=== PATIENT | female | born 1970 | race Caucasian/White ===

== ENCOUNTER → 2016-07-04 | Outpatient (CLI) | payer BC ==
[2016-07-04 15:22] LABS: ALT 26 U/L (9-52); AST 21 U/L (14-36); Alkaline Phosphatase 80 U/L (38-126); Anion Gap 10 mmol/L; Blood Urea Nitrogen 10 mg/dL (7-17); Calcium 9.9 mg/dL (8.4-10.2); Carbon Dioxide 30 mmol/L (22-30); Chloride 101 mmol/L (98-107); Creatine Kinase 44 U/L (30-135); Glucose 86 mg/dL (74-99); Iron 74 ug/dL (37-170); Non-African American GFR(MDRD) >60 (>60 ml/min/1.73 sqM); Potassium 4.1 mmol/L (3.5-5.1); Sodium 141 mmol/L (137-145); Total Bilirubin 0.7 mg/dL (0.2-1.3); Total Protein 7.1 g/dL (6.3-8.2)
[2016-07-04 15:24] LABS: CH 27.9; CHCM 32.3; HCT 43.8 % (34.0-46.0); HGB 13.5 gm/dL (11.4-16.0); MCH 26.8 pg (25.0-35.0); MCHC 30.9 g/dL (31.0-37.0); MCV 86.8 fL (80.0-100.0); Mean Platelet Volume 7.8; RBC 5.05 m/uL (3.80-5.40); RDW 13.3 % (11.5-15.5)
[2016-07-04 16:12] LABS: Vitamin B12 938 pg/mL (239-931)
== END | disposition home or self-care (01) ==
LOC: LABWHC1 14:16
PROVIDERS: ATTEND Psychiatry & Neurology Neurology
DX: Z00.00 Encounter for general adult medical examination without abnormal findings (principal); G35 Multiple sclerosis; G25.81 Restless legs syndrome; M79.1 Myalgia; R43.2 Parageusia; R20.2 Paresthesia of skin
CPT/HCPCS: 36415; 80053; 82306; 82550; 82607; 82728; 83540; 84439; 84443; 84630; 85027

== ENCOUNTER → 2017-08-13 | Outpatient (CLI) | payer BC ==
[2017-08-13 14:03] LABS: HCT 34.6 % (34.0-46.0); HGB 10.4 gm/dL (11.4-16.0); Hypochromasia Marked; MCH 24.3 pg (25.0-35.0); MCV 81.1 fL (80.0-100.0); Mean Platelet Volume 7.4; Platelet Count 367 k/uL (150-450); RBC 4.27 m/uL (3.80-5.40); RDW 14.5 % (11.5-15.5); WBC 6.7 k/uL (3.8-10.6)
[2017-08-13 14:06] LABS: ALT 19 U/L (9-52); AST 21 U/L (14-36); Albumin 4.2 g/dL (3.5-5.0); Alkaline Phosphatase 84 U/L (38-126); Anion Gap 8 mmol/L; Blood Urea Nitrogen 11 mg/dL (7-17); Calcium 9.4 mg/dL (8.4-10.2); Carbon Dioxide 28 mmol/L (22-30); Chloride 104 mmol/L (98-107); Glucose 84 mg/dL (74-99); Potassium 4.2 mmol/L (3.5-5.1); Sodium 140 mmol/L (137-145); Total Bilirubin 0.4 mg/dL (0.2-1.3); Total Protein 7.1 g/dL (6.3-8.2)
[2017-08-13 15:03] LABS: Band Neutrophils % 1 %; Eosinophils # (M) 0.13 k/uL (0-0.7); Lymphocytes # (M) 1.21 k/uL (1.0-4.8); Monocytes # (M) 0.34 k/uL (0-1.0); Neutrophils % (M) 74 %; Nucleated Red Blood Cells 0 /100 WBC (0-0); Total Cells Counted 100
[2017-08-13 15:04] LABS: Large Platelets Present; Poikilocytosis (M) Present
== END | disposition home or self-care (01) ==
LOC: LABWHC1 12:50
PROVIDERS: ATTEND Psychiatry & Neurology Neurology
DX: Z00.00 Encounter for general adult medical examination without abnormal findings (principal)
CPT/HCPCS: 36415; 80053; 82306; 82607; 85025

== ENCOUNTER → 2017-09-04 | Outpatient (CLI) | payer BC ==
--- NOTE | 2017-09-05 13:30 | MM ---
Reason for exam: screening (asymptomatic). Last mammogram was performed 1 year and 3 months ago. History: Patient is nulliparous. Family history of breast cancer in sister at age 51. Physical Findings: A clinical breast exam by your physician is recommended on an annual basis and results should be correlated with mammographic findings. MG 3D Screening Mammo W/Cad Bilateral CC and MLO view(s) were taken. XCCM view(s) were taken of the right breast. Prior study comparison: May 29, 2016, bilateral MG screening mammo w CAD. May 26, 2015, bilateral MG screening mammo w CAD. The breast tissue is heterogeneously dense. This may lower the sensitivity of mammography. No significant changes when compared with prior studies. ASSESSMENT: Benign, BI-RAD 2 RECOMMENDATION: Routine screening mammogram of both breasts in 1 year.
== END ==
LOC: RADMAMWWP 12:02
PROVIDERS: ATTEND Family Medicine
DX: Z12.31 Encounter for screening mammogram for malignant neoplasm of breast (principal)
CPT/HCPCS: 77063; 77067

== ENCOUNTER → 2017-10-02 | Outpatient (CLI) | payer BC ==
--- NOTE | 2017-10-03 07:04 | US ---
EXAMINATION TYPE: US thyroid st tissue head/neck DATE OF EXAM: 10/02/2017 COMPARISON: US CLINICAL HISTORY: N28.81,E07.9 MULTIPLE NODULES,LARGE KIDNEY. GLAND SIZE: Right Lobe: 5.4 x 1.2 x 1.5 cm Overall Parenchyma: homogenous Left Lobe: 5.1 x 1.6 x 1.6 cm Overall Parenchyma: homogeneous Isthmus Thickness: 0.4 cm NODULES RIGHT: # of nodules measured on right: 3 1. 1.3 X 0.6 x 1.0 cm hypoechoic cystic nodule at the upper pole with well-defined margins; . This nodule is wider than tall and shows no intranodular vascularity. Prior size: 1.2 x 0.7 x 0.8 cm 2. 0.5 X 0.3 x 0.4 cm hypoechoic cystic nodule at the upper pole with well-defined margins; . This nodule is wider than tall and shows no intranodular vascularity. Prior size: 0.7 x 0.4 x 0.5 cm 3. 0.3 X 0.3 x 0.3 cm hypoechoic solid nodule at the mid pole with poorly defined margins; calcifica tion . This nodule is wider than tall and shows intranodular vascularity. Prior size: 0.4 x 0.3 x 0.4 cm LEFT: # of nodules measured on left: 4 1. 1.6 X 1.1 x 0.9 cm hypoechoic mixed nodule at the lower pole with well-defined margins; . This nodule is wider than tall and shows intranodular vascularity. Prior size: 1.5 x 1.0 x 1.2 cm 2. 0.8 X 0.4 x 0.6 cm isoechoic solid nodule at the lower pole with well-defined margins; . This no dule is wider than tall and shows intranodular vascularity. Prior size: 0.5 x 0.3 x 0.5 cm 3. 0.7 X 0.5 x 0.7 cm hypoechoic solid nodule at the mid pole with well-defined margins; . This nod ule is wider than tall and shows no intranodular vascularity. Prior size: 0.7 x 0.3 x 0.6 cm 4. 0.8 X 0.4 x 0.5 cm hypoechoic cystic nodule at the mid pole with well-defined margins; . This no dule is wider than tall and shows no intranodular vascularity. Prior size: 0.7 x 0.4 x 0.5 cm ISTHMUS: # of nodules measured in the isthmus: 0 Bilateral neck scanned, no evidence of lymphadenopathy. Nodules as described. IMPRESSION: Persistent stable multinodular goiter .
--- NOTE | 2017-10-03 07:20 | US ---
EXAMINATION TYPE: US kidneys/renal and bladder DATE OF EXAM: 10/02/2017 COMPARISON: Prior renal ultrasound December 27, 2013 CLINICAL HISTORY: N28.81,E07.9 MULTIPLE NODULES,LARGE KIDNEY. EXAM MEASUREMENTS: Right Kidney: 10.2 x 3.6 x 4.6 cm Left Kidney: 9.9 x 3.9 x 6.4 cm Right Kidney: small amount of fluid seen in renal pelvis post void. Left Kidney: No hydronephrosis or masses seen Bladder: wnl Bilateral Jets seen: only left jet seen Incidental note is made of large cystic structure right adnexa, that measures 9.7 x 6.8 x 7.6 cm. There is no evidence for hydronephrosis at this point in time. No nephrolithiasis is seen. No rob s are identified. The urinary bladder is anechoic. Distal left ureter jet is seen. IMPRESSION: Mild prominence of right renal pelvis is seen only after voiding. 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 It has fairly simple morphology but because of size warrants further workup with ded icated pelvic ultrasound and probable MRI as well as tumor marker correlation. OB gynecology referral advised.
== END | disposition home or self-care (01) ==
LOC: RADUSWWP 16:09
PROVIDERS: ATTEND Family Medicine
DX: R93.421 Abnormal radiologic findings on diagnostic imaging of right kidney (principal); N28.81 Hypertrophy of kidney; N88.8 Other specified noninflammatory disorders of cervix uteri; E04.2 Nontoxic multinodular goiter
CPT/HCPCS: 76536; 76770

== ENCOUNTER 2018-05-03 12:41 | Inpatient (IN) | payer BC ==
[2018-05-03] MEDS ORDERED: KETOROLAC 30 MG/ML 1 ML VIAL IVP STA (13:11)
[2018-05-03] MEDS ORDERED: SODIUM CHLORIDE 0.9% 1,000 ML IV STA (13:11)
[2018-05-03] MEDS ORDERED: SODIUM CHLORIDE 0.9% 500 ML 500 ML IV STA (13:11)
--- NOTE | 2018-05-03 13:24 | ED ---
General Adult HPI - General Chief complaint: Fever Stated complaint: Abd Pain Source: patient, family, RN notes reviewed, old records reviewed Mode of arrival: ambulatory Limitations: no limitations - History of Present Illness Initial comments: 47-year-old female patient presents to ED with abdominal pain, fever, diarrhea. The past 3 days. Patient states that she has had intermittent bouts of nonbloody, loose stool since Friday. Patient has also been experiencing some subjective fevers and chills, and a recorded temperature of 100.6 at home. Patient has now developed abdominal pain which she describes as a stabbing in the right lower quadrant. Patient has a history of endometriosis. Patient additionally complains of some mild shortness of breath. Denies dyspnea with exertion. No history of blood clots, no recent travel, no hx of malignancy. Denies chest pain, chest pain with exertion. Patient has not taken anything or sudden treatment for these symptoms. Patient denies headache, chest pain, changes in vision, dysuria. Systemic: Pt denies fatigue, myalgia, rash. Pt denies weakness, night sweats, weight loss. Neuro: Pt denies headache, visual disturbances, syncope or pre-syncope. HEENT: Pt denies ocular discharge or irritation, otalgia, rhinorrhea, pharyngitis or notable lymphadenopathy. Cardiopulmonary: Pt denies chest pain, heart palpitations, dyspnea on exertion. : Pt denies dysuria, burning w/ urination, frequency/urgency. Denies new onset urinary or bowel incontinence. MSK: Pt denies myalgia, loss of strength or function in extremities. - Related Data Home Medications Medication Instructions Recorded Confirmed Aspirin 325 mg PO DIRECTED PRN 10/26/13 05/03/18 Ascorbic Acid/Multivit-Min 1,000 mg PO DAILY 05/03/18 05/03/18 [Emergen-C 1,000 mg Packet] Allergies Allergy/AdvReac Type Severity Reaction Status Date / Time amoxicillin [Amoxicillin] Allergy Severe Rash/Hives Verified 05/03/18 16:57 alprazolam [From Xanax] AdvReac Severe Unknown Verified 05/03/18 16:57 morphine AdvReac Severe Itching Verified 05/03/18 16:57 sulfamethoxazole AdvReac Severe Dyspnea Verified 05/03/18 16:57 [From Bactrim] trimethoprim [From Bactrim] AdvReac Severe Dyspnea Verified 05/03/18 16:57 novacaine AdvReac Severe Rapid Uncoded 05/03/18 13:06 Heart Rate Review of Systems ROS Statement: Those systems with pertinent positive or pertinent negative responses have been documented in the HPI. ROS Other: All systems not noted in ROS Statement are negative. Past Medical History Past Medical History: Neurologic Disorder, Pneumonia, Rheumatoid Arthritis (RA) Additional Past Medical History / Comment(s): MULTIPLE SCLEROSIS, ENDOMETRIOSIS.RIGHT KIDNEY ENLARGED. History of Any Multi-Drug Resistant Organisms: None Reported Past Surgical History: Orthopedic Surgery Additional Past Surgical History / Comment(s): EXP. LAP FOR ENDOMETRIOSIS X2 WITH SCAR TISSUE ON OVARIES..ADENEXAL CYSTIC DRAINAGE DUE TO PRESSURE ON URETHERA-. Past Anesthesia/Blood Transfusion Reactions: Previous Problems w/ Anesthesia Additional Past Anesthesia/Blood Transfusion Reaction / Comment(s): NOVACAINE. IT CAUSED INCREASED HEART RATE. Past Psychological History: Anxiety, Depression Smoking Status: Never smoker Past Alcohol Use History: None Reported Past Drug Use History: None Reported General Exam - General Exam Comments Initial Comments: Constitutional: NAD, AOX3, Pt has pleasant affect. HEENT: NC/AT, trachea midline, neck supple, no lymphadenopathy. Posterior pharynx non erythematous, without exudates. External ears appear normal, without discharge. Mucous membranes moist. Eyes PERRLA, EOM intact. There is no scleral icterus. No pallor noted. Cardiopulmonary: RRR, no murmurs, rubs or gallops, no JVD noted. Lungs CTAB in anterior and posterior hamm. No peripheral edema. Abdominal exam: Abdomen soft and mildly distended. Abdomen diffusely tender to palpation, most tender in right lower quadrant. No ecchymoses, Cullens/Mock Willson sign negative. No guarding or rigidity. Bowel sounds active in LLQ. No hepatosplenomegaly. Neuro: CN II-XII grossly intact. MSK: no leg swelling, homans negative bilaterally. no periperal edema. Posterior tibialis +2 bilaterally. Limitations: no limitations Course Vital Signs 05/03/18 05/03/18 05/03/18 12:59 13:00 13:03 Temperature 100.6 F H Pulse Rate 98 Respiratory 20 Rate Blood Pressure 128/88 O2 Sat by Pulse 97 96 98 Oximetry 05/03/18 05/03/18 05/03/18 13:10 13:20 13:30 Temperature Pulse Rate Respiratory Rate Blood Pressure 128/88 128/88 128/88 O2 Sat by Pulse 98 Oximetry 05/03/18 05/03/18 05/03/18 13:40 13:50 14:00 Temperature Pulse Rate Respiratory Rate Blood Pressure 128/88 128/88 128/88 O2 Sat by Pulse Oximetry 05/03/18 05/03/18 05/03/18 14:10 14:20 14:30 Temperature Pulse Rate Respiratory Rate Blood Pressure 128/88 128/88 128/88 O2 Sat by Pulse Oximetry 05/03/18 05/03/18 05/03/18 14:40 14:50 15:00 Temperature 100.7 F H Pulse Rate 85 Respiratory 18 Rate Blood Pressure 128/88 128/88 128/88 O2 Sat by Pulse 100 Oximetry 05/03/18 05/03/18 05/03/18 15:10 15:20 15:30 Temperature Pulse Rate Respiratory Rate Blood Pressure 128/88 128/88 114/73 O2 Sat by Pulse Oximetry 05/03/18 05/03/18 05/03/18 15:40 15:50 16:00 Temperature Pulse Rate 72 Respiratory 18 Rate Blood Pressure 114/73 114/73 114/73 O2 Sat by Pulse 100 Oximetry 05/03/18 05/03/18 05/03/18 16:10 16:20 16:30 Temperature Pulse Rate Respiratory Rate Blood Pressure 114/73 114/73 114/73 O2 Sat by Pulse Oximetry 05/03/18 05/03/18 05/03/18 16:40 16:50 16:52 Temperature 99.2 F Pulse Rate 85 Respiratory 20 Rate Blood Pressure 114/73 114/73 O2 Sat by Pulse 99 Oximetry 05/03/18 18:28 Temperature 101.4 F H Pulse Rate 86 Respiratory 18 Rate Blood Pressure 116/71 O2 Sat by Pulse 96 Oximetry Medical Decision Making - Medical Decision Making 47-year-old female patient presents to ED for primary complaint of abdominal pain. 47-year-old female patient presents to ED with abdominal pain, fever, diarrhea. The past 3 days. Patient states that she has had intermittent bouts of nonbloody, loose stool since Friday. Patient has also been experiencing some subjective fevers and chills. Patient has now developed abdominal pain which she describes as a stabbing in the right lower quadrant. Patient has a history of endometriosis. Patient additionally complains of some mild shortness of breath. Denies chest pain, chest pain with exertion. Physical exam displayed a tender abdomen, diffusely, most tender in right lower quadrant. No guarding or rigidity, no ecchymoses. Obturator sign negative. Patient was began on extensive workup including EKGpercent display acute ischemia. CBC and CMP were non impressive. UA displayed a UTI. Chest x-ray displayed right middle lobe pneumonia. CT abdomen and pelvis displayed possible jejunitis, possible small bowel infection. CT also displayed inflammation in the adnexa, patient has a long history of endometriosis, multiple surgeries. A d-dimer and the patient's elevated. D-dimer is ordered secondary to patient shortness of breath. D-dimer was found to be elevated, V/Q scan was ordered and pending, bilateral LE venous doppler ordered and pending. PERC negative. Pt is not actively experiencing pleuritic chest pain, sob. Pt's vitals have been wnl. Saturating at 99%, respirations 16 on exam, regular rate. Pt to be started on levofloxacin and admitted for continued evaluation and treatment of pneumonia and uti. Case discussed in depth with Dr. Flores. - Lab Data Result diagrams: 05/03/18 13:52 05/03/18 13:40 Lab Results 05/03/18 05/03/18 05/03/18 Range/Units 13:40 13:52 13:52 WBC 10.6 (3.8-10.6) k/uL RBC 4.22 (3.80-5.40) m/uL Hgb 12.0 (11.4-16.0) gm/dL Hct 36.2 (34.0-46.0) % MCV 85.8 (80.0-100.0) fL MCH 28.5 (25.0-35.0) pg MCHC 33.2 (31.0-37.0) g/dL RDW 14.0 (11.5-15.5) % Plt Count 410 (150-450) k/uL Neutrophils % (Manual) 93 % Lymphocytes % (Manual) 3 % Monocytes % (Manual) 4 % Neutrophils # (Manual) 9.86 H (1.3-7.7) k/uL Lymphocytes # (Manual) 0.32 L (1.0-4.8) k/uL Monocytes # (Manual) 0.42 (0-1.0) k/uL Nucleated RBCs 0 (0-0) /100 WBC Manual Slide Review Performed RBC Morphology Normal D-Dimer (<0.60) mg/L FEU Sodium 134 L (137-145) mmol/L Potassium 4.0 (3.5-5.1) mmol/L Chloride 96 L (98-107) mmol/L Carbon Dioxide 22 (22-30) mmol/L Anion Gap 16 mmol/L BUN 21 H (7-17) mg/dL Creatinine 0.60 (0.52-1.04) mg/dL Est GFR (CKD-EPI)AfAm >90 (>60 ml/min/1.73 sqM) Est GFR (CKD-EPI)NonAf >90 (>60 ml/min/1.73 sqM) Glucose 96 (74-99) mg/dL Plasma Lactic Acid Anupam 0.8 (0.7-2.0) mmol/L Calcium 9.3 (8.4-10.2) mg/dL Total Bilirubin 1.0 (0.2-1.3) mg/dL AST 61 H (14-36) U/L ALT 46 (9-52) U/L Alkaline Phosphatase 117 (38-126) U/L Troponin I (0.000-0.034) ng/mL Total Protein 6.8 (6.3-8.2) g/dL Albumin 3.6 (3.5-5.0) g/dL Amylase 41 (30-110) U/L Lipase 35 (23-300) U/L Urine Color Urine Appearance (Clear) Urine pH (5.0-8.0) Ur Specific [place] (1.001-1.035) Urine Protein (Negative) Urine Glucose (UA) (Negative) Urine Ketones (Negative) Urine Blood (Negative) Urine Nitrite (Negative) Urine Bilirubin (Negative) Urine Urobilinogen (<2.0) mg/dL Ur Leukocyte Esterase (Negative) Urine RBC (0-5) /hpf Urine WBC (0-5) /hpf Ur Squamous Epith Cells (0-4) /hpf Amorphous Sediment (None) /hpf Urine Bacteria (None) /hpf Urine HCG, Qual (Not Detectd) 05/03/18 05/03/18 05/03/18 Range/Units 13:52 13:52 15:25 WBC (3.8-10.6) k/uL RBC (3.80-5.40) m/uL Hgb (11.4-16.0) gm/dL Hct (34.0-46.0) % MCV (80.0-100.0) fL MCH (25.0-35.0) pg MCHC (31.0-37.0) g/dL RDW (11.5-15.5) % Plt Count (150-450) k/uL Neutrophils % (Manual) % Lymphocytes % (Manual) % Monocytes % (Manual) % Neutrophils # (Manual) (1.3-7.7) k/uL Lymphocytes # (Manual) (1.0-4.8) k/uL Monocytes # (Manual) (0-1.0) k/uL Nucleated RBCs (0-0) /100 WBC Manual Slide Review RBC Morphology D-Dimer 3.53 H (<0.60) mg/L FEU Sodium (137-145) mmol/L Potassium (3.5-5.1) mmol/L Chloride (98-107) mmol/L Carbon Dioxide (22-30) mmol/L Anion Gap mmol/L BUN (7-17) mg/dL Creatinine (0.52-1.04) mg/dL Est GFR (CKD-EPI)AfAm (>60 ml/min/1.73 sqM) Est GFR (CKD-EPI)NonAf (>60 ml/min/1.73 sqM) Glucose (74-99) mg/dL Plasma Lactic Acid Anupam (0.7-2.0) mmol/L Calcium (8.4-10.2) mg/dL Total Bilirubin (0.2-1.3) mg/dL AST (14-36) U/L ALT (9-52) U/L Alkaline Phosphatase (38-126) U/L Troponin I <0.012 (0.000-0.034) ng/mL Total Protein (6.3-8.2) g/dL Albumin (3.5-5.0) g/dL Amylase (30-110) U/L Lipase (23-300) U/L Urine Color Yellow Urine Appearance Clear (Clear) Urine pH 6.5 (5.0-8.0) Ur Specific [place] >1.050 H (1.001-1.035) Urine Protein 1+ H (Negative) Urine Glucose (UA) Negative (Negative) Urine Ketones 2+ H (Negative) Urine Blood Trace H (Negative) Urine Nitrite Positive H (Negative) Urine Bilirubin Negative (Negative) Urine Urobilinogen <2.0 (<2.0) mg/dL Ur Leukocyte Esterase Negative (Negative) Urine RBC 6 H (0-5) /hpf Urine WBC 35 H (0-5) /hpf Ur Squamous Epith Cells 6 H (0-4) /hpf Amorphous Sediment Rare H (None) /hpf Urine Bacteria Moderate H (None) /hpf Urine HCG, Qual (Not Detectd) 05/03/18 Range/Units 15:25 WBC (3.8-10.6) k/uL RBC (3.80-5.40) m/uL Hgb (11.4-16.0) gm/dL Hct (34.0-46.0) % MCV (80.0-100.0) fL MCH (25.0-35.0) pg MCHC (31.0-37.0) g/dL RDW (11.5-15.5) % Plt Count (150-450) k/uL Neutrophils % (Manual) % Lymphocytes % (Manual) % Monocytes % (Manual) % Neutrophils # (Manual) (1.3-7.7) k/uL Lymphocytes # (Manual) (1.0-4.8) k/uL Monocytes # (Manual) (0-1.0) k/uL Nucleated RBCs (0-0) /100 WBC Manual Slide Review RBC Morphology D-Dimer (<0.60) mg/L FEU Sodium (137-145) mmol/L Potassium (3.5-5.1) mmol/L Chloride (98-107) mmol/L Carbon Dioxide (22-30) mmol/L Anion Gap mmol/L BUN (7-17) mg/dL Creatinine (0.52-1.04) mg/dL Est GFR (CKD-EPI)AfAm (>60 ml/min/1.73 sqM) Est GFR (CKD-EPI)NonAf (>60 ml/min/1.73 sqM) Glucose (74-99) mg/dL Plasma Lactic Acid Anupam (0.7-2.0) mmol/L Calcium (8.4-10.2) mg/dL Total Bilirubin (0.2-1.3) mg/dL AST (14-36) U/L ALT (9-52) U/L Alkaline Phosphatase (38-126) U/L Troponin I (0.000-0.034) ng/mL Total Protein (6.3-8.2) g/dL Albumin (3.5-5.0) g/dL Amylase (30-110) U/L Lipase (23-300) U/L Urine Color Urine Appearance (Clear) Urine pH (5.0-8.0) Ur Specific [place] (1.001-1.035) Urine Protein (Negative) Urine Glucose (UA) (Negative) Urine Ketones (Negative) Urine Blood (Negative) Urine Nitrite (Negative) Urine Bilirubin (Negative) Urine Urobilinogen (<2.0) mg/dL Ur Leukocyte Esterase (Negative) Urine RBC (0-5) /hpf Urine WBC (0-5) /hpf Ur Squamous Epith Cells (0-4) /hpf Amorphous Sediment (None) /hpf Urine Bacteria (None) /hpf Urine HCG, Qual Not Detected (Not Detectd) - EKG Data -: EKG Interpreted by Ga EKG shows normal: sinus rhythm EKG Comments: Ventricular rate 96, OH interval 138, QRS 80, QT/QTC 342/432. Normal sinus rhythm. Possible atrial enlargement. No concerns for acute ischemia. Disposition Clinical Impression: Pneumonia, UTI (urinary tract infection) Disposition: ADMITTED IP TO THIS HOSP Condition: Good Is patient prescribed a controlled substance at d/c from ED?: No Decision Date: 05/03/18 Decision Time: 17:10
[2018-05-03 14:09] LABS: ALT 46 U/L (9-52); AST 61 U/L (14-36); Albumin 3.6 g/dL (3.5-5.0); Alkaline Phosphatase 117 U/L (38-126); Amylase 41 U/L (30-110); Anion Gap 16 mmol/L; Blood Urea Nitrogen 21 mg/dL (7-17); Calcium 9.3 mg/dL (8.4-10.2); Carbon Dioxide 22 mmol/L (22-30); Chloride 96 mmol/L (98-107); Glucose 96 mg/dL (74-99); Lipase 35 U/L (23-300); Sodium 134 mmol/L (137-145); Total Protein 6.8 g/dL (6.3-8.2)
[2018-05-03 14:13] LABS: HCT 36.2 % (34.0-46.0); MCH 28.5 pg (25.0-35.0); MCHC 33.2 g/dL (31.0-37.0); MCV 85.8 fL (80.0-100.0); Mean Platelet Volume 6.8; Platelet Count 410 k/uL (150-450); RBC 4.22 m/uL (3.80-5.40); WBC 10.6 k/uL (3.8-10.6)
--- NOTE | 2018-05-03 14:43 | XR ---
EXAMINATION TYPE: XR chest 2V DATE OF EXAM: 05/03/2018 COMPARISON: None INDICATION: Pain short of breath TECHNIQUE: Frontal and lateral views of the chest are obtained. FINDINGS: The heart size is normal. The pulmonary vasculature is normal. Appears to be an infiltrate silhouetting the right heart border. Correlate for right middle lobe atel ectasis or early pneumonia. Follow-up exams can be performed as clinically indicated.. IMPRESSION: 1. Suggestion of a right middle lobe infiltrate. Correlate for atelectasis or pneumonia
[2018-05-03 14:55] LABS: Lymphocytes # (M) 0.32 k/uL (1.0-4.8); Monocytes # (M) 0.42 k/uL (0-1.0); Neutrophils # (M) 9.86 k/uL (1.3-7.7); Neutrophils % (M) 93 %; Nucleated Red Blood Cells 0 /100 WBC (0-0); Total Cells Counted 100
[2018-05-03 15:49] LABS: Amorphous Sediment,Urine Rare /hpf; Appearance,Urine Clear (Clear); Bacteria,Urine Moderate /hpf; Bilirubin,Urine Negative (Negative); Blood,Urine Trace (Negative); Color,Urine Yellow; Glucose,Urine (UA) Negative (Negative); Ketones,Urine 2+ (Negative); Leukocyte Esterase,Urine Negative (Negative); Nitrite,Urine Positive (Negative); PH, Urine 6.5 (5.0-8.0); Protein,Urine 1+ (Negative); RBC,Urine 6 /hpf (0-5); Squamous Epithelial Cell,Urine 6 /hpf (0-4); Urobilinogen,Urine <2.0 mg/dL (<2.0)
[2018-05-03 15:50] LABS: Specific Gravity,Urine >1.050 (1.001-1.035)
--- NOTE | 2018-05-03 15:53 | CT ---
EXAMINATION TYPE: CT abdomen pelvis w con DATE OF EXAM: 05/03/2018 COMPARISON: 11/01/2013 pelvis INDICATION: Generalized abdominal pain and bloating DLP: 624.9 mGycm, Automated exposure control for dose reduction was used. CONTRAST: 100 mL of Isovue 300. Study performed without Oral Contrast TECHNIQUE: Axial images were obtained from above the diaphragm to the pubic rami in the axial plane a t 5 mm thick sections. Reconstructed images are reviewed on the computer in the coronal plane. FINDINGS: Limited CT sections are obtained the lung bases. The lung bases are clear. CT ABDOMEN: Liver: Normal Spleen: Normal Pancreas: Normal Adrenal glands: The adrenal glands are normal. Gallbladder: Normal Kidneys: No masses are evident. No hydronephrosis is present. No cysts are present. Delayed images were obtained through the kidneys, which remain unremarkable. Aorta: Normal Inferior vena cava: Normal. CT PELVIS: There are multiple dilated small bowel loops throughout the upper abdomen. Colon appears normal. Ther e may be a zone of transition within the mid left abdomen with some thickening of small bowel loops., Series 202image 29, series 201 image 42. Correlate for partial small bowel obstruction and ileus. Appendix: Not identified. Urinary bladder: Normal. Genitourinary structures: There are multiple large cysts within the pelvis. Consider additional evalu ation with ultrasound. Hydrosalpinx could be within the differential. Hiatal salpinx is not excluded. Ovarian carcinoma is not excluded. Largest cystlike structure measures 3.8 cm in transverse dimensio n on the left and 5.4 cm in transverse dimension on the right. The uterus appears within normal limit s. Osseous structures: No suspicious lytic or sclerotic lesions. IMPRESSIONS: 1. Partial small bowel obstruction with a transition within the left midabdomen secondary to the con taining of the small bowel wall. Consider jejunitis. 2. Multiple large cystic structures in the bilateral adnexa. Some of these appear curvilinear [place] s alpinx is not excluded. Consider the possibility of pyosalpinx within the differential. Ovarian carci noma is not excluded. Follow-up is recommended. Consider initial evaluation with ultrasound. 3. Report was called to Dr. Lopez by Dr. Villa by telephone at the time of interpretation.
[2018-05-03] MEDS ORDERED: LEVOFLOXACIN 750MG-D5W PMX 750 MG in DEXTROSE/WATER 1 150ML.BAG IVPB STA (16:24)
[2018-05-03] MEDS ORDERED: NALOXONE 0.4 MG/ML 1 ML VIAL IV PRN (16:35)
--- NOTE | 2018-05-03 17:23 | US ---
EXAMINATION TYPE: US venous doppler duplex LE BI DATE OF EXAM: 05/03/2018 4:25 PM COMPARISON: NONE CLINICAL HISTORY: Pain. Elevated DDimer, no pain or swelling, no redness SIDE PERFORMED: Bilateral TECHNIQUE: The lower extremity deep venous system is examined utilizing real time linear array sonog herminia with graded compression, doppler sonography and color-flow sonography. VESSELS IMAGED: External Iliac Vein (EIV) Common Femoral Vein Deep Femoral Vein Greater Saphenous Vein * Femoral Vein Popliteal Vein Small Saphenous Vein * Proximal Calf Veins (* superficial vessels) Right Leg: Negative for DVT, rouleaux flow seen Left Leg: Negative for DVT, rouleaux flow seen IMPRESSION: 1. No deep venous thrombosis by ultrasound criteria. 2. Rouleaux flow bilateral lower extremities. This can be seen within normal patients. Other etiologi es however should include, but are not limited to, malignancy, inflammation, connective tissue disord ers.
[2018-05-03] MEDS: ACETAMINOPHEN TAB 325 MG TAB PO PRN (18:27)
--- NOTE | 2018-05-04 09:51 | NM ---
EXAMINATION TYPE: NM pul vent and perfuse DATE OF EXAM: 05/04/2018 COMPARISON: Chest x-ray 05/03/2018 HISTORY: Pain and shortness of breath, elevated d-dimer TECHNIQUE: Utilizing inhalation of 38.4 mCi Tc 99m DTPA aerosol and intravenous injection of 4.98 mC i of Tc 99m MAA, ventilation and perfusion images are acquired post injection in multiple projections . FINDINGS: Normal radiotracer distribution is noted in the lungs. There is no evidence of mismatched defects. IMPRESSION: Low probability for pulmonary embolism
[2018-05-04 11:06] LABS: HCT 38.4 % (34.0-46.0); HGB 12.3 gm/dL (11.4-16.0); MCV 87.5 fL (80.0-100.0); Mean Platelet Volume 6.4; Platelet Count 529 k/uL (150-450); RBC 4.39 m/uL (3.80-5.40); RDW 14.1 % (11.5-15.5); WBC 10.9 k/uL (3.8-10.6)
--- NOTE | 2018-05-04 11:06 | P.HPIM ---
History of Present Illness H&P Date: 05/04/18 Chief Complaint: Abdominal pain This is a 47-year-old female, patient of Dr. Cruz. She has a known past medical history of multiple sclerosis, endometriosis requiring exploratory laparotomy 2 and rheumatoid arthritis. Patient reports abdominal pain started about 3 days ago mostly in the upper abdomen. She had a significant amount of diarrhea and and Friday. There was no blood reported in the stools. She was also having fevers as high as 101. The abdominal pain moved into the lower abdominal region. Pain was so severe she was having shortness of breath. And then on Friday she had stopped having any diarrhea and also stopped passing gas. During these 3 days she vomited twice. Patient came into the emergency room for further evaluation and treatment. She's found to have a temp of 101.4 she was tachycardic heart rate around 108. White count normal. Computed tomography scan showed partial small bowel obstruction with a transition within the left mid abdomen secondary to be containing of the small bowel wall. And consider jejunitis. Also reports multiple large cystic structures in the bilateral adnexa. Consider the possibility of pyosalpinx within the differential. Ovarian carcinoma is not excluded. We'll be ordering an abdominal and pelvic ultrasound for further evaluation. Patient is currently nothing by mouth. Started on Levaquin and IV Flagyl. Surgical and SCREEN HANDLER consults have been placed. Patient was found to have evidence of a possible pneumonia on chest x-ray. Chest x-ray reported suggestion of a right middle lobe infiltrate. Correlate for atelectasis or pneumonia. Patient does reports having a cough. Also evidence of a UTI. She has been having some dark urine as well as mild burning with urination. Culture has been obtained. She' s currently nothing by mouth and on my and on IV fluids. Patient denies any chest pain. Does report some nausea. Patient has never had any colonoscopy or EGD. Does report having history of scar tissue in the abdomen due to previous abdominal surgeries. Patient denies any recent traveling. Denies any sick contacts. 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 Review of Systems Please refer to HPI otherwise unremarkable Past Medical History Past Medical History: Neurologic Disorder, Pneumonia, Rheumatoid Arthritis (RA) Additional Past Medical History / Comment(s): MULTIPLE SCLEROSIS, ENDOMETRIOSIS.RIGHT KIDNEY ENLARGED. History of Any Multi-Drug Resistant Organisms: None Reported Past Surgical History: Orthopedic Surgery Additional Past Surgical History / Comment(s): EXP. LAP FOR ENDOMETRIOSIS X2 WITH SCAR TISSUE ON OVARIES..ADENEXAL CYSTIC DRAINAGE DUE TO PRESSURE ON URETHERA-. Past Anesthesia/Blood Transfusion Reactions: Previous Problems w/ Anesthesia Additional Past Anesthesia/Blood Transfusion Reaction / Comment(s): NOVACAINE. IT CAUSED INCREASED HEART RATE. Past Psychological History: Anxiety, Depression Smoking Status: Never smoker Past Alcohol Use History: None Reported Past Drug Use History: None Reported - Past Family History Mother Family Medical History: Cancer, Thyroid Disorder Father Additional Family Medical History / Comment(s): , Heart Attack at 57 Sister(s) Family Medical History: Cancer Additional Family Medical History / Comment(s): Breast Cancer Medications and Allergies Home Medications Medication Instructions Recorded Confirmed Type Aspirin 325 mg PO DIRECTED PRN 10/26/13 05/03/18 History Ascorbic Acid/Multivit-Min 1,000 mg PO DAILY 05/03/18 05/03/18 History [Emergen-C 1,000 mg Packet] Allergies Allergy/AdvReac Type Severity Reaction Status Date / Time amoxicillin [Amoxicillin] Allergy Severe Rash/Hives Verified 05/03/18 16:57 alprazolam [From Xanax] AdvReac Severe Unknown Verified 05/03/18 16:57 morphine AdvReac Severe Itching Verified 05/03/18 16:57 sulfamethoxazole AdvReac Severe Dyspnea Verified 05/03/18 16:57 [From Bactrim] trimethoprim [From Bactrim] AdvReac Severe Dyspnea Verified 05/03/18 16:57 novacaine AdvReac Severe Rapid Uncoded 05/03/18 13:06 Heart Rate Physical Exam Vitals: Vital Signs Temp Pulse Pulse Resp BP BP Pulse Ox 05/04/18 07:00 99.7 F H 108 H 16 118/75 95 05/04/18 02:38 99.0 F 91 16 117/68 95 05/04/18 00:00 98.8 F 05/03/18 22:11 99.7 F H 102 H 16 108/71 96 05/03/18 18:28 101.4 F H 86 18 116/71 96 05/03/18 16:52 99.2 F 05/03/18 16:50 85 20 114/73 99 05/03/18 16:40 114/73 05/03/18 16:30 114/73 05/03/18 16:20 114/73 05/03/18 16:10 114/73 05/03/18 16:00 114/73 05/03/18 15:50 114/73 05/03/18 15:40 72 18 114/73 100 05/03/18 15:30 114/73 05/03/18 15:20 128/88 05/03/18 15:10 128/88 05/03/18 15:00 100.7 F H 85 18 128/88 100 05/03/18 14:50 128/88 05/03/18 14:40 128/88 05/03/18 14:30 128/88 05/03/18 14:20 128/88 05/03/18 14:10 128/88 05/03/18 14:00 128/88 05/03/18 13:50 128/88 05/03/18 13:40 128/88 05/03/18 13:30 128/88 05/03/18 13:20 128/88 98 05/03/18 13:10 128/88 05/03/18 13:03 100.6 F H 98 20 128/88 98 05/03/18 13:00 96 05/03/18 12:59 97 Intake and Output 05/03/18 05/04/18 05/04/18 22:59 06:59 14:59 Other: # Voids 1 1 Head normocephalic Neck supple Lungs clear to auscultation bilaterally no wheezing or crackles Heart regular rate and rhythm S1-S2, no rub or gallop Abdomen is soft distended. Diffuse tenderness. Hypoactive bowel sounds. Extremities no edema Neuro alert and orientated to 3 Results CBC & Chem 7: 05/03/18 13:52 05/03/18 13:40 Labs: Abnormal Lab Results - Last 24 Hours (Table) 05/03/18 05/03/18 05/03/18 Range/Units 13:40 13:52 13:52 Neutrophils # (Manual) 9.86 H (1.3-7.7) k/uL Lymphocytes # (Manual) 0.32 L (1.0-4.8) k/uL D-Dimer 3.53 H (<0.60) mg/L FEU Sodium 134 L (137-145) mmol/L Chloride 96 L (98-107) mmol/L BUN 21 H (7-17) mg/dL AST 61 H (14-36) U/L Ur Specific [place] (1.001-1.035) Urine Protein (Negative) Urine Ketones (Negative) Urine Blood (Negative) Urine Nitrite (Negative) Urine RBC (0-5) /hpf Urine WBC (0-5) /hpf Ur Squamous Epith Cells (0-4) /hpf Amorphous Sediment (None) /hpf Urine Bacteria (None) /hpf 05/03/18 Range/Units 15:25 Neutrophils # (Manual) (1.3-7.7) k/uL Lymphocytes # (Manual) (1.0-4.8) k/uL D-Dimer (<0.60) mg/L FEU Sodium (137-145) mmol/L Chloride (98-107) mmol/L BUN (7-17) mg/dL AST (14-36) U/L Ur Specific [place] >1.050 H (1.001-1.035) Urine Protein 1+ H (Negative) Urine Ketones 2+ H (Negative) Urine Blood Trace H (Negative) Urine Nitrite Positive H (Negative) Urine RBC 6 H (0-5) /hpf Urine WBC 35 H (0-5) /hpf Ur Squamous Epith Cells 6 H (0-4) /hpf Amorphous Sediment Rare H (None) /hpf Urine Bacteria Moderate H (None) /hpf Microbiology - Last 24 Hours (Table) 05/03/18 15:25 Urine Culture - Preliminary Urine,Voided Thrombosis Risk Factor Assmnt - Choose All That Apply Any of the Below Risk Factors Present?: Yes Each Factor Represents 1 point: Age 41-60 years Other Risk Factors: No Other congenital or acquired thrombophilia - If yes, enter type in comment: No Thrombosis Risk Factor Assessment Total Risk Factor Score: 1 Thrombosis Risk Factor Assessment Level: Low Risk Assessment and Plan Assessment: 1. Abdominal pain with diarrhea and now constipation: Computed tomography scan showing partial small bowel obstruction with a transition within the left mid abdomen secondary to containing of the small bowel wall. And consider jejunitis. Patient has been started on Levaquin and IV Flagyl. Consult surgical service. Patient nothing by mouth. Continue IV fluids 2. Multiple large cystic structure in the bilateral adnexa noted on computed tomography scan: Check pelvic ultrasound. Consult SCREEN HANDLER service 3. Sepsis with fever and tachycardia likely related to abdominal infection. Continue IV antibiotics continue IV fluids. Check blood culture. Lactic acid normal. 4. Elevated d-dimer: Venous Doppler negative for DVT bilaterally. VQ scan low probability for PE 5. Possible community-acquired pneumonia noted on chest x-ray continue with Levaquin 6. UTI: Await urine culture. Continue Levaquin 7. History of multiple sclerosis: Not on any medications due to side effects 8. History of rheumatoid arthritis 9. History of endometriosis with previous exploratory laparoscopic Surgeries GI prophylaxis IV Protonix and DVT prophylaxis SCDs Time with Patient: Greater than 30 (Greater than 60% of the total time spent in counseling and coordination of care.I performed an examination of the patient and discussed their management with the physician Jewelry Mold Maker. I have reviewed the Physician Jewelry Mold Maker's notes and agree with the documented findings and plan of care)
[2018-05-04] MEDS: SODIUM CHLORIDE 0.9% 1,000 ML IV SCH ×2 (11:18→17:50)
[2018-05-04 11:21] LABS: ALT 40 U/L (9-52); AST 46 U/L (14-36); Albumin 3.4 g/dL (3.5-5.0); Alkaline Phosphatase 145 U/L (38-126); Anion Gap 15 mmol/L; Blood Urea Nitrogen 15 mg/dL (7-17); Calcium 9.1 mg/dL (8.4-10.2); Carbon Dioxide 24 mmol/L (22-30); Chloride 99 mmol/L (98-107); Glucose 92 mg/dL (74-99); Potassium 3.4 mmol/L (3.5-5.1); Sodium 138 mmol/L (137-145); Total Bilirubin 0.8 mg/dL (0.2-1.3); Total Protein 6.6 g/dL (6.3-8.2)
[2018-05-04 11:37] LABS: Metamyelocytes # (M) 0.11 k/uL (0); Metamyelocytes % 1 %; Nucleated Red Blood Cells 0 /100 WBC (0-0)
[2018-05-04 11:38] LABS: Band Neutrophils % 4 %; Lymphocytes # (M) 0.76 k/uL (1.0-4.8); Monocytes # (M) 0.76 k/uL (0-1.0); Neutrophils % (M) 83 %; Total Cells Counted 200
[2018-05-04] MEDS: LEVOFLOXACIN 500MG-D5W PMX 500 MG in DEXTROSE/WATER 1 100ML.BAG IVPB SCH (11:38)
[2018-05-04 11:39] LABS: Toxic Granulation Present
--- NOTE | 2018-05-04 12:09 | P.CON ---
Consult Note - . Consult date: 05/04/18 Assessment/Plan:: This is a 47-year-old female 0 last menstrual period 04/20/2018. Patient presented yesterday with a history of increasing abdominal pain, sharp and crampy. In addition she states she had a fever at home. She denies any respiratory symptoms. Last bowel movement was yesterday morning, she is passing flatus today. She does report dysuria. Review of systems is otherwise negative. Gynecologic history is significant for menarche age 13, 28-30 day interval and 5 to six-day duration of the menses. Patient has a long-standing history of infertility secondary to endometriosis. She and her uses nothing for contraception. She denies dyspareunia. Last Pap smear one year ago with Dr. Maria was within normal limits. Last mammogram 1 year ago was also normal per patient's report. Past surgical history is significant for laparoscopy 2 with cautery of endometriosis, left knee arthroscopy. Past medical history is negative. Current medications none. ALLERGIES include sulfa drugs to which reports a coma-like state with sedation, amoxicillin to which reports a rash, and morphine to which she reports itchy skin. Family history is negative for cancers of the ovaries, cervix, uterus, colon, or breast. Patient's mother is alive at age 85, she has a history of cervical cancer in her 40s. Father at age 57 of heart attack. She has a 58-year- old sister with a history of breast cancer, a 51-year-old sister who has a history of asthma, 1 brother age 53 who has hypercholesterolemia. Social history patient is for 17 years, she denies alcohol or drug use. Social alcohol only. 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 On exam this is a pleasant white female who is 5 foot 9 inches, 140 pounds, blood pressure 118/75, pulse 108, 95% O2 saturation, respirations 16, temperature 99.7. HEENT exam reveals good dentition, no thyromegaly, neck is soft and supple. Breasts are bilaterally symmetric to inspection with no skin dimpling, nipple discharge, axillary adenopathy, discernible lesions or masses. Cardiac exam does reveal a grade 2/6 holosystolic murmur, no clicks or rubs. Chest to my auscultation appears clear in all hamm. Abdomen is softly distended, there are active bowel sounds. She has tenderness to palpation in the right and left lower quadrants and across the midline, there is guarding but no rebound. No obvious organosplenomegaly. Extremities reveal good peripheral pulses, normal range of motion, no edema. On pelvic exam external genitalia is well estrogenized. There is no unusual odor or discharge. Cervix is nulliparous and small, no cervical motion tenderness. Uterus is small and anteverted, nontender to palpation. Bilateral adnexal regions are tender, there is no obvious mass to pelvic examination, however patient does report tenderness 8 and 9 out of 10. On admission UA reveals 2+ ketones, 35 WBCs, positive nitrates, trace blood. WBCs 10.9, hemoglobin 12.3, platelets 529,000. Computed tomography scan of the abdomen reveals a 3.8 cm left ovarian cyst along with a 5.4 cm right ovarian cyst, normal uterine dimensions, no free fluid. There is edema noted across the bowel loops, possibly consistent with ileus. Impression: Lower abdominal pain, urinary tract infection, evidence of pneumonia of the right chest. History of endometriosis with bilateral ovarian cysts noted on computed tomography scan. Plan: At this time upon pelvic ultrasound has been ordered as this is the preferred imaging study in the pelvis. I do not feel that the abdominal symptoms are due to the [employer] organs, however further recommendations will be made pending results of ultrasound. Thank you for the consultation.
[2018-05-04] MEDS: PANTOPRAZOLE 40 MG/10 ML VIAL IVP SCH (13:35)
[2018-05-04] MEDS: metroNIDAZOLE-NS PMX 500 MG in SALINE 1 100ML.BAG IVPB SCH ×2 (13:35→20:23)
--- NOTE | 2018-05-04 14:02 | P.GSCN ---
<Awilda Tipton - Last Filed: 05/04/18 13:48> History of Present Illness Consult date: 05/04/18 Reason for Consult: Abdominal pain History of present illness: 47-year-old female seen in the emergency room with a chief complaint of developing fever chills diarrhea decrease appetite with diffuse abdominal cramping with bloating. According to the patient's symptoms have been ongoing for the past several days. Patient states the pain initially started in the upper abdomen and then radiated down. Patient stated there was no blood noted in stool but had significant amount of watery stools last and Friday. Also reported having a temp 101 Currently the patient states the abdominal pain and bloating has improved. Gives no prior episodes. Has not had a colonoscopy or an EGD in the past. Patient stated that she has been nauseated poor oral intake. In the emergency room patient was tachycardic heart rate in the 100s to 110 with a temp of 101. Patient does give a history of having endometriosis with 2 exploratory laparotomy done in the past. Also history of rheumatoid arthritis and multiple sclerosis. Currently patient states less abdominal bloating with less abdominal discomfort states is hungry requesting ice chips nausea sensation improved Patient have a CAT scan of the abdomen pelvis in the emergency room the report shows partial small bowel obstruction with a transition within the left mid abdomen secondary to containing small bowel consider jejunitis., large cystic structure in the bilateral adenxa additionally a venous Doppler study to the lower extremities showed no evidence of a DVT. VQ scan showed low probability of pulmonary emboli. Urinalysis likely UTI. Chest x-ray suggest pneumonia right middle lobe [employer] consultation recommendations reviewed Review of Systems Unremarkable except as mentioned in the present illness Past Medical History Past Medical History: Neurologic Disorder, Pneumonia, Rheumatoid Arthritis (RA) Additional Past Medical History / Comment(s): MULTIPLE SCLEROSIS, ENDOMETRIOSIS.RIGHT KIDNEY ENLARGED. History of Any Multi-Drug Resistant Organisms: None Reported Past Surgical History: Orthopedic Surgery Additional Past Surgical History / Comment(s): EXP. LAP FOR ENDOMETRIOSIS X2 WITH SCAR TISSUE ON OVARIES..ADENEXAL CYSTIC DRAINAGE DUE TO PRESSURE ON URETHERA-. Past Anesthesia/Blood Transfusion Reactions: Previous Problems w/ Anesthesia Additional Past Anesthesia/Blood Transfusion Reaction / Comm: NOVACAINE. IT CAUSED INCREASED HEART RATE. Past Psychological History: Anxiety, Depression Smoking Status: Never smoker Past Alcohol Use History: None Reported Past Drug Use History: None Reported - Past Family History Mother Family Medical History: Cancer, Thyroid Disorder Father Additional Family Medical History / Comment(s): , Heart Attack at 57 Sister(s) Family Medical History: Cancer Additional Family Medical History / Comment(s): Breast Cancer Medications and Allergies Home Medications Medication Instructions Recorded Confirmed Type Aspirin 325 mg PO DIRECTED PRN 10/26/13 05/03/18 History Ascorbic Acid/Multivit-Min 1,000 mg PO DAILY 05/03/18 05/03/18 History [Emergen-C 1,000 mg Packet] Allergies Allergy/AdvReac Type Severity Reaction Status Date / Time amoxicillin [Amoxicillin] Allergy Severe Rash/Hives Verified 05/03/18 16:57 alprazolam [From Xanax] AdvReac Severe Unknown Verified 05/03/18 16:57 morphine AdvReac Severe Itching Verified 05/03/18 16:57 sulfamethoxazole AdvReac Severe Dyspnea Verified 05/03/18 16:57 [From Bactrim] trimethoprim [From Bactrim] AdvReac Severe Dyspnea Verified 05/03/18 16:57 novacaine AdvReac Severe Rapid Uncoded 05/03/18 13:06 Heart Rate Surgical - Exam Vital Signs Pulse Ox 97 05/03/18 12:59 GENERAL APPEARANCE: The patient is alert, oriented, in no acute distress. States less abdominal bloating less nausea VITAL SIGNS: Reviewed HEENT: Head is normocephalic and atraumatic. Pupils are equal and reactive. The nares are patent. Oropharynx is clear without lesions. NECK: Supple without lymphadenopathy. Traches midline. HEART: S1, S2. Regular rate and rhythm. No chest pain no murmur LUNGS: No crackles or wheezes are heard. No shortness of breath ABDOMEN: Soft, nontender, mildly distended with few hypoactive bowel sounds. No peritoneal signs. No palpable organomegaly or masses reports no nausea vomiting. States less bloating EXTREMITIES: Normal skin color and turgor. No cyanosis, rash, ulceration, clubbing or edema. Radial pedal pulses are 2/4 bilaterally. NEUROLOGICAL: No focal deficits. Strength and sensation are grossly intact. Results - Labs 05/04/18 10:52 05/04/18 10:52 Abnormal Lab Results - Last 24 Hours (Table) 05/03/18 05/03/1818 Range/Units 13:40 13:52 13:52 WBC (3.8-10.6) k/uL Plt Count (150-450) k/uL Neutrophils # (Manual) 9.86 H (1.3-7.7) k/uL Lymphocytes # (Manual) 0.32 L (1.0-4.8) k/uL Metamyelocytes # (Man) (0) k/uL D-Dimer 3.53 H (<0.60) mg/L FEU Sodium 134 L (137-145) mmol/L Potassium (3.5-5.1) mmol/L Chloride 96 L (98-107) mmol/L BUN 21 H (7-17) mg/dL AST 61 H (14-36) U/L Alkaline Phosphatase (38-126) U/L Albumin (3.5-5.0) g/dL Ur Specific [place] (1.001-1.035) Urine Protein (Negative) Urine Ketones (Negative) Urine Blood (Negative) Urine Nitrite (Negative) Urine RBC (0-5) /hpf Urine WBC (0-5) /hpf Ur Squamous Epith Cells (0-4) /hpf Amorphous Sediment (None) /hpf Urine Bacteria (None) /hpf 05/03/18 05/04/18 05/04/18 Range/Units 15:25 10:52 10:52 WBC 10.9 H (3.8-10.6) k/uL Plt Count 529 H (150-450) k/uL Neutrophils # (Manual) 9.40 H (1.3-7.7) k/uL Lymphocytes # (Manual) 0.76 L (1.0-4.8) k/uL Metamyelocytes # (Man) 0.11 H (0) k/uL D-Dimer (<0.60) mg/L FEU Sodium (137-145) mmol/L Potassium 3.4 L (3.5-5.1) mmol/L Chloride (98-107) mmol/L BUN (7-17) mg/dL AST 46 H (14-36) U/L Alkaline Phosphatase 145 H (38-126) U/L Albumin 3.4 L (3.5-5.0) g/dL Ur Specific [place] >1.050 H (1.001-1.035) Urine Protein 1+ H (Negative) Urine Ketones 2+ H (Negative) Urine Blood Trace H (Negative) Urine Nitrite Positive H (Negative) Urine RBC 6 H (0-5) /hpf Urine WBC 35 H (0-5) /hpf Ur Squamous Epith Cells 6 H (0-4) /hpf Amorphous Sediment Rare H (None) /hpf Urine Bacteria Moderate H (None) /hpf Microbiology - Last 24 Hours (Table) 05/03/18 15:25 Urine Culture - Preliminary Urine,Voided Diabetes panel 05/03/18 05/04/18 Range/Units 13:40 10:52 Sodium 134 L 138 (137-145) mmol/L Potassium 4.0 3.4 L (3.5-5.1) mmol/L Chloride 96 L 99 (98-107) mmol/L Carbon Dioxide 22 24 (22-30) mmol/L BUN 21 H 15 (7-17) mg/dL Creatinine 0.60 0.70 (0.52-1.04) mg/dL Glucose 96 92 (74-99) mg/dL Calcium 9.3 9.1 (8.4-10.2) mg/dL AST 61 H 46 H (14-36) U/L ALT 46 40 (9-52) U/L Alkaline Phosphatase 117 145 H (38-126) U/L Total Protein 6.8 6.6 (6.3-8.2) g/dL Albumin 3.6 3.4 L (3.5-5.0) g/dL Calcium panel 05/03/18 05/04/18 Range/Units 13:40 10:52 Calcium 9.3 9.1 (8.4-10.2) mg/dL Albumin 3.6 3.4 L (3.5-5.0) g/dL Pituitary panel 05/03/18 05/04/18 Range/Units 13:40 10:52 Sodium 134 L 138 (137-145) mmol/L Potassium 4.0 3.4 L (3.5-5.1) mmol/L Chloride 96 L 99 (98-107) mmol/L Carbon Dioxide 22 24 (22-30) mmol/L BUN 21 H 15 (7-17) mg/dL Creatinine 0.60 0.70 (0.52-1.04) mg/dL Glucose 96 92 (74-99) mg/dL Calcium 9.3 9.1 (8.4-10.2) mg/dL Adrenal panel 05/03/18 05/04/18 Range/Units 13:40 10:52 Sodium 134 L 138 (137-145) mmol/L Potassium 4.0 3.4 L (3.5-5.1) mmol/L Chloride 96 L 99 (98-107) mmol/L Carbon Dioxide 22 24 (22-30) mmol/L BUN 21 H 15 (7-17) mg/dL Creatinine 0.60 0.70 (0.52-1.04) mg/dL Glucose 96 92 (74-99) mg/dL Calcium 9.3 9.1 (8.4-10.2) mg/dL Total Bilirubin 1.0 0.8 (0.2-1.3) mg/dL AST 61 H 46 H (14-36) U/L ALT 46 40 (9-52) U/L Alkaline Phosphatase 117 145 H (38-126) U/L Total Protein 6.8 6.6 (6.3-8.2) g/dL Albumin 3.6 3.4 L (3.5-5.0) g/dL Assessment and Plan Assessment: Impression Present on admission diffuse abdominal pain with nausea vomiting diarrhea suspect due to a partial small bowel obstruction CAT scan of the abdomen and pelvis report reviewed showing evidence of a partial small bowel obstruction with a transition within the left mid abdomen containing small bowel consider jejunitis Multiple large cystic structures in the bilateral adenxa per CAT scan abdomen and pelvis Present on admission elevated d-dimer with Dopplers to the lower extremity showing no evidence of a DVT VQ scan low probability for PE History of multiple sclerosis Possible community-acquired pneumonia noted on chest x-ray them ammonia involving the right middle lobe UTI present on admission symptomatic History of endometriosis with prior exploratory laparoscopic Present on admission febrile tachycardic leukocytosis suspect sepsis unclear etiology Plan IV fluid for hydration DVT and GI prophylaxis IV antibiotics per the attending Follow up on the urine culture Nothing by mouth except ice chips Further surgical recommendations pending clinical course No evidence of an acute surgical abdomen at this time We'll follow with you Surgical consultation dictated for Dr. cohen The above impression and plan of care have been discussed and directed by signing physician. Awilda Tipton nurse practitioner acting as scribe for signing physician. <Cyril Cohen - Last Filed: 05/04/18 19:05> Surgical - Exam Vital Signs Pulse Ox 97 05/03/18 12:59 Results - Labs 05/04/18 10:52 05/04/18 10:52 Abnormal Lab Results - Last 24 Hours (Table) 05/04/18 05/04/18 Range/Units 10:52 10:52 WBC 10.9 H (3.8-10.6) k/uL Plt Count 529 H (150-450) k/uL Neutrophils # (Manual) 9.40 H (1.3-7.7) k/uL Lymphocytes # (Manual) 0.76 L (1.0-4.8) k/uL Metamyelocytes # (Man) 0.11 H (0) k/uL Potassium 3.4 L (3.5-5.1) mmol/L AST 46 H (14-36) U/L Alkaline Phosphatase 145 H (38-126) U/L Albumin 3.4 L (3.5-5.0) g/dL Microbiology - Last 24 Hours (Table) 05/03/18 13:52 Blood Culture - Preliminary Blood No Growth after 24 hours 05/03/18 15:25 Urine Culture - Preliminary Urine,Voided Diabetes panel 05/04/18 Range/Units 10:52 Sodium 138 (137-145) mmol/L Potassium 3.4 L (3.5-5.1) mmol/L Chloride 99 (98-107) mmol/L Carbon Dioxide 24 (22-30) mmol/L BUN 15 (7-17) mg/dL Creatinine 0.70 (0.52-1.04) mg/dL Glucose 92 (74-99) mg/dL Calcium 9.1 (8.4-10.2) mg/dL AST 46 H (14-36) U/L ALT 40 (9-52) U/L Alkaline Phosphatase 145 H (38-126) U/L Total Protein 6.6 (6.3-8.2) g/dL Albumin 3.4 L (3.5-5.0) g/dL Calcium panel 05/04/18 Range/Units 10:52 Calcium 9.1 (8.4-10.2) mg/dL Albumin 3.4 L (3.5-5.0) g/dL Pituitary panel 05/04/18 Range/Units 10:52 Sodium 138 (137-145) mmol/L Potassium 3.4 L (3.5-5.1) mmol/L Chloride 99 (98-107) mmol/L Carbon Dioxide 24 (22-30) mmol/L BUN 15 (7-17) mg/dL Creatinine 0.70 (0.52-1.04) mg/dL Glucose 92 (74-99) mg/dL Calcium 9.1 (8.4-10.2) mg/dL Adrenal panel 05/04/18 Range/Units 10:52 Sodium 138 (137-145) mmol/L Potassium 3.4 L (3.5-5.1) mmol/L Chloride 99 (98-107) mmol/L Carbon Dioxide 24 (22-30) mmol/L BUN 15 (7-17) mg/dL Creatinine 0.70 (0.52-1.04) mg/dL Glucose 92 (74-99) mg/dL Calcium 9.1 (8.4-10.2) mg/dL Total Bilirubin 0.8 (0.2-1.3) mg/dL AST 46 H (14-36) U/L ALT 40 (9-52) U/L Alkaline Phosphatase 145 H (38-126) U/L Total Protein 6.6 (6.3-8.2) g/dL Albumin 3.4 L (3.5-5.0) g/dL Assessment and Plan Assessment: As above. Patient with symptoms that began approximately 5 days ago. Patient first noticed fevers and malaise and thought she was coming down with the flu. The following day she began experiencing abdominal discomfort associated with nausea and anorexia. The patient had 5-7 daily episodes of diarrhea the first few days. That has subsequently subsided and she was having issues with increasing abdominal distention along with lack of bowel function. She has passed flatus today and yesterday however. She believes her pain has gradually improved. She has no pain at rest. Mostly only having tenderness on examinations. Her CAT scan was reviewed and definitely reveals an area of enteritis involving the jejunum. The patient also has significant fluid collections in both adnexa possibly representing hydrosalpinx. Patient has no vaginal discharge. No dysuria or hematuria. Some cloudy urine however. Patient was made nothing by mouth and started on antibiotics. Being treated for enteritis, possible urinary tract infection, possible right-sided pneumonia. Gynecology following and I did discuss the case with Dr. Gibson. Pelvic ultrasound supports the findings of probable complex ovarian cyst. Abdominal examination reveals mild distention and diffuse abdominal tenderness increased in the right lower quadrant and lower abdomen. Clinical scenario discussed in detail with the patient. At this time we'll continue observation with IV antibiotics support. Follow cultures. Repeat abdominal x-rays and labs tomorrow. Diagnostic laparoscopy or possibly repeat CAT scan will be reserved for treatment failure.
--- NOTE | 2018-05-04 15:33 | US ---
EXAMINATION TYPE: US pelvis complete transvag DATE OF EXAM: 05/04/2018 COMPARISON: CT dated 05/03/2018 CLINICAL HISTORY: ovarian cysts. abnormal CT abdomen. TECHNIQUE: Transvaginal (TV) and Transabdominal (TA) . Transabdominal sonographic images of the pel vis were acquired. Transvaginal sonographic images were medically necessary to better assess the fol lowing anatomy: all anatomy. Date of LMP: 04/15/2018 EXAM MEASUREMENTS: Uterus: 10.9 x 6.2 x 7.9 cm Endometrial Stripe: 0.8 cm Right Ovary: 10.4 x 6.1 x 6.3 cm Left Ovary: 6.6 x 7.0 x 6.1 cm Patient states history of endometriosis. 1. Uterus: Anteverted several hypoechoic areas, possible fibroids, largest in cervix measures 2.6 x 1.2 x 3.0 cm 2. Endometrium: wnl 3. Right Ovary: enlarged with multiple masses, largest measures 7.4 x 4.9 x 5.6 cm and has low level echoes. 4. Left Ovary: enlarged with multiple masses, largest measures 5.2 x 3.9 x 5.2 cm with low level ech oes. 5. Bilateral Adnexa: wnl 6. Posterior cul-de-sac: no free fluid IMPRESSION: Fibroid uterus. Multiple bilateral cystic lesions could represent hemorrhagic cysts, endo metrioma, tubo-ovarian abscess, cystadenoma or cystadenocarcinoma not excluded.
[2018-05-05] MEDS: SODIUM CHLORIDE 0.9% 1,000 ML IV SCH ×3 (02:05→20:47)
[2018-05-05] MEDS: ACETAMINOPHEN TAB 325 MG TAB PO PRN ×2 (02:06→08:28)
[2018-05-05] MEDS: metroNIDAZOLE-NS PMX 500 MG in SALINE 1 100ML.BAG IVPB SCH ×3 (03:05→20:42)
[2018-05-05 07:50] LABS: ALT 40 U/L (9-52); AST 29 U/L (14-36); Albumin 2.5 g/dL (3.5-5.0); Alkaline Phosphatase 110 U/L (38-126); Anion Gap 13 mmol/L; Blood Urea Nitrogen 13 mg/dL (7-17); Calcium 8.4 mg/dL (8.4-10.2); Carbon Dioxide 19 mmol/L (22-30); Chloride 107 mmol/L (98-107); Glucose 82 mg/dL (74-99); Potassium 3.6 mmol/L (3.5-5.1); Sodium 139 mmol/L (137-145); Total Bilirubin 0.5 mg/dL (0.2-1.3); Total Protein 5.1 g/dL (6.3-8.2)
--- NOTE | 2018-05-05 08:01 | P.PN ---
Subjective Progress Note Date: 05/05/18 Patient continuing to pass abundant malodorous flatus. Pain improved. Objective - Vital Signs Vital signs: Vital Signs Temp 100.8 F H 05/04/18 23:00 Pulse 105 H 05/04/18 23:00 Resp 17 05/04/18 23:00 BP 112/72 05/04/18 23:00 Pulse Ox 97 05/04/18 23:00 Intake & Output 05/04/18 05/05/18 05/05/18 18:59 06:59 18:59 Intake Total 450 Balance 450 Weight 63.503 kg Intake: Intake, IV Titration 450 Amount Levofloxacin 500Mg-D5w 100 Pmx 500 mg In Dextrose/ Water 1 100ml.bag @ 100 mls/hr IVPB Q24H [facility] Rx#: [id number] Sodium Chloride 0.9% 1, 250 000 ml @ 125 mls/hr IV . Q8H [facility] Rx#:[id number] metroNIDAZOLE-NS PMX 500 100 mg In Saline 1 100ml.bag @ 100 mls/hr IVPB Q8H [facility] Rx#:[id number] Other: # Voids 1 - Constitutional General appearance: Present: average body habitus, cooperative - EENT Eyes: Present: PERRLA ENT: Present: hearing grossly normal - Neck Neck: Present: normal ROM Thyroid: bilateral: normal size - Respiratory Respiratory: bilateral: CTA - Cardiovascular Rhythm: regular - Gastrointestinal General gastrointestinal: Present: distended, normal bowel sounds, soft Localized gastrointestinal: tender: LUQ, RLQ, suprabubic (Patient reports pain 3 -4 out of 10) - Integumentary Integumentary: Present: normal - Neurologic Neurologic: Present: CNII-XII intact - Musculoskeletal Musculoskeletal: Present: strength equal bilaterally - Psychiatric Psychiatric: Present: A&O x's 3, appropriate affect, intact judgment & insight - Labs CBC & Chem 7: 05/04/18 10:52 05/05/18 07:06 Labs: Abnormal Lab Results - Last 24 Hours (Table) 05/04/18 05/04/18 05/05/18 Range/Units 10:52 10:52 07:06 WBC 10.9 H (3.8-10.6) k/uL Plt Count 529 H (150-450) k/uL Neutrophils # (Manual) 9.40 H (1.3-7.7) k/uL Lymphocytes # (Manual) 0.76 L (1.0-4.8) k/uL Metamyelocytes # (Man) 0.11 H (0) k/uL Potassium 3.4 L (3.5-5.1) mmol/L Carbon Dioxide 19 L (22-30) mmol/L AST 46 H (14-36) U/L Alkaline Phosphatase 145 H (38-126) U/L Total Protein 5.1 L (6.3-8.2) g/dL Albumin 3.4 L 2.5 L (3.5-5.0) g/dL Microbiology - Last 24 Hours (Table) 05/03/18 15:25 Urine Culture - Preliminary Urine,Voided Gram Neg Bacilli 05/03/18 13:52 Blood Culture - Preliminary Blood No Growth after 24 hours Assessment and Plan Assessment: Bilateral cystic pelvic masses, abdominal bloating, fever, leukocytosis, clinical picture consistent with ileus. Improvement noted in the past 24 hours subjectively and objectively. History of endometriosis noted. Plan: Continue antibiotic management. Bilateral cystic masses are concerning for endometriomas, however should not contribute to the bowel symptoms we are noting. Improvement is noted both clinically and subjectively. We'll continue to follow. OVA-1 testing has been ordered Time with Patient: Greater than 30
[2018-05-05 08:02] LABS: HCT 30.9 % (34.0-46.0); MCH 27.9 pg (25.0-35.0); MCHC 32.1 g/dL (31.0-37.0); MCV 86.9 fL (80.0-100.0); Mean Platelet Volume 7.1; Platelet Count 439 k/uL (150-450); RBC 3.56 m/uL (3.80-5.40); RDW 14.4 % (11.5-15.5); WBC 10.8 k/uL (3.8-10.6)
[2018-05-05 08:05] LABS: HGB 9.9 gm/dL (11.4-16.0)
--- NOTE | 2018-05-05 08:24 | XR ---
Abdomen 2 view HISTORY: Follow up enteritis 2 views of the abdomen on [address] 05/03/2018 Lung bases are clear. There is no evident pneumoperitoneum. There are distended gas-filled loops of s mall bowel present. Adnexal calcification again noted in the left hemipelvis. IMPRESSION: Findings could represent enteritis or ileus, correlate to exclude small bowel obstruction , follow-up suggested.
[2018-05-05] MEDS: PANTOPRAZOLE 40 MG/10 ML VIAL IVP SCH (08:28)
[2018-05-05 08:48] LABS: Metamyelocytes # (M) 0.11 k/uL (0); Metamyelocytes % 1 %; Nucleated Red Blood Cells 0 /100 WBC (0-0)
[2018-05-05 08:52] LABS: Band Neutrophils % 1 %; Lymphocytes # (M) 0.65 k/uL (1.0-4.8); Monocytes # (M) 0.86 k/uL (0-1.0); Neutrophils % (M) 85 %; Total Cells Counted 200
[2018-05-05 08:56] LABS: Toxic Granulation Present
[2018-05-05] MEDS: LEVOFLOXACIN 500MG-D5W PMX 500 MG in DEXTROSE/WATER 1 100ML.BAG IVPB SCH (10:31)
--- NOTE | 2018-05-05 13:05 | P.PN ---
Subjective Progress Note Date: 05/05/18 This is a 47-year-old female, patient of Dr. Cruz. She has a known past medical history of multiple sclerosis, endometriosis requiring exploratory laparotomy 2 and rheumatoid arthritis. Patient reports abdominal pain started about 3 days ago mostly in the upper abdomen. She had a significant amount of diarrhea and and Friday. There was no blood reported in the stools. She was also having fevers as high as 101. The abdominal pain moved into the lower abdominal region. Pain was so severe she was having shortness of breath. And then on Friday she had stopped having any diarrhea and also stopped passing gas. During these 3 days she vomited twice. Patient came into the emergency room for further evaluation and treatment. She's found to have a temp of 101.4 she was tachycardic heart rate around 108. White count normal. Computed tomography scan showed partial small bowel obstruction with a transition within the left mid abdomen secondary to be containing of the small bowel wall. And consider jejunitis. Also reports multiple large cystic structures in the bilateral adnexa. Consider the possibility of pyosalpinx within the differential. Ovarian carcinoma is not excluded. We'll be ordering an abdominal and pelvic ultrasound for further evaluation. Patient is currently nothing by mouth. Started on Levaquin and IV Flagyl. Surgical and [facility] consults have been placed. Patient was found to have evidence of a possible pneumonia on chest x-ray. Chest x-ray reported suggestion of a right middle lobe infiltrate. Correlate for atelectasis or pneumonia. Patient does reports having a cough. Also evidence of a UTI. She has been having some dark urine as well as mild burning with urination. Culture has been obtained. She' s currently nothing by mouth and on my and on IV fluids. Patient denies any chest pain. Does report some nausea. Patient has never had any colonoscopy or EGD. Does report having history of scar tissue in the abdomen due to previous abdominal surgeries. Patient denies any recent traveling. Denies any sick contacts. 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 05/05/2018 patient reported improvement in her abdominal pain. She was passing gas this morning and then had a large liquid brown yellowish stool. At that time she felt that her stomach bloating was doing better. She had a low-grade temp of 100.3 and was given Tylenol with a few sips of water. After she taken the medication and water she started having abdominal pain. Abdominal x-ray showing signs of ileus. Transvaginal pelvic ultrasound showing a fibroid uterus. Multiple bilateral cystic lesions could represent hemorrhagic cysts, endometrioma, tubo-ovarian abscess, cyst adenoma or cyst adenocarcinoma not excluded. Patient is followed by [facility] service, and they felt symptoms were likely related to endometriomas. Dr. Wray also noted that his abdominal pain was not related to any [facility] [employer] cause. Patient denies any vomiting. Reports that her urine is still dark. Burning with urination has resolved. Hemoglobin has dropped from 12.3-9.9. Patient denies any blood in the stools or black stools. Urine culture gram-negative bacilli. T-max 100.8. Objective - Vital Signs Vital signs: Vital Signs Temp 99.7 F H 05/05/18 10:42 Pulse 97 05/05/18 07:00 Resp 18 05/05/18 07:00 BP 106/65 05/05/18 07:00 Pulse Ox 97 05/05/18 07:00 Intake & Output 05/04/18 05/05/18 05/05/18 18:59 06:59 18:59 Intake Total 450 Balance 450 Weight 63.503 kg Intake: Intake, IV Titration 450 Amount Levofloxacin 500Mg-D5w 100 Pmx 500 mg In Dextrose/ Water 1 100ml.bag @ 100 mls/hr IVPB Q24H [facility] Rx#: [id number] Sodium Chloride 0.9% 1, 250 000 ml @ 125 mls/hr IV . Q8H [facility] Rx#:[id number] metroNIDAZOLE-NS PMX 500 100 mg In Saline 1 100ml.bag @ 100 mls/hr IVPB Q8H [facility] Rx#:[id number] Other: # Voids 1 - Exam Head normocephalic Neck supple Lungs clear to auscultation bilaterally no wheezing or crackles Heart regular rate and rhythm S1-S2, no rub or gallop Abdomen is soft diffuse tenderness distended positive bowel sounds no hepatosplenomegaly Extremities no edema Neuro alert and orientated to 3 - Labs CBC & Chem 7: 05/05/18 07:06 05/05/18 07:06 Labs: Abnormal Lab Results - Last 24 Hours (Table) 05/05/18 05/05/18 Range/Units 07:06 07:06 WBC 10.8 H (3.8-10.6) k/uL RBC 3.56 L (3.80-5.40) m/uL Hgb 9.9 L D (11.4-16.0) gm/dL Hct 30.9 L (34.0-46.0) % Neutrophils # (Manual) 9.20 H (1.3-7.7) k/uL Lymphocytes # (Manual) 0.65 L (1.0-4.8) k/uL Metamyelocytes # (Man) 0.11 H (0) k/uL Carbon Dioxide 19 L (22-30) mmol/L Total Protein 5.1 L (6.3-8.2) g/dL Albumin 2.5 L (3.5-5.0) g/dL Microbiology - Last 24 Hours (Table) 05/03/18 15:25 Urine Culture - Preliminary Urine,Voided Gram Neg Bacilli 05/03/18 13:52 Blood Culture - Preliminary Blood No Growth after 24 hours Assessment and Plan Assessment: 1. Abdominal pain with diarrhea and now constipation: Computed tomography scan showing partial small bowel obstruction with a transition within the left mid abdomen secondary to containing of the small bowel wall. And consider jejunitis. Patient has been started on Levaquin and IV Flagyl. Consult surgical service. Patient nothing by mouth except ice chips. Continue IV fluids. Abdominal x-ray showing ileus. We'll await further surgical recommendations. Patient was able to have large watery stool. No bleeding. 2. Bilateral cystic pelvic masses: Seen by [facility] service. [place] the bilateral cystic masses are concerning for endometriomas but should not contribute to patient's bowel symptoms. [facility] [employer] following 3. Sepsis with fever and tachycardia likely related to abdominal infection, UTI or pneumonia. Continue IV antibiotics continue IV fluids. Lactic normal. Blood culture negative so far 4. Elevated d-dimer: Venous Doppler negative for DVT bilaterally. VQ scan low probability for PE 5. Possible community-acquired pneumonia noted on chest x-ray continue with Levaquin 6. UTI: Urine culture growing gram-negative bacilli. Continue Levaquin 7. History of multiple sclerosis: Not on any medications due to side effects 8. History of rheumatoid arthritis 9. History of endometriosis with previous exploratory laparoscopic Surgeries 10. Anemia: Possibly related to IV fluids. No active signs of bleeding. Hemoglobin has dropped from 12.3-9.9. Check stool for occult blood. Check iron studies. Encourage patient to increase activity GI prophylaxis IV Protonix and DVT prophylaxis SCDs I performed an examination of the patient and discussed their management with the physician Cashier Clerk. I have reviewed the Physician Cashier Clerk's notes and agree with the documented findings and plan of care
--- NOTE | 2018-05-05 15:34 | P.PN ---
<Jeannine Tiptonkaey Stephen - Last Filed: 05/05/18 15:10> Subjective Progress Note Date: 05/05/18 47-year-old female seen this afternoon resting in bed patient stated I had a really good morning until in the afternoon started getting abdominal pain had a large bowel movement very odorous felt bloated after. [place] feverish temp 100.3 current temp 99.7 abdominal x-ray report suggests enteritis or ileus correlate to exclude small bowel obstruction follow-up suggested patient states able to take ice chips and denying any nausea sensation no vomiting. She was been seen by LIGHTING DES[employer]ER Dr. Gibson who feels that the abdominal pain is not related to any gynecological issues. Patient states her urine and stool is dark in color. Does report a burning on urination has gone. Urine culture shows gram-negative bacilli. Denies any blood in the stool or any black stool Objective - Vital Signs Vital signs: Vital Signs Temp 99.7 F H 05/05/18 10:42 Pulse 97 05/05/18 07:00 Resp 18 05/05/18 07:00 BP 106/65 05/05/18 07:00 Pulse Ox 97 05/05/18 07:00 Intake & Output 05/04/18 05/05/18 05/05/18 18:59 06:59 18:59 Intake Total 450 Balance 450 Weight 63.503 kg Intake: Intake, IV Titration 450 Amount Levofloxacin 500Mg-D5w 100 Pmx 500 mg In Dextrose/ Water 1 100ml.bag @ 100 mls/hr IVPB Q24H [facility] Rx#: [id number] Sodium Chloride 0.9% 1, 250 000 ml @ 125 mls/hr IV . Q8H [facility] Rx#:[id number] metroNIDAZOLE-NS PMX 500 100 mg In Saline 1 100ml.bag @ 100 mls/hr IVPB Q8H [facility] Rx#:[id number] Other: # Voids 1 3 - Exam Physical exam -47year old female resting in bed reports had an episode earlier today of diffuse abdominal pain increased abdominal bloating had a loose watery painless nonbloody stool states had attempt at the time of 100 Lungs adequate air movement bilaterally no wheezing rales or rhonchi Heart S1-S2 audible regular Abdomen diffuse tenderness with palpitation no rebound mildly bloated active bowel tones reports no nausea tolerating ice chips not passing gas had 2 stools today loose watery diarrhea with an odor Extremities no edema - Labs CBC & Chem 7: 05/05/18 07:06 05/05/18 07:06 Labs: Abnormal Lab Results - Last 24 Hours (Table) 05/05/18 05/05/18 Range/Units 07:06 07:06 WBC 10.8 H (3.8-10.6) k/uL RBC 3.56 L (3.80-5.40) m/uL Hgb 9.9 L D (11.4-16.0) gm/dL Hct 30.9 L (34.0-46.0) % Neutrophils # (Manual) 9.20 H (1.3-7.7) k/uL Lymphocytes # (Manual) 0.65 L (1.0-4.8) k/uL Metamyelocytes # (Man) 0.11 H (0) k/uL Carbon Dioxide 19 L (22-30) mmol/L Total Protein 5.1 L (6.3-8.2) g/dL Albumin 2.5 L (3.5-5.0) g/dL Microbiology - Last 24 Hours (Table) 05/03/18 15:25 Urine Culture - Preliminary Urine,Voided Gram Neg Bacilli 05/03/18 13:52 Blood Culture - Preliminary Blood No Growth after 24 hours Assessment and Plan Assessment: Impression Present on admission diffuse abdominal pain with nausea vomiting diarrhea suspect due to a partial small bowel obstruction CAT scan of the abdomen and pelvis report reviewed showing evidence of a partial small bowel obstruction with a transition within the left mid abdomen containing small bowel consider jejunitis Multiple large cystic structures in the bilateral adenxa per CAT scan abdomen and pelvis Present on admission elevated d-dimer with Dopplers to the lower extremity showing no evidence of a DVT VQ scan low probability for PE History of multiple sclerosis Possible community-acquired pneumonia noted on chest x-ray them ammonia involving the right middle lobe UTI present on admission symptomatic History of endometriosis with prior exploratory laparoscopic Present on admission febrile tachycardic leukocytosis suspect sepsis possible due to abdominal infection, UTI right middle lobe pneumonia Plan IV fluid for hydration DVT and GI prophylaxis IV antibiotics as ordered Nothing by mouth except ice chips Further surgical recommendations pending clinical course No evidence of an acute surgical abdomen at this time We'll follow with you Repeat abdominal x-ray and labs as indicated Diagnostic laparoscopic a possible repeat CAT scan reserved if treatment fails The above impression and plan of care have been discussed and directed by signing physician. Awilda Tipton nurse practitioner acting as scribe for signing physician. <Cyril You - Last Filed: 05/05/18 16:00> Objective - Vital Signs Vital signs: Vital Signs Temp 99.7 F H 05/05/18 15:15 Pulse 104 H 05/05/18 15:15 Resp 18 05/05/18 15:15 BP 106/65 05/05/18 07:00 Pulse Ox 98 05/05/18 15:15 Intake & Output 05/04/18 05/05/18 05/05/18 18:59 06:59 18:59 Intake Total 450 Balance 450 Weight 63.503 kg Intake: Intake, IV Titration 450 Amount Levofloxacin 500Mg-D5w 100 Pmx 500 mg In Dextrose/ Water 1 100ml.bag @ 100 mls/hr IVPB Q24H [facility] Rx#: [id number] Sodium Chloride 0.9% 1, 250 000 ml @ 125 mls/hr IV . Q8H [facility] Rx#:[id number] metroNIDAZOLE-NS PMX 500 100 mg In Saline 1 100ml.bag @ 100 mls/hr IVPB Q8H [facility] Rx#:[id number] Other: # Voids 1 3 - Labs CBC & Chem 7: 05/05/18 07:06 05/05/18 07:06 Labs: Abnormal Lab Results - Last 24 Hours (Table) 05/05/18 05/05/18 Range/Units 07:06 07:06 WBC 10.8 H (3.8-10.6) k/uL RBC 3.56 L (3.80-5.40) m/uL Hgb 9.9 L D (11.4-16.0) gm/dL Hct 30.9 L (34.0-46.0) % Neutrophils # (Manual) 9.20 H (1.3-7.7) k/uL Lymphocytes # (Manual) 0.65 L (1.0-4.8) k/uL Metamyelocytes # (Man) 0.11 H (0) k/uL Carbon Dioxide 19 L (22-30) mmol/L Total Protein 5.1 L (6.3-8.2) g/dL Albumin 2.5 L (3.5-5.0) g/dL Microbiology - Last 24 Hours (Table) 05/03/18 15:25 Urine Culture - Preliminary Urine,Voided Gram Neg Bacilli 05/03/18 13:52 Blood Culture - Preliminary Blood No Growth after 24 hours Assessment and Plan Assessment: As above. Patient feels better today. Pain improved. Less bloating. Had multiple (20) episodes of flatus. Also had some loose stool. She was febrile last night. White blood cell count normal. Hemoglobin dropped somewhat. Lactic acid normal. Today's x-rays reviewed and show no worsening picture. Denies rectal bleeding or melena. Patient is thirsty. She would like to try some liquids. Will check stool studies. Continue antibiotics. Consider infectious disease consult.
[2018-05-05] MEDS: ACETAMINOPHEN IV (For NPO) 1,000 MG in EMPTY BAG 1 BAG IVPB SCH ×2 (17:40→23:18)
[2018-05-05 22:06] LABS: Iron Saturation 3.08 (12.00-45.00)
[2018-05-06] MEDS: metroNIDAZOLE-NS PMX 500 MG in SALINE 1 100ML.BAG IVPB SCH ×3 (03:00→21:40)
[2018-05-06] MEDS: SODIUM CHLORIDE 0.9% 1,000 ML IV SCH ×3 (03:02→18:26)
[2018-05-06] MEDS: ACETAMINOPHEN IV (For NPO) 1,000 MG in EMPTY BAG 1 BAG IVPB SCH ×2 (05:28→15:34)
[2018-05-06] MEDS: PANTOPRAZOLE 40 MG/10 ML VIAL IVP SCH (07:46)
[2018-05-06 08:54] LABS: ALT 36 U/L (9-52); AST 26 U/L (14-36); Albumin 2.6 g/dL (3.5-5.0); Alkaline Phosphatase 117 U/L (38-126); Anion Gap 13 mmol/L; Blood Urea Nitrogen 10 mg/dL (7-17); Calcium 8.7 mg/dL (8.4-10.2); Carbon Dioxide 18 mmol/L (22-30); Chloride 109 mmol/L (98-107); Glucose 71 mg/dL (74-99); Potassium 3.7 mmol/L (3.5-5.1); Sodium 140 mmol/L (137-145); Total Bilirubin 0.4 mg/dL (0.2-1.3); Total Protein 5.3 g/dL (6.3-8.2)
[2018-05-06 09:07] LABS: HCT 31.4 % (34.0-46.0); HGB 9.9 gm/dL (11.4-16.0); Hypochromasia Slight; MCH 28.1 pg (25.0-35.0); MCHC 31.7 g/dL (31.0-37.0); MCV 88.7 fL (80.0-100.0); Mean Platelet Volume 7.5; Platelet Count 554 k/uL (150-450); RBC 3.54 m/uL (3.80-5.40); RDW 14.5 % (11.5-15.5); WBC 20.8 k/uL (3.8-10.6)
--- NOTE | 2018-05-06 09:07 | P.PN ---
Subjective Progress Note Date: 05/06/18 The patient reports feeling significantly better but still significantly bloated. She has not had any flatus but does report fairly constant loose stools or diarrhea. Nevertheless, her pain is improving day by day. She denies nausea and vomiting and, thus far, is tolerating liquids. Objective - Vital Signs Vital signs: Vital Signs Temp 99.0 F 05/06/18 07:00 Pulse 87 05/06/18 07:00 Resp 18 05/06/18 07:15 BP 114/70 05/06/18 07:00 Pulse Ox 96 05/06/18 07:00 Intake & Output 05/05/18 05/06/18 05/06/18 18:59 06:59 18:59 Intake Total 1725 Balance 1725 Intake: Intake, IV Titration 1725 Amount ACETAMINOPHEN IV (For NPO 400 ) 1,000 mg In Empty Bag 1 bag @ 400 mls/hr IVPB Q6HR [facility] Rx#:[id number] Sodium Chloride 0.9% 1, 1125 000 ml @ 125 mls/hr IV . Q8H [facility] Rx#:[id number] metroNIDAZOLE-NS PMX 500 200 mg In Saline 1 100ml.bag @ 100 mls/hr IVPB Q8H [facility] Rx#:[id number] Other: # Voids 3 3 - Exam In general, this is a well-developed, well-nourished white female in no acute distress. Her abdomen is mild to moderately distended, soft, with mild or minimal right lower quadrant tenderness and minimal tenderness elsewhere in the abdomen. There is no rebound nor any guarding present. Her extremities are without any cyanosis, clubbing, or edema and are nontender to palpation bilaterally. Pelvic examination is deferred. - Labs CBC & Chem 7: 05/05/18 07:06 05/06/18 07:54 Labs: Abnormal Lab Results - Last 24 Hours (Table) 05/05/18 05/06/18 Range/Units 07:06 07:54 Chloride 109 H (98-107) mmol/L Carbon Dioxide 18 L (22-30) mmol/L Glucose 71 L (74-99) mg/dL Iron 7 L (50-170) ug/dL TIBC 227 L (228-460) ug/dL Iron Saturation 3.08 L (12.00-45.00) Total Protein 5.3 L (6.3-8.2) g/dL Albumin 2.6 L (3.5-5.0) g/dL Microbiology - Last 24 Hours (Table) 05/05/18 17:00 Stool Culture - Preliminary Stool 05/03/18 15:25 Urine Culture - Final Urine,Voided Escherichia coli 05/03/18 13:52 Blood Culture - Preliminary Blood No Growth after 48 hours Assessment and Plan (1) Bowel obstruction Current Visit: Yes Status: Acute Code(s): K56.609 - UNSP INTESTNL OBST, UNSP TO PARTIAL VERSUS COMPLETE OBST SNOMED Code(s): 91197066 Plan: Whatever the source of her ongoing GI concerns is seems to be resolving gradually. I have reviewed the chart and discussed the case with Dr. Gibson. We both agree that the findings in the pelvis are likely consistent with endometriomas given her long-standing history and are an incidental finding to the origins of this case. I spent a fair amount of time discussing with the patient the the plan for follow-up in the outpatient setting in order to deal with and/or resolve the ongoing long-standing issues with endometriosis. In the meantime, I will sign off of this case from a gynecologic perspective. If any further gynecologic input is desired, please feel free to call as needed.
[2018-05-06 09:30] LABS: Band Neutrophils % 7 %; Lymphocytes # (M) 0.42 k/uL (1.0-4.8); Monocytes # (M) 0.83 k/uL (0-1.0); Neutrophils % (M) 87 %; Nucleated Red Blood Cells 0 /100 WBC (0-0); Total Cells Counted 100; Toxic Granulation Present
--- NOTE | 2018-05-06 12:12 | P.PN ---
Subjective Progress Note Date: 05/06/18 Principal diagnosis: Enteritis Patient had fevers yesterday afternoon as high as 103. She is sitting up in the chair and states she feels slightly better today. She did have multiple loose stools last night and again this morning. They are brownish in color. She still feels bloated however. Abdominal discomfort again slightly better but in the same location mostly lower abdomen slightly more on the right side. White blood cell count today unfortunately did increase to 20.8. She is tolerating clear liquids without difficulty however. No vomiting. Now she does have a dry cough. Objective - Vital Signs Vital signs: Vital Signs Temp 99.0 F 05/06/18 07:00 Pulse 87 05/06/18 07:00 Resp 18 05/06/18 07:15 BP 114/70 05/06/18 07:00 Pulse Ox 96 05/06/18 07:00 Intake & Output 05/05/18 05/06/18 05/06/18 18:59 06:59 18:59 Intake Total 1725 Balance 1725 Intake: Intake, IV Titration 1725 Amount ACETAMINOPHEN IV (For NPO 400 ) 1,000 mg In Empty Bag 1 bag @ 400 mls/hr IVPB Q6HR [facility] Rx#:[id number] Sodium Chloride 0.9% 1, 1125 000 ml @ 125 mls/hr IV . Q8H [facility] Rx#:[id number] metroNIDAZOLE-NS PMX 500 200 mg In Saline 1 100ml.bag @ 100 mls/hr IVPB Q8H [facility] Rx#:[id number] Other: # Voids 3 3 - Exam Abdomen: Soft, mild distention, lower abdominal tenderness mild to moderate, unchanged - Labs CBC & Chem 7: 05/06/18 07:54 05/06/18 07:54 Labs: Abnormal Lab Results - Last 24 Hours (Table) 05/05/18 05/06/18 05/06/18 Range/Units 07:06 07:54 07:54 WBC 20.8 H (3.8-10.6) k/uL RBC 3.54 L (3.80-5.40) m/uL Hgb 9.9 L (11.4-16.0) gm/dL Hct 31.4 L (34.0-46.0) % Plt Count 554 H (150-450) k/uL Neutrophils # (Manual) 19.50 H (1.3-7.7) k/uL Lymphocytes # (Manual) 0.42 L (1.0-4.8) k/uL Chloride 109 H (98-107) mmol/L Carbon Dioxide 18 L (22-30) mmol/L Glucose 71 L (74-99) mg/dL Iron 7 L (50-170) ug/dL TIBC 227 L (228-460) ug/dL Iron Saturation 3.08 L (12.00-45.00) Total Protein 5.3 L (6.3-8.2) g/dL Albumin 2.6 L (3.5-5.0) g/dL Microbiology - Last 24 Hours (Table) 05/05/18 17:00 Stool Culture - Preliminary Stool 05/03/18 15:25 Urine Culture - Final Urine,Voided Escherichia coli 05/03/18 13:52 Blood Culture - Preliminary Blood No Growth after 48 hours Assessment and Plan (1) Enteritis Narrative/Plan: Will repeat CAT scan and include chest to evaluate for right-sided pneumonia. Continue IV antibiotics. Will consult infectious disease. Follow cultures. Decisions regarding diagnostic laparoscopy will be based off of infectious disease consultation and CAT scan being performed today. Current Visit: Yes Status: Acute Code(s): K52.9 - NONINFECTIVE GASTROENTERITIS AND COLITIS, UNSPECIFIED SNOMED Code(s): 85816931
[2018-05-06] MEDS: IOPAMIDOL-300 CONTRAST 30 ML VIAL (ORAL USE) PO PRN ×2 (12:48→13:52)
--- NOTE | 2018-05-06 13:06 | P.PN ---
Subjective Progress Note Date: 05/06/18 This is a 47-year-old female, patient of Dr. Cruz. She has a known past medical history of multiple sclerosis, endometriosis requiring exploratory laparotomy 2 and rheumatoid arthritis. Patient reports abdominal pain started about 3 days ago mostly in the upper abdomen. She had a significant amount of diarrhea and and Friday. There was no blood reported in the stools. She was also having fevers as high as 101. The abdominal pain moved into the lower abdominal region. Pain was so severe she was having shortness of breath. And then on Friday she had stopped having any diarrhea and also stopped passing gas. During these 3 days she vomited twice. Patient came into the emergency room for further evaluation and treatment. She's found to have a temp of 101.4 she was tachycardic heart rate around 108. White count normal. Computed tomography scan showed partial small bowel obstruction with a transition within the left mid abdomen secondary to be containing of the small bowel wall. And consider jejunitis. Also reports multiple large cystic structures in the bilateral adnexa. Consider the possibility of pyosalpinx within the differential. Ovarian carcinoma is not excluded. We'll be ordering an abdominal and pelvic ultrasound for further evaluation. Patient is currently nothing by mouth. Started on Levaquin and IV Flagyl. Surgical and PROOF INSPECTOR consults have been placed. Patient was found to have evidence of a possible pneumonia on chest x-ray. Chest x-ray reported suggestion of a right middle lobe infiltrate. Correlate for atelectasis or pneumonia. Patient does reports having a cough. Also evidence of a UTI. She has been having some dark urine as well as mild burning with urination. Culture has been obtained. She' s currently nothing by mouth and on my and on IV fluids. Patient denies any chest pain. Does report some nausea. Patient has never had any colonoscopy or EGD. Does report having history of scar tissue in the abdomen due to previous abdominal surgeries. Patient denies any recent traveling. Denies any sick contacts. 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 05/05/2018 patient reported improvement in her abdominal pain. She was passing gas this morning and then had a large liquid brown yellowish stool. At that time she felt that her stomach bloating was doing better. She had a low-grade temp of 100.3 and was given Tylenol with a few sips of water. After she taken the medication and water she started having abdominal pain. Abdominal x-ray showing signs of ileus. Transvaginal pelvic ultrasound showing a fibroid uterus. Multiple bilateral cystic lesions could represent hemorrhagic cysts, endometrioma, tubo-ovarian abscess, cyst adenoma or cyst adenocarcinoma not excluded. Patient is followed by PROOF INSPECTOR service, and they felt symptoms were likely related to endometriomas. Dr. Wray also noted that his abdominal pain was not related to any PROOF INSPECTOR cause. Patient denies any vomiting. Reports that her urine is still dark. Burning with urination has resolved. Hemoglobin has dropped from 12.3-9.9. Patient denies any blood in the stools or black stools. Urine culture gram-negative bacilli. T-max 100.8. On 05/06/2018 patient is currently resting in bed. Patient is still having multiple loose stools last night and again this morning. Patient states this is still feels bloated abdominal discomfort. white blood cell increased to 20.8. Repeat CAT scan has been ordered per surgical services. Infectious disease consulted. At this time patient denies chest pain or shortness of breath. Patient denies any urinary burning or frequency. Patient is having abdominal pain tonight denies any nausea or vomiting Objective - Vital Signs Vital signs: Vital Signs Temp 99.0 F 05/06/18 07:00 Pulse 87 05/06/18 07:00 Resp 18 05/06/18 07:15 BP 114/70 05/06/18 07:00 Pulse Ox 96 05/06/18 07:00 Intake & Output 05/05/18 05/06/18 05/06/18 18:59 06:59 18:59 Intake Total 1725 Balance 1725 Intake: Intake, IV Titration 1725 Amount ACETAMINOPHEN IV (For NPO 400 ) 1,000 mg In Empty Bag 1 bag @ 400 mls/hr IVPB Q6HR [facility] Rx#:[id number] Sodium Chloride 0.9% 1, 1125 000 ml @ 125 mls/hr IV . Q8H [facility] Rx#:[id number] metroNIDAZOLE-NS PMX 500 200 mg In Saline 1 100ml.bag @ 100 mls/hr IVPB Q8H [facility] Rx#:[id number] Other: # Voids 3 3 - Exam Head normocephalic Neck supple Lungs clear to auscultation bilaterally no wheezing or crackles Heart regular rate and rhythm S1-S2, no rub or gallop Abdomen is soft diffuse tenderness distended positive bowel sounds no hepatosplenomegaly Extremities no edema Neuro alert and orientated to 3 - Labs CBC & Chem 7: 05/06/18 07:54 05/06/18 07:54 Labs: Abnormal Lab Results - Last 24 Hours (Table) 05/05/18 05/06/18 05/06/18 Range/Units 07:06 07:54 07:54 WBC 20.8 H (3.8-10.6) k/uL RBC 3.54 L (3.80-5.40) m/uL Hgb 9.9 L (11.4-16.0) gm/dL Hct 31.4 L (34.0-46.0) % Plt Count 554 H (150-450) k/uL Neutrophils # (Manual) 19.50 H (1.3-7.7) k/uL Lymphocytes # (Manual) 0.42 L (1.0-4.8) k/uL Chloride 109 H (98-107) mmol/L Carbon Dioxide 18 L (22-30) mmol/L Glucose 71 L (74-99) mg/dL Iron 7 L (50-170) ug/dL TIBC 227 L (228-460) ug/dL Iron Saturation 3.08 L (12.00-45.00) Total Protein 5.3 L (6.3-8.2) g/dL Albumin 2.6 L (3.5-5.0) g/dL Microbiology - Last 24 Hours (Table) 05/05/18 17:00 Stool Culture - Preliminary Stool 05/03/18 15:25 Urine Culture - Final Urine,Voided Escherichia coli 05/03/18 13:52 Blood Culture - Preliminary Blood No Growth after 48 hours Assessment and Plan Assessment: 1. Abdominal pain with diarrhea and now constipation: Computed tomography scan showing partial small bowel obstruction with a transition within the left mid abdomen secondary to containing of the small bowel wall. And consider jejunitis. Patient has been started on Levaquin and IV Flagyl. Consult surgical service. Patient nothing by mouth except ice chips. Continue IV fluids. Abdominal x-ray showing ileus. We'll await further surgical recommendations. Patient was able to have large watery stool. No bleeding. Repeat CAT scan with IV and oral contrast ordered per surgical services. White blood cell increasing to 20.8. Infectious disease has been consulted. Patient maintained on Levaquin and Flagyl 2. Bilateral cystic pelvic masses: Seen by PROOF INSPECTOR service. [place] the bilateral cystic masses are concerning for endometriomas but should not contribute to patient's bowel symptoms. PROOF INSPECTOR following 3. Sepsis with fever and tachycardia likely related to abdominal infection, UTI or pneumonia. Continue IV antibiotics continue IV fluids. Lactic normal. Blood culture negative so far 4. Elevated d-dimer: Venous Doppler negative for DVT bilaterally. VQ scan low probability for PE 5. Possible community-acquired pneumonia noted on chest x-ray continue with Levaquin 6. UTI: Urine culture growing gram-negative bacilli. Continue Levaquin 7. History of multiple sclerosis: Not on any medications due to side effects 8. History of rheumatoid arthritis 9. History of endometriosis with previous exploratory laparoscopic Surgeries 10. Anemia: Possibly related to IV fluids. No active signs of bleeding. Hemoglobin has dropped from 12.3-9.9. Check stool for occult blood. Check iron studies. Encourage patient to increase activity GI prophylaxis IV Protonix and DVT prophylaxis SCDs I performed an examination of the patient and discussed their management with the Nurse Practitioner. I have reviewed the Nurse Practitioner's notes and agree with the documented findings and plan of care
[2018-05-06] MEDS: LEVOFLOXACIN 500MG-D5W PMX 500 MG in DEXTROSE/WATER 1 100ML.BAG IVPB SCH (13:52)
--- NOTE | 2018-05-06 17:05 | CT ---
EXAMINATION TYPE: CT ChestAbdPelvis w con DATE OF EXAM: 05/06/2018 INDICATION: Fevers, bloating, enteritis and pneumonia. COMPARISON: 05/03/2018 CT DLP: 725.5 mGycm CONTRAST: Performed with Oral Contrast and with IV Contrast, patient injected with 100 mL of Isovue 300. TECHNIQUE: Axial images at 5 mm thick sections. Reconstructed images in the coronal plane. Delayed images through the kidneys. FINDINGS: CT CHEST: Portion of the thyroid visualized is normal. No suspicious lung nodules or focal infiltrates are present. No enlarged mediastinal or hilar adenopathy is evident. The ascending aorta diameter at the level of the main pulmonary artery is 3.2 cm. The main pulmonary artery diameter at the bifurcation is 3.[address] ABDOMEN: Liver: Mild fatty infiltration is present. Spleen: Normal Pancreas: Normal Adrenal glands: The adrenal glands are normal. Gallbladder: Normal Kidneys: No masses are evident. No hydronephrosis is present. No cysts are present. Delayed images were obtained through the kidneys, which remain unremarkable. Aorta: Normal Inferior vena cava: Normal. CT PELVIS: There are dilated small bowel loops containing oral contrast. Oral contrast extends to the distal sma ll bowel loops. Small bowel loops are dilated. Findings are suggestive for partial small bowel obstru ction. Zone of transition may be within the distal ileum in the midline. Previous suspected left mida bdomen zone of transition has a more normal opening without wall thickening contrast passing beyond. Some narrowing within the mid small bowel loops, series 201 image 89 may be present. Contrast passes beyond this location though contrast extends to nearly the terminal ileum. Ileus should be considered . There are loops of bowel which are incompletely distended or lack oral contrast limiting their eval uation. Appendix: Not visualized Urinary bladder: Decompressed with limited evaluation. Genitourinary structures: Uterus is normal. There are large bilateral ovarian cysts present. These co mplex area measure 5.9 x 9.2 cm on the left and 10.6 x 0.8 cm on the right. Osseous structures: No suspicious lytic or sclerotic lesions. IMPRESSIONS: 1. Large complex bilateral ovaries. Large cysts or septated heterogenous masses should be considered. Largest cysts have increased in size over the interval. The overall appearance is similar to compari son. Ovarian neoplasm should be considered. 2. Ileus. Previous suspected zone of transition is not identified. Contrast extends to nearly the te rminal ileum. Partial small bowel obstruction remains within the differential.
[2018-05-06] MEDS ORDERED: cefTRIAXone 2,000 MG in SODIUM CHLORIDE 0.9% 100 ML IVPB SCH (18:00)
[2018-05-06] MEDS: ACETAMINOPHEN TAB 325 MG TAB PO PRN (21:41)
[2018-05-07] MEDS: HEPARIN SODIUM,PORCINE 5,000 UNIT/ML 1 ML VIAL SQ SCH ×4 (01:15→23:09)
[2018-05-07] MEDS: ACETAMINOPHEN TAB 325 MG TAB PO PRN (03:32)
[2018-05-07] MEDS: SODIUM CHLORIDE 0.9% 1,000 ML IV SCH ×3 (03:32→17:53)
[2018-05-07] MEDS: metroNIDAZOLE-NS PMX 500 MG in SALINE 1 100ML.BAG IVPB SCH ×3 (05:28→19:41)
[2018-05-07] MEDS: PANTOPRAZOLE 40 MG/10 ML VIAL IVP SCH (08:23)
[2018-05-07 08:57] LABS: HGB 9.4 gm/dL (11.4-16.0); Hypochromasia Slight; MCH 27.8 pg (25.0-35.0); MCHC 31.2 g/dL (31.0-37.0); MCV 89.1 fL (80.0-100.0); Mean Platelet Volume 7.7; Platelet Count 541 k/uL (150-450); RBC 3.37 m/uL (3.80-5.40); RDW 14.8 % (11.5-15.5)
--- NOTE | 2018-05-07 08:59 | CONS ---
CONSULTATION DATE OF SERVICE: 05/06/2018. REASON FOR CONSULTATION: Fever and leukocytosis. HISTORY OF PRESENT ILLNESS: The patient is a 47-year-old female presenting to the ER at [facility] on 05/03/2018 with chief complaints of abdominal pain, cramping, bloating, and fever. The patient's symptoms initially started with a fever with rigors and chills. Afterwards, the patient started having feeling of abdominal bloating, nausea, an episode of vomiting and loose stools with multiple loose stools with no blood and mucus in it. Abdominal bloating. The pain has been mostly in the center of the abdominal area described to more feet cramping in nature, almost 6 to 7/10 in intensity and no significant radiation. With her symptoms continued to be persisted and the patient is still having continued have a fever from 101- 102 Fahrenheit the patient did present to the [facility] ER. On arrival to the ER, the patient had a fever of 100.6- 100.7, subsequently spiked a fever of 101 and has been spiking fever on a daily basis with another fever this morning of 102.7 that prompted this infectious disease consultation. The patient on admission did not have elevated white count, however, subsequently noticed to have white count of 20.8. The patient did have a CT of the abdomen and pelvis. The initial CT did show evidence of a small bowel ileus and evidence of bilateral pelvic adnexal cysts. The transvaginal ultrasound did confirm multiple cystic lesions in both ovaries, but no evidence of any abscess. The patient has been evaluated both by the GI as well as the LABOR AND DELIVERY REGISTERED NURSE Services and has been treated with Levaquin and Flagyl. With a new fever today and significant temp in the white count, a CT of chest, abdomen and pelvis was ordered as well as infectious disease consultation. A CT has been reviewed by the surgeon with the radiologist, which shows large complex bilateral ovary/cyst or suppurative heterogeneous masses noted should be considered. The ileus and previous is not identified. The patient during this admission did have a positive urine culture showing E coli. However, the patient did not have significant urinary symptoms of burning or frequency. REVIEW OF SYSTEMS: CONSTITUTIONAL: Positive for weakness along with the fever. EYES no complaint. ENT no complaint. Respiratory no complaint. Cardiovascular no complaint. Genitourinary no complaint. Gastrointestinal as per HPI. Musculoskeletal no complaint. Integumentary: No complaint. Psychological no complaint. Endocrine no complaint. Neurologic no complaint. PAST MEDICAL HISTORY: Significant for multiple sclerosis, endometriosis, pneumonia, rheumatoid arthritis. PAST SURGICAL HISTORY: Exploratory laparotomy for endometriosis x2 with drainage. SOCIAL HISTORY: No history of smoking, drinking, or drug use. FAMILY HISTORY: Mother with history of cancer and thyroid disorder. Father , he was 57 from a heart attack. Sister with a history of breast cancer. ALLERGIES: TO AMOXICILLIN WITH A RASH A BABY, BACTRIM, MORPHINE AND XANAX. MEDICATION: Currently include the patient is on Tylenol, heparin, Flagyl, Levaquin, Narcan, Protonix, and IV fluid about an hour. PHYSICAL EXAMINATION: Her blood pressure is 125/61 with a pulse of 90, temperature 97.9, temperature 102.7, she is 99% on room air. General description is a middle-aged female up in the bed in no distress. No tachypnea or accessory muscle of respiration use. HEENT: Shows pallor. No scleral icterus. Oral mucosa membranes dry. No pharyngeal erythema or thrush. Neck trachea central. No thyromegaly. Lungs unlabored breathing. Clear to auscultation anteriorly. No wheeze or crackles. Heart S1, S2. Regular rate and rhythm. ABDOMEN: Soft, mildly distended. Patient noticed to be tender in the right lower quadrant area. No guarding. No rigidity. No organomegaly. EXTREMITIES: No edema of the feet. Skin examination: No rash or mass palpable. Neurological: Patient is awake, alert, oriented times three. Mood and affect normal. LABS: Hemoglobin is 9.8, white count 20.8. BUN is 10, creatinine 0.55. Electrolytes have been normal. Liver enzymes are normal. Urine was mildly positive. Urine culture positive for an E coli that is sensitive pathogen. Stool culture is currently pending. Influenza serology was negative. CT report as mentioned above. DIAGNOSTIC IMPRESSION AND PLAN: 1. Patient admitted to the hospital with sepsis in a patient who did have a fever of 102 degrees Fahrenheit. The patient predominantly gastrointestinal symptoms of abdominal pain, nausea, vomiting as well as diarrhea with initial CT suggestive of a small bowel ileus, however did show evidence of repeat urine showing significant enlarged and the patient noticed to have significant in his right lower quadrant area with a source of sepsis could be more likely genitourinary then rather than of a GI origin with no significant inflammation in the gastrointestinal tract as per repeat CT. In both cases, the likely organism need to cover will be the gram-negative for both aerobes and anaerobes and seemed to have not responded very well to the Levaquin and Flagyl therapy. 2. 3. Patient does have MULTIPLE ANTIBIOTIC ALLERGIES that will limit the number of antibiotics that could be safely used. PLAN: 1. Discontinue the Levaquin. 2. Start the patient on Rocephin 2 g daily and Flagyl 500 every 8 hours. 3. IV fluids. 4. We will discuss with LABOR AND DELIVERY REGISTERED NURSE if the patient may benefit from a laparoscopic diagnostic to make sure no evidence of any adnexal abscess that may need to be drained and sent for culture. 5. We will follow up on clinical condition as well as culture and further adjust medication if needed. Thank you for this consultation. Will follow this patient along with you. MMODL / IJN: [id number] /
[2018-05-07 09:20] LABS: ALT 29 U/L (9-52); AST 18 U/L (14-36); Albumin 2.2 g/dL (3.5-5.0); Alkaline Phosphatase 104 U/L (38-126); Anion Gap 9 mmol/L; Blood Urea Nitrogen 7 mg/dL (7-17); Calcium 8.1 mg/dL (8.4-10.2); Carbon Dioxide 25 mmol/L (22-30); Chloride 107 mmol/L (98-107); Glucose 86 mg/dL (74-99); Potassium 3.2 mmol/L (3.5-5.1); Sodium 141 mmol/L (137-145); Total Bilirubin 0.2 mg/dL (0.2-1.3); Total Protein 4.7 g/dL (6.3-8.2)
--- NOTE | 2018-05-07 10:30 | P.PN ---
Progress Note - Text Progress Note Date: 05/07/18 The patient states she feels better today. She states her pain is less. She states that she is also mildly less distended. Her white count is slightly elevated at 24,000 compared to yesterday. On exam her vital signs appear stable. Her abdomen soft. There is minimal distention. There is no rebound or guarding. Leukocytosis and abdominal pain. Her abdominal pain is resolving. She'll have her diet advanced to full liquids. We'll await FIELD CROP FARMWORKER input regarding her ovarian cystic disease.
[2018-05-07 11:32] LABS: Band Neutrophils % 4 %; Monocytes # (M) 0.96 k/uL (0-1.0); Neutrophils % (M) 87 %; Nucleated Red Blood Cells 0 /100 WBC (0-0); Total Cells Counted 100
--- NOTE | 2018-05-07 11:42 | P.PN ---
Subjective Progress Note Date: 05/07/18 This is a 47-year-old female, patient of Dr. Cruz. She has a known past medical history of multiple sclerosis, endometriosis requiring exploratory laparotomy 2 and rheumatoid arthritis. Patient reports abdominal pain started about 3 days ago mostly in the upper abdomen. She had a significant amount of diarrhea and and Friday. There was no blood reported in the stools. She was also having fevers as high as 101. The abdominal pain moved into the lower abdominal region. Pain was so severe she was having shortness of breath. And then on Friday she had stopped having any diarrhea and also stopped passing gas. During these 3 days she vomited twice. Patient came into the emergency room for further evaluation and treatment. She's found to have a temp of 101.4 she was tachycardic heart rate around 108. White count normal. Computed tomography scan showed partial small bowel obstruction with a transition within the left mid abdomen secondary to be containing of the small bowel wall. And consider jejunitis. Also reports multiple large cystic structures in the bilateral adnexa. Consider the possibility of pyosalpinx within the differential. Ovarian carcinoma is not excluded. We'll be ordering an abdominal and pelvic ultrasound for further evaluation. Patient is currently nothing by mouth. Started on Levaquin and IV Flagyl. Surgical and GAS REGULATOR REPAIRER consults have been placed. Patient was found to have evidence of a possible pneumonia on chest x-ray. Chest x-ray reported suggestion of a right middle lobe infiltrate. Correlate for atelectasis or pneumonia. Patient does reports having a cough. Also evidence of a UTI. She has been having some dark urine as well as mild burning with urination. Culture has been obtained. She' s currently nothing by mouth and on my and on IV fluids. Patient denies any chest pain. Does report some nausea. Patient has never had any colonoscopy or EGD. Does report having history of scar tissue in the abdomen due to previous abdominal surgeries. Patient denies any recent traveling. Denies any sick contacts. 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 05/05/2018 patient reported improvement in her abdominal pain. She was passing gas this morning and then had a large liquid brown yellowish stool. At that time she felt that her stomach bloating was doing better. She had a low-grade temp of 100.3 and was given Tylenol with a few sips of water. After she taken the medication and water she started having abdominal pain. Abdominal x-ray showing signs of ileus. Transvaginal pelvic ultrasound showing a fibroid uterus. Multiple bilateral cystic lesions could represent hemorrhagic cysts, endometrioma, tubo-ovarian abscess, cyst adenoma or cyst adenocarcinoma not excluded. Patient is followed by GAS REGULATOR REPAIRER service, and they felt symptoms were likely related to endometriomas. Dr. Wray also noted that his abdominal pain was not related to any GAS REGULATOR REPAIRER cause. Patient denies any vomiting. Reports that her urine is still dark. Burning with urination has resolved. Hemoglobin has dropped from 12.3-9.9. Patient denies any blood in the stools or black stools. Urine culture gram-negative bacilli. T-max 100.8. On 05/06/2018 patient is currently resting in bed. Patient is still having multiple loose stools last night and again this morning. Patient states this is still feels bloated abdominal discomfort. white blood cell increased to 20.8. Repeat CAT scan has been ordered per surgical services. Infectious disease consulted. At this time patient denies chest pain or shortness of breath. Patient denies any urinary burning or frequency. Patient is having abdominal pain denies any nausea or vomiting On 05/07/2018 patient is currently resting in bed. Patient states she's having some abdominal pain but it is improved from yesterday. At that time patient denies chest pain or shortness of breath. Patient is complaining cough is worse in a.m. Patient denies nausea vomiting or diarrhea. Patient denies any urinary burning or frequency. Objective - Vital Signs Vital signs: Vital Signs Temp 98.5 F 05/07/18 08:19 Pulse 84 05/07/18 08:19 Resp 16 05/07/18 08:19 BP 106/71 05/07/18 08:19 Pulse Ox 99 05/07/18 08:19 Intake & Output 05/06/18 05/07/18 05/07/18 18:59 06:59 18:59 Intake Total 800 400 Balance 800 400 Intake: Intake, IV Titration 800 Amount cefTRIAXone 2,000 mg In 800 Sodium Chloride 0.9% 100 ml @ 100 mls/hr IVPB Q24H CASEY Rx#:[id number] Oral 400 Other: # Voids 2 3 # Bowel Movements 3 - Exam Head normocephalic Neck supple Lungs clear to auscultation bilaterally no wheezing or crackles Heart regular rate and rhythm S1-S2, no rub or gallop Abdomen is soft diffuse tenderness distended positive bowel sounds no hepatosplenomegaly Extremities no edema Neuro alert and orientated to 3 - Labs CBC & Chem 7: 05/07/18 07:24 05/07/18 07:24 Labs: Abnormal Lab Results - Last 24 Hours (Table) 05/07/18 05/07/18 Range/Units 07:24 07:24 WBC 24.0 H (3.8-10.6) k/uL RBC 3.37 L (3.80-5.40) m/uL Hgb 9.4 L (11.4-16.0) gm/dL Hct 30.0 L (34.0-46.0) % Plt Count 541 H (150-450) k/uL Neutrophils # (Manual) 21.80 H (1.3-7.7) k/uL Potassium 3.2 L (3.5-5.1) mmol/L Calcium 8.1 L (8.4-10.2) mg/dL Total Protein 4.7 L (6.3-8.2) g/dL Albumin 2.2 L (3.5-5.0) g/dL Microbiology - Last 24 Hours (Table) 05/03/18 13:52 Blood Culture - Preliminary Blood No Growth after 72 hours Assessment and Plan Assessment: 1. Abdominal pain with diarrhea and now constipation: Computed tomography scan showing partial small bowel obstruction with a transition within the left mid abdomen secondary to containing of the small bowel wall. And consider jejunitis. Patient has been started on Levaquin and IV Flagyl. Consult surgical service. Patient nothing by mouth except ice chips. Continue IV fluids. Abdominal x-ray showing ileus. We'll await further surgical recommendations. Patient was able to have large watery stool. No bleeding. Computed tomography scan of abdomen completed showing large complex bilateral ovaries. Large cyst were heterogenic masses should be considered. Other cysts have increased in size of the interval. The overall appearance is similar to comparison. Over ovarian neoplasm should be considered. Ileus. Previous suspected zone of transition is not identified. Partial small bowel obstruction remains within the differential. White blood cell increasing to 24.0. Per infectious disease will maintain patient on Rocephin and Flagyl by mouth every 8 hours. 2. Bilateral cystic pelvic masses: Seen by GAS REGULATOR REPAIRER service. [place] the bilateral cystic masses are concerning for endometriomas but should not contribute to patient's bowel symptoms. per infectious disease patient may benefit from laparoscopic diagnosed major no evidence of adnexal abcess. Awaiting GAS REGULATOR REPAIRER imput 3. Sepsis with fever and tachycardia likely related to abdominal infection, UTI or pneumonia. Continue IV antibiotics continue IV fluids. Lactic normal. Blood culture negative so far 4. Elevated d-dimer: Venous Doppler negative for DVT bilaterally. VQ scan low probability for PE 5. Possible community-acquired pneumonia noted on chest x-ray continue with Levaquin 6. UTI: Urine culture growing gram-negative bacilli. Toxicity following. Patient is on Rocephin and Flagyl 7. History of multiple sclerosis: Not on any medications due to side effects 8. History of rheumatoid arthritis 9. History of endometriosis with previous exploratory laparoscopic Surgeries 10. Anemia: Possibly related to IV fluids. No active signs of bleeding. Hemoglobin has dropped from 12.3-9.9. Iron saturation 3.08, TIBC 227 and iron 7. Encourage patient to increase activity GI prophylaxis IV Protonix and DVT prophylaxis heparin I performed an examination of the patient and discussed their management with the Nurse Practitioner. I have reviewed the Nurse Practitioner's notes and agree with the documented findings and plan of care
[2018-05-07] MEDS ORDERED: Potassium Replacement Protocol 1 EACH MISC MISCELLANE PRN (11:49)
[2018-05-07] MEDS: POTASSIUM CHLORIDE ER 20 MEQ TAB.ER PO SCH ×4 (12:27→18:57)
[2018-05-07] MEDS: ACETAMINOPHEN IV (For NPO) 1,000 MG in EMPTY BAG 1 BAG IVPB PRN ×2 (14:00→21:37)
[2018-05-07] MEDS: CEFEPIME 2 GM in SODIUM CHLORIDE 0.9% 50 ML IVPB SCH ×2 (16:36→21:58)
[2018-05-08] MEDS: SODIUM CHLORIDE 0.9% 1,000 ML IV SCH ×2 (03:15→11:28)
[2018-05-08] MEDS: ACETAMINOPHEN IV (For NPO) 1,000 MG in EMPTY BAG 1 BAG IVPB PRN ×3 (03:37→17:35)
[2018-05-08] MEDS: metroNIDAZOLE-NS PMX 500 MG in SALINE 1 100ML.BAG IVPB SCH ×3 (04:01→21:48)
[2018-05-08] MEDS: CEFEPIME 2 GM in SODIUM CHLORIDE 0.9% 50 ML IVPB SCH (08:13)
[2018-05-08] MEDS: HEPARIN SODIUM,PORCINE 5,000 UNIT/ML 1 ML VIAL SQ SCH ×2 (08:13→15:55)
[2018-05-08] MEDS: PANTOPRAZOLE 40 MG/10 ML VIAL IVP SCH (08:13)
[2018-05-08 08:14] LABS: HGB 9.7 gm/dL (11.4-16.0); Hypochromasia Slight; MCH 27.8 pg (25.0-35.0); MCHC 31.4 g/dL (31.0-37.0); MCV 88.7 fL (80.0-100.0); Platelet Count 581 k/uL (150-450); RBC 3.49 m/uL (3.80-5.40); RDW 14.8 % (11.5-15.5)
[2018-05-08 08:28] LABS: ALT 21 U/L (9-52); AST 18 U/L (14-36); Albumin 2.3 g/dL (3.5-5.0); Alkaline Phosphatase 102 U/L (38-126); Anion Gap 8 mmol/L; Blood Urea Nitrogen 6 mg/dL (7-17); Calcium 8.4 mg/dL (8.4-10.2); Carbon Dioxide 22 mmol/L (22-30); Chloride 110 mmol/L (98-107); Glucose 92 mg/dL (74-99); Potassium 3.5 mmol/L (3.5-5.1); Sodium 140 mmol/L (137-145); Total Bilirubin 0.3 mg/dL (0.2-1.3)
[2018-05-08 08:58] LABS: Lymphocytes # (M) 0.96 k/uL (1.0-4.8); Monocytes # (M) 0.24 k/uL (0-1.0); Neutrophils % (M) 95 %; Nucleated Red Blood Cells 0 /100 WBC (0-0); Total Cells Counted 100
--- NOTE | 2018-05-08 09:15 | P.PN ---
Progress Note - Text Progress Note Date: 05/08/18 The patient states she feels about the same as yesterday. She had some cream soup which contained very and now feels more bloated. She has had some bowel function with flatus and stool. Her white count still remains elevated at 24, 000. On exam her vital signs are stable. The patient had a T-max of 101 last night. Her abdomen is soft distended there is minimal tenderness. There is no rebound or guarding. Leukocytosis. The patient's ovarian cyst should be evaluated for possible source of infection. We will wait [employer] SERVICES SUPERINTENDENT input on this. If her condition is unchanged we'll repeat her CAT scan in the a.m.
--- NOTE | 2018-05-08 09:16 | PN ---
PROGRESS NOTE DATE OF SERVICE: 05/07/2018. REASON FOR FOLLOW UP: Fever and possible abdominal infection. INTERVAL HISTORY: The patient continues to be running a fever of 101-102 degrees Fahrenheit. However, the patient mentioned she was slightly feeling better, though. The patient denies having any chest pain. No nausea, no vomiting. Still having diarrhea. Mild pain in the lower abdominal area, mostly on the right side. No chest pain, shortness of breath or cough. PHYSICAL EXAMINATION: Blood pressure 112/74 with a pulse of 83. Temperature 98.6, T-max 102, she is 100% on room air. General description is a middle-aged female up in the bed in no distress. Respiratory system: Unlabored breathing. Clear to auscultation. Heart S1, S2 regular rate and rhythm. Abdomen soft, she is tender in the right lower quadrant area. EXTREMITIES: No edema of the feet. LABS: Hemoglobin 9.4[place] [address]. BUN of 7, creatinine 0.57. Stool for C difficile has been negative. DIAGNOSTIC IMPRESSION AND PLAN: Patient with fever in a patient who had predominantly GI symptoms. However, he did have two CTs which did show some ileus, but no evidence of any abdominal abscess. There is concern about significant enlargement of the right kidney with cyst with a question of possible infectious cyst with likely possibility of developing abscess. CTs will be reviewed with the radiologist tomorrow, if the CT-guided drainage could be attempted for diagnostic purposes. Antibiotic has been to addition of cefepime to cover for the in addition to the other enteric gram-negative and continue Flagyl. Family was present at bedside. Questions answered. MMODL / IJN: [id number] /
--- NOTE | 2018-05-08 11:56 | P.PN ---
Subjective Progress Note Date: 05/08/18 This is a 47-year-old female, patient of Dr. Cruz. She has a known past medical history of multiple sclerosis, endometriosis requiring exploratory laparotomy 2 and rheumatoid arthritis. Patient reports abdominal pain started about 3 days ago mostly in the upper abdomen. She had a significant amount of diarrhea and and Friday. There was no blood reported in the stools. She was also having fevers as high as 101. The abdominal pain moved into the lower abdominal region. Pain was so severe she was having shortness of breath. And then on Friday she had stopped having any diarrhea and also stopped passing gas. During these 3 days she vomited twice. Patient came into the emergency room for further evaluation and treatment. She's found to have a temp of 101.4 she was tachycardic heart rate around 108. White count normal. Computed tomography scan showed partial small bowel obstruction with a transition within the left mid abdomen secondary to be containing of the small bowel wall. And consider jejunitis. Also reports multiple large cystic structures in the bilateral adnexa. Consider the possibility of pyosalpinx within the differential. Ovarian carcinoma is not excluded. We'll be ordering an abdominal and pelvic ultrasound for further evaluation. Patient is currently nothing by mouth. Started on Levaquin and IV Flagyl. Surgical and STARTING SHEET TANK OPERATOR consults have been placed. Patient was found to have evidence of a possible pneumonia on chest x-ray. Chest x-ray reported suggestion of a right middle lobe infiltrate. Correlate for atelectasis or pneumonia. Patient does reports having a cough. Also evidence of a UTI. She has been having some dark urine as well as mild burning with urination. Culture has been obtained. She' s currently nothing by mouth and on my and on IV fluids. Patient denies any chest pain. Does report some nausea. Patient has never had any colonoscopy or EGD. Does report having history of scar tissue in the abdomen due to previous abdominal surgeries. Patient denies any recent traveling. Denies any sick contacts. 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 05/05/2018 patient reported improvement in her abdominal pain. She was passing gas this morning and then had a large liquid brown yellowish stool. At that time she felt that her stomach bloating was doing better. She had a low-grade temp of 100.3 and was given Tylenol with a few sips of water. After she taken the medication and water she started having abdominal pain. Abdominal x-ray showing signs of ileus. Transvaginal pelvic ultrasound showing a fibroid uterus. Multiple bilateral cystic lesions could represent hemorrhagic cysts, endometrioma, tubo-ovarian abscess, cyst adenoma or cyst adenocarcinoma not excluded. Patient is followed by STARTING SHEET TANK OPERATOR service, and they felt symptoms were likely related to endometriomas. Dr. Wray also noted that his abdominal pain was not related to any STARTING SHEET TANK OPERATOR cause. Patient denies any vomiting. Reports that her urine is still dark. Burning with urination has resolved. Hemoglobin has dropped from 12.3-9.9. Patient denies any blood in the stools or black stools. Urine culture gram-negative bacilli. T-max 100.8. On 05/06/2018 patient is currently resting in bed. Patient is still having multiple loose stools last night and again this morning. Patient states this is still feels bloated abdominal discomfort. white blood cell increased to 20.8. Repeat CAT scan has been ordered per surgical services. Infectious disease consulted. At this time patient denies chest pain or shortness of breath. Patient denies any urinary burning or frequency. Patient is having abdominal pain denies any nausea or vomiting On 05/07/2018 patient is currently resting in bed. Patient states she's having some abdominal pain but it is improved from yesterday. At that time patient denies chest pain or shortness of breath. Patient is complaining cough is worse in a.m. Patient denies nausea vomiting or diarrhea. Patient denies any urinary burning or frequency. On 05/08/2018 patient is currently resting in bed. Patient is still complaining of some burning with urination and abdominal pain and bloating. Patient states she is having increased cough with production. Sputum culture has been ordered. Patient denies chest pain or shortness breath. Patient denies nausea vomiting or diarrhea. Patient denies any urinary frequency. Objective - Vital Signs Vital signs: Vital Signs Temp 98.9 F 05/08/18 08:19 Pulse 92 05/08/18 08:19 Resp 16 05/08/18 08:19 BP 115/73 05/08/18 08:19 Pulse Ox 96 05/07/18 23:45 Intake & Output 11/22/18 11/23/18 11/23/18 18:59 06:59 18:59 Intake Total 750 1955 Balance 750 1955 Intake: Intake, IV Titration 875 Amount Sodium Chloride 0.9% 1, 875 000 ml @ 125 mls/hr IV . Q8H [facility] Rx#:[id number] Oral 750 1080 Other: # Voids 2 3 - Exam Head normocephalic Neck supple Lungs clear to auscultation bilaterally no wheezing or crackles Heart regular rate and rhythm S1-S2, no rub or gallop Abdomen is soft diffuse tenderness distended positive bowel sounds no hepatosplenomegaly Extremities no edema Neuro alert and orientated to 3 - Labs CBC & Chem 7: 05/08/18 07:38 05/08/18 07:38 Labs: Abnormal Lab Results - Last 24 Hours (Table) 05/07/18 05/08/18 05/08/18 Range/Units 15:53 07:38 07:38 WBC 24.0 H (3.8-10.6) k/uL RBC 3.49 L (3.80-5.40) m/uL Hgb 9.7 L (11.4-16.0) gm/dL Hct 31.0 L (34.0-46.0) % Plt Count 581 H (150-450) k/uL Neutrophils # (Manual) 22.80 H (1.3-7.7) k/uL Lymphocytes # (Manual) 0.96 L (1.0-4.8) k/uL Potassium 3.2 L (3.5-5.1) mmol/L Chloride 110 H (98-107) mmol/L BUN 6 L (7-17) mg/dL Total Protein 5.0 L (6.3-8.2) g/dL Albumin 2.3 L (3.5-5.0) g/dL Microbiology - Last 24 Hours (Table) 05/05/18 17:00 Stool Culture - Preliminary Stool 05/03/18 13:52 Blood Culture - Preliminary Blood No Growth after 96 hours Assessment and Plan Assessment: 1. Abdominal pain with diarrhea and now constipation: Computed tomography scan showing partial small bowel obstruction with a transition within the left mid abdomen secondary to containing of the small bowel wall. And consider jejunitis. Patient has been started on Levaquin and IV Flagyl. Consult surgical service. Patient nothing by mouth except ice chips. Continue IV fluids. Abdominal x-ray showing ileus. We'll await further surgical recommendations. Patient was able to have large watery stool. No bleeding. Computed tomography scan of abdomen completed showing large complex bilateral ovaries. Large cyst were heterogenic masses should be considered. Other cysts have increased in size of the interval. The overall appearance is similar to comparison. Over ovarian neoplasm should be considered. Ileus. Previous suspected zone of transition is not identified. Partial small bowel obstruction remains within the differential. White blood cell increasing to 24.0. Per infectious disease will maintain patient on Rocephin and Flagyl by mouth every 8 hours. Per surgical services patient ovarian cyst should be evaluated for possible source of infection. Awaiting STARTING SHEET TANK OPERATOR input. If condition is unchanged will repeat CAT scan in a.m. per surgery 2. Bilateral cystic pelvic masses: Seen by STARTING SHEET TANK OPERATOR service. [place] the bilateral cystic masses are concerning for endometriomas but should not contribute to patient's bowel symptoms. per infectious disease patient may benefit from laparoscopic diagnosed major no evidence of adnexal abcess. Awaiting STARTING SHEET TANK OPERATOR imput 3. Sepsis with fever and tachycardia likely related to abdominal infection, UTI or pneumonia. Continue IV antibiotics continue IV fluids. Lactic normal. Blood culture negative so far 4. Elevated d-dimer: Venous Doppler negative for DVT bilaterally. VQ scan low probability for PE 5. Possible community-acquired pneumonia noted on chest x-ray continue with Levaquin 6. UTI: Urine culture growing gram-negative bacilli. Toxicity following. Patient is on Rocephin and Flagyl. Repeat UA has been ordred 7. History of multiple sclerosis: Not on any medications due to side effects 8. History of rheumatoid arthritis 9. History of endometriosis with previous exploratory laparoscopic Surgeries 10. Anemia: Possibly related to IV fluids. No active signs of bleeding. Hemoglobin has dropped from 12.3-9.9. Iron saturation 3.08, TIBC 227 and iron 7. Encourage patient to increase activity GI prophylaxis IV Protonix and DVT prophylaxis heparin I performed an examination of the patient and discussed their management with the Nurse Practitioner. I have reviewed the Nurse Practitioner's notes and agree with the documented findings and plan of care
[2018-05-08 15:47] LABS: Appearance,Urine Clear (Clear); Bilirubin,Urine Negative (Negative); Blood,Urine Negative (Negative); Color,Urine Yellow; Glucose,Urine (UA) Negative (Negative); Ketones,Urine Negative (Negative); Leukocyte Esterase,Urine Negative (Negative); Nitrite,Urine Negative (Negative); PH, Urine 5.5 (5.0-8.0); Protein,Urine Trace (Negative); Specific Gravity,Urine 1.014 (1.001-1.035); Urobilinogen,Urine <2.0 mg/dL (<2.0)
[2018-05-09] MEDS: ACETAMINOPHEN IV (For NPO) 1,000 MG in EMPTY BAG 1 BAG IVPB PRN ×3 (00:40→21:19)
[2018-05-09] MEDS: HEPARIN SODIUM,PORCINE 5,000 UNIT/ML 1 ML VIAL SQ SCH ×3 (01:19→17:01)
[2018-05-09] MEDS: CEFEPIME 2 GM in SODIUM CHLORIDE 0.9% 50 ML IVPB SCH ×3 (01:25→22:25)
[2018-05-09] MEDS: SODIUM CHLORIDE 0.9% 1,000 ML IV SCH ×4 (01:29→19:23)
--- NOTE | 2018-05-09 02:16 | PN ---
PROGRESS NOTE DATE OF SERVICE: 05/08/2018. REASON FOR FOLLOW UP: Fever and a question of colitis inflammatory bowel disease. INTERVAL HISTORY: The patient continues to be running a fever of 101.4 degrees Fahrenheit. White count remains to be elevated. The patient did have diarrhea with loose stools but no blood or mucus in it. Mild abdominal discomfort. Denies any chest pain or shortness of breath or cough. PHYSICAL EXAMINATION: Blood pressure is 115/73 with a pulse of 92, temperature 98.9, T-max 101.4. She is 96% on room air. General description is a middle aged female, lying in bed in no distress. Respiratory system: Unlabored breathing, clear to auscultation anteriorly. Heart S1, S2 regular rate and rhythm. Abdomen soft. Mild tenderness. No guarding. No rigidity. Extremities: No edema of the feet. LABS: Hemoglobin 9.7, white count 64123. BUN of 6. Creatinine 0.53. CT was reviewed with radiologist. She did have significant ovarian cyst, but no inflammatory changes. Did have evidence of a diffuse colitis raising the possibility of inflammatory bowel disease. DIAGNOSTIC IMPRESSION AND PLAN: Patient with fever and leukocytosis with evidence of diffuse colitis, questionable inflammatory bowel disease. She may benefit from a gastrointestinal evaluation colonoscopy and biopsy and a steroid trial and the patient fever and white count did not respond to broad-spectrum antibiotic therapy. The patient care discussed in detail with the family as well as the admitting physician. Continue supportive care. MMODL / IJN: [id number] /
[2018-05-09] MEDS: metroNIDAZOLE-NS PMX 500 MG in SALINE 1 100ML.BAG IVPB SCH ×3 (04:09→19:23)
[2018-05-09] MEDS: PANTOPRAZOLE 40 MG/10 ML VIAL IVP SCH (08:40)
[2018-05-09 09:18] LABS: HGB 9.6 gm/dL (11.4-16.0); Hypochromasia Slight; MCHC 31.8 g/dL (31.0-37.0); MCV 87.9 fL (80.0-100.0); Mean Platelet Volume 7.5; Platelet Count 576 k/uL (150-450); RBC 3.41 m/uL (3.80-5.40); RDW 15.2 % (11.5-15.5); WBC 20.9 k/uL (3.8-10.6)
[2018-05-09 09:21] LABS: ALT 24 U/L (9-52); AST 19 U/L (14-36); Albumin 2.5 g/dL (3.5-5.0); Alkaline Phosphatase 93 U/L (38-126); Anion Gap 11 mmol/L; Blood Urea Nitrogen 7 mg/dL (7-17); Calcium 8.3 mg/dL (8.4-10.2); Carbon Dioxide 22 mmol/L (22-30); Chloride 109 mmol/L (98-107); Glucose 82 mg/dL (74-99); Potassium 3.3 mmol/L (3.5-5.1); Sodium 142 mmol/L (137-145); Total Bilirubin 0.4 mg/dL (0.2-1.3); Total Protein 5.3 g/dL (6.3-8.2)
[2018-05-09 10:41] LABS: Lymphocytes # (M) 1.67 k/uL (1.0-4.8); Monocytes # (M) 0.21 k/uL (0-1.0); Neutrophils # (M) 19.02 k/uL (1.3-7.7); Neutrophils % (M) 91 %; Nucleated Red Blood Cells 0 /100 WBC (0-0); Total Cells Counted 100
--- NOTE | 2018-05-09 11:14 | P.PN ---
Progress Note - Text Progress Note Date: 05/09/18 Patient states she feels slightly better today. She has less abdominal bloating. Her white count has decreased to 20,000. On exam her vital signs are stable. Her abdomen soft. There is minimal tenderness. There is no rebound or guarding. There appears to be less distention than 48 hours ago. Resolving leukocytosis. Patient will be observed. Since her white blood cell count improving we will not perform a computed tomography scan of the abdomen today.
--- NOTE | 2018-05-09 11:24 | P.PN ---
Subjective Progress Note Date: 05/09/18 This is a 47-year-old female, patient of Dr. Cruz. She has a known past medical history of multiple sclerosis, endometriosis requiring exploratory laparotomy 2 and rheumatoid arthritis. Patient reports abdominal pain started about 3 days ago mostly in the upper abdomen. She had a significant amount of diarrhea and and Friday. There was no blood reported in the stools. She was also having fevers as high as 101. The abdominal pain moved into the lower abdominal region. Pain was so severe she was having shortness of breath. And then on Friday she had stopped having any diarrhea and also stopped passing gas. During these 3 days she vomited twice. Patient came into the emergency room for further evaluation and treatment. She's found to have a temp of 101.4 she was tachycardic heart rate around 108. White count normal. Computed tomography scan showed partial small bowel obstruction with a transition within the left mid abdomen secondary to be containing of the small bowel wall. And consider jejunitis. Also reports multiple large cystic structures in the bilateral adnexa. Consider the possibility of pyosalpinx within the differential. Ovarian carcinoma is not excluded. We'll be ordering an abdominal and pelvic ultrasound for further evaluation. Patient is currently nothing by mouth. Started on Levaquin and IV Flagyl. Surgical and NITROGLYCERIN SEPARATOR OPERATOR consults have been placed. Patient was found to have evidence of a possible pneumonia on chest x-ray. Chest x-ray reported suggestion of a right middle lobe infiltrate. Correlate for atelectasis or pneumonia. Patient does reports having a cough. Also evidence of a UTI. She has been having some dark urine as well as mild burning with urination. Culture has been obtained. She' s currently nothing by mouth and on my and on IV fluids. Patient denies any chest pain. Does report some nausea. Patient has never had any colonoscopy or EGD. Does report having history of scar tissue in the abdomen due to previous abdominal surgeries. Patient denies any recent traveling. Denies any sick contacts. 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 05/05/2018 patient reported improvement in her abdominal pain. She was passing gas this morning and then had a large liquid brown yellowish stool. At that time she felt that her stomach bloating was doing better. She had a low-grade temp of 100.3 and was given Tylenol with a few sips of water. After she taken the medication and water she started having abdominal pain. Abdominal x-ray showing signs of ileus. Transvaginal pelvic ultrasound showing a fibroid uterus. Multiple bilateral cystic lesions could represent hemorrhagic cysts, endometrioma, tubo-ovarian abscess, cyst adenoma or cyst adenocarcinoma not excluded. Patient is followed by NITROGLYCERIN SEPARATOR OPERATOR service, and they felt symptoms were likely related to endometriomas. Dr. Wray also noted that his abdominal pain was not related to any NITROGLYCERIN SEPARATOR OPERATOR cause. Patient denies any vomiting. Reports that her urine is still dark. Burning with urination has resolved. Hemoglobin has dropped from 12.3-9.9. Patient denies any blood in the stools or black stools. Urine culture gram-negative bacilli. T-max 100.8. On 05/06/2018 patient is currently resting in bed. Patient is still having multiple loose stools last night and again this morning. Patient states this is still feels bloated abdominal discomfort. white blood cell increased to 20.8. Repeat CAT scan has been ordered per surgical services. Infectious disease consulted. At this time patient denies chest pain or shortness of breath. Patient denies any urinary burning or frequency. Patient is having abdominal pain denies any nausea or vomiting On 05/07/2018 patient is currently resting in bed. Patient states she's having some abdominal pain but it is improved from yesterday. At that time patient denies chest pain or shortness of breath. Patient is complaining cough is worse in a.m. Patient denies nausea vomiting or diarrhea. Patient denies any urinary burning or frequency. On 05/08/2018 patient is currently resting in bed. Patient is still complaining of some burning with urination and abdominal pain and bloating. Patient states she is having increased cough with production. Sputum culture has been ordered. Patient denies chest pain or shortness breath. Patient denies nausea vomiting or diarrhea. Patient denies any urinary frequency. On 05/09/2018 patient is feeling somewhat better she is still having significant abdominal pain and bloating but feels better than yesterday she is having cough without any sputum production she still has low-grade fever she is also complaining of nausea and diarrhea otherwise she denies any complaints at this time Objective - Vital Signs Vital signs: Vital Signs Temp 98.2 F 05/09/18 08:39 Pulse 98 05/09/18 07:00 Resp 16 05/09/18 07:00 BP 108/71 05/09/18 07:00 Pulse Ox 96 05/09/18 07:00 Intake & Output 05/08/18 05/09/18 05/09/18 18:59 06:59 18:59 Intake Total 1540 1475 Balance 1540 1475 Intake: Intake, IV Titration 1000 1475 Amount Sodium Chloride 0.9% 1, 1000 1475 000 ml @ 125 mls/hr IV . Q8H [facility] Rx#:[id number] Oral 540 Other: # Voids 3 6 - Exam Head normocephalic and atraumatic Neck supple no JVD no goiter Lungs clear to auscultation bilaterally no wheezing or crackles Heart regular rate and rhythm S1-S2, no rub or gallop Abdomen is soft diffuse tenderness distended positive bowel sounds no hepatosplenomegaly Extremities no edema no cyanosis or clubbing Neuro alert and orientated to 3 no gross focal deficit - Labs CBC & Chem 7: 05/09/18 08:13 05/09/18 08:13 Labs: Abnormal Lab Results - Last 24 Hours (Table) 05/08/18 05/09/18 05/09/18 Range/Units 14:45 08:13 08:13 WBC 20.9 H (3.8-10.6) k/uL RBC 3.41 L (3.80-5.40) m/uL Hgb 9.6 L (11.4-16.0) gm/dL Hct 30.0 L (34.0-46.0) % Plt Count 576 H (150-450) k/uL Neutrophils # (Manual) 19.02 H (1.3-7.7) k/uL Potassium 3.3 L (3.5-5.1) mmol/L Chloride 109 H (98-107) mmol/L Creatinine 0.51 L (0.52-1.04) mg/dL Calcium 8.3 L (8.4-10.2) mg/dL Total Protein 5.3 L (6.3-8.2) g/dL Albumin 2.5 L (3.5-5.0) g/dL Urine Protein Trace H (Negative) Microbiology - Last 24 Hours (Table) 05/05/18 17:00 Stool Culture - Final Stool 05/03/18 13:52 Blood Culture - Preliminary Blood No Growth after 120 hours Assessment and Plan Plan: 1. Abdominal pain with diarrhea and now constipation: Computed tomography scan showing partial small bowel obstruction with a transition within the left mid abdomen secondary to containing of the small bowel wall. And consider jejunitis. Patient has been started on Levaquin and IV Flagyl. Consult surgical service. Patient nothing by mouth except ice chips. Continue IV fluids. Abdominal x-ray showing ileus. We'll await further surgical recommendations. Patient was able to have large watery stool. No bleeding. Computed tomography scan of abdomen completed showing large complex bilateral ovaries. Large cyst were heterogenic masses should be considered. Other cysts have increased in size of the interval. The overall appearance is similar to comparison. Over ovarian neoplasm should be considered. Ileus. Previous suspected zone of transition is not identified. Partial small bowel obstruction remains within the differential. White blood cell increasing to 24.0. Per infectious disease will maintain patient on Rocephin and Flagyl by mouth every 8 hours. Per surgical services patient ovarian cyst should be evaluated for possible source of infection. Awaiting NITROGLYCERIN SEPARATOR OPERATOR input. If condition is unchanged will repeat CAT scan in a.m. per surgery 2. Bilateral cystic pelvic masses: Seen by NITROGLYCERIN SEPARATOR OPERATOR service. [place] the bilateral cystic masses are concerning for endometriomas but should not contribute to patient's bowel symptoms. per infectious disease patient may benefit from laparoscopic diagnosed major no evidence of adnexal abcess. Awaiting NITROGLYCERIN SEPARATOR OPERATOR imput 3. Sepsis with fever and tachycardia likely related to abdominal infection, UTI or pneumonia. Continue IV antibiotics continue IV fluids. Lactic normal. Blood culture negative so far 4. Elevated d-dimer: Venous Doppler negative for DVT bilaterally. VQ scan low probability for PE 5. Possible community-acquired pneumonia noted on chest x-ray continue with Levaquin 6. UTI: Urine culture growing gram-negative bacilli. Toxicity following. Patient is on Rocephin and Flagyl. Repeat UA has been ordred 7. History of multiple sclerosis: Not on any medications due to side effects 8. History of rheumatoid arthritis 9. History of endometriosis with previous exploratory laparoscopic Surgeries 10. Anemia: Possibly related to IV fluids. No active signs of bleeding. Hemoglobin has dropped from 12.3-9.9. Iron saturation 3.08, TIBC 227 and iron 7. Encourage patient to increase activity GI prophylaxis IV Protonix and DVT prophylaxis heparin
--- NOTE | 2018-05-09 13:50 | P.OBCN ---
History of Present Illness Consult date: 05/09/18 Reason for consult: ovarian cyst (known h/o endometriosis) Chief complaint: ovarian cysts, pelvic pain History of present illness: This is a 47-year-old 0 that has been admitted to the hospital since , with complaints of abdominal pain and pelvic pain. She stated the pain started approximately 3 days prior to her admission. Patient states she had no appetite for the 4 days prior and for the first 4 days of the admission she was nothing by mouth. Pain was noted to be mostly in the upper abdomen prior to admission. Patient was diagnosed with a partial small bowel obstruction, pneumonia, UTI. Patient was seen by Dr. Gibson given her CT findings of ovarian cysts bilaterally. Transvaginal ultrasound was performed and a large differential of the etiology of this cyst was noted. Dr. Gibson did talk to the patient regarding d/c follow-up in the office to investigate these ovarian cysts Patient has been slowly clinically improving. Patient states today she is starting to have a appetite and is denying pain at this time. Patient is seen at the bedside sipping on some soup and denied pain to me. Patient states she has a known history of endometriosis and has been dealing with it for years. Menses are typically regular every month lasting a proximally 5 days. She will note on occasion that she has an extremely heavy period with clots. Positive history of infertility secondary to her endometriosis. She has a history of 2 diagnostic laparoscopies for endometriosis and possible cautery of endometrial implants. Review of Systems Constitutional: Denies chills, Denies fever Ears, nose, mouth and throat: Denies headache Gastrointestinal: Reports bloating, Reports loss of appetite, Denies nausea, Denies vomiting Genitourinary: Reports pelvic pain Menstruation: Reports period heavy Past Medical History Past Medical History: Neurologic Disorder, Pneumonia, Rheumatoid Arthritis (RA) Additional Past Medical History / Comment(s): MULTIPLE SCLEROSIS, ENDOMETRIOSIS.RIGHT KIDNEY ENLARGED. History of Any Multi-Drug Resistant Organisms: None Reported Past Surgical History: Orthopedic Surgery Additional Past Surgical History / Comment(s): EXP. LAP FOR ENDOMETRIOSIS X2 WITH SCAR TISSUE ON OVARIES..ADENEXAL CYSTIC DRAINAGE DUE TO PRESSURE ON URETHERA-. Past Anesthesia/Blood Transfusion Reactions: Previous Problems w/ Anesthesia Additional Past Anesthesia/Blood Transfusion Reaction / Comm: NOVACAINE. IT CAUSED INCREASED HEART RATE. Past Psychological History: Anxiety, Depression Smoking Status: Never smoker Past Alcohol Use History: None Reported Past Drug Use History: None Reported - Past Family History Mother Family Medical History: Cancer, Thyroid Disorder Father Additional Family Medical History / Comment(s): , Heart Attack at 57 Sister(s) Family Medical History: Cancer Additional Family Medical History / Comment(s): Breast Cancer Medications and Allergies Home Medications Medication Instructions Recorded Confirmed Type Aspirin 325 mg PO DIRECTED PRN 10/26/13 05/03/18 History Ascorbic Acid/Multivit-Min 1,000 mg PO DAILY 05/03/18 05/03/18 History [Emergen-C 1,000 mg Packet] Allergies Allergy/AdvReac Type Severity Reaction Status Date / Time amoxicillin [Amoxicillin] Allergy Severe Rash/Hives Verified 05/03/18 16:57 alprazolam [From Xanax] AdvReac Severe Unknown Verified 05/03/18 16:57 morphine AdvReac Severe Itching Verified 05/03/18 16:57 sulfamethoxazole AdvReac Severe Dyspnea Verified 05/03/18 16:57 [From Bactrim] trimethoprim [From Bactrim] AdvReac Severe Dyspnea Verified 05/03/18 16:57 novacaine AdvReac Severe Rapid Uncoded 05/03/18 13:06 Heart Rate Exam Osteopathic Statement: *. No significant issues noted on an osteopathic structural exam other than those noted in the History and Physical/Consult. Vital Signs Temp Pulse Pulse Resp BP Pulse Ox 05/09/18 08:39 98.2 F 05/09/18 07:00 100.6 F H 98 16 108/71 96 05/09/18 02:29 100.5 F H 93 99 16 108/65 05/08/18 20:50 98.2 F 95 92 16 112/67 05/08/18 14:06 98.4 F 92 16 116/74 96 Intake and Output 05/08/18 05/09/18 05/09/18 22:59 06:59 14:59 Intake Total 1475 240 Balance 1475 240 Intake: Intake, IV Titration 1475 Amount Sodium Chloride 0.9% 1, 1475 000 ml @ 125 mls/hr IV . Q8H CASEY Rx#:[id number] Oral 240 Other: # Voids 6 Targeted physical exam was performed as the patient was eating at the bedside and my partner Dr. Gibson had previously examined this patient with a pelvic exam. In general this is a well-nourished well-developed female in no acute distress. Results Result Diagrams: 05/09/18 08:13 05/09/18 08:13 Abnormal Lab Results - Last 24 Hours (Table) 05/08/18 05/09/18 05/09/18 Range/Units 14:45 08:13 08:13 WBC 20.9 H (3.8-10.6) k/uL RBC 3.41 L (3.80-5.40) m/uL Hgb 9.6 L (11.4-16.0) gm/dL Hct 30.0 L (34.0-46.0) % Plt Count 576 H (150-450) k/uL Neutrophils # (Manual) 19.02 H (1.3-7.7) k/uL Potassium 3.3 L (3.5-5.1) mmol/L Chloride 109 H (98-107) mmol/L Creatinine 0.51 L (0.52-1.04) mg/dL Calcium 8.3 L (8.4-10.2) mg/dL Total Protein 5.3 L (6.3-8.2) g/dL Albumin 2.5 L (3.5-5.0) g/dL Urine Protein Trace H (Negative) Microbiology - Last 24 Hours (Table) 05/05/18 17:00 Stool Culture - Final Stool 05/03/18 13:52 Blood Culture - Preliminary Blood No Growth after 120 hours Assessment and Plan (1) Endometriosis Current Visit: Yes Status: Acute Code(s): N80.9 - ENDOMETRIOSIS, UNSPECIFIED SNOMED Code(s): 816641270 (2) Pelvic pain Current Visit: Yes Status: Acute Code(s): R10.2 - PELVIC AND PERINEAL PAIN SNOMED Code(s): 29631733 (3) Ovarian cyst Current Visit: Yes Status: Acute Code(s): N83.209 - UNSPECIFIED OVARIAN CYST , UNSPECIFIED SIDE SNOMED Code(s): 28073338 (4) Bowel obstruction Current Visit: Yes Status: Acute Code(s): K56.609 - UNSP INTESTNL OBST, UNSP TO PARTIAL VERSUS COMPLETE OBST SNOMED Code(s): 51133142 (5) Pneumonia Current Visit: Yes Status: Acute Code(s): J18.9 - PNEUMONIA, UNSPECIFIED ORGANISM SNOMED Code(s): 850184220 (6) UTI (urinary tract infection) Current Visit: Yes Status: Acute Code(s): N39.0 - URINARY TRACT INFECTION, SITE NOT SPECIFIED SNOMED Code(s): 13426329 Plan: Lung discussion with the patient at the bedside. I did review all prior consults, progress notes, radiologic examinations of this patient prior to seeing her. I do not feel given her partial small bowel obstruction that she is a candidate for surgery on this admission. I feel that if we take her to surgery and administered general anesthesia and performed a laparoscopy her bowel will be even more sluggish postoperatively. She states she is feeling better clinically her appetite is improving and she denied pain at this time. I do think that she should be seen in the office for a good gynecologic exam/ repeat ultrasound and weekend discuss options of care. I do feel in her future she will be a candidate for hysterectomy given her prior history of endometriosis and known ovarian cysts. Given these cysts are difficult to quantify on CAT scan/ultrasound I did order an ova 1 for further evaluation of these ovarian cysts. Thank you for the consult patient if any further questions please feel free to call
[2018-05-09] MEDS: POTASSIUM CHLORIDE ER 20 MEQ TAB.ER PO SCH ×2 (17:01→19:23)
[2018-05-10] MEDS: HEPARIN SODIUM,PORCINE 5,000 UNIT/ML 1 ML VIAL SQ SCH ×3 (00:06→18:12)
[2018-05-10] MEDS: metroNIDAZOLE-NS PMX 500 MG in SALINE 1 100ML.BAG IVPB SCH ×3 (02:08→19:56)
[2018-05-10] MEDS: SODIUM CHLORIDE 0.9% 1,000 ML IV SCH ×3 (03:17→19:55)
[2018-05-10] MEDS: ACETAMINOPHEN IV (For NPO) 1,000 MG in EMPTY BAG 1 BAG IVPB PRN ×3 (03:42→21:12)
--- NOTE | 2018-05-10 06:45 | PN ---
PROGRESS NOTE DATE OF SERVICE: 05/09/2018 REASON FOR FOLLOW UP: Fever and possible ischemic bowel disease. INTERVAL HISTORY: The patient was afebrile this morning, feeling slightly better, breathing comfortably. Denies any chest pain. No cough. Abdominal pain has improved. Diarrhea has slightly slowed down. No blood or mucus in it. EXAMINATION: Blood pressure 110/70 with a pulse of 83, temperature 98.7. She is 96% on room air. General description is a middle-aged female up in the room in no distress. Respiratory System: Unlabored breathing. Clear to auscultation. Heart: S1, S2. Regular rate and rhythm. Abdomen: Soft, no tenderness, no rigidity. LABS: Hemoglobin 9.6, white count 20.9, BUN of 7, creatinine 0.51. DIAGNOSTIC IMPRESSION AND PLAN: Patient with fever, elevated white count with diffuse colitis, concern for possible ischemic bowel disease. Her care was discussed in detail with Dr. Benson from GI who will be evaluating the patient and giving recommendation regarding possible colonoscopy and biopsy. Will keep patient on cefepime and Flagyl at this point. Continue supportive care. MMODL / IJN: [id number] /
[2018-05-10 07:46] LABS: HCT 28.1 % (34.0-46.0); HGB 8.9 gm/dL (11.4-16.0); Hypochromasia Slight; MCHC 31.7 g/dL (31.0-37.0); MCV 88.4 fL (80.0-100.0); Mean Platelet Volume 7.1; Platelet Count 581 k/uL (150-450); RBC 3.18 m/uL (3.80-5.40); RDW 15.2 % (11.5-15.5); WBC 21.2 k/uL (3.8-10.6)
[2018-05-10 07:58] LABS: ALT 25 U/L (9-52); AST 23 U/L (14-36); Albumin 2.2 g/dL (3.5-5.0); Alkaline Phosphatase 97 U/L (38-126); Anion Gap 7 mmol/L; Blood Urea Nitrogen 6 mg/dL (7-17); Carbon Dioxide 22 mmol/L (22-30); Chloride 112 mmol/L (98-107); Glucose 88 mg/dL (74-99); Potassium 3.5 mmol/L (3.5-5.1); Sodium 141 mmol/L (137-145); Total Bilirubin 0.3 mg/dL (0.2-1.3); Total Protein 4.8 g/dL (6.3-8.2)
--- NOTE | 2018-05-10 10:26 | P.PN ---
Progress Note - Text Progress Note Date: 05/10/18 The patient's resting comfortably in bed. She states she feels essentially unchanged from yesterday. She still has some mild abdominal pain. She still has complaints of distention. Patient was evaluated by [facility] service yesterday Dr. Arce does not feel the patient should undergo diagnostic laparoscopy for ovarian cysts. On exam her vital signs are stable. White count is 21,000. Abdomen is soft. There is some distention. There is some minimal tenderness. There is no rebound or guarding. There are no peritoneal signs. Due to the patient's persistent leukocytosis and abdominal distention as scheduled for another CAT scan of the abdomen and pelvis with oral and IV contrast today.
[2018-05-10 11:16] LABS: Band Neutrophils % 1 %; Monocytes # (M) 0.85 k/uL (0-1.0); Myelocytes # (M) 0.21 k/uL (0); Myelocytes % 1 %; Neutrophils % (M) 87 %; Nucleated Red Blood Cells 0 /100 WBC (0-0); Total Cells Counted 200; Toxic Granulation Present
[2018-05-10 11:17] LABS: Poikilocytosis (M) Present
[2018-05-10] MEDS: CEFEPIME 2 GM in SODIUM CHLORIDE 0.9% 50 ML IVPB SCH ×2 (12:27→21:34)
[2018-05-10] MEDS: PANTOPRAZOLE 40 MG/10 ML VIAL IVP SCH (12:27)
[2018-05-10] MEDS: IOPAMIDOL-300 CONTRAST 30 ML VIAL (ORAL USE) PO PRN ×2 (13:05→14:07)
--- NOTE | 2018-05-10 13:54 | P.PN ---
Subjective Progress Note Date: 05/10/18 This is a 47-year-old female, patient of Dr. Cruz. She has a known past medical history of multiple sclerosis, endometriosis requiring exploratory laparotomy 2 and rheumatoid arthritis. Patient reports abdominal pain started about 3 days ago mostly in the upper abdomen. She had a significant amount of diarrhea and and Friday. There was no blood reported in the stools. She was also having fevers as high as 101. The abdominal pain moved into the lower abdominal region. Pain was so severe she was having shortness of breath. And then on Friday she had stopped having any diarrhea and also stopped passing gas. During these 3 days she vomited twice. Patient came into the emergency room for further evaluation and treatment. She's found to have a temp of 101.4 she was tachycardic heart rate around 108. White count normal. Computed tomography scan showed partial small bowel obstruction with a transition within the left mid abdomen secondary to be containing of the small bowel wall. And consider jejunitis. Also reports multiple large cystic structures in the bilateral adnexa. Consider the possibility of pyosalpinx within the differential. Ovarian carcinoma is not excluded. We'll be ordering an abdominal and pelvic ultrasound for further evaluation. Patient is currently nothing by mouth. Started on Levaquin and IV Flagyl. Surgical and SECURITIES SETTLEMENT PROCESSOR consults have been placed. Patient was found to have evidence of a possible pneumonia on chest x-ray. Chest x-ray reported suggestion of a right middle lobe infiltrate. Correlate for atelectasis or pneumonia. Patient does reports having a cough. Also evidence of a UTI. She has been having some dark urine as well as mild burning with urination. Culture has been obtained. She' s currently nothing by mouth and on my and on IV fluids. Patient denies any chest pain. Does report some nausea. Patient has never had any colonoscopy or EGD. Does report having history of scar tissue in the abdomen due to previous abdominal surgeries. Patient denies any recent traveling. Denies any sick contacts. 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 05/05/2018 patient reported improvement in her abdominal pain. She was passing gas this morning and then had a large liquid brown yellowish stool. At that time she felt that her stomach bloating was doing better. She had a low-grade temp of 100.3 and was given Tylenol with a few sips of water. After she taken the medication and water she started having abdominal pain. Abdominal x-ray showing signs of ileus. Transvaginal pelvic ultrasound showing a fibroid uterus. Multiple bilateral cystic lesions could represent hemorrhagic cysts, endometrioma, tubo-ovarian abscess, cyst adenoma or cyst adenocarcinoma not excluded. Patient is followed by SECURITIES SETTLEMENT PROCESSOR service, and they felt symptoms were likely related to endometriomas. Dr. Wray also noted that his abdominal pain was not related to any SECURITIES SETTLEMENT PROCESSOR cause. Patient denies any vomiting. Reports that her urine is still dark. Burning with urination has resolved. Hemoglobin has dropped from 12.3-9.9. Patient denies any blood in the stools or black stools. Urine culture gram-negative bacilli. T-max 100.8. On 05/06/2018 patient is currently resting in bed. Patient is still having multiple loose stools last night and again this morning. Patient states this is still feels bloated abdominal discomfort. white blood cell increased to 20.8. Repeat CAT scan has been ordered per surgical services. Infectious disease consulted. At this time patient denies chest pain or shortness of breath. Patient denies any urinary burning or frequency. Patient is having abdominal pain denies any nausea or vomiting On 05/07/2018 patient is currently resting in bed. Patient states she's having some abdominal pain but it is improved from yesterday. At that time patient denies chest pain or shortness of breath. Patient is complaining cough is worse in a.m. Patient denies nausea vomiting or diarrhea. Patient denies any urinary burning or frequency. On 05/08/2018 patient is currently resting in bed. Patient is still complaining of some burning with urination and abdominal pain and bloating. Patient states she is having increased cough with production. Sputum culture has been ordered. Patient denies chest pain or shortness breath. Patient denies nausea vomiting or diarrhea. Patient denies any urinary frequency. On 05/09/2018 patient is feeling somewhat better she is still having significant abdominal pain and bloating but feels better than yesterday she is having cough without any sputum production she still has low-grade fever she is also complaining of nausea and diarrhea otherwise she denies any complaints at this time On 05/10/2018 patient was seen and examined on the medical floor she is still complaining of abdominal pain and diarrhea she is complaining of lower extremity swelling and discomfort today, otherwise she denies any complaints there is no fever or chills no headache or dizziness no chest pain no shortness of breath no cough and no urinary symptoms Objective - Vital Signs Vital signs: Vital Signs Temp 99.2 F 05/10/18 08:23 Pulse 84 05/10/18 08:23 Resp 16 05/10/18 08:23 BP 101/68 05/10/18 08:23 Pulse Ox 98 05/10/18 08:23 Intake & Output 05/09/18 05/10/18 05/10/18 18:59 06:59 18:59 Intake Total 480 1972 240 Balance 480 1972 240 Intake: Intake, IV Titration 1375 Amount Sodium Chloride 0.9% 1, 1375 000 ml @ 125 mls/hr IV . Q8H CASEY Rx#:[id number] Oral 480 598 240 Other: # Voids 2 3 # Bowel Movements 4 2 - Exam Head normocephalic and atraumatic Neck supple no JVD no goiter Lungs clear to auscultation bilaterally no wheezing or crackles Heart regular rate and rhythm S1-S2, no rub or gallop Abdomen is soft diffuse tenderness distended positive bowel sounds no hepatosplenomegaly Extremities no edema no cyanosis or clubbing Neuro alert and orientated to 3 no gross focal deficit - Labs CBC & Chem 7: 05/10/18 07:02 05/10/18 07:02 Labs: Abnormal Lab Results - Last 24 Hours (Table) 05/09/18 05/10/18 05/10/18 Range/Units 19:47 07:02 07:02 WBC 21.2 H (3.8-10.6) k/uL RBC 3.18 L (3.80-5.40) m/uL Hgb 8.9 L (11.4-16.0) gm/dL Hct 28.1 L (34.0-46.0) % Plt Count 581 H (150-450) k/uL Neutrophils # (Manual) 18.60 H (1.3-7.7) k/uL Myelocytes # (Manual) 0.21 H (0) k/uL Potassium 3.2 L (3.5-5.1) mmol/L Chloride 112 H (98-107) mmol/L BUN 6 L (7-17) mg/dL Calcium 8.0 L (8.4-10.2) mg/dL Total Protein 4.8 L (6.3-8.2) g/dL Albumin 2.2 L (3.5-5.0) g/dL Microbiology - Last 24 Hours (Table) 05/03/18 13:52 Blood Culture - Final Blood No Growth after 144 hours Assessment and Plan Plan: 1. Abdominal pain with diarrhea and now constipation: Computed tomography scan showing partial small bowel obstruction with a transition within the left mid abdomen secondary to containing of the small bowel wall. And consider jejunitis. Patient has been started on Levaquin and IV Flagyl. Consult surgical service. Patient nothing by mouth except ice chips. Continue IV fluids. Abdominal x-ray showing ileus. We'll await further surgical recommendations. Patient was able to have large watery stool. No bleeding. Computed tomography scan of abdomen completed showing large complex bilateral ovaries. Large cyst were heterogenic masses should be considered. Other cysts have increased in size of the interval. The overall appearance is similar to comparison. Over ovarian neoplasm should be considered. Ileus. Previous suspected zone of transition is not identified. Partial small bowel obstruction remains within the differential. White blood cell increasing to 24.0. Per infectious disease will maintain patient on Rocephin and Flagyl by mouth every 8 hours. Per surgical services patient ovarian cyst should be evaluated for possible source of infection. Awaiting SECURITIES SETTLEMENT PROCESSOR input. If condition is unchanged will repeat CAT scan in a.m. per surgery 2. Bilateral cystic pelvic masses: Seen by SECURITIES SETTLEMENT PROCESSOR service. [place] the bilateral cystic masses are concerning for endometriomas but should not contribute to patient's bowel symptoms. per infectious disease patient may benefit from laparoscopic diagnosed major no evidence of adnexal abcess. Awaiting SECURITIES SETTLEMENT PROCESSOR imput 3. Sepsis with fever and tachycardia likely related to abdominal infection, UTI or pneumonia. Continue IV antibiotics continue IV fluids. Lactic normal. Blood culture negative so far 4. Elevated d-dimer: Venous Doppler negative for DVT bilaterally. VQ scan low probability for PE 5. Possible community-acquired pneumonia noted on chest x-ray continue with Levaquin 6. UTI: Urine culture growing gram-negative bacilli. Toxicity following. Patient is on Rocephin and Flagyl. Repeat UA has been ordred 7. History of multiple sclerosis: Not on any medications due to side effects 8. History of rheumatoid arthritis 9. History of endometriosis with previous exploratory laparoscopic Surgeries 10. Anemia: Possibly related to IV fluids. No active signs of bleeding. Hemoglobin has dropped from 12.3-9.9. Iron saturation 3.08, TIBC 227 and iron 7. 11. Lower extremity edema likely due to low albumin level, will give 1 dose of IV albumin followed by IV Lasix, if condition continues to not improve will discuss TPN with surgery Encourage patient to increase activity GI prophylaxis IV Protonix and DVT prophylaxis heparin
[2018-05-10] MEDS ORDERED: FUROSEMIDE 10 MG/ML 2 ML VIAL IV ONE (13:55)
[2018-05-10] MEDS ORDERED: ALBUMIN HUMAN 25% 50 ML in EMPTY BAG 1 BAG IVPB ONE (14:00)
--- NOTE | 2018-05-10 15:35 | CT ---
EXAMINATION TYPE: CT abdomen pelvis w con DATE OF EXAM: 05/10/2018 HISTORY: Generalized abdominal pain. CT DLP: 752.5mGycm Automated Exposure Control for Dose Reduction was Utilized. CONTRAST: CT scan of the abdomen and pelvis is performed with IV Contrast, patient injected with 100ml mL of Is ovue M300. COMPARISON: 05/06/2018 and 05/03/2018 FINDINGS: LUNG BASES: Very trace right pleural effusion is seen as well as minimal bibasilar subsegmental atele ctasis. LIVER/GB: Liver is elongated extending into the left upper quadrant. There is a focal area of hypoatt enuation near the fissure for the falciform ligament, a typical location for focal fatty infiltration . Gallbladder is contracted. PANCREAS: No significant abnormality is seen. SPLEEN: Spleen is prominent in size but nonenlarged measuring 12 point for centimeters in craniocauda l dimension. ADRENALS: No significant abnormality is seen. KIDNEYS: There is new right-sided moderate hydroureteronephrosis, obstructive from the large right ad nexal mass placing mass effect upon the ureter. The kidneys enhance symmetrically although there is d elayed excretion on the right and BOWEL: Contrast extends through the mildly dilated small bowel into the large bowel and rectum exclud ing complete small bowel obstruction. Degree of small bowel dilatation has mildly improved from the p rior of 05/06/2018 with small bowel now measuring upper limits of normal of 3.0 cm.. UTERUS/ADNEXA: There is redemonstration of enlarged and complex ovaries bilaterally with the largest fluid attenuated right cystic lesion measuring up to 10.9 x 6.9 cm and previously measuring 10.7 x 6. 7 cm on the left measuring up to 7.0 x 10.3 cm. Overall there is interval enlargement of the left and similar size on the right. On sagittal series 203 image 42 posteriorly on the right there appears to be a serpiginous looping suggesting a component of hydrosalpinx in addition to multicystic ovaries. On the left there is an internal dystrophic calcification. Uterus is slightly heterogenous as is the cervix. No free fluid is identified. LYMPH NODES: No greater than 1cm abdominal or pelvic lymph nodes are appreciated. OSSEOUS STRUCTURES: No significant abnormality is seen. OTHER: Strand-like foci within the subcutaneous anterior abdominal wall such as on image 48 and 51 ma y be from subcutaneous injections or trauma. Correlate with history. IMPRESSION: 1. Improvement in degree and small bowel dilatation with contrast passing into the large bowel and re ctum excluding complete small bowel obstruction. Ileus is suspected. 2. Interval development of moderate right hydroureteronephrosis and delayed excretion of contrast fro m the right kidney secondary to an obstructing multiloculated large right adnexal mass. There is prog ressive enlargement of the left multicystic adnexal mass. Serpiginous posterior aspect of the right a dnexal mass is most compatible with a component of hydrosalpinx. Considerations are for tubo-ovarian abscess in the appropriate clinical setting, bilateral ovarian neoplasms, ovarian hyperstimulation sy ndrome if exogenous hormones are present, or hemorrhagic cysts/endometriomas. Pelvic MRI could assess for presence of endometriomas.
--- NOTE | 2018-05-10 23:48 | PN ---
PROGRESS NOTE DATE OF SERVICE: 05/10/2018. REASON FOR FOLLOWUP: Fever and a question of colitis versus pelvic inflammatory disease. INTERVAL HISTORY: The patient did have a low-grade fever. Highest temperature has been 100.7 today. She has been breathing comfortably. Denies significant chest pain or cough. Pain mostly right lower quadrant, slightly decreased. Still has diarrhea, though the frequency has decreased as well. EXAMINATION: Blood pressure 120/72 with a pulse of 80, temperature 100.7, she is 99% on room air. GENERAL DESCRIPTION: A middle-aged female lying in bed in no distress. RESPIRATORY SYSTEM: Unlabored breathing. Clear to auscultation anteriorly. HEART: S1, S2. Regular rate and rhythm. ABDOMEN: Soft, minimally tender in the right lower quadrant area. No guarding or rigidity. LABS: Hemoglobin 8.9 with white count of 1.2 with a BUN of 6, creatinine 0.57. Repeat CT scan done today showing increasing left adnexal mass with involvement of hydroureteronephrosis. DIAGNOSTIC IMPRESSION AND PLAN: Patient with persistent fever and elevated white count with differential possible colitis, inflammatory bowel disease versus a pelvic abscess, as the patient did have a multiloculated large mass which has progressively increased in size leading to the right hydroureteronephrosis. We will re-discuss with VIROLOGIST for possible laparoscopic drainage of the same, at which time should be sent for cultures or CT- guided drainage. Keep the patient on cefepime and Flagyl at this point. Continue supportive care. MMODL / IJN: [id number] /
[2018-05-11] MEDS: HEPARIN SODIUM,PORCINE 5,000 UNIT/ML 1 ML VIAL SQ SCH ×3 (00:34→17:45)
[2018-05-11] MEDS: metroNIDAZOLE-NS PMX 500 MG in SALINE 1 100ML.BAG IVPB SCH ×3 (00:57→17:45)
[2018-05-11] MEDS: SODIUM CHLORIDE 0.9% 1,000 ML IV SCH ×3 (00:59→23:15)
--- NOTE | 2018-05-11 01:13 | P.CONS ---
History of Present Illness - Reason for Consult Consult date: 05/09/18 Abdminal pain/possible inflammatory bowel disease - History of Present Illness The patient is a 47-year-old female who presented with history of diarrhea, fever, chills and diffuse abdominal cramps, bloating and decreased appetite. The patient had CT of the abdomen and pelvis that showed partial bowel obstruction with a transition within the left midabdomen. And there was a large cystic structure bilaterally in the adnexa. The patient has history of endometriosis and had no prior EGD or colonoscopy. Dr. Recinos who is following her for possible infectious etiology indicated to me that up until reviewing her computed tomography scan that was mention of diffuse colonic wall thickening and in the absence of an explanation for her symptoms and presentation, the possibility of inflammatory bowel disease was entertained. We're asked to see her for consideration for colonoscopy. Review of Systems Constitutional: History of fever, chills and unintentional weight loss Neurologic: History of multiple sclerosis Cardiopulmonary: No chest pains, shortness of breath or palpitations Gastrointestinal: See present illness above Genitourinary: No hematuria, dysuria or frequency Skin: No rashes Endocrine: No polyuria or polydipsia Musculoskeletal: History of RA Hematologic: No bleeding tendency Psychiatric: No history of anxiety or depression Past Medical History Past Medical History: Neurologic Disorder, Pneumonia, Rheumatoid Arthritis (RA) Additional Past Medical History / Comment(s): MULTIPLE SCLEROSIS, ENDOMETRIOSIS.RIGHT KIDNEY ENLARGED. History of Any Multi-Drug Resistant Organisms: None Reported Past Surgical History: Orthopedic Surgery Additional Past Surgical History / Comment(s): EXP. LAP FOR ENDOMETRIOSIS X2 WITH SCAR TISSUE ON OVARIES..ADENEXAL CYSTIC DRAINAGE DUE TO PRESSURE ON URETHERA-. Past Anesthesia/Blood Transfusion Reactions: Previous Problems w/ Anesthesia Additional Past Anesthesia/Blood Transfusion Reaction / Comm: NOVACAINE. IT CAUSED INCREASED HEART RATE. Past Psychological History: Anxiety, Depression Smoking Status: Never smoker Past Alcohol Use History: None Reported Past Drug Use History: None Reported - Past Family History Mother Family Medical History: Cancer, Thyroid Disorder Father Additional Family Medical History / Comment(s): , Heart Attack at 57 Sister(s) Family Medical History: Cancer Additional Family Medical History / Comment(s): Breast Cancer Medications and Allergies Home Medications Medication Instructions Recorded Confirmed Type Aspirin 325 mg PO DIRECTED PRN 10/26/13 05/03/18 History Ascorbic Acid/Multivit-Min 1,000 mg PO DAILY 05/03/18 05/03/18 History [Emergen-C 1,000 mg Packet] Allergies Allergy/AdvReac Type Severity Reaction Status Date / Time amoxicillin [Amoxicillin] Allergy Severe Rash/Hives Verified 05/03/18 16:57 alprazolam [From Xanax] AdvReac Severe Unknown Verified 05/03/18 16:57 morphine AdvReac Severe Itching Verified 05/03/18 16:57 sulfamethoxazole AdvReac Severe Dyspnea Verified 05/03/18 16:57 [From Bactrim] trimethoprim [From Bactrim] AdvReac Severe Dyspnea Verified 05/03/18 16:57 novacaine AdvReac Severe Rapid Uncoded 05/03/18 13:06 Heart Rate Physical Exam Vitals: Vital Signs Temp Pulse Pulse Resp BP Pulse Ox 05/09/18 08:39 98.2 F 05/09/18 07:00 100.6 F H 98 16 108/71 96 05/09/18 02:29 100.5 F H 93 99 16 108/65 05/08/18 20:50 98.2 F 95 92 16 112/67 05/08/18 14:06 98.4 F 92 16 116/74 96 Intake and Output 05/08/18 05/09/18 05/09/18 22:59 06:59 14:59 Intake Total 1475 240 Balance 1475 240 Intake: Intake, IV Titration 1475 Amount Sodium Chloride 0.9% 1, 1475 000 ml @ 125 mls/hr IV . Q8H [facility] Rx#:[id number] Oral 240 Other: # Voids 6 General: Appeared stated age, very pleasant in no acute distress Head and neck: Normocephalic and atraumatic, conjunctivae pink and sclerae not icteric, mucous membranes moist and pink. No masses in the neck or tracheal shifts Lungs: Clear to auscultation with no dullness to percussion Heart: Regular, no abnormal sounds, murmurs, gallops or friction Abdomen: Soft, distended with no palpable masses or organomegalies. Tenderness on deep palpation, bowel sounds present but decreased Extremities: No clubbing, cyanosis or edema Neurologic: Alert and oriented 3. Cranial nerves grossly intact. No gross sensory or motor abnormalities Results CBC & Chem 7: 05/10/18 07:02 11/25/18 07:02 Labs: Abnormal Lab Results - Last 24 Hours (Table) 05/08/18 05/09/18 05/09/18 Range/Units 14:45 08:13 08:13 WBC 20.9 H (3.8-10.6) k/uL RBC 3.41 L (3.80-5.40) m/uL Hgb 9.6 L (11.4-16.0) gm/dL Hct 30.0 L (34.0-46.0) % Plt Count 576 H (150-450) k/uL Neutrophils # (Manual) 19.02 H (1.3-7.7) k/uL Potassium 3.3 L (3.5-5.1) mmol/L Chloride 109 H (98-107) mmol/L Creatinine 0.51 L (0.52-1.04) mg/dL Calcium 8.3 L (8.4-10.2) mg/dL Total Protein 5.3 L (6.3-8.2) g/dL Albumin 2.5 L (3.5-5.0) g/dL Urine Protein Trace H (Negative) Microbiology - Last 24 Hours (Table) 05/05/18 17:00 Stool Culture - Final Stool 05/03/18 13:52 Blood Culture - Preliminary Blood No Growth after 120 hours Assessment and Plan Assessment: Unexplained fever associated with picture of ileus/intestinal obstruction and thickening of the colon wall on CT could be on the basis of inflammatory bowel disease. Certainly, an infectious etiology remains higher in the differential possibilities. Plan: I agree with your current management. I discussed at length with the patient possible inflammatory etiology of her symptoms. Did not schedule endoscopy at this time and we will make this decision based on her course over the weekend. I will follow with you with interest.
[2018-05-11] MEDS: ACETAMINOPHEN IV (For NPO) 1,000 MG in EMPTY BAG 1 BAG IVPB PRN ×2 (03:14→09:23)
[2018-05-11] MEDS: CEFEPIME 2 GM in SODIUM CHLORIDE 0.9% 50 ML IVPB SCH ×2 (08:37→20:51)
[2018-05-11] MEDS: PANTOPRAZOLE 40 MG/10 ML VIAL IVP SCH (08:38)
[2018-05-11 09:32] LABS: Potassium 3.4 mmol/L (3.5-5.1)
[2018-05-11 09:33] LABS: ALT 30 U/L (9-52); AST 27 U/L (14-36); Albumin 2.6 g/dL (3.5-5.0); Alkaline Phosphatase 112 U/L (38-126); Anion Gap 11 mmol/L; Blood Urea Nitrogen 7 mg/dL (7-17); Calcium 8.2 mg/dL (8.4-10.2); Carbon Dioxide 21 mmol/L (22-30); Chloride 108 mmol/L (98-107); Glucose 92 mg/dL (74-99); Sodium 140 mmol/L (137-145); Total Bilirubin 0.4 mg/dL (0.2-1.3); Total Protein 5.5 g/dL (6.3-8.2)
[2018-05-11 10:11] LABS: HGB 9.3 gm/dL (11.4-16.0); Hypochromasia Slight; MCH 29.1 pg (25.0-35.0); MCHC 33.2 g/dL (31.0-37.0); MCV 87.7 fL (80.0-100.0); Mean Platelet Volume 8.4; Platelet Count 528 k/uL (150-450); RBC 3.19 m/uL (3.80-5.40); RDW 15.2 % (11.5-15.5); WBC 20.4 k/uL (3.8-10.6)
[2018-05-11] MEDS ORDERED: POTASSIUM CHLORIDE ER 20 MEQ TAB.ER PO STA (10:17)
--- NOTE | 2018-05-11 11:08 | P.PN ---
Subjective Progress Note Date: 05/11/18 This is a 47-year-old female, patient of Dr. Cruz. She has a known past medical history of multiple sclerosis, endometriosis requiring exploratory laparotomy 2 and rheumatoid arthritis. Patient reports abdominal pain started about 3 days ago mostly in the upper abdomen. She had a significant amount of diarrhea and and Friday. There was no blood reported in the stools. She was also having fevers as high as 101. The abdominal pain moved into the lower abdominal region. Pain was so severe she was having shortness of breath. And then on Friday she had stopped having any diarrhea and also stopped passing gas. During these 3 days she vomited twice. Patient came into the emergency room for further evaluation and treatment. She's found to have a temp of 101.4 she was tachycardic heart rate around 108. White count normal. Computed tomography scan showed partial small bowel obstruction with a transition within the left mid abdomen secondary to be containing of the small bowel wall. And consider jejunitis. Also reports multiple large cystic structures in the bilateral adnexa. Consider the possibility of pyosalpinx within the differential. Ovarian carcinoma is not excluded. We'll be ordering an abdominal and pelvic ultrasound for further evaluation. Patient is currently nothing by mouth. Started on Levaquin and IV Flagyl. Surgical and [employer]ING [employer]SE INSPECTOR consults have been placed. Patient was found to have evidence of a possible pneumonia on chest x-ray. Chest x-ray reported suggestion of a right middle lobe infiltrate. Correlate for atelectasis or pneumonia. Patient does reports having a cough. Also evidence of a UTI. She has been having some dark urine as well as mild burning with urination. Culture has been obtained. She' s currently nothing by mouth and on my and on IV fluids. Patient denies any chest pain. Does report some nausea. Patient has never had any colonoscopy or EGD. Does report having history of scar tissue in the abdomen due to previous abdominal surgeries. Patient denies any recent traveling. Denies any sick contacts. 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 05/05/2018 patient reported improvement in her abdominal pain. She was passing gas this morning and then had a large liquid brown yellowish stool. At that time she felt that her stomach bloating was doing better. She had a low-grade temp of 100.3 and was given Tylenol with a few sips of water. After she taken the medication and water she started having abdominal pain. Abdominal x-ray showing signs of ileus. Transvaginal pelvic ultrasound showing a fibroid uterus. Multiple bilateral cystic lesions could represent hemorrhagic cysts, endometrioma, tubo-ovarian abscess, cyst adenoma or cyst adenocarcinoma not excluded. Patient is followed by [employer]SE INSPECTOR service, and they felt symptoms were likely related to endometriomas. Dr. Wray also noted that his abdominal pain was not related to any [employer] HOUSE INSPECTOR cause. Patient denies any vomiting. Reports that her urine is still dark. Burning with urination has resolved. Hemoglobin has dropped from 12.3-9.9. Patient denies any blood in the stools or black stools. Urine culture gram-negative bacilli. T-max 100.8. On 05/06/2018 patient is currently resting in bed. Patient is still having multiple loose stools last night and again this morning. Patient states this is still feels bloated abdominal discomfort. white blood cell increased to 20.8. Repeat CAT scan has been ordered per surgical services. Infectious disease consulted. At this time patient denies chest pain or shortness of breath. Patient denies any urinary burning or frequency. Patient is having abdominal pain denies any nausea or vomiting On 05/07/2018 patient is currently resting in bed. Patient states she's having some abdominal pain but it is improved from yesterday. At that time patient denies chest pain or shortness of breath. Patient is complaining cough is worse in a.m. Patient denies nausea vomiting or diarrhea. Patient denies any urinary burning or frequency. On 05/08/2018 patient is currently resting in bed. Patient is still complaining of some burning with urination and abdominal pain and bloating. Patient states she is having increased cough with production. Sputum culture has been ordered. Patient denies chest pain or shortness breath. Patient denies nausea vomiting or diarrhea. Patient denies any urinary frequency. On 05/09/2018 patient is feeling somewhat better she is still having significant abdominal pain and bloating but feels better than yesterday she is having cough without any sputum production she still has low-grade fever she is also complaining of nausea and diarrhea otherwise she denies any complaints at this time On 05/10/2018 patient was seen and examined on the medical floor she is still complaining of abdominal pain and diarrhea she is complaining of lower extremity swelling and discomfort today, otherwise she denies any complaints there is no fever or chills no headache or dizziness no chest pain no shortness of breath no cough and no urinary symptoms 05/11/2018 patient is having abdominal pain with abdominal distention. Also continues to have fevers. Repeat computed tomography scan of the abdomen and pelvis shows improvement in degree and small bowel dilation with contrast passing into large bowel and rectum. Ileus was suspected. Interval development of moderate right hydroureteronephrosis and delayed excretion of contrast from the right kidney secondary to an obstructing multiloculated large right adnexal mass. There is progressive enlargement of the left multicystic adnexal mass. Patient has been seen by [employer]SE INS[employer]OR service they're planning exploratory laparotomy with salpingectomy and oophorectomy with possible hysterectomy and bilateral ureteral stents. Patient denies any chest pain or shortness of breath. She does have lower extremity. She was given albumin and Lasix due to her low albumin levels yesterday. Denies any calf tenderness. T- max 101. White count 20.4. Potassium is 3.4 patient receiving supplement. Objective - Vital Signs Vital signs: Vital Signs Temp 99.8 F H 05/11/18 07:30 Pulse 95 05/11/18 07:00 Resp 16 05/11/18 07:15 BP 114/73 05/11/18 07:00 Pulse Ox 98 05/11/18 07:00 Intake & Output 05/10/18 05/11/18 05/11/18 18:59 06:59 18:59 Intake Total 240 1855 Balance 240 1855 Intake: Intake, IV Titration 1075 Amount Sodium Chloride 0.9% 1, 1075 000 ml @ 125 mls/hr IV . Q8H [facility] Rx#:[id number] Oral 240 780 Other: # Voids 2 3 # Bowel Movements 2 - Exam Head normocephalic Neck supple Lungs clear to auscultation bilaterally no wheezing or crackles Heart regular rate and rhythm S1-S2, no rub or gallop Abdomen is soft diffuse tenderness distended positive bowel sounds no hepatosplenomegaly Extremities bilateral lower extremity edema left worse than right. No calf tenderness. Neuro alert and orientated to 3 - Labs CBC & Chem 7: 05/11/18 08:40 05/11/18 08:40 Labs: Abnormal Lab Results - Last 24 Hours (Table) 05/10/18 05/11/18 05/11/18 Range/Units 07:02 08:40 08:40 WBC 20.4 H (3.8-10.6) k/uL RBC 3.19 L (3.80-5.40) m/uL Hgb 9.3 L (11.4-16.0) gm/dL Hct 28.0 L (34.0-46.0) % Plt Count 528 H (150-450) k/uL Neutrophils # (Manual) 18.60 H (1.3-7.7) k/uL Myelocytes # (Manual) 0.21 H (0) k/uL Potassium 3.4 L (3.5-5.1) mmol/L Chloride 108 H (98-107) mmol/L Carbon Dioxide 21 L (22-30) mmol/L Calcium 8.2 L (8.4-10.2) mg/dL Total Protein 5.5 L (6.3-8.2) g/dL Albumin 2.6 L (3.5-5.0) g/dL Microbiology - Last 24 Hours (Table) 05/05/18 17:00 Stool Culture - Final Stool Assessment and Plan Assessment: 1. Abdominal pain with diarrhea and now constipation: Likely related to partial small bowel obstruction and ileus or bilateral cystic ovarian masses. Computed tomography scan showing partial small bowel obstruction with a transition within the left mid abdomen secondary to containing of the small bowel wall. And consider jejunitis. Initially treated with Levaquin and Flagyl 2. Bilateral cystic ovarian masses: Repeat computed tomography scan findings as stated above. Also noted development of a moderate right hydroureteronephrosis on computed tomography scan. Patient scheduled for exploratory laparotomy with bilateral salpingectomy and oophorectomy and possible hysterectomy with bilateral ureteral stents. 3. Sepsis with fever and tachycardia likely related to abdominal infection, UTI or pneumonia or the ovarian cysts. Continue to monitor blood cultures. Patient still having fevers. Continue the cefepime and Flagyl. Follow close by infectious disease. Patient scheduled for surgery today. 4. Elevated d-dimer: Venous Doppler negative for DVT bilaterally. VQ scan low probability for PE 5. Possible community-acquired pneumonia noted on chest x-ray 6. UTI: Urine culture growing E. coli. 7. History of multiple sclerosis: Not on any medications due to side effects 8. History of rheumatoid arthritis 9. History of endometriosis with previous exploratory laparoscopic Surgeries 10. Anemia: Possibly related to IV fluids, infection and iron deficiency anemia. Total iron low at 7 11. Severe protein calorie malnutrition patient received albumin and Lasix yesterday. Likely contributing to patient's lower extremity edema. Patient may require TPN after surgery. 12. Hypokalemia patient receiving potassium supplement GI prophylaxis IV Protonix and DVT prophylaxis subcu heparin I performed an examination of the patient and discussed their management with the physician Prospecting Driller Helper. I have reviewed the Physician Prospecting Driller Helper's notes and agree with the documented findings and plan of care
[2018-05-11] MEDS ORDERED: IV FLUID CONTINUATION 1,000 ML IV ONE ×2 (11:13→12:35)
[2018-05-11] MEDS ORDERED: MIDAZOLAM 2 MG/2 ML VIAL IVP ONE (11:45)
[2018-05-11] MEDS ORDERED: fentaNYL (PF) 50 MCG/ML 2 ML AMP ONE (11:57)
[2018-05-11] MEDS ORDERED: SUCCINYLCHOLINE CHLORIDE 100 MG/5 ML SYR IV ONE (11:57)
[2018-05-11] MEDS ORDERED: LIDOCAINE 1% INJ 10MG/ML (20 ML MDV) ONE (11:57)
[2018-05-11] MEDS ORDERED: PROPOFOL 10 MG/ML 20 ML VIAL IV ONE (11:57)
[2018-05-11] MEDS ORDERED: ePHEDrine SULFATE/0.9% NACL/PF 50 MG/5 ML SYRINGE IV ONE (11:57)
[2018-05-11] MEDS ORDERED: NEOSTIGMINE 1 MG/ML 10 ML VIAL ONE (11:57)
[2018-05-11] MEDS ORDERED: GLYCOPYRROLATE 0.2 MG/ML 2 ML VIAL ONE (11:57)
[2018-05-11] MEDS ORDERED: ROCURONIUM BROMIDE 10 MG/ML 10 ML VIAL IV ONE (11:57)
--- NOTE | 2018-05-11 12:06 | P.GSCN ---
History of Present Illness Consult date: 05/11/18 History of present illness: Patient is 47 years old she is in the hospital with increasing abdominal distention, pain. She has what appears to be large growing bilateral ovarian cysts. Because of this she is going to have an urgent exploration probable ovarian cystectomy possible hysterectomy today. has requested I place ureteral catheters for intraoperative ureteral identification during this procedure. Patient did have a positive urine culture with E. coli and has been placed on appropriate antibiotics. She had a computed tomography scan identifying mild [place] on the right and no hydro-on the left. SHe has no stones. She does have a history of recurrent cystitis. Review of Systems - Constitutional Denies fever, Denies weight loss - Gastrointestinal Reports abdominal pain, Reports belching, Reports bloating - Genitourinary Genitourinary: Reports as per HPI Past Medical History Past Medical History: Neurologic Disorder, Pneumonia, Rheumatoid Arthritis (RA) Additional Past Medical History / Comment(s): MULTIPLE SCLEROSIS, ENDOMETRIOSIS.RIGHT KIDNEY ENLARGED. History of Any Multi-Drug Resistant Organisms: None Reported Past Surgical History: Orthopedic Surgery Additional Past Surgical History / Comment(s): EXP. LAP FOR ENDOMETRIOSIS X2 WITH SCAR TISSUE ON OVARIES..ADENEXAL CYSTIC DRAINAGE DUE TO PRESSURE ON URETHERA-. Past Anesthesia/Blood Transfusion Reactions: Previous Problems w/ Anesthesia Additional Past Anesthesia/Blood Transfusion Reaction / Comm: NOVACAINE. IT CAUSED INCREASED HEART RATE. Past Psychological History: Anxiety, Depression Smoking Status: Never smoker Past Alcohol Use History: None Reported Past Drug Use History: None Reported - Past Family History Mother Family Medical History: Cancer, Thyroid Disorder Father Additional Family Medical History / Comment(s): , Heart Attack at 57 Sister(s) Family Medical History: Cancer Additional Family Medical History / Comment(s): Breast Cancer Medications and Allergies Home Medications Medication Instructions Recorded Confirmed Type Aspirin 325 mg PO DIRECTED PRN 10/26/13 05/03/18 History Ascorbic Acid/Multivit-Min 1,000 mg PO DAILY 05/03/18 05/03/18 History [Emergen-C 1,000 mg Packet] Allergies Allergy/AdvReac Type Severity Reaction Status Date / Time amoxicillin [Amoxicillin] Allergy Severe Rash/Hives Verified 05/11/18 11:21 alprazolam [From Xanax] AdvReac Severe Unknown Verified 05/11/18 11:21 morphine AdvReac Severe Itching Verified 05/11/18 11:21 sulfamethoxazole AdvReac Severe Dyspnea Verified 05/11/18 11:21 [From Bactrim] trimethoprim [From Bactrim] AdvReac Severe Dyspnea Verified 05/11/18 11:21 novacaine AdvReac Severe Rapid Uncoded 05/11/18 11:21 Heart Rate Surgical - Exam Vital Signs Pulse Ox 97 05/03/18 12:59 - General well developed, moderate distress - Eyes PERRL - ENT no hearing loss - Neck trachea midline - Respiratory normal expansion, normal respiratory effort - Cardiovascular Rhythm: regular - Abdomen Abdomen: tender, distended - Genitourinary normal external genitalia - Integumentary no growths - Neurologic normal coordination, normal sensation, combative, deep tendon reflexes - Psychiatric oriented to time, oriented to person, oriented to place, speech is normal, memory intact Results - Labs 05/11/18 08:40 05/11/18 08:40 Abnormal Lab Results - Last 24 Hours (Table) 05/11/18 05/11/18 Range/Units 08:40 08:40 WBC 20.4 H (3.8-10.6) k/uL RBC 3.19 L (3.80-5.40) m/uL Hgb 9.3 L (11.4-16.0) gm/dL Hct 28.0 L (34.0-46.0) % Plt Count 528 H (150-450) k/uL Potassium 3.4 L (3.5-5.1) mmol/L Chloride 108 H (98-107) mmol/L Carbon Dioxide 21 L (22-30) mmol/L Calcium 8.2 L (8.4-10.2) mg/dL Total Protein 5.5 L (6.3-8.2) g/dL Albumin 2.6 L (3.5-5.0) g/dL Microbiology - Last 24 Hours (Table) 05/05/18 17:00 Stool Culture - Final Stool Diabetes panel 05/11/18 Range/Units 08:40 Sodium 140 (137-145) mmol/L Potassium 3.4 L (3.5-5.1) mmol/L Chloride 108 H (98-107) mmol/L Carbon Dioxide 21 L (22-30) mmol/L BUN 7 (7-17) mg/dL Creatinine 0.54 (0.52-1.04) mg/dL Glucose 92 (74-99) mg/dL Calcium 8.2 L (8.4-10.2) mg/dL AST 27 (14-36) U/L ALT 30 (9-52) U/L Alkaline Phosphatase 112 (38-126) U/L Total Protein 5.5 L (6.3-8.2) g/dL Albumin 2.6 L (3.5-5.0) g/dL Calcium panel 05/11/18 Range/Units 08:40 Calcium 8.2 L (8.4-10.2) mg/dL Albumin 2.6 L (3.5-5.0) g/dL Pituitary panel 05/11/18 Range/Units 08:40 Sodium 140 (137-145) mmol/L Potassium 3.4 L (3.5-5.1) mmol/L Chloride 108 H (98-107) mmol/L Carbon Dioxide 21 L (22-30) mmol/L BUN 7 (7-17) mg/dL Creatinine 0.54 (0.52-1.04) mg/dL Glucose 92 (74-99) mg/dL Calcium 8.2 L (8.4-10.2) mg/dL Adrenal panel 05/11/18 Range/Units 08:40 Sodium 140 (137-145) mmol/L Potassium 3.4 L (3.5-5.1) mmol/L Chloride 108 H (98-107) mmol/L Carbon Dioxide 21 L (22-30) mmol/L BUN 7 (7-17) mg/dL Creatinine 0.54 (0.52-1.04) mg/dL Glucose 92 (74-99) mg/dL Calcium 8.2 L (8.4-10.2) mg/dL Total Bilirubin 0.4 (0.2-1.3) mg/dL AST 27 (14-36) U/L ALT 30 (9-52) U/L Alkaline Phosphatase 112 (38-126) U/L Total Protein 5.5 L (6.3-8.2) g/dL Albumin 2.6 L (3.5-5.0) g/dL - Imaging CT scan - abdomen: report reviewed, image reviewed CT scan - pelvis: report reviewed, image reviewed Assessment and Plan Assessment: Impression: Enlarging bilateral cysts of the ovary. Right-sided hydronephrosis. Recommendations I will place bilateral ureteral catheters was cystoscopy at the time of Dr. Najera exploration.
--- NOTE | 2018-05-11 12:32 | P.OP ---
Date of Procedure: 05/11/18 Preoperative Diagnosis: Bilateral enlarging ovarian cysts, right hydronephrosis Postoperative Diagnosis: Same Procedure(s) Performed: Cystoscopy placement of bilateral open-ended ureteral catheters Anesthesia: NANCY Surgeon: Carloz Armstrong Pathology: none sent Condition: stable Disposition: PACU Operative Findings: The patient has enlarging bilateral ovarian cysts. She has right-sided hydronephrosis due to compression. She'll undergo placement of ureteral catheters at the time of her abdominal exploration. Description of Procedure: Patient brought to the operating suite. She is given general anesthesia. She' s placed lithotomy position with a sterile prep and drape. Cystoscopy Foroblique lens and 22-Greek sheath identifies a normal urethra. The bladder wall shows cystitis. Bilateral ureteral catheters, 6-Greek open-ended are placed over 035 wires. The right side is slightly difficult due to the obstruction the left is not. Clear urine is drained out of each catheter. The bladder strain a [place] catheters placed ureteral catheter secured to this. proceed with her procedure.
[2018-05-11 12:37] LABS: Band Neutrophils % 1 %; Lymphocytes # (M) 1.02 k/uL (1.0-4.8); Monocytes # (M) 1.22 k/uL (0-1.0); Neutrophils % (M) 88 %; Nucleated Red Blood Cells 0 /100 WBC (0-0); Total Cells Counted 100
[2018-05-11] MEDS ORDERED: LACTATED RINGERS 1,000 ML IV ONE ×5 (12:59→16:09)
[2018-05-11] MEDS ORDERED: NALOXONE 0.4 MG/ML 1 ML VIAL IV PRN (13:48)
[2018-05-11] MEDS ORDERED: SODIUM CHLORIDE 0.9% 1,000 ML IV ONE (14:09)
--- NOTE | 2018-05-11 14:44 | P.OP ---
Procedure(s) Performed: PREOPERATIVE DIAGNOSIS: Partial small bowel obstruction POSTOPERATIVE DIAGNOSIS: Same PROCEDURE: Lysis of adhesions SURGEON: Kenyatta EBL: See gynecologic or record ANESTHESIA: General COMPLICATIONS: None OPERATIVE PROCEDURE: The patient was taken to the operating room by gynecology after today's CAT scan showed slight enlargement of the patient's bilateral ovarian cystic lesions with some degree of right-sided hydronephrosis. I discussed the case with gynecology by phone earlier this morning. The patient had persistent intermittent fevers and leukocytosis. Decided to proceed with exploratory laparotomy and bilateral salpingo-oophorectomy with the assumption that this was likely related to tubo-ovarian abscess. I assisted with the majority of their procedure. The patient's sigmoid colon was densely adherent to the chronic ovarian inflammatory reaction. Lysis of adhesions took place both involving the sigmoid colon and also involving some of the small bowel that had been adherent to the pelvic inflammatory region. The bowel both small bowel and colon appeared viable throughout. There were no enterotomies. Irrigation took place. Formal closure indication of the nephrectomy per gynecology. DISPOSITION: Stable to recovery room
[2018-05-11] MEDS ORDERED: SIMETHICONE 80 MG CHEWABLE PO PRN (14:53)
[2018-05-11] MEDS ORDERED: ZOLPIDEM 5 MG TAB PO PRN (14:53)
[2018-05-11] MEDS ORDERED: IBUPROFEN 600 MG TAB PO PRN (14:53)
[2018-05-11] MEDS ORDERED: ONDANSETRON 4 MG/2 ML VIAL IVP PRN (14:53)
[2018-05-11] MEDS ORDERED: METOCLOPRAMIDE 5 MG/ML 2 ML VIAL IVP PRN (14:53)
--- NOTE | 2018-05-11 14:53 | P.OP ---
Date of Procedure: 05/11/18 Preoperative Diagnosis: Bilateral pelvic masses, ileus, history of endometriosis Postoperative Diagnosis: Bilateral tubo-ovarian abscesses, significant abdominal and pelvic adhesions Procedure(s) Performed: Placement bilateral ureteral stents, exploratory laparotomy, bilateral salpingo- oophorectomy, adhesiolysis of significant adhesions, placement of NG tube Anesthesia: NANCY Surgeon: Zoie Gibson Admitting Counselor #1: Arin Mancia Estimated Blood Loss (ml): 600 IV fluids (ml): 3,600 Urine output (ml): 340 Pathology: other (Bilateral tubo-ovarian abscesses) Condition: stable Disposition: PACU Description of Procedure: Patient was brought to the operating suite where a general anesthetic was administered without difficulty. Vaginal prep was performed, and Dr. Leblanc places bilateral ureteral stents for a history of preoperative right hydronephrosis. Staton catheter is placed. Patient is then placed in the dorsal supine position. Patient is on cefepime and Flagyl per infectious disease. The abdomen is prepped and draped in the usual sterile fashion, up to the xiphoid process. The appropriate timeout is performed to assure proper patient and procedural identification. A vertical skin incision is made from the pubic symphysis to the umbilicus. The subcutaneous tissue is opened and fascia is isolated, scored, and extended with a Bovie. Peritoneum is next identified and incised. Upon entering the peritoneal cavity, large abscesses are encountered. Aerobic and anaerobic cultures are taken of the abscess fluid. The pelvis was generously irrigated throughout. The right tubo-ovarian abscess is identified. The round ligaments are noted. The right abscess is densely adherent to the sigmoid: As well as descending colon. It is carefully skeletonized with the assistance of Dr. Sin. Peanut pushers are used along with Metzenbaum scissors. Ultimately, the abscess is mobilized from the pelvic sidewall as well as the deep cul-de- sac. The infundibulopelvic ligament is identified, clamped cut and ligated. The right tube and ovary along with abscess wall are sent to pathology under separate cover. At this time the left abscess is identified. It too is densely adherent to the colon and sigmoid. With careful and meticulous dissection the abscess is skeletonized from the left pelvic sidewall and again the cul-de-sac area. The infundibulopelvic ligament is ultimately visualized, clamped cut and suture ligated. The ureteral stents are palpated bilaterally, and care is at all times taken to keep our dissection plane away from the ureters. The uterus appears friable, but no obvious endometriosis or fibroids are identified. It is therefore left in situ. The pelvis is once again generously irrigated, and Dr. Sin runs the bowel, please see separate dictation. FloSeal is placed in the posterior cul-de-sac and behind the left aspect of the uterus for very good hemostasis. After copious irrigation, the abdomen is closed. PDS suture is used in a running fashion to reapproximate the fascia. Subcutaneous tissue is clean and dry. Wide barb are used for final skin closure. Optifoam antimicrobial dressing is placed on the wound. The ureteral stents are removed from the bladder. The urine is noted to be very slightly pink tinged in the Staton catheter. Total estimated blood loss 600 mL, fluid replacement 3600 mL, urine 340 mL's. Hemoglobin will be checked in the recovery room. Patient is brought back to the recovery room in good condition with stable vital signs including a blood pressure of 102/61, pulse 117. All sponge needle and instrument counts are correct at the end of the procedure. Total time in OR 2 1/2 hours.
[2018-05-11] MEDS: ROPIVACAINE 250 MG, HYDROMORPHONE (PF) 5 MG in SODIUM CHLORIDE 0.9% 200 ML EPIDURAL PRN (15:26)
[2018-05-11 15:39] LABS: HCT 26.5 % (34.0-46.0); HGB 8.3 gm/dL (11.4-16.0); Hypochromasia Moderate; MCH 27.7 pg (25.0-35.0); MCHC 31.2 g/dL (31.0-37.0); MCV 88.6 fL (80.0-100.0); Platelet Count 765 k/uL (150-450); RBC 2.99 m/uL (3.80-5.40); RDW 15.2 % (11.5-15.5); WBC 24.1 k/uL (3.8-10.6)
[2018-05-11] MEDS: diphenhydrAMINE 50 MG/ML 1 ML VIAL IVP PRN ×2 (15:51→21:36)
[2018-05-11] MEDS ORDERED: HYDROmorphone 1 MG/ML 1 ML SYRINGE IVP ONE ×2 (16:10→16:18)
[2018-05-11] MEDS ORDERED: ACETAMINOPHEN IV (For NPO) 1,000 MG in EMPTY BAG 1 BAG IVPB STA (17:47)
[2018-05-11] MEDS ORDERED: SODIUM CHLORIDE 0.9% 500 ML 500 ML IV ONE (22:58)
[2018-05-12 00:17] LABS: Glucose,Whole Blood 93 mg/dL (75-99)
[2018-05-12 00:33] LABS: HCT 24.5 % (34.0-46.0); HGB 7.4 gm/dL (11.4-16.0); Hypochromasia Marked; MCH 27.5 pg (25.0-35.0); MCHC 30.3 g/dL (31.0-37.0); MCV 90.7 fL (80.0-100.0); Platelet Count 689 k/uL (150-450); RDW 15.6 % (11.5-15.5); WBC 23.3 k/uL (3.8-10.6)
[2018-05-12] MEDS: metroNIDAZOLE-NS PMX 500 MG in SALINE 1 100ML.BAG IVPB SCH ×3 (00:48→17:12)
[2018-05-12 01:13] LABS: Monocytes # (M) 0.93 k/uL (0-1.0); Neutrophils # (M) 21.67 k/uL (1.3-7.7); Neutrophils % (M) 93 %; Nucleated Red Blood Cells 0 /100 WBC (0-0); Total Cells Counted 100
[2018-05-12] MEDS: HEPARIN SODIUM,PORCINE 5,000 UNIT/ML 1 ML VIAL SQ SCH ×3 (01:41→17:12)
[2018-05-12] MEDS: LACTATED RINGERS 1,000 ML IV SCH ×3 (01:44→17:13)
[2018-05-12] MEDS: diphenhydrAMINE 50 MG/ML 1 ML VIAL IVP PRN (03:52)
[2018-05-12 04:53] LABS: HCT 25.6 % (34.0-46.0); HGB 7.6 gm/dL (11.4-16.0); Hypochromasia Moderate; MCH 26.9 pg (25.0-35.0); MCHC 29.8 g/dL (31.0-37.0); MCV 90.2 fL (80.0-100.0); Mean Platelet Volume 8.4; Platelet Count 867 k/uL (150-450); RBC 2.84 m/uL (3.80-5.40); RDW 15.5 % (11.5-15.5); WBC 28.4 k/uL (3.8-10.6)
[2018-05-12 05:10] LABS: Potassium 3.6 mmol/L (3.5-5.1)
[2018-05-12 05:11] LABS: ALT 32 U/L (9-52); AST 21 U/L (14-36); Albumin 1.8 g/dL (3.5-5.0); Alkaline Phosphatase 73 U/L (38-126); Anion Gap 8 mmol/L; Blood Urea Nitrogen 6 mg/dL (7-17); Calcium 7.4 mg/dL (8.4-10.2); Carbon Dioxide 21 mmol/L (22-30); Chloride 114 mmol/L (98-107); Glucose 70 mg/dL (74-99); Magnesium 1.3 mg/dL (1.6-2.3); Sodium 143 mmol/L (137-145); Total Bilirubin 0.3 mg/dL (0.2-1.3)
[2018-05-12] MEDS ORDERED: Magnesium Replacement Protocol 1 EACH MISC MISCELLANE PRN (05:40)
--- NOTE | 2018-05-12 05:49 | P.PN ---
Progress Note - Text Progress Note Date: 05/12/18 47 yo female s/p exploratory laparotomy. POD#1. She reports good pain relief from the epidural. VAS=3. No itching, no headache, no motor deficit. Bromage scale of 0. Epidural currently running at 8cc/hr. Will continue the same regimen.
[2018-05-12] MEDS: MAGNESIUM SULFATE-D5W PMX 1 GM in DEXTROSE/WATER 1 100ML.BAG IVPB SCH ×3 (06:01→08:23)
[2018-05-12] MEDS: POTASSIUM CHLORIDE 10 MEQ in WATER FOR INJECTION 1 100ML.BAG IVPB SCH ×3 (06:02→22:50)
--- NOTE | 2018-05-12 07:13 | P.PN ---
Subjective Progress Note Date: 05/12/18 Principal diagnosis: Postoperative day #1 Pain well controlled with epidural. No verbalized complaints. Objective - Vital Signs Vital signs: Vital Signs Temp 100.0 F H 05/12/18 04:00 Pulse 105 H 05/12/18 06:00 Resp 18 05/12/18 06:00 BP 105/56 05/12/18 06:00 Pulse Ox 96 05/12/18 06:00 Intake & Output 05/11/18 05/12/18 05/12/18 18:59 06:59 18:59 Intake Total 4575 2180 Output Total 1040 765 Balance 3535 1415 Intake: IV 4575 80 Normal saline 80 Intake, IV Titration 2100 Amount ACETAMINOPHEN IV (For NPO 400 ) 1,000 mg In Empty Bag 1 bag @ 400 mls/hr IVPB ONCE STA Rx#:[id number] Cefepime 2 gm In Sodium 50 Chloride 0.9% 50 ml @ 100 mls/hr IVPB Q12HR [facility] Rx #:[id number] Lactated Ringers 1,000 ml 750 @ 125 mls/hr IV .Q8H [facility] Rx#:[id number] Magnesium Sulfate-D5w Pmx 100 1 gm In Dextrose/Water 1 100ml.bag @ 100 mls/hr IVPB Q1H [facility] Rx#: [id number] Potassium Chloride 10 meq 100 In Water For Injection 1 100ml.bag @ 100 mls/hr IVPB Q1H [facility] Rx#: [id number] Sodium Chloride 0.9% 500 500 ml 500 ml @ 999 mls/hr IV .Q31M [facility] Rx#:[id number] metroNIDAZOLE-NS PMX 500 200 mg In Saline 1 100ml.bag @ 100 mls/hr IVPB Q8H [facility] Rx#:[id number] Output: Gastric Drainage 50 Urine 700 715 Estimated Blood Loss 340 Other: Voiding Method Indwelling Catheter - Constitutional General appearance: Present: average body habitus, cooperative - EENT Eyes: Present: PERRLA ENT: Present: hearing grossly normal - Neck Neck: Present: normal ROM - Respiratory Respiratory: bilateral: CTA - Cardiovascular Rhythm: regular - Gastrointestinal Gastrointestinal Comment(s): Incision clean and dry. Abdomen distended, tympanic, tenderness consistent with postoperative status. No rebound, minimal guarding. General gastrointestinal: Present: absent bowel sounds - Integumentary Integumentary: Present: normal - Neurologic Neurologic: Present: CNII-XII intact - Musculoskeletal Musculoskeletal Comment(s): Left calf tenderness noted, no obvious edema or erythema. This was noted preoperatively as well. Bilateral compression stockings in place. Musculoskeletal: Present: generalized weakness - Psychiatric Psychiatric: Present: A&O x's 3, appropriate affect, intact judgment & insight - Labs CBC & Chem 7: 05/12/18 03:57 05/12/18 03:57 Labs: Abnormal Lab Results - Last 24 Hours (Table) 05/11/18 05/11/18 05/11/18 Range/Units 08:40 08:40 15:25 WBC 20.4 H 24.1 H (3.8-10.6) k/uL RBC 3.19 L 2.99 L (3.80-5.40) m/uL Hgb 9.3 L 8.3 L (11.4-16.0) gm/dL Hct 28.0 L 26.5 L (34.0-46.0) % MCHC (31.0-37.0) g/dL RDW (11.5-15.5) % Plt Count 528 H 765 H (150-450) k/uL Neutrophils # (Manual) 18.10 H (1.3-7.7) k/uL Lymphocytes # (Manual) (1.0-4.8) k/uL Monocytes # (Manual) 1.22 H (0-1.0) k/uL Potassium 3.4 L (3.5-5.1) mmol/L Chloride 108 H (98-107) mmol/L Carbon Dioxide 21 L (22-30) mmol/L BUN (7-17) mg/dL Glucose (74-99) mg/dL Plasma Lactic Acid Anupam (0.7-2.0) mmol/L Calcium 8.2 L (8.4-10.2) mg/dL Magnesium (1.6-2.3) mg/dL Total Protein 5.5 L (6.3-8.2) g/dL Albumin 2.6 L (3.5-5.0) g/dL 05/11/18 05/11/18 05/12/18 Range/Units 23:44 23:44 03:57 WBC 23.3 H 28.4 H (3.8-10.6) k/uL RBC 2.70 L 2.84 L (3.80-5.40) m/uL Hgb 7.4 L 7.6 L (11.4-16.0) gm/dL Hct 24.5 L 25.6 L (34.0-46.0) % MCHC 30.3 L 29.8 L (31.0-37.0) g/dL RDW 15.6 H (11.5-15.5) % Plt Count 689 H 867 H (150-450) k/uL Neutrophils # (Manual) 21.67 H (1.3-7.7) k/uL Lymphocytes # (Manual) 0.70 L (1.0-4.8) k/uL Monocytes # (Manual) (0-1.0) k/uL Potassium (3.5-5.1) mmol/L Chloride (98-107) mmol/L Carbon Dioxide (22-30) mmol/L BUN (7-17) mg/dL Glucose (74-99) mg/dL Plasma Lactic Acid Anupam 0.6 L (0.7-2.0) mmol/L Calcium (8.4-10.2) mg/dL Magnesium (1.6-2.3) mg/dL Total Protein (6.3-8.2) g/dL Albumin (3.5-5.0) g/dL 05/12/18 Range/Units 03:57 WBC (3.8-10.6) k/uL RBC (3.80-5.40) m/uL Hgb (11.4-16.0) gm/dL Hct (34.0-46.0) % MCHC (31.0-37.0) g/dL RDW (11.5-15.5) % Plt Count (150-450) k/uL Neutrophils # (Manual) (1.3-7.7) k/uL Lymphocytes # (Manual) (1.0-4.8) k/uL Monocytes # (Manual) (0-1.0) k/uL Potassium (3.5-5.1) mmol/L Chloride 114 H (98-107) mmol/L Carbon Dioxide 21 L (22-30) mmol/L BUN 6 L (7-17) mg/dL Glucose 70 L (74-99) mg/dL Plasma Lactic Acid Anupam (0.7-2.0) mmol/L Calcium 7.4 L (8.4-10.2) mg/dL Magnesium 1.3 L (1.6-2.3) mg/dL Total Protein 4.0 L (6.3-8.2) g/dL Albumin 1.8 L (3.5-5.0) g/dL Microbiology - Last 24 Hours (Table) 05/11/18 14:41 Gram Stain - Preliminary Other - Other Wound Culture - Preliminary 05/11/18 14:41 Gram Stain - Preliminary Other - Other Wound Culture - Preliminary 05/11/18 14:41 Anaerobic Culture - Preliminary Other - Other 05/11/18 14:41 Anaerobic Culture - Preliminary Other - Other 05/05/18 17:00 Stool Culture - Final Stool Assessment and Plan Assessment: Postoperative day #1, status post exploratory laparotomy, bilateral salpingo- oophorectomy and excision of tubo-ovarian abscesses bilaterally, sepsis. Plan: Continue close intake and output monitoring, antibiotics per infectious disease. Hemoglobin stable, no evidence of active bleeding. Left calf tenderness noted, Doppler ultrasound of the extremity this morning. Appreciate intensive care involvement. NG tube management per Dr. Sin. Time with Patient: Greater than 30
[2018-05-12 07:29] LABS: Monocytes # (M) 0.57 k/uL (0-1.0); Neutrophils # (M) 26.13 k/uL (1.3-7.7); Neutrophils % (M) 92 %; Nucleated Red Blood Cells 0 /100 WBC (0-0); Total Cells Counted 100
[2018-05-12] MEDS: PANTOPRAZOLE 40 MG/10 ML VIAL IVP SCH (08:22)
[2018-05-12] MEDS: CEFEPIME 2 GM in SODIUM CHLORIDE 0.9% 50 ML IVPB SCH ×2 (08:23→21:07)
--- NOTE | 2018-05-12 09:13 | US ---
EXAMINATION TYPE: US venous doppler duplex LE LT DATE OF EXAM: 05/12/2018 8:03 AM COMPARISON: US 05/03/2018 CLINICAL HISTORY: Left lower leg pain/swelling. SIDE PERFORMED: Left TECHNIQUE: The lower extremity deep venous system is examined utilizing real time linear array sonog herminia with graded compression, doppler sonography and color-flow sonography. VESSELS IMAGED: External Iliac Vein (EIV) Common Femoral Vein Deep Femoral Vein Greater Saphenous Vein * Femoral Vein Popliteal Vein Small Saphenous Vein * Proximal Calf Veins (* superficial vessels) Left Leg: Negative for acute DVT. IMPRESSION: 1. No diagnostic evidence of DVT as visualized
--- NOTE | 2018-05-12 11:08 | P.CNPUL ---
History of Present Illness Consult date: 05/12/18 Requesting physician: Marito Ngo Reason for consult: other (Critical care management) Chief complaint: Abdominal pain, fever, diarrhea History of present illness: This is a very pleasant 47-year-old female patient who follows with Dr. Cruz as her primary care physician. She has a history of rheumatoid arthritis, multiple sclerosis, endometriosis with previous exploratory laparotomy for endometriosis 2. She presented here back on 05/03/2018 with complaints of abdominal pain. Transvaginal ultrasound on 05/04/2018 revealed evidence of fibroid uterus, multiple bilateral cystic lesions which could represent hemorrhagic cyst, endometrioma, tubo-ovarian abscess, cystadenoma or cystadenoma carcinoma. On 05/06/2018 ET scan of the abdomen revealed large complex bilateral ovaries. Large cysts present dictated heterogenous masses should be considered. There is noted ileus. Previous suspected zone of transition was not identified. Small bowel obstruction, partial was within the differential. She was subsequently taken to surgery on 05/11/2018. RENAL TECHNICIAN performed exploratory laparotomy with bilateral salpingo-oophorectomy, adhesiolysis of significant adhesions. Urology performed a cystoscopy and placement of bilateral open-ended ureteral catheters. Surgical services performed lysis of adhesions secondary to partial small bowel obstruction. Last evening the patient had issues with hypotension and a T-max of 101.4. There is concern regarding possible sepsis. She was transferred to the intensive care unit. We are seeing her in consultation for the same. She is currently awake and alert in no acute distress. This is postoperative day #1. She has not required any pressors. She is maintaining good O2 saturations in the 90s on 2 L/m per nasal cannula. She's afebrile. She's currently on lactated Ringer's at 125 ML's per hour. Nasogastric tube remains in place. White count 28.4. Hemoglobin 7.6. Platelet count 867,000. Bicarb 21. Creatinine 0.60. He is currently on cefepime, metronidazole. She has an epidural of ropivacaine and hydromorphone in place. Abdominal dressing is dry and intact. Staton catheter in place. Nasogastric tube in place. Review of Systems Constitutional: Reports weakness Eyes: denies blurred vision, denies decreased vision Ears: deny: decreased hearing Ears, nose, mouth and throat: Denies headache, Denies sore throat Cardiovascular: Denies chest pain, Denies shortness of breath Respiratory: Denies cough Gastrointestinal: Reports abdominal pain, Reports bloating, Reports loss of appetite Genitourinary: Denies dysuria, Denies hematuria Musculoskeletal: Reports limitation of motion, Reports muscle weakness Integumentary: Denies pruritus, Denies rash Neurological: Denies numbness, Denies weakness Psychiatric: Denies anxiety, Denies depression Endocrine: Denies fatigue, Denies weight change Hematologic/Lymphatic: Reports as per HPI Allergic/Immunologic: Reports as per HPI Past Medical History Past Medical History: Neurologic Disorder, Pneumonia, Rheumatoid Arthritis (RA) Additional Past Medical History / Comment(s): MULTIPLE SCLEROSIS, ENDOMETRIOSIS.RIGHT KIDNEY ENLARGED. History of Any Multi-Drug Resistant Organisms: None Reported Past Surgical History: Orthopedic Surgery Additional Past Surgical History / Comment(s): EXP. LAP FOR ENDOMETRIOSIS X2 WITH SCAR TISSUE ON OVARIES..ADENEXAL CYSTIC DRAINAGE DUE TO PRESSURE ON URETHERA-. Past Anesthesia/Blood Transfusion Reactions: Previous Problems w/ Anesthesia Additional Past Anesthesia/Blood Transfusion Reaction / Comment(s): NOVACAINE. IT CAUSED INCREASED HEART RATE. Past Psychological History: Anxiety, Depression Smoking Status: Never smoker Past Alcohol Use History: None Reported Past Drug Use History: None Reported - Past Family History Mother Family Medical History: Cancer, Thyroid Disorder Father Additional Family Medical History / Comment(s): , Heart Attack at 57 Sister(s) Family Medical History: Cancer Additional Family Medical History / Comment(s): Breast Cancer Medications and Allergies Home Medications Medication Instructions Recorded Confirmed Type Aspirin 325 mg PO DIRECTED PRN 10/26/13 05/03/18 History Ascorbic Acid/Multivit-Min 1,000 mg PO DAILY 05/03/18 05/03/18 History [Emergen-C 1,000 mg Packet] Allergies Allergy/AdvReac Type Severity Reaction Status Date / Time amoxicillin [Amoxicillin] Allergy Severe Rash/Hives Verified 05/11/18 11:21 alprazolam [From Xanax] AdvReac Severe Unknown Verified 05/11/18 11:21 morphine AdvReac Severe Itching Verified 05/11/18 11:21 sulfamethoxazole AdvReac Severe Dyspnea Verified 05/11/18 11:21 [From Bactrim] trimethoprim [From Bactrim] AdvReac Severe Dyspnea Verified 05/11/18 11:21 novacaine AdvReac Severe Rapid Uncoded 05/11/18 11:21 Heart Rate Physical Exam Vitals: Vital Signs Temp Pulse Pulse Pulse Resp BP BP 05/12/18 10:00 95 12 99/58 05/12/18 09:00 105 H 23 91/64 05/12/18 08:00 98.6 F 101 H 23 100/55 05/12/18 07:00 110 H 16 104/55 05/12/18 06:30 105 H 15 101/48 05/12/18 06:00 105 H 18 105/56 05/12/18 05:30 102 H 17 101/57 05/12/18 05:00 98 15 105/52 05/12/18 04:30 104 H 18 102/47 05/12/18 04:00 100.0 F H 112 H 18 101/64 05/12/18 03:30 107 H 20 102/59 05/12/18 03:00 91 10 L 102/59 05/12/18 02:30 101 H 11 L 97/60 05/12/18 02:00 100 12 98/61 05/12/18 01:30 96 12 95/55 05/12/18 01:00 109 H 19 101/64 05/12/18 00:30 96 20 92/55 05/12/18 00:09 99.1 F 107 H 15 92/55 05/11/18 22:40 82/54 05/11/18 22:37 98.5 F 118 H 16 88/55 05/11/18 19:38 101.4 F H 124 H 16 100/61 05/11/18 19:15 118 H 100/63 05/11/18 19:00 118 H 105/65 05/11/18 18:45 116 H 110/71 05/11/18 18:30 117 H 98/61 05/11/18 18:15 114 H 101/58 05/11/18 18:00 114 H 109/71 05/11/18 17:45 114 H 101/69 05/11/18 17:30 105 H 105/70 05/11/18 17:15 98.8 F 107 H 15 97/64 05/11/18 16:16 88 16 90/60 05/11/18 15:57 89 16 92/50 05/11/18 15:42 88 16 88/63 05/11/18 15:26 86 16 87/52 05/11/18 14:57 101 H 16 100/56 05/11/18 11:55 91 16 118/76 05/11/18 11:20 99.1 F 95 86 16 116/72 Pulse Ox 05/12/18 10:00 95 05/12/18 09:00 95 05/12/18 08:00 95 05/12/18 07:00 95 05/12/18 06:30 95 05/12/18 06:00 96 05/12/18 05:30 97 05/12/18 05:00 96 05/12/18 04:30 97 05/12/18 04:00 95 05/12/18 03:30 96 05/12/18 03:00 98 05/12/18 02:30 96 05/12/18 02:00 96 05/12/18 01:30 96 05/12/18 01:00 96 05/12/18 00:30 97 05/12/18 00:09 95 05/11/18 22:40 05/11/18 22:37 92 L 05/11/18 19:38 91 L 05/11/18 19:15 05/11/18 19:00 05/11/18 18:45 05/11/18 18:30 05/11/18 18:15 05/11/18 18:00 05/11/18 17:45 05/11/18 17:30 05/11/18 17:15 98 05/11/18 16:16 96 05/11/18 15:57 95 05/11/18 15:42 97 05/11/18 15:26 96 05/11/18 14:57 100 05/11/18 11:55 98 05/11/18 11:20 95 Intake and Output 05/11/18 05/12/18 05/12/18 22:59 06:59 14:59 Intake Total 475 2180 1269 Output Total 100 765 130 Balance 375 1415 1139 Intake: IV 927 02 4018 Cefepime 2 gm In Sodium 50 Chloride 0.9% 50 ml @ 100 mls/hr IVPB Q12HR [facility] Rx #:[id number] Lactated Ringers 1,000 ml 375 @ 125 mls/hr IV .Q8H [facility] Rx#:[id number] Magnesium Sulfate-D5w Pmx 300 1 gm In Dextrose/Water 1 100ml.bag @ 100 mls/hr IVPB Q1H [facility] Rx#: [id number] Normal saline 80 20 Potassium Chloride 10 meq 200 In Water For Injection 1 100ml.bag @ 100 mls/hr IVPB Q1H [facility] Rx#: [id number] Ropivacaine 250 mg 24 Hydromorphone (Pf) 5 mg In Sodium Chloride 0.9% 200 ml @ Per Protocol EPIDURAL .Q0M PRN Rx#: [id number] metroNIDAZOLE-NS PMX 500 100 mg In Saline 1 100ml.bag @ 100 mls/hr IVPB Q8H [facility] Rx#:[id number] Intake, IV Titration 2100 200 Amount ACETAMINOPHEN IV (For NPO 400 ) 1,000 mg In Empty Bag 1 bag @ 400 mls/hr IVPB ONCE [facility]A Rx#:[id number] Cefepime 2 gm In Sodium 50 Chloride 0.9% 50 ml @ 100 mls/hr IVPB Q12HR [facility] Rx #:[id number] Lactated Ringers 1,000 ml 750 0 @ 125 mls/hr IV .Q8H [facility] Rx#:[id number] Magnesium Sulfate-D5w Pmx 100 100 1 gm In Dextrose/Water 1 100ml.bag @ 100 mls/hr IVPB Q1H [facility] Rx#: [id number] Potassium Chloride 10 meq 100 100 In Water For Injection 1 100ml.bag @ 100 mls/hr IVPB Q1H [facility] Rx#: [id number] Sodium Chloride 0.9% 500 500 ml 500 ml @ 999 mls/hr IV .Q31M [facility] Rx#:[id number] metroNIDAZOLE-NS PMX 500 200 mg In Saline 1 100ml.bag @ 100 mls/hr IVPB Q8H [facility] Rx#:[id number] Output: Gastric Drainage 50 Urine 100 715 130 Other: Voiding Method Indwelling Catheter Indwelling Catheter Indwelling Catheter Weight 74 kg - Constitutional General appearance: average body habitus, no acute distress - EENT Eyes: EOMI, PERRLA ENT: hearing grossly normal Ears: bilateral: normal - Neck Neck: normal ROM Carotids: bilateral: upstroke normal Thyroid: negative: normal size - Respiratory Respiratory: bilateral: CTA - Cardiovascular Rhythm: regular Heart sounds: normal: S1, S2 - Gastrointestinal Surgical dressing clean dry. General gastrointestinal: decreased bowel sounds - Genitourinary Indwelling Staton catheter. - Integumentary Integumentary: normal turgor - Neurologic Neurologic: CNII-XII intact - Musculoskeletal Musculoskeletal: generalized weakness - Psychiatric Psychiatric: A&O x's 3, appropriate affect, intact judgment & insight Results - Laboratory Findings CBC and BMP: 05/12/18 03:57 05/12/18 03:57 PT/INR, D-dimer D-Dimer 3.53 mg/L FEU (<0.60) H 05/03/18 13:52 Abnormal lab findings: Abnormal Labs 05/03/18 05/03/18 05/03/18 13:40 13:52 13:52 WBC RBC Hgb Hct MCHC RDW Plt Count Neutrophils # (Manual) 9.86 H Lymphocytes # (Manual) 0.32 L Monocytes # (Manual) Metamyelocytes # (Man) Myelocytes # (Manual) D-Dimer 3.53 H Sodium 134 L Potassium Chloride 96 L Carbon Dioxide BUN 21 H Creatinine Glucose Plasma Lactic Acid Anupam Calcium Magnesium Iron TIBC Iron Saturation AST 61 H Alkaline Phosphatase Total Protein Albumin Ur Specific Mobile Urine Protein Urine Ketones Urine Blood Urine Nitrite Urine RBC Urine WBC Ur Squamous Epith Cells Amorphous Sediment Urine Bacteria 05/03/18 05/04/18 05/04/18 15:25 10:52 10:52 WBC 10.9 H RBC Hgb Hct MCHC RDW Plt Count 529 H Neutrophils # (Manual) 9.40 H Lymphocytes # (Manual) 0.76 L Monocytes # (Manual) Metamyelocytes # (Man) 0.11 H Myelocytes # (Manual) D-Dimer Sodium Potassium 3.4 L Chloride Carbon Dioxide BUN Creatinine Glucose Plasma Lactic Acid Anupam Calcium Magnesium Iron TIBC Iron Saturation AST 46 H Alkaline Phosphatase 145 H Total Protein Albumin 3.4 L Ur Specific Mobile >1.050 H Urine Protein 1+ H Urine Ketones 2+ H Urine Blood Trace H Urine Nitrite Positive H Urine RBC 6 H Urine WBC 35 H Ur Squamous Epith Cells 6 H Amorphous Sediment Rare H Urine Bacteria Moderate H 05/05/18 05/05/18 05/05/18 07:06 07:06 07:06 WBC 10.8 H RBC 3.56 L Hgb 9.9 L D Hct 30.9 L MCHC RDW Plt Count Neutrophils # (Manual) 9.20 H Lymphocytes # (Manual) 0.65 L Monocytes # (Manual) Metamyelocytes # (Man) 0.11 H Myelocytes # (Manual) D-Dimer Sodium Potassium Chloride Carbon Dioxide 19 L BUN Creatinine Glucose Plasma Lactic Acid Anupam Calcium Magnesium Iron 7 L TIBC 227 L Iron Saturation 3.08 L AST Alkaline Phosphatase Total Protein 5.1 L Albumin 2.5 L Ur Specific Mobile Urine Protein Urine Ketones Urine Blood Urine Nitrite Urine RBC Urine WBC Ur Squamous Epith Cells Amorphous Sediment Urine Bacteria 05/06/18 05/06/18 05/07/18 07:54 07:54 07:24 WBC 20.8 H 24.0 H RBC 3.54 L 3.37 L Hgb 9.9 L 9.4 L Hct 31.4 L 30.0 L MCHC RDW Plt Count 554 H 541 H Neutrophils # (Manual) 19.50 H 21.80 H Lymphocytes # (Manual) 0.42 L Monocytes # (Manual) Metamyelocytes # (Man) Myelocytes # (Manual) D-Dimer Sodium Potassium Chloride 109 H Carbon Dioxide 18 L BUN Creatinine Glucose 71 L Plasma Lactic Acid Anupam Calcium Magnesium Iron TIBC Iron Saturation AST Alkaline Phosphatase Total Protein 5.3 L Albumin 2.6 L Ur Specific Mobile Urine Protein Urine Ketones Urine Blood Urine Nitrite Urine RBC Urine WBC Ur Squamous Epith Cells Amorphous Sediment Urine Bacteria 05/07/18 05/07/18 05/08/18 07:24 15:53 07:38 WBC RBC Hgb Hct MCHC RDW Plt Count Neutrophils # (Manual) Lymphocytes # (Manual) Monocytes # (Manual) Metamyelocytes # (Man) Myelocytes # (Manual) D-Dimer Sodium Potassium 3.2 L 3.2 L Chloride 110 H Carbon Dioxide BUN 6 L Creatinine Glucose Plasma Lactic Acid Anupam Calcium 8.1 L Magnesium Iron TIBC Iron Saturation AST Alkaline Phosphatase Total Protein 4.7 L 5.0 L Albumin 2.2 L 2.3 L Ur Specific Mobile Urine Protein Urine Ketones Urine Blood Urine Nitrite Urine RBC Urine WBC Ur Squamous Epith Cells Amorphous Sediment Urine Bacteria 05/08/18 05/08/18 05/09/18 07:38 14:45 08:13 WBC 24.0 H 20.9 H RBC 3.49 L 3.41 L Hgb 9.7 L 9.6 L Hct 31.0 L 30.0 L MCHC RDW Plt Count 581 H 576 H Neutrophils # (Manual) 22.80 H 19.02 H Lymphocytes # (Manual) 0.96 L Monocytes # (Manual) Metamyelocytes # (Man) Myelocytes # (Manual) D-Dimer Sodium Potassium Chloride Carbon Dioxide BUN Creatinine Glucose Plasma Lactic Acid Anupam Calcium Magnesium Iron TIBC Iron Saturation AST Alkaline Phosphatase Total Protein Albumin Ur Specific Mobile Urine Protein Trace H Urine Ketones Urine Blood Urine Nitrite Urine RBC Urine WBC Ur Squamous Epith Cells Amorphous Sediment Urine Bacteria 05/09/18 05/09/18 05/10/18 08:13 19:47 07:02 WBC 21.2 H RBC 3.18 L Hgb 8.9 L Hct 28.1 L MCHC RDW Plt Count 581 H Neutrophils # (Manual) 18.60 H Lymphocytes # (Manual) Monocytes # (Manual) Metamyelocytes # (Man) Myelocytes # (Manual) 0.21 H D-Dimer Sodium Potassium 3.3 L 3.2 L Chloride 109 H Carbon Dioxide BUN Creatinine 0.51 L Glucose Plasma Lactic Acid Anupam Calcium 8.3 L Magnesium Iron TIBC Iron Saturation AST Alkaline Phosphatase Total Protein 5.3 L Albumin 2.5 L Ur Specific Mobile Urine Protein Urine Ketones Urine Blood Urine Nitrite Urine RBC Urine WBC Ur Squamous Epith Cells Amorphous Sediment Urine Bacteria 05/10/18 05/11/18 05/11/18 07:02 08:40 08:40 WBC 20.4 H RBC 3.19 L Hgb 9.3 L Hct 28.0 L MCHC RDW Plt Count 528 H Neutrophils # (Manual) 18.10 H Lymphocytes # (Manual) Monocytes # (Manual) 1.22 H Metamyelocytes # (Man) Myelocytes # (Manual) D-Dimer Sodium Potassium 3.4 L Chloride 112 H 108 H Carbon Dioxide 21 L BUN 6 L Creatinine Glucose Plasma Lactic Acid Anupam Calcium 8.0 L 8.2 L Magnesium Iron TIBC Iron Saturation AST Alkaline Phosphatase Total Protein 4.8 L 5.5 L Albumin 2.2 L 2.6 L Ur Specific Mobile Urine Protein Urine Ketones Urine Blood Urine Nitrite Urine RBC Urine WBC Ur Squamous Epith Cells Amorphous Sediment Urine Bacteria 05/11/18 05/11/18 05/11/18 15:25 23:44 23:44 WBC 24.1 H 23.3 H RBC 2.99 L 2.70 L Hgb 8.3 L 7.4 L Hct 26.5 L 24.5 L MCHC 30.3 L RDW 15.6 H Plt Count 765 H 689 H Neutrophils # (Manual) 21.67 H Lymphocytes # (Manual) 0.70 L Monocytes # (Manual) Metamyelocytes # (Man) Myelocytes # (Manual) D-Dimer Sodium Potassium Chloride Carbon Dioxide BUN Creatinine Glucose Plasma Lactic Acid Anupam 0.6 L Calcium Magnesium Iron TIBC Iron Saturation AST Alkaline Phosphatase Total Protein Albumin Ur Specific Mobile Urine Protein Urine Ketones Urine Blood Urine Nitrite Urine RBC Urine WBC Ur Squamous Epith Cells Amorphous Sediment Urine Bacteria 05/12/18 05/12/18 03:57 03:57 WBC 28.4 H RBC 2.84 L Hgb 7.6 L Hct 25.6 L MCHC 29.8 L RDW Plt Count 867 H Neutrophils # (Manual) 26.13 H Lymphocytes # (Manual) Monocytes # (Manual) Metamyelocytes # (Man) Myelocytes # (Manual) D-Dimer Sodium Potassium Chloride 114 H Carbon Dioxide 21 L BUN 6 L Creatinine Glucose 70 L Plasma Lactic Acid Anupam Calcium 7.4 L Magnesium 1.3 L Iron TIBC Iron Saturation AST Alkaline Phosphatase Total Protein 4.0 L Albumin 1.8 L Ur Specific Mobile Urine Protein Urine Ketones Urine Blood Urine Nitrite Urine RBC Urine WBC Ur Squamous Epith Cells Amorphous Sediment Urine Bacteria Assessment and Plan Assessment: Impression: #1 Abdominal pain secondary to the lateral pelvic masses, ileus, history of endometriosis. Status post bilateral salpingo-oophorectomy, lysis of adhesions , we spent a bilateral ureteral stents. Postoperative day #1. #2 Hypotension secondary to suspected sepsis. #3 Anemia, current hemoglobin 7.6. #4 Leukocytosis secondary to above. #5 Febrile illness secondary to above. #6 History of endometriosis previous exploratory laparotomy 2. #7 History of multiple sclerosis. #8 History of rheumatoid arthritis. Plan: The patient was seen and evaluated by Dr. Jimenez. She is currently stable from the pulmonary and critical care standpoint. We'll keep her here in the ICU another 24 hours. She is currently on antibiotics in the form of cefepime and metronidazole. NG tube remains in place. She is working well with the incentive spirometer and needs increased encouragement regarding cough and deep breathing exercises. She remains on heparin for DVT prophylaxis. Protonix for GI prophylaxis. Epidural pain pump in place with ropivacaine and hydromorphone. We will continue to follow and make further recommendations based on her clinical status. I, the cosigning physician, performed a history & physical examination of the patient. Lungs sounds are clear. Maintaining good O2 saturations in the 90s on room air. I discussed the assessment and plan of care with my nurse practitioner, Jayla Doshi. I attest to the above note as dictated by her.
--- NOTE | 2018-05-12 12:19 | P.PN ---
Subjective Progress Note Date: 05/12/18 This is a 47-year-old female, patient of Dr. Cruz. She has a known past medical history of multiple sclerosis, endometriosis requiring exploratory laparotomy 2 and rheumatoid arthritis. Patient reports abdominal pain started about 3 days ago mostly in the upper abdomen. She had a significant amount of diarrhea and and Friday. There was no blood reported in the stools. She was also having fevers as high as 101. The abdominal pain moved into the lower abdominal region. Pain was so severe she was having shortness of breath. And then on Friday she had stopped having any diarrhea and also stopped passing gas. During these 3 days she vomited twice. Patient came into the emergency room for further evaluation and treatment. She's found to have a temp of 101.4 she was tachycardic heart rate around 108. White count normal. Computed tomography scan showed partial small bowel obstruction with a transition within the left mid abdomen secondary to be containing of the small bowel wall. And consider jejunitis. Also reports multiple large cystic structures in the bilateral adnexa. Consider the possibility of pyosalpinx within the differential. Ovarian carcinoma is not excluded. We'll be ordering an abdominal and pelvic ultrasound for further evaluation. Patient is currently nothing by mouth. Started on Levaquin and IV Flagyl. Surgical and [facility] consults have been placed. Patient was found to have evidence of a possible pneumonia on chest x-ray. Chest x-ray reported suggestion of a right middle lobe infiltrate. Correlate for atelectasis or pneumonia. Patient does reports having a cough. Also evidence of a UTI. She has been having some dark urine as well as mild burning with urination. Culture has been obtained. She' s currently nothing by mouth and on my and on IV fluids. Patient denies any chest pain. Does report some nausea. Patient has never had any colonoscopy or EGD. Does report having history of scar tissue in the abdomen due to previous abdominal surgeries. Patient denies any recent traveling. Denies any sick contacts. 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 05/05/2018 patient reported improvement in her abdominal pain. She was passing gas this morning and then had a large liquid brown yellowish stool. At that time she felt that her stomach bloating was doing better. She had a low-grade temp of 100.3 and was given Tylenol with a few sips of water. After she taken the medication and water she started having abdominal pain. Abdominal x-ray showing signs of ileus. Transvaginal pelvic ultrasound showing a fibroid uterus. Multiple bilateral cystic lesions could represent hemorrhagic cysts, endometrioma, tubo-ovarian abscess, cyst adenoma or cyst adenocarcinoma not excluded. Patient is followed by [facility] service, and they felt symptoms were likely related to endometriomas. Dr. Wray also noted that his abdominal pain was not related to any [facility] cause. Patient denies any vomiting. Reports that her urine is still dark. Burning with urination has resolved. Hemoglobin has dropped from 12.3-9.9. Patient denies any blood in the stools or black stools. Urine culture gram-negative bacilli. T-max 100.8. On 05/06/2018 patient is currently resting in bed. Patient is still having multiple loose stools last night and again this morning. Patient states this is still feels bloated abdominal discomfort. white blood cell increased to 20.8. Repeat CAT scan has been ordered per surgical services. Infectious disease consulted. At this time patient denies chest pain or shortness of breath. Patient denies any urinary burning or frequency. Patient is having abdominal pain denies any nausea or vomiting On 05/07/2018 patient is currently resting in bed. Patient states she's having some abdominal pain but it is improved from yesterday. At that time patient denies chest pain or shortness of breath. Patient is complaining cough is worse in a.m. Patient denies nausea vomiting or diarrhea. Patient denies any urinary burning or frequency. On 05/08/2018 patient is currently resting in bed. Patient is still complaining of some burning with urination and abdominal pain and bloating. Patient states she is having increased cough with production. Sputum culture has been ordered. Patient denies chest pain or shortness breath. Patient denies nausea vomiting or diarrhea. Patient denies any urinary frequency. On 05/09/2018 patient is feeling somewhat better she is still having significant abdominal pain and bloating but feels better than yesterday she is having cough without any sputum production she still has low-grade fever she is also complaining of nausea and diarrhea otherwise she denies any complaints at this time On 05/10/2018 patient was seen and examined on the medical floor she is still complaining of abdominal pain and diarrhea she is complaining of lower extremity swelling and discomfort today, otherwise she denies any complaints there is no fever or chills no headache or dizziness no chest pain no shortness of breath no cough and no urinary symptoms 05/11/2018 patient is having abdominal pain with abdominal distention. Also continues to have fevers. Repeat computed tomography scan of the abdomen and pelvis shows improvement in degree and small bowel dilation with contrast passing into large bowel and rectum. Ileus was suspected. Interval development of moderate right hydroureteronephrosis and delayed excretion of contrast from the right kidney secondary to an obstructing multiloculated large right adnexal mass. There is progressive enlargement of the left multicystic adnexal mass. Patient has been seen by [facility] service they're planning exploratory laparotomy with salpingectomy and oophorectomy with possible hysterectomy and bilateral ureteral stents. Patient denies any chest pain or shortness of breath. She does have lower extremity. She was given albumin and Lasix due to her low albumin levels yesterday. Denies any calf tenderness. T- max 101. White count 20.4. Potassium is 3.4 patient receiving supplement. 05/12/2018 patient is postop day #1 status post exploratory laparotomy, bilateral salpingo-oophorectomy and excision of tubo-ovarian abscesses bilaterally also had cystoscopy placement of bilateral open ended ureteral catheters. Patient required transfer to the ICU during the evening due to hypotension and fever concerns for sepsis. Critical care was placed on consult. She has not required any IV pressors. She is on IV antibiotics cefepime and Flagyl. Cultures were obtained of the abscesses. Results are pending. Patient's white count is 28.4 T-max 101.4. Urine output adequate. Patient reports that her pain is controlled. Denies any chest pain or shortness of breath. Denies any nausea or vomiting. Does have NG tube in place. Objective - Vital Signs Vital signs: Vital Signs Temp 98.6 F 05/12/18 08:00 Pulse 97 05/12/18 11:00 Resp 13 05/12/18 11:00 BP 101/54 05/12/18 11:00 Pulse Ox 96 05/12/18 11:00 Intake & Output 05/11/18 05/12/18 05/12/18 18:59 06:59 18:59 Intake Total 4575 2180 1404 Output Total 1040 765 230 Balance 3535 1415 1174 Weight 74 kg Intake: IV 4575 80 1204 Cefepime 2 gm In Sodium 50 Chloride 0.9% 50 ml @ 100 mls/hr IVPB Q12HR [facility] Rx #:[id number] Lactated Ringers 1,000 ml 500 @ 125 mls/hr IV .Q8H [facility] Rx#:[id number] Magnesium Sulfate-D5w Pmx 300 1 gm In Dextrose/Water 1 100ml.bag @ 100 mls/hr IVPB Q1H [facility] Rx#: [id number] Normal saline 80 30 Potassium Chloride 10 meq 200 In Water For Injection 1 100ml.bag @ 100 mls/hr IVPB Q1H [facility] Rx#: [id number] Ropivacaine 250 mg 24 Hydromorphone (Pf) 5 mg In Sodium Chloride 0.9% 200 ml @ Per Protocol EPIDURAL .Q0M PRN Rx#: [id number] metroNIDAZOLE-NS PMX 500 100 mg In Saline 1 100ml.bag @ 100 mls/hr IVPB Q8H [facility] Rx#:[id number] Intake, IV Titration 2100 200 Amount ACETAMINOPHEN IV (For NPO 400 ) 1,000 mg In Empty Bag 1 bag @ 400 mls/hr IVPB ONCE [facility] Rx#:[id number] Cefepime 2 gm In Sodium 50 Chloride 0.9% 50 ml @ 100 mls/hr IVPB Q12HR [facility] Rx #:[id number] Lactated Ringers 1,000 ml 750 0 @ 125 mls/hr IV .Q8H [facility] Rx#:[id number] Magnesium Sulfate-D5w Pmx 100 100 1 gm In Dextrose/Water 1 100ml.bag @ 100 mls/hr IVPB Q1H [facility] Rx#: [id number] Potassium Chloride 10 meq 100 100 In Water For Injection 1 100ml.bag @ 100 mls/hr IVPB Q1H [facility] Rx#: [id number] Sodium Chloride 0.9% 500 500 ml 500 ml @ 999 mls/hr IV .Q31M [facility] Rx#:[id number] metroNIDAZOLE-NS PMX 500 200 mg In Saline 1 100ml.bag @ 100 mls/hr IVPB Q8H [facility] Rx#:[id number] Output: Gastric Drainage 50 Urine 700 715 230 Estimated Blood Loss 340 Other: Voiding Method Indwelling Catheter Indwelling Catheter - Exam Head normocephalic Neck supple Lungs clear to auscultation bilaterally no wheezing or crackles Heart regular rate and rhythm S1-S2, no rub or gallop Abdomen is soft dressing clean dry and intact hypoactive bowel sounds. NG tube in place Extremities +1 edema bilateral lower extremities Neuro alert and orientated to 3 - Labs CBC & Chem 7: 05/12/18 03:57 05/12/18 03:57 Labs: Abnormal Lab Results - Last 24 Hours (Table) 05/11/18 05/11/18 05/11/18 Range/Units 08:40 15:25 23:44 WBC 24.1 H (3.8-10.6) k/uL RBC 2.99 L (3.80-5.40) m/uL Hgb 8.3 L (11.4-16.0) gm/dL Hct 26.5 L (34.0-46.0) % MCHC (31.0-37.0) g/dL RDW (11.5-15.5) % Plt Count 765 H (150-450) k/uL Neutrophils # (Manual) 18.10 H (1.3-7.7) k/uL Lymphocytes # (Manual) (1.0-4.8) k/uL Monocytes # (Manual) 1.22 H (0-1.0) k/uL Chloride (98-107) mmol/L Carbon Dioxide (22-30) mmol/L BUN (7-17) mg/dL Glucose (74-99) mg/dL Plasma Lactic Acid Anupam 0.6 L (0.7-2.0) mmol/L Calcium (8.4-10.2) mg/dL Magnesium (1.6-2.3) mg/dL Total Protein (6.3-8.2) g/dL Albumin (3.5-5.0) g/dL 05/11/18 05/12/18 05/12/18 Range/Units 23:44 03:57 03:57 WBC 23.3 H 28.4 H (3.8-10.6) k/uL RBC 2.70 L 2.84 L (3.80-5.40) m/uL Hgb 7.4 L 7.6 L (11.4-16.0) gm/dL Hct 24.5 L 25.6 L (34.0-46.0) % MCHC 30.3 L 29.8 L (31.0-37.0) g/dL RDW 15.6 H (11.5-15.5) % Plt Count 689 H 867 H (150-450) k/uL Neutrophils # (Manual) 21.67 H 26.13 H (1.3-7.7) k/uL Lymphocytes # (Manual) 0.70 L (1.0-4.8) k/uL Monocytes # (Manual) (0-1.0) k/uL Chloride 114 H (98-107) mmol/L Carbon Dioxide 21 L (22-30) mmol/L BUN 6 L (7-17) mg/dL Glucose 70 L (74-99) mg/dL Plasma Lactic Acid Anupam (0.7-2.0) mmol/L Calcium 7.4 L (8.4-10.2) mg/dL Magnesium 1.3 L (1.6-2.3) mg/dL Total Protein 4.0 L (6.3-8.2) g/dL Albumin 1.8 L (3.5-5.0) g/dL Microbiology - Last 24 Hours (Table) 05/11/18 14:41 Gram Stain - Preliminary Other - Other Wound Culture - Preliminary 05/11/18 14:41 Gram Stain - Preliminary Other - Other Wound Culture - Preliminary 05/11/18 14:41 Anaerobic Culture - Preliminary Other - Other 05/11/18 14:41 Anaerobic Culture - Preliminary Other - Other 05/05/18 17:00 Stool Culture - Final Stool Assessment and Plan Assessment: 1. Abdominal pain likely secondary to bilateral ovarian abscesses and ileus. Patient is postop day 1 status post exploratory laparotomy, bilateral salpingo- oophorectomy and excision of tubo-ovarian abscesses bilaterally, lysis of adhesions and cystoscopy placement of bilateral open ended ureteral catheters. Cultures are pending. Continue cefepime and Flagyl. 2. Hypertension likely secondary to sepsis. 3. Sepsis secondary to ovarian abscess area continue antibiotics. Continue to follow cultures. 4. Elevated d-dimer: Venous Doppler negative for DVT bilaterally. VQ scan low probability for PE 5. Possible community-acquired pneumonia noted on chest x-ray 6. UTI: Urine culture growing E. coli. 7. History of multiple sclerosis: Not on any medications due to side effects 8. History of rheumatoid arthritis 9. History of endometriosis with previous exploratory laparoscopic Surgeries 10. Anemia: Possibly related to IV fluids, infection and iron deficiency anemia. Total iron low at 7. Continue monitor CBC 11. Severe protein calorie malnutrition patient received albumin and Lasix yesterday. Likely contributing to patient's lower extremity edema. Discussed with dietitian. Patient will be placed on PPN 12. Hypokalemia and hypomagnesemia. Patient receiving supplements. GI prophylaxis IV Protonix and DVT prophylaxis subcu heparin I performed an examination of the patient and discussed their management with the physician Microbiology Lab Technician. I have reviewed the Physician Microbiology Lab Technician's notes and agree with the documented findings and plan of care
[2018-05-12] MEDS ORDERED: MVI, ADULT NO.4 WITH VIT K 10 ML, TRACE (CONC-1ML/DOSE) 1 ML in AMINO ACID 4.25%-D10W+L... IV ONE ×3 (13:00)
--- NOTE | 2018-05-12 13:23 | P.PN ---
Subjective Progress Note Date: 05/12/18 Principal diagnosis: Enteritis Patient feels somewhat better. Her lower abdominal pain is improved. No bowel movement or flatus. She is thirsty. She was transferred to the ICU because of fevers and concern regarding worsening sepsis. Doing much better at this time. Blood pressures have stabilized. Adequate urine output. Objective - Vital Signs Vital signs: Vital Signs Temp 98.6 F 05/12/18 08:00 Pulse 97 05/12/18 11:00 Resp 13 05/12/18 11:00 BP 101/54 05/12/18 11:00 Pulse Ox 96 05/12/18 11:00 Intake & Output 05/11/18 05/12/18 05/12/18 18:59 06:59 18:59 Intake Total 4575 2180 1404 Output Total 1040 765 230 Balance 3535 1415 1174 Weight 74 kg Intake: IV 4575 80 1204 Cefepime 2 gm In Sodium 50 Chloride 0.9% 50 ml @ 100 mls/hr IVPB Q12HR [facility] Rx #:[id number] Lactated Ringers 1,000 ml 500 @ 125 mls/hr IV .Q8H [facility] Rx#:[id number] Magnesium Sulfate-D5w Pmx 300 1 gm In Dextrose/Water 1 100ml.bag @ 100 mls/hr IVPB Q1H [facility] Rx#: [id number] Normal saline 80 30 Potassium Chloride 10 meq 200 In Water For Injection 1 100ml.bag @ 100 mls/hr IVPB Q1H [facility] Rx#: [id number] Ropivacaine 250 mg 24 Hydromorphone (Pf) 5 mg In Sodium Chloride 0.9% 200 ml @ Per Protocol EPIDURAL .Q0M PRN Rx#: [id number] metroNIDAZOLE-NS PMX 500 100 mg In Saline 1 100ml.bag @ 100 mls/hr IVPB Q8H [facility] Rx#:[id number] Intake, IV Titration 2100 200 Amount ACETAMINOPHEN IV (For NPO 400 ) 1,000 mg In Empty Bag 1 bag @ 400 mls/hr IVPB ONCE [facility] Rx#:[id number] Cefepime 2 gm In Sodium 50 Chloride 0.9% 50 ml @ 100 mls/hr IVPB Q12HR [facility] Rx #:[id number] Lactated Ringers 1,000 ml 750 0 @ 125 mls/hr IV .Q8H [facility] Rx#:[id number] Magnesium Sulfate-D5w Pmx 100 100 1 gm In Dextrose/Water 1 100ml.bag @ 100 mls/hr IVPB Q1H [facility] Rx#: [id number] Potassium Chloride 10 meq 100 100 In Water For Injection 1 100ml.bag @ 100 mls/hr IVPB Q1H [facility] Rx#: [id number] Sodium Chloride 0.9% 500 500 ml 500 ml @ 999 mls/hr IV .Q31M [facility] Rx#:[id number] metroNIDAZOLE-NS PMX 500 200 mg In Saline 1 100ml.bag @ 100 mls/hr IVPB Q8H [facility] Rx#:[id number] Output: Gastric Drainage 50 Urine 700 715 230 Estimated Blood Loss 340 Other: Voiding Method Indwelling Catheter Indwelling Catheter - Exam Abdomen: Soft, mild distention, dressing intact, mild tenderness - Labs CBC & Chem 7: 05/12/18 03:57 05/12/18 03:57 Labs: Abnormal Lab Results - Last 24 Hours (Table) 05/11/18 05/11/18 05/11/18 Range/Units 15:25 23:44 23:44 WBC 24.1 H 23.3 H (3.8-10.6) k/uL RBC 2.99 L 2.70 L (3.80-5.40) m/uL Hgb 8.3 L 7.4 L (11.4-16.0) gm/dL Hct 26.5 L 24.5 L (34.0-46.0) % MCHC 30.3 L (31.0-37.0) g/dL RDW 15.6 H (11.5-15.5) % Plt Count 765 H 689 H (150-450) k/uL Neutrophils # (Manual) 21.67 H (1.3-7.7) k/uL Lymphocytes # (Manual) 0.70 L (1.0-4.8) k/uL Chloride (98-107) mmol/L Carbon Dioxide (22-30) mmol/L BUN (7-17) mg/dL Glucose (74-99) mg/dL Plasma Lactic Acid Anupam 0.6 L (0.7-2.0) mmol/L Calcium (8.4-10.2) mg/dL Magnesium (1.6-2.3) mg/dL Total Protein (6.3-8.2) g/dL Albumin (3.5-5.0) g/dL 05/12/18 05/12/18 Range/Units 03:57 03:57 WBC 28.4 H (3.8-10.6) k/uL RBC 2.84 L (3.80-5.40) m/uL Hgb 7.6 L (11.4-16.0) gm/dL Hct 25.6 L (34.0-46.0) % MCHC 29.8 L (31.0-37.0) g/dL RDW (11.5-15.5) % Plt Count 867 H (150-450) k/uL Neutrophils # (Manual) 26.13 H (1.3-7.7) k/uL Lymphocytes # (Manual) (1.0-4.8) k/uL Chloride 114 H (98-107) mmol/L Carbon Dioxide 21 L (22-30) mmol/L BUN 6 L (7-17) mg/dL Glucose 70 L (74-99) mg/dL Plasma Lactic Acid Anupam (0.7-2.0) mmol/L Calcium 7.4 L (8.4-10.2) mg/dL Magnesium 1.3 L (1.6-2.3) mg/dL Total Protein 4.0 L (6.3-8.2) g/dL Albumin 1.8 L (3.5-5.0) g/dL Microbiology - Last 24 Hours (Table) 05/11/18 10:36 Blood Culture - Preliminary Blood No Growth after 24 hours 05/11/18 14:41 Gram Stain - Preliminary Other - Other Wound Culture - Preliminary 05/11/18 14:41 Gram Stain - Preliminary Other - Other Wound Culture - Preliminary Gram Neg Bacilli 05/11/18 14:41 Anaerobic Culture - Preliminary Other - Other 05/11/18 14:41 Anaerobic Culture - Preliminary Other - Other Assessment and Plan (1) Enteritis Narrative/Plan: Transfer out of the ICU per pulmonary. Okay for ice chips and popsicles. Keep nasogastric tube to suction. Gradually increase activity. Current Visit: Yes Status: Acute Code(s): K52.9 - NONINFECTIVE GASTROENTERITIS AND COLITIS, UNSPECIFIED SNOMED Code(s): 39370653
[2018-05-12 13:57] LABS: Ionized Calcium 4.8 mg/dL (4.5-5.3)
[2018-05-12 18:08] LABS: Glucose,Whole Blood 114 mg/dL (75-99)
[2018-05-12] MEDS: INSULIN ASPART 100 UNIT/ML 1 ML 10 ML VIAL SQ SCH (19:04)
[2018-05-12] MEDS: FAT EMULSION 20% 250 ML in EMPTY BAG 1 BAG IV SCH (19:04)
[2018-05-12] MEDS: ROPIVACAINE 250 MG, HYDROMORPHONE (PF) 5 MG in SODIUM CHLORIDE 0.9% 200 ML EPIDURAL PRN (21:34)
--- NOTE | 2018-05-13 00:02 | PN ---
PROGRESS NOTE DATE OF SERVICE: 05/12/2018. REASON FOR FOLLOWUP: Pelvic abscess from an infected ovarian cyst. INTERVAL HISTORY: The patient's infection has improved. Temperature today has been 100. The patient denies having any chest pain or shortness of breath or cough. Abdominal pain is currently controlled with pain medication. No diarrhea. PHYSICAL EXAMINATION: On admission blood pressure 114/59, pulse of 94, temperature 98.2, she is 95% on 2 L nasal cannula. GENERAL DESCRIPTION: A middle-aged female lying in bed in no distress. RESPIRATORY SYSTEM: Unlabored breathing, clear to auscultation anteriorly. HERAT: S1, S2. Regular rate and rhythm. ABDOMEN: Soft, mildly tender. No guarding or rigidity. LABS: Hemoglobin 7.7, white count 28.4. The abdominal culture is showing gram-negative bacilli. DIAGNOSTIC IMPRESSION AND PLAN: Patient with a pelvic abscess from infected ovarian cyst, status post drainage of this abscess. Culture currently showing gram-negative. The patient is covered with cefepime and Flagyl will be continued, adjusting it further based on the culture report. Continue supportive care. MMODL / IJN: [id number] /
[2018-05-13] MEDS: LACTATED RINGERS 1,000 ML IV SCH ×2 (00:14→08:56)
[2018-05-13] MEDS: metroNIDAZOLE-NS PMX 500 MG in SALINE 1 100ML.BAG IVPB SCH ×3 (00:14→16:09)
[2018-05-13] MEDS: HEPARIN SODIUM,PORCINE 5,000 UNIT/ML 1 ML VIAL SQ SCH ×3 (00:14→16:09)
[2018-05-13 00:22] LABS: Glucose,Whole Blood 125 mg/dL (75-99)
[2018-05-13] MEDS: POTASSIUM CHLORIDE 10 MEQ in WATER FOR INJECTION 1 100ML.BAG IVPB SCH ×3 (01:31→04:23)
[2018-05-13] MEDS: INSULIN ASPART 100 UNIT/ML 1 ML 10 ML VIAL SQ SCH ×4 (01:32→17:44)
[2018-05-13 05:26] LABS: Hypochromasia Slight; MCH 26.7 pg (25.0-35.0); MCHC 30.4 g/dL (31.0-37.0); MCV 87.9 fL (80.0-100.0); Mean Platelet Volume 7.1; Platelet Count 958 k/uL (150-450); RBC 2.21 m/uL (3.80-5.40); RDW 15.4 % (11.5-15.5); WBC 20.9 k/uL (3.8-10.6)
[2018-05-13 05:34] LABS: Ionized Calcium 4.9 mg/dL (4.5-5.3)
[2018-05-13 05:45] LABS: Anion Gap 2 mmol/L; Blood Urea Nitrogen 7 mg/dL (7-17); Calcium 7.6 mg/dL (8.4-10.2); Carbon Dioxide 27 mmol/L (22-30); Chloride 109 mmol/L (98-107); Glucose 111 mg/dL (74-99); Magnesium 1.9 mg/dL (1.6-2.3); Phosphorus 2.1 mg/dL (2.5-4.5); Potassium 3.9 mmol/L (3.5-5.1); Sodium 138 mmol/L (137-145)
[2018-05-13 05:50] LABS: HGB 5.9 gm/dL (11.4-16.0)
[2018-05-13 05:51] LABS: HCT 19.4 % (34.0-46.0)
[2018-05-13] MEDS ORDERED: Phosphorus Replacement Protoco 1 EACH MISC MISCELLANE PRN (06:09)
[2018-05-13] MEDS ORDERED: POTASSIUM PHOSPHATE 10 MMOL in SODIUM CHLORIDE 0.9% 250 ML IV ONE (06:30)
[2018-05-13 07:01] LABS: Glucose,Whole Blood 126 mg/dL (75-99)
[2018-05-13] MEDS: MAGNESIUM SULFATE-D5W PMX 1 GM in DEXTROSE/WATER 1 100ML.BAG IVPB SCH ×2 (07:04→08:47)
[2018-05-13 08:07] LABS: Lymphocytes # (M) 1.46 k/uL (1.0-4.8); Monocytes # (M) 1.46 k/uL (0-1.0); Neutrophils # (M) 17.97 k/uL (1.3-7.7); Neutrophils % (M) 86 %; Nucleated Red Blood Cells 0 /100 WBC (0-0); Total Cells Counted 100
[2018-05-13 08:08] LABS: Toxic Granulation Present
--- NOTE | 2018-05-13 08:34 | P.PN ---
Subjective Progress Note Date: 05/13/18 Principal diagnosis: Status post exploratory laparotomy, excision of bilateral tubo-ovarian abscesses with cultures, extensive adhesio lysis. Patient feels active bowel sounds, denies flatus. Overall feeling really improved. Objective - Vital Signs Vital signs: Vital Signs Temp 99.3 F 05/13/18 04:00 Pulse 89 05/13/18 07:00 Resp 19 05/13/18 07:00 BP 103/56 05/13/18 07:00 Pulse Ox 90 L 05/13/18 07:00 Intake & Output 05/12/18 05/13/18 05/13/18 18:59 06:59 18:59 Intake Total 2503 2188.1 135 Output Total 725 775 75 Balance 1778 1413.1 60 Weight 74 kg 82.4 kg Intake: IV 2303 8 135 Cefepime 2 gm In Sodium 50 100 Chloride 0.9% 50 ml @ 100 mls/hr IVPB Q12HR [facility] Rx #:[id number] Lactated Ringers 1,000 ml 1375 1500 125 @ 125 mls/hr IV .Q8H [facility] Rx#:[id number] Magnesium Sulfate-D5w Pmx 300 100 1 gm In Dextrose/Water 1 100ml.bag @ 100 mls/hr IVPB Q1H [facility] Rx#: [id number] Normal saline 90 120 10 Potassium Chloride 10 meq 200 200 In Water For Injection 1 100ml.bag @ 100 mls/hr IVPB Q1H [facility] Rx#: [id number] Ropivacaine 250 mg 88 8 Hydromorphone (Pf) 5 mg In Sodium Chloride 0.9% 200 ml @ Per Protocol EPIDURAL .Q0M [facility] Rx#: [id number] metroNIDAZOLE-NS PMX 500 200 mg In Saline 1 100ml.bag @ 100 mls/hr IVPB Q8H [facility] Rx#:[id number] Intake, IV Titration 200 160.1 Amount Lactated Ringers 1,000 ml 0 @ 125 mls/hr IV .Q8H [facility] Rx#:[id number] Magnesium Sulfate-D5w Pmx 100 1 gm In Dextrose/Water 1 100ml.bag @ 100 mls/hr IVPB Q1H [facility] Rx#: [id number] Potassium Chloride 10 meq 100 In Water For Injection 1 100ml.bag @ 100 mls/hr IVPB Q1H [facility] Rx#: [id number] Ropivacaine 250 mg 160.1 Hydromorphone (Pf) 5 mg In Sodium Chloride 0.9% 200 ml @ Per Protocol EPIDURAL .Q0M [facility] Rx#: [id number] Output: Urine 725 775 75 Other: Voiding Method Indwelling Catheter Indwelling Catheter - Constitutional General appearance: Present: average body habitus, cooperative - EENT Eyes: Present: PERRLA ENT: Present: hearing grossly normal - Respiratory Respiratory: bilateral: CTA - Cardiovascular Rhythm: regular - Gastrointestinal Gastrointestinal Comment(s): Vertical incision is clean and dry, well approximated. Dressing applied. Hypoactive bowel sounds noted in all 4 quadrants. Localized gastrointestinal: tender: diffuse (Tenderness has greatly improved. No rebound or guarding.) - Genitourinary Genitourinary Comment(s): No vaginal bleeding. - Integumentary Integumentary: Present: normal - Neurologic Neurologic: Present: CNII-XII intact - Musculoskeletal Musculoskeletal: Present: generalized weakness - Psychiatric Psychiatric: Present: A&O x's 3, appropriate affect, intact judgment & insight - Labs CBC & Chem 7: 05/13/18 04:35 05/13/18 04:41 Labs: Abnormal Lab Results - Last 24 Hours (Table) 05/11/18 05/12/18 05/13/18 Range/Units 10:36 17:56 00:10 WBC (3.8-10.6) k/uL RBC (3.80-5.40) m/uL Hgb (11.4-16.0) gm/dL Hct (34.0-46.0) % MCHC (31.0-37.0) g/dL Plt Count (150-450) k/uL Neutrophils # (Manual) (1.3-7.7) k/uL Monocytes # (Manual) (0-1.0) k/uL Chloride (98-107) mmol/L Creatinine (0.52-1.04) mg/dL Glucose (74-99) mg/dL POC Glucose (mg/dL) 114 H 125 H (75-99) mg/dL Calcium (8.4-10.2) mg/dL Phosphorus (2.5-4.5) mg/dL Crossmatch See Detail 05/13/18 05/13/18 05/13/18 Range/Units 04:35 04:41 06:49 WBC 20.9 H (3.8-10.6) k/uL RBC 2.21 L (3.80-5.40) m/uL Hgb 5.9 L* D (11.4-16.0) gm/dL Hct 19.4 L* (34.0-46.0) % MCHC 30.4 L (31.0-37.0) g/dL Plt Count 958 H (150-450) k/uL Neutrophils # (Manual) 17.97 H (1.3-7.7) k/uL Monocytes # (Manual) 1.46 H (0-1.0) k/uL Chloride 109 H (98-107) mmol/L Creatinine 0.46 L (0.52-1.04) mg/dL Glucose 111 H (74-99) mg/dL POC Glucose (mg/dL) 126 H (75-99) mg/dL Calcium 7.6 L (8.4-10.2) mg/dL Phosphorus 2.1 L (2.5-4.5) mg/dL Crossmatch Microbiology - Last 24 Hours (Table) 05/11/18 23:44 Blood Culture - Preliminary Blood No Growth after 24 hours 05/11/18 10:36 Blood Culture - Preliminary Blood No Growth after 24 hours 05/11/18 14:41 Gram Stain - Preliminary Other - Other Wound Culture - Preliminary 05/11/18 14:41 Gram Stain - Preliminary Other - Other Wound Culture - Preliminary Gram Neg Bacilli Assessment and Plan Assessment: Continued progress noted postoperatively. TPN infusing. Hypoactive Bowel sounds noted in all 4 quadrants. Plan: Continue postoperative management. One unit packed red blood cells this morning for hemoglobin 5.9. Will discuss with Dr. Sims timing for discontinuation of NG tube, epidural analgesia, and slow dietary advancement. Time with Patient: Greater than 30
--- NOTE | 2018-05-13 08:38 | P.PN ---
Subjective Progress Note Date: 05/13/18 Principal diagnosis: Tubo-ovarian abscesses Progress note dated 05/13/2018 47-year-old female postop day #2 status post exploratory laparotomy bilateral salpingo-oophorectomy lysis of adhesions bilateral ureteral stents and evacuation of tubo-ovarian abscesses, who currently is doing reasonably well. I did speak to the [facility] [employer] doctor about her this morning. The patient initially had some hypotension thought to be related to sepsis but that has resolved. In addition, she has anemia requiring blood transfusions and has a history of endometriosis. She also suffers some multiple sclerosis and rheumatoid arthritis. Currently, she is on O2 at 2 L by nasal cannula. She's getting peripheral parenteral nutrition at 50 mL an hour and lipids at 21 mL an hour. Her lactated Ringer's is running at 125 to be turned on the 75 mL an hour and she is get a saline IV at KVO. She remains on Flagyl and cefepime. This morning her hemoglobin was 5.9 and 1 unit of blood was ordered. In addition, her urine showed evidence of Escherichia coli in her wound cultures are positive for gram-negative bacilli. She is afebrile. Hopefully the NG tube will come out today. She is taking ice chips. She denies any pain. She denies any difficulty with her breathing. All in all, I think she is progressing very nicely. She certainly has a long way to go. Objective - Vital Signs Vital signs: Vital Signs Temp 99.3 F 05/13/18 04:00 Pulse 89 05/13/18 07:00 Resp 19 05/13/18 07:00 BP 103/56 05/13/18 07:00 Pulse Ox 90 L 05/13/18 07:00 Intake & Output 05/12/18 05/13/18 05/13/18 18:59 06:59 18:59 Intake Total 2503 2188.1 135 Output Total 725 775 75 Balance 1778 1413.1 60 Weight 74 kg 82.4 kg Intake: IV 2303 2028 135 Cefepime 2 gm In Sodium 50 100 Chloride 0.9% 50 ml @ 100 mls/hr IVPB Q12HR [facility] Rx #:[id number] Lactated Ringers 1,000 ml 1375 1500 125 @ 125 mls/hr IV .Q8H [facility] Rx#:[id number] Magnesium Sulfate-D5w Pmx 300 100 1 gm In Dextrose/Water 1 100ml.bag @ 100 mls/hr IVPB Q1H [facility] Rx#: [id number] Normal saline 90 120 10 Potassium Chloride 10 meq 200 200 In Water For Injection 1 100ml.bag @ 100 mls/hr IVPB Q1H [facility] Rx#: [id number] Ropivacaine 250 mg 88 8 Hydromorphone (Pf) 5 mg In Sodium Chloride 0.9% 200 ml @ Per Protocol EPIDURAL .Q0M [facility] Rx#: [id number] metroNIDAZOLE-NS PMX 500 200 mg In Saline 1 100ml.bag @ 100 mls/hr IVPB Q8H [facility] Rx#:[id number] Intake, IV Titration 200 160.1 Amount Lactated Ringers 1,000 ml 0 @ 125 mls/hr IV .Q8H [facility] Rx#:[id number] Magnesium Sulfate-D5w Pmx 100 1 gm In Dextrose/Water 1 100ml.bag @ 100 mls/hr IVPB Q1H [facility] Rx#: [id number] Potassium Chloride 10 meq 100 In Water For Injection 1 100ml.bag @ 100 mls/hr IVPB Q1H [facility] Rx#: [id number] Ropivacaine 250 mg 160.1 Hydromorphone (Pf) 5 mg In Sodium Chloride 0.9% 200 ml @ Per Protocol EPIDURAL .Q0M [facility] Rx#: [id number] Output: Urine 725 775 75 Other: Voiding Method Indwelling Catheter Indwelling Catheter - Exam No acute distress, oriented 3. Nasal O2 in place. NG tube noted. HEENT examination is grossly unremarkable. Mucous membranes are moist. No oral lesions. Neck supple. Full range of motion. No adenopathy thyromegaly or neck vein distention. Cardiovascular examination reveals regular rhythm rate. S1-S2 normal. No S3 or S4. No discernible murmur noted. Lungs reveal clear breath sounds. Breath sounds are equal bilaterally. No adventitious lung sounds including wheezes rhonchi or crackles. Abdomen soft, without bowel sounds. No masses. Mild tenderness. Extremities are intact. No cyanosis clubbing or edema. Skin is without rash or lesion. Neurologic examination is brief but nonfocal. - Labs CBC & Chem 7: 05/13/18 04:35 05/13/18 04:41 Labs: Abnormal Lab Results - Last 24 Hours (Table) 05/11/18 05/12/18 05/13/18 Range/Units 10:36 17:56 00:10 WBC (3.8-10.6) k/uL RBC (3.80-5.40) m/uL Hgb (11.4-16.0) gm/dL Hct (34.0-46.0) % MCHC (31.0-37.0) g/dL Plt Count (150-450) k/uL Neutrophils # (Manual) (1.3-7.7) k/uL Monocytes # (Manual) (0-1.0) k/uL Chloride (98-107) mmol/L Creatinine (0.52-1.04) mg/dL Glucose (74-99) mg/dL POC Glucose (mg/dL) 114 H 125 H (75-99) mg/dL Calcium (8.4-10.2) mg/dL Phosphorus (2.5-4.5) mg/dL Crossmatch See Detail 05/13/18 05/13/18 05/13/18 Range/Units 04:35 04:41 06:49 WBC 20.9 H (3.8-10.6) k/uL RBC 2.21 L (3.80-5.40) m/uL Hgb 5.9 L* D (11.4-16.0) gm/dL Hct 19.4 L* (34.0-46.0) % MCHC 30.4 L (31.0-37.0) g/dL Plt Count 958 H (150-450) k/uL Neutrophils # (Manual) 17.97 H (1.3-7.7) k/uL Monocytes # (Manual) 1.46 H (0-1.0) k/uL Chloride 109 H (98-107) mmol/L Creatinine 0.46 L (0.52-1.04) mg/dL Glucose 111 H (74-99) mg/dL POC Glucose (mg/dL) 126 H (75-99) mg/dL Calcium 7.6 L (8.4-10.2) mg/dL Phosphorus 2.1 L (2.5-4.5) mg/dL Crossmatch Microbiology - Last 24 Hours (Table) 05/11/18 23:44 Blood Culture - Preliminary Blood No Growth after 24 hours 05/11/18 10:36 Blood Culture - Preliminary Blood No Growth after 24 hours 05/11/18 14:41 Gram Stain - Preliminary Other - Other Wound Culture - Preliminary 05/11/18 14:41 Gram Stain - Preliminary Other - Other Wound Culture - Preliminary Gram Neg Bacilli Assessment and Plan Assessment: Assessment Postop day #2, status post exploratory laparotomy, lysis of adhesions, bilateral salpingo-oophorectomy, placement of bilateral ureteral stents, and evacuation of tubo-ovarian abscesses, bilaterally. Hypotension, resolved, thought to be related to sepsis Anemia History of endometriosis, status post previous exploratory laparotomy 2. History of multiple sclerosis History of rheumatoid arthritis Plan: Plan dated 05/13/2018 The patient remains on antibiotics in the form of Flagyl and cefepime. Her urine was positive for Escherichia coli in her wound was positive for gram- negative bacilli, yet to be identified. This morning's hemoglobin was 5.9 and she received 1 unit of PRBCs. She remains on supplemental oxygen at 2 L, peripheral parenteral nutrition, lipids, and lactated Ringer's now at 75 mL an hour. Labs include a white count of 20.9 hemoglobin 5.9 hematocrit 19.4 and platelet count 958,000. Sodium and potassium are normal. Chloride is 109, CO2 27 BUN 70 creatinine 0.46. Anion gap is normal. We will continue with deep breathing coughing and clearing secretions and use of incentive spirometer every hour. Hopefully when she was seen by surgery, the NG tube can come out. Additional recommendations and suggestions are forthcoming. Prognosis is guarded. Critical care time 36 minutes Time with Patient: Greater than 30
--- NOTE | 2018-05-13 09:06 | CDI ---
Last Revision, May 2017 Documentation Clarification Form Date: 05/13/2018 8:50:10 AM From: Marie MacdonaldGreerDEVENDRA white, CCDS Admit Date: 05/04/2018 1:52:00 PM Patient Name: Evelyn Rosales Visit Number: [id number] Discharge Date: ATTENTION: The Clinical Documentation Specialists (CDI) and [facility] Coding Staff appreciate your assistance in clarifying documentation. Please respond to the clarification below the line at the bottom and electronically sign. The CDI & [facility] Coding staff will review the response and follow-up if needed. Please note: Queries are made part of the Legal Health Record. If you have any questions, please contact the author of this message via ITS. Marito Fisher MD: Per the 05/12 attending PN: "Anemia: Possibly related to IV fluids, infection and iron deficiency anemia." History/Risk Factors: MS, RA, previous pneumonia, Endometriosis. Home meds: Aspirin Clinical indicators: Presented with abdominal pain & diarrhea, fevers up to 101 , vomiting. Evidence of sepsis, partial SBO, right side hydronephrosis & cystic lesions. Procedures: 05/11: Cystoscopy with placement of bilateral ureteral stents. Lysis of adhesions from small bowel & salpingectomy with oophorectomy. Hemoglobin: preop 12.0, current 5.9 Hematocrit: preop 36.2, current 19.4 Treatment: IV Toradol, IV fluid bolus on admission, IV Levaquin, IV Flagyl, IV PPI, IV Tylenol, IV Rocephin, IV Albumin on 05/10, Postop: IV Mag Sulfate, IV Kcl, IV Amino Acids, NGT, alvarado cath, typed & crossed, no transfusion yet. Transferred to ICU 05/11 for worsening sepsis & hemodynamic instability. In order to capture the severity of condition, please clarify the type of anemia and etiology if known: Acute blood loss anemia Due to: Acute on chronic blood loss anemia Chronic blood loss anemia Iron deficiency anemia Hemolytic anemia Drug induced anemia Unable to determine Other, please specify expected acute blood loss anemia secondary to surgery and iron deficiency anemia MTDD
[2018-05-13] MEDS: PANTOPRAZOLE 40 MG/10 ML VIAL IVP SCH (10:06)
[2018-05-13] MEDS: CEFEPIME 2 GM in SODIUM CHLORIDE 0.9% 50 ML IVPB SCH ×2 (10:50→20:13)
[2018-05-13 12:13] LABS: Glucose,Whole Blood 132 mg/dL (75-99)
--- NOTE | 2018-05-13 12:40 | P.PN ---
Subjective Progress Note Date: 05/13/18 This is a 47-year-old female, patient of Dr. Cruz. She has a known past medical history of multiple sclerosis, endometriosis requiring exploratory laparotomy 2 and rheumatoid arthritis. Patient reports abdominal pain started about 3 days ago mostly in the upper abdomen. She had a significant amount of diarrhea and and Friday. There was no blood reported in the stools. She was also having fevers as high as 101. The abdominal pain moved into the lower abdominal region. Pain was so severe she was having shortness of breath. And then on Friday she had stopped having any diarrhea and also stopped passing gas. During these 3 days she vomited twice. Patient came into the emergency room for further evaluation and treatment. She's found to have a temp of 101.4 she was tachycardic heart rate around 108. White count normal. Computed tomography scan showed partial small bowel obstruction with a transition within the left mid abdomen secondary to be containing of the small bowel wall. And consider jejunitis. Also reports multiple large cystic structures in the bilateral adnexa. Consider the possibility of pyosalpinx within the differential. Ovarian carcinoma is not excluded. We'll be ordering an abdominal and pelvic ultrasound for further evaluation. Patient is currently nothing by mouth. Started on Levaquin and IV Flagyl. Surgical and [employer] consults have been placed. Patient was found to have evidence of a possible pneumonia on chest x-ray. Chest x-ray reported suggestion of a right middle lobe infiltrate. Correlate for atelectasis or pneumonia. Patient does reports having a cough. Also evidence of a UTI. She has been having some dark urine as well as mild burning with urination. Culture has been obtained. She' s currently nothing by mouth and on my and on IV fluids. Patient denies any chest pain. Does report some nausea. Patient has never had any colonoscopy or EGD. Does report having history of scar tissue in the abdomen due to previous abdominal surgeries. Patient denies any recent traveling. Denies any sick contacts. 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 05/05/2018 patient reported improvement in her abdominal pain. She was passing gas this morning and then had a large liquid brown yellowish stool. At that time she felt that her stomach bloating was doing better. She had a low-grade temp of 100.3 and was given Tylenol with a few sips of water. After she taken the medication and water she started having abdominal pain. Abdominal x-ray showing signs of ileus. Transvaginal pelvic ultrasound showing a fibroid uterus. Multiple bilateral cystic lesions could represent hemorrhagic cysts, endometrioma, tubo-ovarian abscess, cyst adenoma or cyst adenocarcinoma not excluded. Patient is followed by [employer] service, and they felt symptoms were likely related to endometriomas. Dr. Wray also noted that his abdominal pain was not related to any [employer] cause. Patient denies any vomiting. Reports that her urine is still dark. Burning with urination has resolved. Hemoglobin has dropped from 12.3-9.9. Patient denies any blood in the stools or black stools. Urine culture gram-negative bacilli. T-max 100.8. On 05/06/2018 patient is currently resting in bed. Patient is still having multiple loose stools last night and again this morning. Patient states this is still feels bloated abdominal discomfort. white blood cell increased to 20.8. Repeat CAT scan has been ordered per surgical services. Infectious disease consulted. At this time patient denies chest pain or shortness of breath. Patient denies any urinary burning or frequency. Patient is having abdominal pain denies any nausea or vomiting On 05/07/2018 patient is currently resting in bed. Patient states she's having some abdominal pain but it is improved from yesterday. At that time patient denies chest pain or shortness of breath. Patient is complaining cough is worse in a.m. Patient denies nausea vomiting or diarrhea. Patient denies any urinary burning or frequency. On 05/08/2018 patient is currently resting in bed. Patient is still complaining of some burning with urination and abdominal pain and bloating. Patient states she is having increased cough with production. Sputum culture has been ordered. Patient denies chest pain or shortness breath. Patient denies nausea vomiting or diarrhea. Patient denies any urinary frequency. On 05/09/2018 patient is feeling somewhat better she is still having significant abdominal pain and bloating but feels better than yesterday she is having cough without any sputum production she still has low-grade fever she is also complaining of nausea and diarrhea otherwise she denies any complaints at this time On 05/10/2018 patient was seen and examined on the medical floor she is still complaining of abdominal pain and diarrhea she is complaining of lower extremity swelling and discomfort today, otherwise she denies any complaints there is no fever or chills no headache or dizziness no chest pain no shortness of breath no cough and no urinary symptoms 05/11/2018 patient is having abdominal pain with abdominal distention. Also continues to have fevers. Repeat computed tomography scan of the abdomen and pelvis shows improvement in degree and small bowel dilation with contrast passing into large bowel and rectum. Ileus was suspected. Interval development of moderate right hydroureteronephrosis and delayed excretion of contrast from the right kidney secondary to an obstructing multiloculated large right adnexal mass. There is progressive enlargement of the left multicystic adnexal mass. Patient has been seen by [employer] service they're planning exploratory laparotomy with salpingectomy and oophorectomy with possible hysterectomy and bilateral ureteral stents. Patient denies any chest pain or shortness of breath. She does have lower extremity. She was given albumin and Lasix due to her low albumin levels yesterday. Denies any calf tenderness. T- max 101. White count 20.4. Potassium is 3.4 patient receiving supplement. 05/12/2018 patient is postop day #1 status post exploratory laparotomy, bilateral salpingo-oophorectomy and excision of tubo-ovarian abscesses bilaterally also had cystoscopy placement of bilateral open ended ureteral catheters. Patient required transfer to the ICU during the evening due to hypotension and fever concerns for sepsis. Critical care was placed on consult. She has not required any IV pressors. She is on IV antibiotics cefepime and Flagyl. Cultures were obtained of the abscesses. Results are pending. Patient's white count is 28.4 T-max 101.4. Urine output adequate. Patient reports that her pain is controlled. Denies any chest pain or shortness of breath. Denies any nausea or vomiting. Does have NG tube in place. On 05/13/2018 patient is currently postop day 2 status post exposure to lab, bilateral salpingo-oophorectomy and excision of tubo-ovarian abscess bilaterally also had cystoscopy placement of bilateral open-ended ureteral catheters. Patient remains in the intensive care unit. Epidural remains in place for adequate pain control. White blood cell improving to 20.9. Patient' s hemoglobin dropping to 5.9. 1 unit of PRBCs have been ordered. And she remains in place. Patient is tolerating ice chips at this time. At this time patient denies chest pain or shortness of breath. Patient denies nausea vomiting or diarrhea. Objective - Vital Signs Vital signs: Vital Signs Temp 98 F 05/13/18 12:00 Pulse 81 05/13/18 12:00 Resp 18 05/13/18 12:00 BP 106/49 05/13/18 12:00 Pulse Ox 94 L 05/13/18 12:00 Intake & Output 05/12/18 05/13/18 05/13/18 18:59 06:59 18:59 Intake Total 2503 2188.1 1109 Output Total 725 775 600 Balance 1778 1413.1 509 Weight 74 kg 82.4 kg Intake: IV 2303 2028 719 Cefepime 2 gm In Sodium 50 100 50 Chloride 0.9% 50 ml @ 100 mls/hr IVPB Q12HR [facility] Rx #:[id number] Lactated Ringers 1,000 ml 1375 1500 350 @ 75 mls/hr IV .[id number] [facility] Rx#:[id number] Magnesium Sulfate-D5w Pmx 300 100 1 gm In Dextrose/Water 1 100ml.bag @ 100 mls/hr IVPB Q1H [facility] Rx#: [id number] Normal saline 90 120 70 Potassium Chloride 10 meq 200 200 In Water For Injection 1 100ml.bag @ 100 mls/hr IVPB Q1H [facility] Rx#: [id number] Potassium Phosphate 10 125 mmol In Sodium Chloride 0 .9% 250 ml @ 125 mls/hr IV [facility] Rx#:[id number] Ropivacaine 250 mg 88 8 24 Hydromorphone (Pf) 5 mg In Sodium Chloride 0.9% 200 ml @ Per Protocol EPIDURAL .Q0M [facility] Rx#: [id number] metroNIDAZOLE-NS PMX 500 200 100 mg In Saline 1 100ml.bag @ 100 mls/hr IVPB Q8H [facility] Rx#:[id number] Intake, IV Titration 200 160.1 80 Amount Lactated Ringers 1,000 ml 0 @ 75 mls/hr IV .[id number] [facility] Rx#:[id number] Magnesium Sulfate-D5w Pmx 100 1 gm In Dextrose/Water 1 100ml.bag @ 100 mls/hr IVPB Q1H [facility] Rx#: [id number] Mvi, Adult No.4 with Vit 80 K 10 ml Trace (Conc-1Ml/ Dose) 1 ml In Amino Acid 4.25%-D10w+Lytes*E* 1,000 ml @ 80 mls/hr IV .BY DURATION [facility] Rx#: [id number] Potassium Chloride 10 meq 100 In Water For Injection 1 100ml.bag @ 100 mls/hr IVPB Q1H [facility] Rx#: [id number] Ropivacaine 250 mg 160.1 Hydromorphone (Pf) 5 mg In Sodium Chloride 0.9% 200 ml @ Per Protocol EPIDURAL .Q0M [facility] Rx#: [id number] Blood Product 310 Rc Pheresis As-3 Unit 310 [id number] Output: Urine 725 775 600 Other: Voiding Method Indwelling Catheter Indwelling Catheter Indwelling Catheter # Voids 3 # Bowel Movements 2 - Exam Head normocephalic Neck supple Lungs clear to auscultation bilaterally no wheezing or crackles Heart regular rate and rhythm S1-S2, no rub or gallop Abdomen is soft dressing clean dry and intact hypoactive bowel sounds. NG tube in place Extremities +1 edema bilateral lower extremities Neuro alert and orientated to 3 - Labs CBC & Chem 7: 05/13/18 04:35 05/13/18 04:41 Labs: Abnormal Lab Results - Last 24 Hours (Table) 05/11/18 05/12/18 05/13/18 Range/Units 10:36 17:56 00:10 WBC (3.8-10.6) k/uL RBC (3.80-5.40) m/uL Hgb (11.4-16.0) gm/dL Hct (34.0-46.0) % MCHC (31.0-37.0) g/dL Plt Count (150-450) k/uL Neutrophils # (Manual) (1.3-7.7) k/uL Monocytes # (Manual) (0-1.0) k/uL Chloride (98-107) mmol/L Creatinine (0.52-1.04) mg/dL Glucose (74-99) mg/dL POC Glucose (mg/dL) 114 H 125 H (75-99) mg/dL Calcium (8.4-10.2) mg/dL Phosphorus (2.5-4.5) mg/dL Crossmatch See Detail 11/05/13/18 05/13/18 Range/Units 04:35 04:41 06:49 WBC 20.9 H (3.8-10.6) k/uL RBC 2.21 L (3.80-5.40) m/uL Hgb 5.9 L* D (11.4-16.0) gm/dL Hct 19.4 L* (34.0-46.0) % MCHC 30.4 L (31.0-37.0) g/dL Plt Count 958 H (150-450) k/uL Neutrophils # (Manual) 17.97 H (1.3-7.7) k/uL Monocytes # (Manual) 1.46 H (0-1.0) k/uL Chloride 109 H (98-107) mmol/L Creatinine 0.46 L (0.52-1.04) mg/dL Glucose 111 H (74-99) mg/dL POC Glucose (mg/dL) 126 H (75-99) mg/dL Calcium 7.6 L (8.4-10.2) mg/dL Phosphorus 2.1 L (2.5-4.5) mg/dL Crossmatch 05/13/18 Range/Units 12:01 WBC (3.8-10.6) k/uL RBC (3.80-5.40) m/uL Hgb (11.4-16.0) gm/dL Hct (34.0-46.0) % MCHC (31.0-37.0) g/dL Plt Count (150-450) k/uL Neutrophils # (Manual) (1.3-7.7) k/uL Monocytes # (Manual) (0-1.0) k/uL Chloride (98-107) mmol/L Creatinine (0.52-1.04) mg/dL Glucose (74-99) mg/dL POC Glucose (mg/dL) 132 H (75-99) mg/dL Calcium (8.4-10.2) mg/dL Phosphorus (2.5-4.5) mg/dL Crossmatch Microbiology - Last 24 Hours (Table) 05/11/18 14:41 Anaerobic Culture - Preliminary Other - Other 05/11/18 14:41 Anaerobic Culture - Preliminary Other - Other 05/11/18 23:44 Blood Culture - Preliminary Blood No Growth after 24 hours 05/11/18 10:36 Blood Culture - Preliminary Blood No Growth after 24 hours 05/11/18 14:41 Gram Stain - Preliminary Other - Other Wound Culture - Preliminary 05/11/18 14:41 Gram Stain - Preliminary Other - Other Wound Culture - Preliminary Gram Neg Bacilli Assessment and Plan Assessment: 1. Abdominal pain likely secondary to bilateral ovarian abscesses and ileus. Patient is postop day 1 status post exploratory laparotomy, bilateral salpingo- oophorectomy and excision of tubo-ovarian abscesses bilaterally, lysis of adhesions and cystoscopy placement of bilateral open ended ureteral catheters. Continue cefepime and Flagyl. Urine culture growing E. coli. Wound culture growing gram-negative bacilli. Infectious disease services are following 2. Hypertension likely secondary to sepsis. 3. Sepsis secondary to ovarian abscess area continue antibiotics. Continue to follow cultures. 4. Elevated d-dimer: Venous Doppler negative for DVT bilaterally. VQ scan low probability for PE 5. Possible community-acquired pneumonia noted on chest x-ray 6. UTI: Urine culture growing E. coli. 7. History of multiple sclerosis: Not on any medications due to side effects 8. History of rheumatoid arthritis 9. History of endometriosis with previous exploratory laparoscopic Surgeries 10. Anemia: Possibly related to IV fluids, infection and iron deficiency anemia. Total iron low at 7. Hemoglobin 5.9. 1 unit of PRBCs has been ordered. We'll continue to monitor closely 11. Severe protein calorie malnutrition patient received albumin and Lasix yesterday. Likely contributing to patient's lower extremity edema. Discussed with dietitian. Patient will be placed on PPN 12. Hypokalemia and hypomagnesemia. Patient receiving supplements. GI prophylaxis IV Protonix and DVT prophylaxis subcu heparin I performed an examination of the patient and discussed their management with the Nurse Practitioner. I have reviewed the Nurse Practitioner's notes and agree with the documented findings and plan of care
[2018-05-13 13:14] LABS: Hemoglobin A1C 5.6 % (4.0-6.0)
--- NOTE | 2018-05-13 13:18 | P.PN ---
Subjective Progress Note Date: 05/13/18 Principal diagnosis: Enteritis Patient doing fairly well today. Hemoglobin was low and the patient is receiving blood transfusion. Pain seems to be fairly well controlled with epidural. She would like to ambulate. No flatus or bowel movement thus far. She is afebrile. Objective - Vital Signs Vital signs: Vital Signs Temp 98 F 05/13/18 12:00 Pulse 81 05/13/18 12:00 Resp 18 05/13/18 12:00 BP 106/49 05/13/18 12:00 Pulse Ox 94 L 05/13/18 12:00 Intake & Output 05/12/18 05/13/18 05/13/18 18:59 06:59 18:59 Intake Total 2503 2188.1 1109 Output Total 725 775 600 Balance 1778 1413.1 509 Weight 74 kg 82.4 kg Intake: IV 2303 2028 719 Cefepime 2 gm In Sodium 50 100 50 Chloride 0.9% 50 ml @ 100 mls/hr IVPB Q12HR [facility] Rx #:[id number] Lactated Ringers 1,000 ml 1375 1500 350 @ 75 mls/hr IV .[id number] [facility] Rx#:[id number] Magnesium Sulfate-D5w Pmx 300 100 1 gm In Dextrose/Water 1 100ml.bag @ 100 mls/hr IVPB Q1H [facility] Rx#: [id number] Normal saline 90 120 70 Potassium Chloride 10 meq 200 200 In Water For Injection 1 100ml.bag @ 100 mls/hr IVPB Q1H [facility] Rx#: [id number] Potassium Phosphate 10 125 mmol In Sodium Chloride 0 .9% 250 ml @ 125 mls/hr IV ONCE ONE Rx#:[id number] Ropivacaine 250 mg 88 8 24 Hydromorphone (Pf) 5 mg In Sodium Chloride 0.9% 200 ml @ Per Protocol EPIDURAL .Q0M PRN Rx#: [id number] metroNIDAZOLE-NS PMX 500 200 100 mg In Saline 1 100ml.bag @ 100 mls/hr IVPB Q8H [facility] Rx#:[id number] Intake, IV Titration 200 160.1 80 Amount Lactated Ringers 1,000 ml 0 @ 75 mls/hr IV .[id number] [facility] Rx#:[id number] Magnesium Sulfate-D5w Pmx 100 1 gm In Dextrose/Water 1 100ml.bag @ 100 mls/hr IVPB Q1H [facility] Rx#: [id number] Mvi, Adult No.4 with Vit 80 K 10 ml Trace (Conc-1Ml/ Dose) 1 ml In Amino Acid 4.25%-D10w+Lytes*E* 1,000 ml @ 80 mls/hr IV .BY DURATION [facility] Rx#: [id number] Potassium Chloride 10 meq 100 In Water For Injection 1 100ml.bag @ 100 mls/hr IVPB Q1H [facility] Rx#: [id number] Ropivacaine 250 mg 160.1 Hydromorphone (Pf) 5 mg In Sodium Chloride 0.9% 200 ml @ Per Protocol EPIDURAL .Q0M [facility] Rx#: [id number] Blood Product 310 Rc Pheresis As-3 Unit 310 [id number] Output: Urine 725 775 600 Other: Voiding Method Indwelling Catheter Indwelling Catheter Indwelling Catheter # Voids 3 # Bowel Movements 2 - Exam Abdomen: Soft, mild distention, dressing clean and dry, mild tenderness - Labs CBC & Chem 7: 05/13/18 04:35 05/13/18 04:41 Labs: Abnormal Lab Results - Last 24 Hours (Table) 05/11/18 05/12/18 05/13/18 Range/Units 10:36 17:56 00:10 WBC (3.8-10.6) k/uL RBC (3.80-5.40) m/uL Hgb (11.4-16.0) gm/dL Hct (34.0-46.0) % MCHC (31.0-37.0) g/dL Plt Count (150-450) k/uL Neutrophils # (Manual) (1.3-7.7) k/uL Monocytes # (Manual) (0-1.0) k/uL Chloride (98-107) mmol/L Creatinine (0.52-1.04) mg/dL Glucose (74-99) mg/dL POC Glucose (mg/dL) 114 H 125 H (75-99) mg/dL Calcium (8.4-10.2) mg/dL Phosphorus (2.5-4.5) mg/dL Crossmatch See Detail 05/13/18 05/13/18 05/13/18 Range/Units 04:35 04:41 06:49 WBC 20.9 H (3.8-10.6) k/uL RBC 2.21 L (3.80-5.40) m/uL Hgb 5.9 L* D (11.4-16.0) gm/dL Hct 19.4 L* (34.0-46.0) % MCHC 30.4 L (31.0-37.0) g/dL Plt Count 958 H (150-450) k/uL Neutrophils # (Manual) 17.97 H (1.3-7.7) k/uL Monocytes # (Manual) 1.46 H (0-1.0) k/uL Chloride 109 H (98-107) mmol/L Creatinine 0.46 L (0.52-1.04) mg/dL Glucose 111 H (74-99) mg/dL POC Glucose (mg/dL) 126 H (75-99) mg/dL Calcium 7.6 L (8.4-10.2) mg/dL Phosphorus 2.1 L (2.5-4.5) mg/dL Crossmatch 05/13/18 Range/Units 12:01 WBC (3.8-10.6) k/uL RBC (3.80-5.40) m/uL Hgb (11.4-16.0) gm/dL Hct (34.0-46.0) % MCHC (31.0-37.0) g/dL Plt Count (150-450) k/uL Neutrophils # (Manual) (1.3-7.7) k/uL Monocytes # (Manual) (0-1.0) k/uL Chloride (98-107) mmol/L Creatinine (0.52-1.04) mg/dL Glucose (74-99) mg/dL POC Glucose (mg/dL) 132 H (75-99) mg/dL Calcium (8.4-10.2) mg/dL Phosphorus (2.5-4.5) mg/dL Crossmatch Microbiology - Last 24 Hours (Table) 05/11/18 10:36 Blood Culture - Preliminary Blood No Growth after 48 hours 05/11/18 14:41 Anaerobic Culture - Preliminary Other - Other 05/11/18 14:41 Anaerobic Culture - Preliminary Other - Other 05/11/18 23:44 Blood Culture - Preliminary Blood No Growth after 24 hours 05/11/18 14:41 Gram Stain - Preliminary Other - Other Wound Culture - Preliminary 05/11/18 14:41 Gram Stain - Preliminary Other - Other Wound Culture - Preliminary Gram Neg Bacilli Assessment and Plan (1) Enteritis Narrative/Plan: Increase activity. Plan removal of nasogastric tube and epidural and Staton catheter tomorrow. Check labs tomorrow. Current Visit: Yes Status: Acute Code(s): K52.9 - NONINFECTIVE GASTROENTERITIS AND COLITIS, UNSPECIFIED SNOMED Code(s): 16691913
[2018-05-13] MEDS: 1: MVI, ADULT NO.4 WITH VIT K 10 ML, TRACE (CONC-1ML/DOSE) 1 ML in AMINO ACID 4.25%-D10W IV SCH ×3 (13:31)
[2018-05-13 13:44] LABS: HCT 22.1 % (34.0-46.0); HGB 7.2 gm/dL (11.4-16.0); Hypochromasia Slight; MCH 28.5 pg (25.0-35.0); MCHC 32.4 g/dL (31.0-37.0); MCV 87.9 fL (80.0-100.0); Mean Platelet Volume 6.4; Platelet Count 873 k/uL (150-450); RBC 2.52 m/uL (3.80-5.40); RDW 15.3 % (11.5-15.5); WBC 19.9 k/uL (3.8-10.6)
--- NOTE | 2018-05-13 13:47 | P.PN ---
Progress Note - Text 05/13 5672 47-year-old female status post exploratory lap by Dr. Phani santoro. Patient has an epidural catheter with the solution running at 6 mL an hour with a VAS of 2. No motor or sensory deficits noted plan to DC the epidural in the morning
[2018-05-13] MEDS: FAT EMULSION 20% 250 ML in EMPTY BAG 1 BAG IV SCH (17:36)
[2018-05-13 17:45] LABS: Glucose,Whole Blood 127 mg/dL (75-99)
--- NOTE | 2018-05-13 22:51 | PN ---
PROGRESS NOTE DATE OF SERVICE: 05/13/2018 REASON FOR FOLLOWUP: Pelvic abscess from an infected ovarian cyst. INTERVAL HISTORY: The patient's overall fever pattern has improved. High temperature today has been 99.1. The patient denies having any chest pain or shortness of breath or cough. Abdominal pain is currently controlled with pain medication. No diarrhea. PHYSICAL EXAMINATION: Blood pressure 105/62 with a pulse of 79, temperature 99.1. She is 93% on room air. General description is a middle-aged female up in bed in no distress. RESPIRATORY SYSTEM: Unlabored breathing. Clear to auscultation anteriorly. HEART: S1, S2. Regular rate and rhythm. ABDOMEN: Soft. Mildly distended. No guarding or rigidity. EXTREMITIES: No edema of the feet. LABS: Hemoglobin 7.2, white count 19.9, creatinine 0.46. The abdominal culture shows an E coli that is a sensitive pathogen. DIAGNOSTIC IMPRESSION AND PLAN: Patient with a pelvic abscess from infected ovarian cyst, status post extensive debridement, culture showing Escherichia coli that is a sensitive pathogen. Patient is on cefepime and Flagyl. That will be transitioned to Rocephin 2 grams daily and Flagyl if no resistant organism is grown. Will wait for the culture one more day. Continue with supportive care. MMODL / IJN: [id number] /
[2018-05-14 00:01] LABS: Glucose,Whole Blood 124 mg/dL (75-99)
[2018-05-14] MEDS: metroNIDAZOLE-NS PMX 500 MG in SALINE 1 100ML.BAG IVPB SCH ×3 (00:35→16:58)
[2018-05-14] MEDS: HEPARIN SODIUM,PORCINE 5,000 UNIT/ML 1 ML VIAL SQ SCH ×3 (00:35→17:11)
[2018-05-14] MEDS: INSULIN ASPART 100 UNIT/ML 1 ML 10 ML VIAL SQ SCH ×5 (02:07→23:51)
[2018-05-14] MEDS: 1: MVI, ADULT NO.4 WITH VIT K 10 ML, TRACE (CONC-1ML/DOSE) 1 ML in AMINO ACID 4.25%-D10W IV SCH ×9 (03:11→23:37)
[2018-05-14] MEDS: LACTATED RINGERS 1,000 ML IV SCH ×2 (03:16→12:34)
[2018-05-14] MEDS: ROPIVACAINE 250 MG, HYDROMORPHONE (PF) 5 MG in SODIUM CHLORIDE 0.9% 200 ML EPIDURAL PRN (04:11)
[2018-05-14 05:45] LABS: Glucose,Whole Blood 140 mg/dL (75-99)
[2018-05-14 06:08] LABS: HCT 22.4 % (34.0-46.0); Hypochromasia Slight; MCH 27.7 pg (25.0-35.0); MCHC 31.3 g/dL (31.0-37.0); MCV 88.6 fL (80.0-100.0); Mean Platelet Volume 6.9; Platelet Count 949 k/uL (150-450); RBC 2.53 m/uL (3.80-5.40); RDW 15.1 % (11.5-15.5); WBC 14.7 k/uL (3.8-10.6)
[2018-05-14 06:17] LABS: Ionized Calcium 4.6 mg/dL (4.5-5.3)
[2018-05-14 06:43] LABS: Potassium 3.6 mmol/L (3.5-5.1)
[2018-05-14 06:44] LABS: ALT 27 U/L (9-52); AST 22 U/L (14-36); Albumin 1.9 g/dL (3.5-5.0); Alkaline Phosphatase 73 U/L (38-126); Anion Gap 3 mmol/L; Blood Urea Nitrogen 7 mg/dL (7-17); Calcium 7.3 mg/dL (8.4-10.2); Carbon Dioxide 30 mmol/L (22-30); Chloride 105 mmol/L (98-107); Glucose 118 mg/dL (74-99); Magnesium 1.8 mg/dL (1.6-2.3); Phosphorus 2.7 mg/dL (2.5-4.5); Sodium 138 mmol/L (137-145); Total Bilirubin 0.1 mg/dL (0.2-1.3); Total Protein 4.2 g/dL (6.3-8.2)
[2018-05-14] MEDS: MAGNESIUM SULFATE-D5W PMX 1 GM in DEXTROSE/WATER 1 100ML.BAG IVPB SCH ×2 (06:59→07:57)
[2018-05-14 07:05] LABS: Lymphocytes # (M) 0.88 k/uL (1.0-4.8); Monocytes # (M) 0.74 k/uL (0-1.0); Neutrophils # (M) 13.08 k/uL (1.3-7.7); Neutrophils % (M) 89 %; Nucleated Red Blood Cells 0 /100 WBC (0-0); Total Cells Counted 100
[2018-05-14] MEDS: CEFEPIME 2 GM in SODIUM CHLORIDE 0.9% 50 ML IVPB SCH (08:01)
[2018-05-14] MEDS: PANTOPRAZOLE 40 MG/10 ML VIAL IVP SCH (08:01)
--- NOTE | 2018-05-14 08:19 | P.PN ---
Subjective Progress Note Date: 05/14/18 Principal diagnosis: post operative day #3 Patient anxious to be rid of NG, alvarado. Pain well tolerated, no flatus but feeling "belly rumble". Objective - Vital Signs Vital signs: Vital Signs Temp 99.0 F 05/14/18 04:00 Pulse 80 05/14/18 07:00 Resp 15 05/14/18 07:00 BP 104/65 05/14/18 07:00 Pulse Ox 93 L 05/14/18 07:00 Intake & Output 05/13/18 05/14/18 05/14/18 18:59 06:59 18:59 Intake Total 2149 2716.933 273 Output Total 975 985 150 Balance 1174 1731.933 123 Weight 83.4 kg Intake: IV 1599 2472 273 Amino Acid 4.25%-D10w+ 320 480 80 Lytes*E* 1,000 ml @ 80 mls/hr IV .BY DURATION [facility] Rx#:[id number] Cefepime 2 gm In Sodium 50 200 Chloride 0.9% 50 ml @ 100 mls/hr IVPB Q12HR [facility] Rx #:[id number] Fat Emulsion 20% 250 ml 210 In Empty Bag 1 bag @ 21 mls/hr IV Q24H [facility] Rx#: [id number] Lactated Ringers 1,000 ml 725 900 75 @ 75 mls/hr IV .[id number] [facility] Rx#:[id number] Magnesium Sulfate-D5w Pmx 100 1 gm In Dextrose/Water 1 100ml.bag @ 100 mls/hr IVPB Q1H [facility] Rx#: [id number] Mvi, Adult No.4 with Vit 480 K 10 ml Trace (Conc-1Ml/ Dose) 1 ml In Amino Acid 4.25%-D10w+Lytes*E* 1,000 ml @ 80 mls/hr IV .BY DURATION [facility] Rx#: [id number] Normal saline 130 130 10 Potassium Phosphate 10 250 mmol In Sodium Chloride 0 .9% 250 ml @ 125 mls/hr IV ONCE ONE Rx#:[id number] Ropivacaine 250 mg 24 72 8 Hydromorphone (Pf) 5 mg In Sodium Chloride 0.9% 200 ml @ Per Protocol EPIDURAL .Q0M [facility] Rx#: [id number] metroNIDAZOLE-NS PMX 500 100 mg In Saline 1 100ml.bag @ 100 mls/hr IVPB Q8H [facility] Rx#:[id number] Intake, IV Titration 240 244.933 Amount Mvi, Adult No.4 with Vit 240 K 10 ml Trace (Conc-1Ml/ Dose) 1 ml In Amino Acid 4.25%-D10w+Lytes*E* 1,000 ml @ 80 mls/hr IV .BY DURATION [facility] Rx#: [id number] Ropivacaine 250 mg 244.933 Hydromorphone (Pf) 5 mg In Sodium Chloride 0.9% 200 ml @ Per Protocol EPIDURAL .Q0M [facility] Rx#: [id number] Blood Product 310 Rc Pheresis As-3 Unit 310 [id number] Output: Urine 975 985 150 Other: Voiding Method Indwelling Catheter Indwelling Catheter # Voids 3 # Bowel Movements 2 - Constitutional General appearance: Present: average body habitus, cooperative - EENT Eyes: Present: PERRLA ENT: Present: hearing grossly normal - Neck Neck: Present: normal ROM - Respiratory Respiratory: bilateral: CTA - Cardiovascular Rhythm: regular - Gastrointestinal Gastrointestinal Comment(s): Incision clean and dry. Positive hypoactive bowel sounds General gastrointestinal: Present: decreased bowel sounds - Integumentary Integumentary: Present: normal - Neurologic Neurologic: Present: CNII-XII intact - Musculoskeletal Musculoskeletal: Present: generalized weakness - Psychiatric Psychiatric: Present: A&O x's 3, appropriate affect, intact judgment & insight - Labs CBC & Chem 7: 05/14/18 05:02 05/14/18 05:02 Labs: Abnormal Lab Results - Last 24 Hours (Table) 05/11/18 05/13/18 05/13/18 Range/Units 10:36 12:01 13:26 WBC 19.9 H (3.8-10.6) k/uL RBC 2.52 L (3.80-5.40) m/uL Hgb 7.2 L (11.4-16.0) gm/dL Hct 22.1 L (34.0-46.0) % Plt Count 873 H (150-450) k/uL Neutrophils # (Manual) (1.3-7.7) k/uL Lymphocytes # (Manual) (1.0-4.8) k/uL Creatinine (0.52-1.04) mg/dL Glucose (74-99) mg/dL POC Glucose (mg/dL) 132 H (75-99) mg/dL Calcium (8.4-10.2) mg/dL Total Bilirubin (0.2-1.3) mg/dL Total Protein (6.3-8.2) g/dL Albumin (3.5-5.0) g/dL Crossmatch See Detail 05/13/18 05/13/18 05/14/18 Range/Units 17:34 23:49 05:02 WBC (3.8-10.6) k/uL RBC (3.80-5.40) m/uL Hgb (11.4-16.0) gm/dL Hct (34.0-46.0) % Plt Count (150-450) k/uL Neutrophils # (Manual) (1.3-7.7) k/uL Lymphocytes # (Manual) (1.0-4.8) k/uL Creatinine 0.38 L (0.52-1.04) mg/dL Glucose 118 H (74-99) mg/dL POC Glucose (mg/dL) 127 H 124 H (75-99) mg/dL Calcium 7.3 L (8.4-10.2) mg/dL Total Bilirubin 0.1 L (0.2-1.3) mg/dL Total Protein 4.2 L (6.3-8.2) g/dL Albumin 1.9 L (3.5-5.0) g/dL Crossmatch 05/14/18 05/14/18 Range/Units 05:02 05:33 WBC 14.7 H (3.8-10.6) k/uL RBC 2.53 L (3.80-5.40) m/uL Hgb 7.0 L (11.4-16.0) gm/dL Hct 22.4 L (34.0-46.0) % Plt Count 949 H (150-450) k/uL Neutrophils # (Manual) 13.08 H (1.3-7.7) k/uL Lymphocytes # (Manual) 0.88 L (1.0-4.8) k/uL Creatinine (0.52-1.04) mg/dL Glucose (74-99) mg/dL POC Glucose (mg/dL) 140 H (75-99) mg/dL Calcium (8.4-10.2) mg/dL Total Bilirubin (0.2-1.3) mg/dL Total Protein (6.3-8.2) g/dL Albumin (3.5-5.0) g/dL Crossmatch Microbiology - Last 24 Hours (Table) 05/11/18 23:44 Blood Culture - Preliminary Blood No Growth after 48 hours 05/11/18 14:41 Gram Stain - Final Other - Other Wound Culture - Final 05/11/18 14:41 Gram Stain - Final Other - Other Wound Culture - Final Escherichia coli 05/11/18 10:36 Blood Culture - Preliminary Blood No Growth after 48 hours 05/11/18 14:41 Anaerobic Culture - Preliminary Other - Other 05/11/18 14:41 Anaerobic Culture - Preliminary Other - Other Assessment and Plan Assessment: post operative day #3, slow progress noted Plan: Discontinue NG tube. Bolus, then discontinue epidural, may use toradol 30mg IV or IM q6* as needed. If pt steady to use commode, then d/c alvarado later today. Clear liquids to advance if no nausea 3-4 hours after NG discontinued. Time with Patient: Greater than 30
[2018-05-14 09:21] VITALS: BMI 27.1
[2018-05-14] MEDS: POTASSIUM CHLORIDE 10 MEQ in WATER FOR INJECTION 1 100ML.BAG IVPB SCH ×2 (09:32→12:31)
[2018-05-14] MEDS: KETOROLAC 30 MG/ML 1 ML VIAL IVP PRN ×2 (09:34→23:33)
--- NOTE | 2018-05-14 10:07 | P.PN ---
Subjective Progress Note Date: 05/14/18 Principal diagnosis: Tubo-ovarian abscesses This is a very pleasant 47-year-old female patient who follows with Dr. Cruz as her primary care physician. She has a history of rheumatoid arthritis, multiple sclerosis, endometriosis with previous exploratory laparotomy for endometriosis 2. She presented here back on 05/03/2018 with complaints of abdominal pain. Transvaginal ultrasound on 05/04/2018 revealed evidence of fibroid uterus, multiple bilateral cystic lesions which could represent hemorrhagic cyst, endometrioma, tubo-ovarian abscess, cystadenoma or cystadenoma carcinoma. On 05/06/2018 ET scan of the abdomen revealed large complex bilateral ovaries. Large cysts present dictated heterogenous masses should be considered. There is noted ileus. Previous suspected zone of transition was not identified. Small bowel obstruction, partial was within the differential. She was subsequently taken to surgery on 05/11/2018. [employer] performed exploratory laparotomy with bilateral salpingo-oophorectomy, adhesiolysis of significant adhesions. Urology performed a cystoscopy and placement of bilateral open-ended ureteral catheters. Surgical services performed lysis of adhesions secondary to partial small bowel obstruction. Last evening the patient had issues with hypotension and a T-max of 101.4. There is concern regarding possible sepsis. She was transferred to the intensive care unit. We are seeing her in consultation for the same. She is currently awake and alert in no acute distress. This is postoperative day #1. She has not required any pressors. She is maintaining good O2 saturations in the 90s on 2 L/m per nasal cannula. She's afebrile. She's currently on lactated Ringer's at 125 ML's per hour. Nasogastric tube remains in place. White count 28.4. Hemoglobin 7.6. Platelet count 867,000. Bicarb 21. Creatinine 0.60. He is currently on cefepime, metronidazole. She has an epidural of ropivacaine and hydromorphone in place. Abdominal dressing is dry and intact. Staton catheter in place. Nasogastric tube in place. Progress note dated 05/13/2018 47-year-old female postop day #2 status post exploratory laparotomy bilateral salpingo-oophorectomy lysis of adhesions bilateral ureteral stents and evacuation of tubo-ovarian abscesses, who currently is doing reasonably well. I did speak to the [employer] doctor about her this morning. The patient initially had some hypotension thought to be related to sepsis but that has resolved. In addition, she has anemia requiring blood transfusions and has a history of endometriosis. She also suffers some multiple sclerosis and rheumatoid arthritis. Currently, she is on O2 at 2 L by nasal cannula. She's getting peripheral parenteral nutrition at 50 mL an hour and lipids at 21 mL an hour. Her lactated Ringer's is running at 125 to be turned on the 75 mL an hour and she is get a saline IV at KVO. She remains on Flagyl and cefepime. This morning her hemoglobin was 5.9 and 1 unit of blood was ordered. In addition, her urine showed evidence of Escherichia coli in her wound cultures are positive for gram-negative bacilli. She is afebrile. Hopefully the NG tube will come out today. She is taking ice chips. She denies any pain. She denies any difficulty with her breathing. All in all, I think she is progressing very nicely. She certainly has a long way to go. Progress note dated 05/14/2018 The patient is seen again today in the intensive care unit. She is awake and alert in no acute distress. Her nasogastric tube was removed this morning. Her epidural catheter was removed this morning. She denies any worsening shortness of breath, cough or congestion. She is maintaining good O2 saturations in the 90s on 2 L/m per nasal cannula. He is working well with the incentive spirometer. She has lactated Ringer's running at 75 ML's per hour. Of 0.9 normal saline at 10 MLS per hour. She has TPN at 80 MLS per hour. She is receiving lipids as well. Her urine and wound cultures were positive for E. coli. Abdominal dressing remains dry and intact. She states she is not passing any flatus. No bowel movement thus far. White count 14.7. Hemoglobin 7.0. Creatinine 0.38. She remains on cefepime and Flagyl. Objective - Vital Signs Vital signs: Vital Signs Temp 99.1 F 05/14/18 08:00 Pulse 79 05/14/18 09:00 Resp 20 05/14/18 09:00 BP 100/60 05/14/18 09:00 Pulse Ox 92 L 05/14/18 09:00 Intake & Output 05/13/18 05/14/18 05/14/18 18:59 06:59 18:59 Intake Total 2149 2716.933 841 Output Total 975 985 375 Balance 1174 1731.933 466 Weight 83.4 kg 83.4 kg Intake: IV 1599 2472 841 Amino Acid 4.25%-D10w+ 320 480 240 Lytes*E* 1,000 ml @ 80 mls/hr IV .BY DURATION [facility] Rx#:[id number] Cefepime 2 gm In Sodium 50 200 100 Chloride 0.9% 50 ml @ 100 mls/hr IVPB Q12HR [facility] Rx #:[id number] Fat Emulsion 20% 250 ml 210 In Empty Bag 1 bag @ 21 mls/hr IV Q24H [facility] Rx#: [id number] Lactated Ringers 1,000 ml 725 900 75 @ 75 mls/hr IV .[id number] [facility] Rx#:[id number] Magnesium Sulfate-D5w Pmx 100 1 gm In Dextrose/Water 1 100ml.bag @ 100 mls/hr IVPB Q1H [facility] Rx#: [id number] Magnesium Sulfate-D5w Pmx 100 1 gm In Dextrose/Water 1 100ml.bag @ 100 mls/hr IVPB Q1H [facility] Rx#: [id number] Mvi, Adult No.4 with Vit 480 K 10 ml Trace (Conc-1Ml/ Dose) 1 ml In Amino Acid 4.25%-D10w+Lytes*E* 1,000 ml @ 80 mls/hr IV .BY DURATION [facility] Rx#: [id number] Normal saline 130 130 10 Potassium Chloride 10 meq 100 In Water For Injection 1 100ml.bag @ 100 mls/hr IVPB Q1H [facility] Rx#: [id number] Potassium Phosphate 10 250 mmol In Sodium Chloride 0 .9% 250 ml @ 125 mls/hr IV ONCE ONE Rx#:[id number] Ropivacaine 250 mg 24 72 16 Hydromorphone (Pf) 5 mg In Sodium Chloride 0.9% 200 ml @ Per Protocol EPIDURAL .Q0M [facility] Rx#: [id number] metroNIDAZOLE-NS PMX 500 100 100 mg In Saline 1 100ml.bag @ 100 mls/hr IVPB Q8H [facility] Rx#:[id number] Intake, IV Titration 240 244.933 Amount Mvi, Adult No.4 with Vit 240 K 10 ml Trace (Conc-1Ml/ Dose) 1 ml In Amino Acid 4.25%-D10w+Lytes*E* 1,000 ml @ 80 mls/hr IV .BY DURATION [facility] Rx#: [id number] Ropivacaine 250 mg 244.933 Hydromorphone (Pf) 5 mg In Sodium Chloride 0.9% 200 ml @ Per Protocol EPIDURAL .Q0M [facility] Rx#: [id number] Blood Product 310 Rc Pheresis As-3 Unit 310 [id number] Output: Urine 975 985 375 Other: Voiding Method Indwelling Catheter Indwelling Catheter # Voids 3 # Bowel Movements 2 - Exam GENERAL EXAM: Alert, active, comfortable in no apparent distress. HEAD: Normocephalic. EYES: Normal reaction of pupils, equal size. NOSE: Clear with pink turbinates. THROAT: No erythema or exudates. NECK: No masses, no JVD. CHEST: No chest wall deformity. LUNGS: Equal air entry with no crackles, wheeze, rhonchi or dullness. CVS: S1 and S2 normal with no audible murmur, regular rhythm. ABDOMEN: Abdominal dressing is dry and intact. No hepatosplenomegaly, hypoactive bowel sounds, no guarding or rigidity. SPINE: No scoliosis or deformity SKIN: No rashes CENTRAL NERVOUS SYSTEM: No focal deficits, tone is normal in all 4 extremities. EXTREMITIES: There is no peripheral edema. No clubbing, no cyanosis. Peripheral pulses are intact. - Labs CBC & Chem 7: 05/14/18 05:02 05/14/18 05:02 Labs: Abnormal Lab Results - Last 24 Hours (Table) 05/11/18 05/13/18 05/13/18 Range/Units 10:36 12:01 13:26 WBC 19.9 H (3.8-10.6) k/uL RBC 2.52 L (3.80-5.40) m/uL Hgb 7.2 L (11.4-16.0) gm/dL Hct 22.1 L (34.0-46.0) % Plt Count 873 H (150-450) k/uL Neutrophils # (Manual) (1.3-7.7) k/uL Lymphocytes # (Manual) (1.0-4.8) k/uL Creatinine (0.52-1.04) mg/dL Glucose (74-99) mg/dL POC Glucose (mg/dL) 132 H (75-99) mg/dL Calcium (8.4-10.2) mg/dL Total Bilirubin (0.2-1.3) mg/dL Total Protein (6.3-8.2) g/dL Albumin (3.5-5.0) g/dL Crossmatch See Detail 05/13/18 05/13/18 05/14/18 Range/Units 17:34 23:49 05:02 WBC (3.8-10.6) k/uL RBC (3.80-5.40) m/uL Hgb (11.4-16.0) gm/dL Hct (34.0-46.0) % Plt Count (150-450) k/uL Neutrophils # (Manual) (1.3-7.7) k/uL Lymphocytes # (Manual) (1.0-4.8) k/uL Creatinine 0.38 L (0.52-1.04) mg/dL Glucose 118 H (74-99) mg/dL POC Glucose (mg/dL) 127 H 124 H (75-99) mg/dL Calcium 7.3 L (8.4-10.2) mg/dL Total Bilirubin 0.1 L (0.2-1.3) mg/dL Total Protein 4.2 L (6.3-8.2) g/dL Albumin 1.9 L (3.5-5.0) g/dL Crossmatch 05/14/18 05/14/18 Range/Units 05:02 05:33 WBC 14.7 H (3.8-10.6) k/uL RBC 2.53 L (3.80-5.40) m/uL Hgb 7.0 L (11.4-16.0) gm/dL Hct 22.4 L (34.0-46.0) % Plt Count 949 H (150-450) k/uL Neutrophils # (Manual) 13.08 H (1.3-7.7) k/uL Lymphocytes # (Manual) 0.88 L (1.0-4.8) k/uL Creatinine (0.52-1.04) mg/dL Glucose (74-99) mg/dL POC Glucose (mg/dL) 140 H (75-99) mg/dL Calcium (8.4-10.2) mg/dL Total Bilirubin (0.2-1.3) mg/dL Total Protein (6.3-8.2) g/dL Albumin (3.5-5.0) g/dL Crossmatch Microbiology - Last 24 Hours (Table) 05/11/18 23:44 Blood Culture - Preliminary Blood No Growth after 48 hours 05/11/18 14:41 Gram Stain - Final Other - Other Wound Culture - Final 05/11/18 14:41 Gram Stain - Final Other - Other Wound Culture - Final Escherichia coli 05/11/18 10:36 Blood Culture - Preliminary Blood No Growth after 48 hours 05/11/18 14:41 Anaerobic Culture - Preliminary Other - Other 05/11/18 14:41 Anaerobic Culture - Preliminary Other - Other Assessment and Plan Assessment: Impression: #1 Abdominal pain secondary to the lateral pelvic masses, ileus, history of endometriosis. Status post bilateral salpingo-oophorectomy, lysis of adhesions , we spent a bilateral ureteral stents. Postoperative day #3. #2 Hypotension secondary to suspected sepsis. Recovered. #3 Anemia, current hemoglobin 7.0. Status post 1 unit of packed red blood cell transfusion. #4 Leukocytosis secondary to above. #5 Febrile illness secondary to above. #6 History of endometriosis previous exploratory laparotomy 2. #7 History of multiple sclerosis. #8 History of rheumatoid arthritis. Plan: The patient was seen and evaluated by Dr. Jimenez. She is currently stable from the pulmonary and critical care standpoint. She can be transferred to the surgical floor today. She is currently on antibiotics in the form of cefepime and metronidazole. NG tube removed today. Dural catheter removed today. Maintaining good O2 saturations in the upper 90s on 2 L/m nasal cannula. She is working well with the incentive spirometer and needs increased encouragement regarding cough and deep breathing exercises. She remains on heparin for DVT prophylaxis. Protonix for GI prophylaxis. We will continue to follow and make further recommendations based on her clinical status. I, the cosigning physician, performed a history & physical examination of the patient. Lungs sounds are clear. Maintaining good O2 saturations in the 90s on 2 L/m per nasal cannula. I discussed the assessment and plan of care with my nurse practitioner, Jayla Tico. I attest to the above note as dictated by her.
--- NOTE | 2018-05-14 10:59 | P.PN ---
Subjective Progress Note Date: 05/14/18 Principal diagnosis: Abdominal pain 47-year-old female history of MS admitted with acute abdominal pain PSBO bilateral pelvic masses tubo-ovarian abscesses status post exploratory laparotomy JOSEPH ARAMBULA. Patient was seen in consultation prior to surgery for evaluation for possible underlying infiltrative bowel disease. Patient is presently resting comfortably. Afebrile. Wound cultures E. coli. Receiving IV antibiotics. Blood cultures no growth. Hemoglobin 7. White count 14.7. Denies hematemesis hematochezia or melena. Objective - Vital Signs Vital signs: Vital Signs Temp 99.1 F 05/14/18 08:00 Pulse 79 05/14/18 09:00 Resp 20 05/14/18 09:00 BP 100/60 05/14/18 09:00 Pulse Ox 92 L 05/14/18 09:00 Intake & Output 05/13/18 05/14/18 05/14/18 18:59 06:59 18:59 Intake Total 2149 2716.933 1041 Output Total 975 985 450 Balance 1174 1731.933 591 Weight 83.4 kg 83.4 kg Intake: IV 1599 2472 1041 Amino Acid 4.25%-D10w+ 320 480 240 Lytes*E* 1,000 ml @ 80 mls/hr IV .BY DURATION [facility] Rx#:[id number] Cefepime 2 gm In Sodium 50 200 100 Chloride 0.9% 50 ml @ 100 mls/hr IVPB Q12HR [facility] Rx #:[id number] Fat Emulsion 20% 250 ml 210 In Empty Bag 1 bag @ 21 mls/hr IV Q24H [facility] Rx#: [id number] Lactated Ringers 1,000 ml 725 900 75 @ 75 mls/hr IV .[id number] [facility] Rx#:[id number] Magnesium Sulfate-D5w Pmx 100 1 gm In Dextrose/Water 1 100ml.bag @ 100 mls/hr IVPB Q1H [facility] Rx#: [id number] Magnesium Sulfate-D5w Pmx 100 1 gm In Dextrose/Water 1 100ml.bag @ 100 mls/hr IVPB Q1H [facility] Rx#: [id number] Mvi, Adult No.4 with Vit 480 80 K 10 ml Trace (Conc-1Ml/ Dose) 1 ml In Amino Acid 4.25%-D10w+Lytes*E* 1,000 ml @ 80 mls/hr IV .BY DURATION [facility] Rx#: [id number] Normal saline 130 130 30 Potassium Chloride 10 meq 200 In Water For Injection 1 100ml.bag @ 100 mls/hr IVPB Q1H [facility] Rx#: [id number] Potassium Phosphate 10 250 mmol In Sodium Chloride 0 .9% 250 ml @ 125 mls/hr IV ONCE ONE Rx#:[id number] Ropivacaine 250 mg 24 72 16 Hydromorphone (Pf) 5 mg In Sodium Chloride 0.9% 200 ml @ Per Protocol EPIDURAL .Q0M PRN Rx#: [id number] metroNIDAZOLE-NS PMX 500 100 100 mg In Saline 1 100ml.bag @ 100 mls/hr IVPB Q8H [facility] Rx#:[id number] Intake, IV Titration 240 244.933 Amount Mvi, Adult No.4 with Vit 240 K 10 ml Trace (Conc-1Ml/ Dose) 1 ml In Amino Acid 4.25%-D10w+Lytes*E* 1,000 ml @ 80 mls/hr IV .BY DURATION [facility] Rx#: [id number] Ropivacaine 250 mg 244.933 Hydromorphone (Pf) 5 mg In Sodium Chloride 0.9% 200 ml @ Per Protocol EPIDURAL .Q0M PRN Rx#: [id number] Blood Product 310 Rc Pheresis As-3 Unit 310 [id number] Output: Urine 975 985 450 Other: Voiding Method Indwelling Catheter Indwelling Catheter # Voids 3 # Bowel Movements 2 - Exam General appearance: The patient is alert, oriented, in no acute distress. HET: Head is normocephalic and atraumatic. Pupils are equal and reactive. Oropharynx is clear without lesions. Neck: Supple without lymphadenopathy. Trachea midline. Heart: S1 S2. Regular rate and rhythm. Lungs: No crackles or wheezes are heard. Abdomen: Soft, mild surgical incisional tenderness hypoactive bowel sounds. No peritoneal signs. No palpable organomegaly or masses. Extremities: Normal skin color and turgor. No cyanosis, rash, ulceration, clubbing, or edema. Radial and pedal pulses are 2/4 bilaterally. Neurological: No focal deficits. Strength and sensation are grossly intact. - Labs CBC & Chem 7: 05/14/18 05:02 05/14/18 05:02 Labs: Abnormal Lab Results - Last 24 Hours (Table) 05/11/18 05/13/18 05/13/18 Range/Units 10:36 12:01 13:26 WBC 19.9 H (3.8-10.6) k/uL RBC 2.52 L (3.80-5.40) m/uL Hgb 7.2 L (11.4-16.0) gm/dL Hct 22.1 L (34.0-46.0) % Plt Count 873 H (150-450) k/uL Neutrophils # (Manual) (1.3-7.7) k/uL Lymphocytes # (Manual) (1.0-4.8) k/uL Creatinine (0.52-1.04) mg/dL Glucose (74-99) mg/dL POC Glucose (mg/dL) 132 H (75-99) mg/dL Calcium (8.4-10.2) mg/dL Total Bilirubin (0.2-1.3) mg/dL Total Protein (6.3-8.2) g/dL Albumin (3.5-5.0) g/dL Crossmatch See Detail 05/13/18 05/13/18 05/14/18 Range/Units 17:34 23:49 05:02 WBC (3.8-10.6) k/uL RBC (3.80-5.40) m/uL Hgb (11.4-16.0) gm/dL Hct (34.0-46.0) % Plt Count (150-450) k/uL Neutrophils # (Manual) (1.3-7.7) k/uL Lymphocytes # (Manual) (1.0-4.8) k/uL Creatinine 0.38 L (0.52-1.04) mg/dL Glucose 118 H (74-99) mg/dL POC Glucose (mg/dL) 127 H 124 H (75-99) mg/dL Calcium 7.3 L (8.4-10.2) mg/dL Total Bilirubin 0.1 L (0.2-1.3) mg/dL Total Protein 4.2 L (6.3-8.2) g/dL Albumin 1.9 L (3.5-5.0) g/dL Crossmatch 05/14/18 05/14/18 Range/Units 05:02 05:33 WBC 14.7 H (3.8-10.6) k/uL RBC 2.53 L (3.80-5.40) m/uL Hgb 7.0 L (11.4-16.0) gm/dL Hct 22.4 L (34.0-46.0) % Plt Count 949 H (150-450) k/uL Neutrophils # (Manual) 13.08 H (1.3-7.7) k/uL Lymphocytes # (Manual) 0.88 L (1.0-4.8) k/uL Creatinine (0.52-1.04) mg/dL Glucose (74-99) mg/dL POC Glucose (mg/dL) 140 H (75-99) mg/dL Calcium (8.4-10.2) mg/dL Total Bilirubin (0.2-1.3) mg/dL Total Protein (6.3-8.2) g/dL Albumin (3.5-5.0) g/dL Crossmatch Microbiology - Last 24 Hours (Table) 05/11/18 23:44 Blood Culture - Preliminary Blood No Growth after 48 hours 05/11/18 14:41 Gram Stain - Final Other - Other Wound Culture - Final 05/11/18 14:41 Gram Stain - Final Other - Other Wound Culture - Final Escherichia coli 05/11/18 10:36 Blood Culture - Preliminary Blood No Growth after 48 hours 05/11/18 14:41 Anaerobic Culture - Preliminary Other - Other 05/11/18 14:41 Anaerobic Culture - Preliminary Other - Other Assessment and Plan (1) Abdominal pain Narrative/Plan: 47-year-old female admitted with acute abdominal pain secondary to tubo-ovarian abscesses status post surgery. Current Visit: Yes Status: Acute Code(s): R10.9 - UNSPECIFIED ABDOMINAL PAIN SNOMED Code(s): 07766348 (2) Tubo-ovarian abscess Current Visit: Yes Status: Acute Code(s): N70.93 - SALPINGITIS AND OOPHORITIS, UNSPECIFIED SNOMED Code(s): 24334936 (3) Multiple sclerosis Current Visit: Yes Status: Chronic Code(s): G35 - MULTIPLE SCLEROSIS SNOMED Code(s): 86333464 Plan: 1. Discussion was held at bedside with patient and her there is no personal a familial history of inflammatory bowel disease. Prior to admission patient was not experiencing any bloody bowel movements, diarrhea, weight loss, skin vision or joint changes. The likelihood of underlying inflammatory bowel disease is low but cannot be entirely excluded. 2. Continue with postoperative management. Inpatient endoscopic exams not planned at this time. Patient was advised to follow up in the outpatient setting in 4-6 weeks for reevaluation and discussion of outpatient colonoscopy. We'll be available for questions and or concerns. We'll follow as needed. Assessment and plan of care discussed with Dr. Paul
--- NOTE | 2018-05-14 11:04 | P.PN ---
Subjective Progress Note Date: 05/14/18 This is a 47-year-old female, patient of Dr. Cruz. She has a known past medical history of multiple sclerosis, endometriosis requiring exploratory laparotomy 2 and rheumatoid arthritis. Patient reports abdominal pain started about 3 days ago mostly in the upper abdomen. She had a significant amount of diarrhea and and Friday. There was no blood reported in the stools. She was also having fevers as high as 101. The abdominal pain moved into the lower abdominal region. Pain was so severe she was having shortness of breath. And then on Friday she had stopped having any diarrhea and also stopped passing gas. During these 3 days she vomited twice. Patient came into the emergency room for further evaluation and treatment. She's found to have a temp of 101.4 she was tachycardic heart rate around 108. White count normal. Computed tomography scan showed partial small bowel obstruction with a transition within the left mid abdomen secondary to be containing of the small bowel wall. And consider jejunitis. Also reports multiple large cystic structures in the bilateral adnexa. Consider the possibility of pyosalpinx within the differential. Ovarian carcinoma is not excluded. We'll be ordering an abdominal and pelvic ultrasound for further evaluation. Patient is currently nothing by mouth. Started on Levaquin and IV Flagyl. Surgical and [employer] consults have been placed. Patient was found to have evidence of a possible pneumonia on chest x-ray. Chest x-ray reported suggestion of a right middle lobe infiltrate. Correlate for atelectasis or pneumonia. Patient does reports having a cough. Also evidence of a UTI. She has been having some dark urine as well as mild burning with urination. Culture has been obtained. She' s currently nothing by mouth and on my and on IV fluids. Patient denies any chest pain. Does report some nausea. Patient has never had any colonoscopy or EGD. Does report having history of scar tissue in the abdomen due to previous abdominal surgeries. Patient denies any recent traveling. Denies any sick contacts. 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 05/05/2018 patient reported improvement in her abdominal pain. She was passing gas this morning and then had a large liquid brown yellowish stool. At that time she felt that her stomach bloating was doing better. She had a low-grade temp of 100.3 and was given Tylenol with a few sips of water. After she taken the medication and water she started having abdominal pain. Abdominal x-ray showing signs of ileus. Transvaginal pelvic ultrasound showing a fibroid uterus. Multiple bilateral cystic lesions could represent hemorrhagic cysts, endometrioma, tubo-ovarian abscess, cyst adenoma or cyst adenocarcinoma not excluded. Patient is followed by [employer] service, and they felt symptoms were likely related to endometriomas. Dr. Wray also noted that his abdominal pain was not related to any [employer] cause. Patient denies any vomiting. Reports that her urine is still dark. Burning with urination has resolved. Hemoglobin has dropped from 12.3-9.9. Patient denies any blood in the stools or black stools. Urine culture gram-negative bacilli. T-max 100.8. On 05/06/2018 patient is currently resting in bed. Patient is still having multiple loose stools last night and again this morning. Patient states this is still feels bloated abdominal discomfort. white blood cell increased to 20.8. Repeat CAT scan has been ordered per surgical services. Infectious disease consulted. At this time patient denies chest pain or shortness of breath. Patient denies any urinary burning or frequency. Patient is having abdominal pain denies any nausea or vomiting On 05/07/2018 patient is currently resting in bed. Patient states she's having some abdominal pain but it is improved from yesterday. At that time patient denies chest pain or shortness of breath. Patient is complaining cough is worse in a.m. Patient denies nausea vomiting or diarrhea. Patient denies any urinary burning or frequency. On 05/08/2018 patient is currently resting in bed. Patient is still complaining of some burning with urination and abdominal pain and bloating. Patient states she is having increased cough with production. Sputum culture has been ordered. Patient denies chest pain or shortness breath. Patient denies nausea vomiting or diarrhea. Patient denies any urinary frequency. On 05/09/2018 patient is feeling somewhat better she is still having significant abdominal pain and bloating but feels better than yesterday she is having cough without any sputum production she still has low-grade fever she is also complaining of nausea and diarrhea otherwise she denies any complaints at this time On 05/10/2018 patient was seen and examined on the medical floor she is still complaining of abdominal pain and diarrhea she is complaining of lower extremity swelling and discomfort today, otherwise she denies any complaints there is no fever or chills no headache or dizziness no chest pain no shortness of breath no cough and no urinary symptoms 05/11/2018 patient is having abdominal pain with abdominal distention. Also continues to have fevers. Repeat computed tomography scan of the abdomen and pelvis shows improvement in degree and small bowel dilation with contrast passing into large bowel and rectum. Ileus was suspected. Interval development of moderate right hydroureteronephrosis and delayed excretion of contrast from the right kidney secondary to an obstructing multiloculated large right adnexal mass. There is progressive enlargement of the left multicystic adnexal mass. Patient has been seen by [employer] service they're planning exploratory laparotomy with salpingectomy and oophorectomy with possible hysterectomy and bilateral ureteral stents. Patient denies any chest pain or shortness of breath. She does have lower extremity. She was given albumin and Lasix due to her low albumin levels yesterday. Denies any calf tenderness. T- max 101. White count 20.4. Potassium is 3.4 patient receiving supplement. 05/12/2018 patient is postop day #1 status post exploratory laparotomy, bilateral salpingo-oophorectomy and excision of tubo-ovarian abscesses bilaterally also had cystoscopy placement of bilateral open ended ureteral catheters. Patient required transfer to the ICU during the evening due to hypotension and fever concerns for sepsis. Critical care was placed on consult. She has not required any IV pressors. She is on IV antibiotics cefepime and Flagyl. Cultures were obtained of the abscesses. Results are pending. Patient's white count is 28.4 T-max 101.4. Urine output adequate. Patient reports that her pain is controlled. Denies any chest pain or shortness of breath. Denies any nausea or vomiting. Does have NG tube in place. On 05/13/2018 patient is currently postop day 2 status post exposure to lab, bilateral salpingo-oophorectomy and excision of tubo-ovarian abscess bilaterally also had cystoscopy placement of bilateral open-ended ureteral catheters. Patient remains in the intensive care unit. Epidural remains in place for adequate pain control. White blood cell improving to 20.9. Patient' s hemoglobin dropping to 5.9. 1 unit of PRBCs have been ordered. And she remains in place. Patient is tolerating ice chips at this time. At this time patient denies chest pain or shortness of breath. Patient denies nausea vomiting or diarrhea. 05/14/2018 patient remains in the ICU. She was able to get out of bed and sitting in bedside chair. NG tube an epidural catheter removed this morning. [employer] service added Toradol for pain control. Patient denies any chest pain or shortness of breath. She has a slight cough. Complains of dizziness. Denies any nausea or vomiting. No gas or bowel movement yet. Still is alvarado catheter in place. Patient has been downgraded to [facility] floor. Objective - Vital Signs Vital signs: Vital Signs Temp 99.1 F 05/14/18 08:00 Pulse 79 05/14/18 09:00 Resp 20 05/14/18 09:00 BP 100/60 05/14/18 09:00 Pulse Ox 92 L 05/14/18 09:00 Intake & Output 05/13/18 05/14/18 05/14/18 18:59 06:59 18:59 Intake Total 2149 2716.933 1041 Output Total 975 985 450 Balance 1174 1731.933 591 Weight 83.4 kg 83.4 kg Intake: IV 1599 2472 1041 Amino Acid 4.25%-D10w+ 320 480 240 Lytes*E* 1,000 ml @ 80 mls/hr IV .BY DURATION [facility] Rx#:[id number] Cefepime 2 gm In Sodium 50 200 100 Chloride 0.9% 50 ml @ 100 mls/hr IVPB Q12HR [facility] Rx #:[id number] Fat Emulsion 20% 250 ml 210 In Empty Bag 1 bag @ 21 mls/hr IV Q24H [facility] Rx#: [id number] Lactated Ringers 1,000 ml 725 900 75 @ 75 mls/hr IV .[id number] [facility] Rx#:[id number] Magnesium Sulfate-D5w Pmx 100 1 gm In Dextrose/Water 1 100ml.bag @ 100 mls/hr IVPB Q1H [facility] Rx#: [id number] Magnesium Sulfate-D5w Pmx 100 1 gm In Dextrose/Water 1 100ml.bag @ 100 mls/hr IVPB Q1H [facility] Rx#: [id number] Mvi, Adult No.4 with Vit 480 80 K 10 ml Trace (Conc-1Ml/ Dose) 1 ml In Amino Acid 4.25%-D10w+Lytes*E* 1,000 ml @ 80 mls/hr IV .BY DURATION [facility] Rx#: [id number] Normal saline 130 130 30 Potassium Chloride 10 meq 200 In Water For Injection 1 100ml.bag @ 100 mls/hr IVPB Q1H [facility] Rx#: [id number] Potassium Phosphate 10 250 mmol In Sodium Chloride 0 .9% 250 ml @ 125 mls/hr IV ONCE ONE Rx#:[id number] Ropivacaine 250 mg 24 72 16 Hydromorphone (Pf) 5 mg In Sodium Chloride 0.9% 200 ml @ Per Protocol EPIDURAL .Q0M PRN Rx#: [id number] metroNIDAZOLE-NS PMX 500 100 100 mg In Saline 1 100ml.bag @ 100 mls/hr IVPB Q8H [facility] Rx#:[id number] Intake, IV Titration 240 244.933 Amount Mvi, Adult No.4 with Vit 240 K 10 ml Trace (Conc-1Ml/ Dose) 1 ml In Amino Acid 4.25%-D10w+Lytes*E* 1,000 ml @ 80 mls/hr IV .BY DURATION [facility] Rx#: [id number] Ropivacaine 250 mg 244.933 Hydromorphone (Pf) 5 mg In Sodium Chloride 0.9% 200 ml @ Per Protocol EPIDURAL .Q0M [facility] Rx#: [id number] Blood Product 310 Rc Pheresis As-3 Unit 310 [id number] Output: Urine 975 985 450 Other: Voiding Method Indwelling Catheter Indwelling Catheter # Voids 3 # Bowel Movements 2 - Exam Head normocephalic Neck supple Lungs crackles along the left base Heart regular rate and rhythm S1-S2, no rub or gallop Abdomen soft, positive bowel sounds Extremities +1 edema bilateral lower extremities Neuro alert and orientated to 3 - Labs CBC & Chem 7: 05/14/18 05:02 05/14/18 05:02 Labs: Abnormal Lab Results - Last 24 Hours (Table) 05/11/18 05/13/18 05/13/18 Range/Units 10:36 12:01 13:26 WBC 19.9 H (3.8-10.6) k/uL RBC 2.52 L (3.80-5.40) m/uL Hgb 7.2 L (11.4-16.0) gm/dL Hct 22.1 L (34.0-46.0) % Plt Count 873 H (150-450) k/uL Neutrophils # (Manual) (1.3-7.7) k/uL Lymphocytes # (Manual) (1.0-4.8) k/uL Creatinine (0.52-1.04) mg/dL Glucose (74-99) mg/dL POC Glucose (mg/dL) 132 H (75-99) mg/dL Calcium (8.4-10.2) mg/dL Total Bilirubin (0.2-1.3) mg/dL Total Protein (6.3-8.2) g/dL Albumin (3.5-5.0) g/dL Crossmatch See Detail 05/13/18 05/13/18 05/14/18 Range/Units 17:34 23:49 05:02 WBC (3.8-10.6) k/uL RBC (3.80-5.40) m/uL Hgb (11.4-16.0) gm/dL Hct (34.0-46.0) % Plt Count (150-450) k/uL Neutrophils # (Manual) (1.3-7.7) k/uL Lymphocytes # (Manual) (1.0-4.8) k/uL Creatinine 0.38 L (0.52-1.04) mg/dL Glucose 118 H (74-99) mg/dL POC Glucose (mg/dL) 127 H 124 H (75-99) mg/dL Calcium 7.3 L (8.4-10.2) mg/dL Total Bilirubin 0.1 L (0.2-1.3) mg/dL Total Protein 4.2 L (6.3-8.2) g/dL Albumin 1.9 L (3.5-5.0) g/dL Crossmatch 05/14/18 05/14/18 Range/Units 05:02 05:33 WBC 14.7 H (3.8-10.6) k/uL RBC 2.53 L (3.80-5.40) m/uL Hgb 7.0 L (11.4-16.0) gm/dL Hct 22.4 L (34.0-46.0) % Plt Count 949 H (150-450) k/uL Neutrophils # (Manual) 13.08 H (1.3-7.7) k/uL Lymphocytes # (Manual) 0.88 L (1.0-4.8) k/uL Creatinine (0.52-1.04) mg/dL Glucose (74-99) mg/dL POC Glucose (mg/dL) 140 H (75-99) mg/dL Calcium (8.4-10.2) mg/dL Total Bilirubin (0.2-1.3) mg/dL Total Protein (6.3-8.2) g/dL Albumin (3.5-5.0) g/dL Crossmatch Microbiology - Last 24 Hours (Table) 05/11/18 23:44 Blood Culture - Preliminary Blood No Growth after 48 hours 05/11/18 14:41 Gram Stain - Final Other - Other Wound Culture - Final 05/11/18 14:41 Gram Stain - Final Other - Other Wound Culture - Final Escherichia coli 05/11/18 10:36 Blood Culture - Preliminary Blood No Growth after 48 hours 05/11/18 14:41 Anaerobic Culture - Preliminary Other - Other 05/11/18 14:41 Anaerobic Culture - Preliminary Other - Other Assessment and Plan Assessment: 1. Abdominal pain likely secondary to bilateral ovarian abscesses and ileus. Patient is postop day 3 status post exploratory laparotomy, bilateral salpingo- oophorectomy and excision of tubo-ovarian abscesses bilaterally, lysis of adhesions and cystoscopy placement of bilateral open ended ureteral catheters. Wound culture growing E. coli. Continue cefepime and Flagyl. Followed closely by [employer] service and ID 2. Hypotension likely secondary to sepsis. 3. Sepsis secondary to ovarian abscess area continue antibiotics. Continue to follow cultures. 4. Elevated d-dimer: Venous Doppler negative for DVT bilaterally. VQ scan low probability for PE 5. Possible community-acquired pneumonia noted on chest x-ray 6. UTI: Urine culture growing E. coli. 7. History of multiple sclerosis: Not on any medications due to side effects 8. History of rheumatoid arthritis 9. History of endometriosis with previous exploratory laparoscopic Surgeries 10. Anemia: Possibly related to IV fluids, infection and iron deficiency anemia and expected acute blood loss anemia secondary to surgery. Patient did receive a unit of blood yesterday. Hemoglobin is gone from 5.9-7.Total iron low at 7. Continue monitor CBC 11. Severe protein calorie malnutrition: Likely contributing to patient's lower extremity edema. Continue PPN 12. Hypokalemia and hypomagnesemia. Patient receiving supplements. GI prophylaxis IV Protonix and DVT prophylaxis subcu heparin I performed an examination of the patient and discussed their management with the physician Tableau Report Developer. I have reviewed the Physician Tableau Report Developer's notes and agree with the documented findings and plan of care
[2018-05-14 12:05] LABS: Glucose,Whole Blood 133 mg/dL (75-99)
[2018-05-14] MEDS: FAT EMULSION 20% 250 ML in EMPTY BAG 1 BAG IV SCH (17:11)
[2018-05-14 17:26] LABS: Glucose,Whole Blood 97 mg/dL (75-99)
--- NOTE | 2018-05-14 18:15 | P.PN ---
Subjective Progress Note Date: 05/14/18 Principal diagnosis: Enteritis Applications nasogastric tube was removed this morning. She is passing flatus. Appetite remains diminished. Today's labs show improvement white blood cell count. Final pathology negative for malignancy. Still having some issues with leg swelling and fatigue. Objective - Vital Signs Vital signs: Vital Signs Temp 99.8 F H 05/14/18 16:01 Pulse 79 05/14/18 16:01 Resp 21 05/14/18 16:01 BP 101/55 05/14/18 16:01 Pulse Ox 96 05/14/18 16:01 Intake & Output 05/13/18 05/14/18 05/14/18 18:59 06:59 18:59 Intake Total 2149 3727.933 2636 Output Total 439 088 4933 Balance 1174 2742.933 1621 Weight 83.4 kg 83.4 kg Intake: IV 1599 2472 2056 Amino Acid 4.25%-D10w+ 320 480 760 Lytes*E* 1,000 ml @ 80 mls/hr IV .BY DURATION [facility] Rx#:[id number] Cefepime 2 gm In Sodium 50 200 100 Chloride 0.9% 50 ml @ 100 mls/hr IVPB Q12HR [facility] Rx #:[id number] Fat Emulsion 20% 250 ml 210 In Empty Bag 1 bag @ 21 mls/hr IV Q24H [facility] Rx#: [id number] Lactated Ringers 1,000 ml 725 900 450 @ 75 mls/hr IV .[id number] [facility] Rx#:[id number] Magnesium Sulfate-D5w Pmx 100 1 gm In Dextrose/Water 1 100ml.bag @ 100 mls/hr IVPB Q1H [facility] Rx#: [id number] Magnesium Sulfate-D5w Pmx 100 1 gm In Dextrose/Water 1 100ml.bag @ 100 mls/hr IVPB Q1H [facility] Rx#: [id number] Mvi, Adult No.4 with Vit 480 80 K 10 ml Trace (Conc-1Ml/ Dose) 1 ml In Amino Acid 4.25%-D10w+Lytes*E* 1,000 ml @ 80 mls/hr IV .BY DURATION [facility] Rx#: [id number] Normal saline 130 130 150 Potassium Chloride 10 meq 200 In Water For Injection 1 100ml.bag @ 100 mls/hr IVPB Q1H [facility] Rx#: [id number] Potassium Phosphate 10 250 mmol In Sodium Chloride 0 .9% 250 ml @ 125 mls/hr IV ONCE ONE Rx#:[id number] Ropivacaine 250 mg 24 72 16 Hydromorphone (Pf) 5 mg In Sodium Chloride 0.9% 200 ml @ Per Protocol EPIDURAL .Q0M PRN Rx#: [id number] metroNIDAZOLE-NS PMX 500 100 100 mg In Saline 1 100ml.bag @ 100 mls/hr IVPB Q8H [facility] Rx#:[id number] Intake, IV Titration 240 1255.933 Amount Mvi, Adult No.4 with Vit 240 1011 K 10 ml Trace (Conc-1Ml/ Dose) 1 ml In Amino Acid 4.25%-D10w+Lytes*E* 1,000 ml @ 80 mls/hr IV .BY DURATION [facility] Rx#: [id number] Ropivacaine 250 mg 244.933 Hydromorphone (Pf) 5 mg In Sodium Chloride 0.9% 200 ml @ Per Protocol EPIDURAL .Q0M PRN Rx#: [id number] Oral 480 TPN/PPN 100 Potassium Chloride 10 meq 100 In Water For Injection 1 100ml.bag @ 100 mls/hr IVPB Q1H [facility] Rx#: [id number] Blood Product 310 Rc Pheresis As-3 Unit 310 [id number] Output: Urine 502 513 8020 Other: Voiding Method Indwelling Catheter Indwelling Catheter Indwelling Catheter # Voids 3 3 # Bowel Movements 2 - Exam Abdomen: Soft, mild distention, minimal tenderness, incision clean and dry - Labs CBC & Chem 7: 05/14/18 05:02 05/14/18 05:02 Labs: Abnormal Lab Results - Last 24 Hours (Table) 05/13/18 05/14/18 05/14/18 Range/Units 23:49 05:02 05:02 WBC 14.7 H (3.8-10.6) k/uL RBC 2.53 L (3.80-5.40) m/uL Hgb 7.0 L (11.4-16.0) gm/dL Hct 22.4 L (34.0-46.0) % Plt Count 949 H (150-450) k/uL Neutrophils # (Manual) 13.08 H (1.3-7.7) k/uL Lymphocytes # (Manual) 0.88 L (1.0-4.8) k/uL Creatinine 0.38 L (0.52-1.04) mg/dL Glucose 118 H (74-99) mg/dL POC Glucose (mg/dL) 124 H (75-99) mg/dL Calcium 7.3 L (8.4-10.2) mg/dL Total Bilirubin 0.1 L (0.2-1.3) mg/dL Total Protein 4.2 L (6.3-8.2) g/dL Albumin 1.9 L (3.5-5.0) g/dL 05/14/18 05/14/18 Range/Units 05:33 11:54 WBC (3.8-10.6) k/uL RBC (3.80-5.40) m/uL Hgb (11.4-16.0) gm/dL Hct (34.0-46.0) % Plt Count (150-450) k/uL Neutrophils # (Manual) (1.3-7.7) k/uL Lymphocytes # (Manual) (1.0-4.8) k/uL Creatinine (0.52-1.04) mg/dL Glucose (74-99) mg/dL POC Glucose (mg/dL) 140 H 133 H (75-99) mg/dL Calcium (8.4-10.2) mg/dL Total Bilirubin (0.2-1.3) mg/dL Total Protein (6.3-8.2) g/dL Albumin (3.5-5.0) g/dL Microbiology - Last 24 Hours (Table) 05/11/18 10:36 Blood Culture - Preliminary Blood No Growth after 72 hours 05/11/18 23:44 Blood Culture - Preliminary Blood No Growth after 48 hours 05/11/18 14:41 Gram Stain - Final Other - Other Wound Culture - Final 05/11/18 14:41 Gram Stain - Final Other - Other Wound Culture - Final Escherichia coli Assessment and Plan (1) Enteritis Narrative/Plan: Continue clear liquids. Remove Staton catheter in a.m. Decrease IV fluid rate. Continue TPN. We'll follow. Current Visit: Yes Status: Acute Code(s): K52.9 - NONINFECTIVE GASTROENTERITIS AND COLITIS, UNSPECIFIED SNOMED Code(s): 15536502
[2018-05-14] MEDS: cefTRIAXone 2,000 MG in SODIUM CHLORIDE 0.9% 100 ML IVPB SCH (23:37)
[2018-05-14 23:54] LABS: Glucose,Whole Blood 129 mg/dL (75-99)
--- NOTE | 2018-05-14 23:55 | PN ---
PROGRESS NOTE DATE OF SERVICE: 05/14/2018. REASON FOR FOLLOWUP: Pelvic abscess. INTERVAL HISTORY: The patient is currently afebrile. She has been breathing comfortably. Denies having any chest pain or shortness of breath or cough. Abdominal pain has improved and no diarrhea. EXAMINATION: Blood pressure is 101/55 with a pulse of 89, temperature 99.8. She is 96% on 3 L nasal cannula. GENERAL DESCRIPTION: A middle aged female up in the chair in no distress. RESPIRATORY SYSTEM: Unlabored breathing. Clear to auscultation anteriorly. HEART: S1, S2. Regular rate and rhythm. ABDOMEN: Soft, mildly tender. No guarding or rigidity. EXTREMITIES: No edema of the feet. LABS: Hemoglobin is 7, white count of 14.7, with a BUN of 7, creatinine 0.38. Abdominal culture with only E coli at this point. DIAGNOSTIC IMPRESSION AND PLAN: Patient with a pelvic abscess from infected ovarian cyst, status post extensive debridement and drainage of this abscess. Antibiotic will be transitioned to Rocephin 2 g daily for a week. Continue with Flagyl and continue supportive care. MMODL / IJN: [id number] /
[2018-05-15] MEDS: metroNIDAZOLE-NS PMX 500 MG in SALINE 1 100ML.BAG IVPB SCH ×3 (00:41→16:55)
[2018-05-15] MEDS: HEPARIN SODIUM,PORCINE 5,000 UNIT/ML 1 ML VIAL SQ SCH ×3 (00:41→16:55)
[2018-05-15] MEDS: LACTATED RINGERS 1,000 ML IV SCH (00:42)
[2018-05-15] MEDS: 1: MVI, ADULT NO.4 WITH VIT K 10 ML, TRACE (CONC-1ML/DOSE) 1 ML in AMINO ACID 4.25%-D10W IV SCH ×3 (05:14)
[2018-05-15 05:56] LABS: HGB 7.4 gm/dL (11.4-16.0); MCHC 32.1 g/dL (31.0-37.0); MCV 87.1 fL (80.0-100.0); Mean Platelet Volume 6.9; RBC 2.64 m/uL (3.80-5.40); RDW 15.4 % (11.5-15.5); WBC 10.5 k/uL (3.8-10.6)
[2018-05-15 06:05] LABS: ALT 24 U/L (9-52); AST 22 U/L (14-36); Albumin 1.9 g/dL (3.5-5.0); Alkaline Phosphatase 100 U/L (38-126); Anion Gap 5 mmol/L; Blood Urea Nitrogen 8 mg/dL (7-17); Calcium 7.4 mg/dL (8.4-10.2); Carbon Dioxide 32 mmol/L (22-30); Chloride 102 mmol/L (98-107); Glucose 116 mg/dL (74-99); Phosphorus 2.9 mg/dL (2.5-4.5); Potassium 3.6 mmol/L (3.5-5.1); Sodium 139 mmol/L (137-145); Total Bilirubin <0.1 mg/dL (0.2-1.3); Total Protein 4.3 g/dL (6.3-8.2)
[2018-05-15 06:44] LABS: Platelet Count 1042 k/uL (150-450)
[2018-05-15 06:57] LABS: Glucose,Whole Blood 128 mg/dL (75-99)
[2018-05-15 08:01] LABS: Lymphocytes # (M) 0.63 k/uL (1.0-4.8); Mixed Population RBC Present; Monocytes # (M) 0.53 k/uL (0-1.0); Neutrophils # (M) 9.35 k/uL (1.3-7.7); Neutrophils % (M) 89 %; Nucleated Red Blood Cells 0 /100 WBC (0-0); Total Cells Counted 100
[2018-05-15 08:02] LABS: Anisocytosis (M) Present; Poikilocytosis (M) Present; Polychromasia Present
--- NOTE | 2018-05-15 08:16 | P.PN ---
Subjective Progress Note Date: 05/15/18 Principal diagnosis: Postoperative day #4 Positive flatus, positive bowel movements. Tolerating clear liquids. No nausea or emesis. Patient feels weak and fatigued. Objective - Vital Signs Vital signs: Vital Signs Temp 98.6 F 05/15/18 04:00 Pulse 75 05/15/18 04:00 Resp 17 05/15/18 05:21 BP 112/64 05/15/18 04:00 Pulse Ox 96 05/15/18 05:21 Intake & Output 05/14/18 05/15/18 05/15/18 18:59 06:59 18:59 Intake Total 3636 3020.667 95 Output Total 1015 1965 80 Balance 2621 1055.667 15 Weight 83.4 kg Intake: IV 2055 1957 95 Amino Acid 4.25%-D10w+ 760 1160 80 Lytes*E* 1,000 ml @ 80 mls/hr IV .BY DURATION [facility] Rx#:[id number] Cefepime 2 gm In Sodium 100 Chloride 0.9% 50 ml @ 100 mls/hr IVPB Q12HR [facility] Rx #:[id number] Fat Emulsion 20% 250 ml 168 In Empty Bag 1 bag @ 21 mls/hr IV Q24H [facility] Rx#: [id number] Lactated Ringers 1,000 ml 450 400 10 @ 10 mls/hr IV .Q24H [facility] Rx#:[id number] Magnesium Sulfate-D5w Pmx 100 1 gm In Dextrose/Water 1 100ml.bag @ 100 mls/hr IVPB Q1H [facility] Rx#: [id number] Magnesium Sulfate-D5w Pmx 100 1 gm In Dextrose/Water 1 100ml.bag @ 100 mls/hr IVPB Q1H [facility] Rx#: [id number] Mvi, Adult No.4 with Vit 80 K 10 ml Trace (Conc-1Ml/ Dose) 1 ml In Amino Acid 4.25%-D10w+Lytes*E* 1,000 ml @ 80 mls/hr IV .BY DURATION [facility] Rx#: [id number] Normal saline 150 130 5 Potassium Chloride 10 meq 200 In Water For Injection 1 100ml.bag @ 100 mls/hr IVPB Q1H [facility] Rx#: [id number] Ropivacaine 250 mg 16 Hydromorphone (Pf) 5 mg In Sodium Chloride 0.9% 200 ml @ Per Protocol EPIDURAL .Q0M PRN Rx#: [id number] metroNIDAZOLE-NS PMX 500 100 100 mg In Saline 1 100ml.bag @ 100 mls/hr IVPB Q8H [facility] Rx#:[id number] Intake, IV Titration 1000 1062.667 Amount Amino Acid 4.25%-D10w+ 1000 Lytes*E* 1,000 ml @ 80 mls/hr IV .BY DURATION [facility] Rx#:[id number] Mvi, Adult No.4 with Vit 962.667 K 10 ml Trace (Conc-1Ml/ Dose) 1 ml In Amino Acid 4.25%-D10w+Lytes*E* 1,000 ml @ 80 mls/hr IV .BY DURATION [facility] Rx#: [id number] cefTRIAXone 2,000 mg In 100 Sodium Chloride 0.9% 100 ml @ 100 mls/hr IVPB Q24H [facility] Rx#:[id number] Oral 480 TPN/PPN 100 Potassium Chloride 10 meq 100 In Water For Injection 1 100ml.bag @ 100 mls/hr IVPB Q1H [facility] Rx#: [id number] Output: Urine 1015 1965 80 Other: Voiding Method Indwelling Catheter Indwelling Catheter # Voids 3 3 - Constitutional General appearance: Present: average body habitus, cooperative - EENT ENT: Present: hearing grossly normal - Neck Neck: Present: normal ROM - Respiratory Respiratory: bilateral: CTA - Cardiovascular Rhythm: regular - Gastrointestinal Gastrointestinal Comment(s): Incision clean and dry with dressing applied. Abdomen still softly distended. General gastrointestinal: Present: normal bowel sounds - Integumentary Integumentary: Present: normal - Neurologic Neurologic: Present: CNII-XII intact - Musculoskeletal Musculoskeletal: Present: generalized weakness - Psychiatric Psychiatric: Present: A&O x's 3, appropriate affect, intact judgment & insight - Labs CBC & Chem 7: 05/15/18 05:18 05/15/18 05:18 Labs: Abnormal Lab Results - Last 24 Hours (Table) 05/14/18 05/14/18 05/15/18 Range/Units 11:54 23:43 05:18 RBC (3.80-5.40) m/uL Hgb (11.4-16.0) gm/dL Hct (34.0-46.0) % Plt Count (150-450) k/uL Neutrophils # (Manual) (1.3-7.7) k/uL Lymphocytes # (Manual) (1.0-4.8) k/uL Carbon Dioxide 32 H (22-30) mmol/L Creatinine 0.42 L (0.52-1.04) mg/dL Glucose 116 H (74-99) mg/dL POC Glucose (mg/dL) 133 H 129 H (75-99) mg/dL Calcium 7.4 L (8.4-10.2) mg/dL Total Bilirubin <0.1 L (0.2-1.3) mg/dL Total Protein 4.3 L (6.3-8.2) g/dL Albumin 1.9 L (3.5-5.0) g/dL 05/15/18 05/15/18 Range/Units 05:18 06:45 RBC 2.64 L (3.80-5.40) m/uL Hgb 7.4 L (11.4-16.0) gm/dL Hct 23.0 L (34.0-46.0) % Plt Count 1042 H* (150-450) k/uL Neutrophils # (Manual) 9.35 H (1.3-7.7) k/uL Lymphocytes # (Manual) 0.63 L (1.0-4.8) k/uL Carbon Dioxide (22-30) mmol/L Creatinine (0.52-1.04) mg/dL Glucose (74-99) mg/dL POC Glucose (mg/dL) 128 H (75-99) mg/dL Calcium (8.4-10.2) mg/dL Total Bilirubin (0.2-1.3) mg/dL Total Protein (6.3-8.2) g/dL Albumin (3.5-5.0) g/dL Microbiology - Last 24 Hours (Table) 05/11/18 23:44 Blood Culture - Preliminary Blood No Growth after 72 hours 05/11/18 10:36 Blood Culture - Preliminary Blood No Growth after 72 hours Assessment and Plan Assessment: Postoperative day #4, clinical improvement noted. Thrombocytosis observed, suspect secondary to widespread infection and laparotomy with major adhesiolysis 4 days ago. Clinical improvement continues. Hemoglobin stable, white count improved. Wound cultures positive for E. coli. Plan: This morning we will discontinue the TPN and one of the peripheral IVs. Discontinue Staton. Advance to soft diet. Increase activity. Continue postoperative care. Appreciate infectious disease suggestions for home antibiotic choice when appropriate. Time with Patient: Greater than 30
[2018-05-15] MEDS: INSULIN ASPART 100 UNIT/ML 1 ML 10 ML VIAL SQ SCH ×2 (08:40→13:14)
[2018-05-15] MEDS: PANTOPRAZOLE 40 MG/10 ML VIAL IVP SCH (09:49)
[2018-05-15] MEDS: POTASSIUM CHLORIDE 10 MEQ in WATER FOR INJECTION 1 100ML.BAG IVPB SCH ×2 (09:50→15:42)
--- NOTE | 2018-05-15 10:59 | PN ---
PROGRESS NOTE DATE OF SERVICE: 05/15/2018 A pleasant 47-year-old female who was admitted on May 04, 2018. She follows with Dr. Cruz as her primary care doctor. She has a history of rheumatoid arthritis and multiple sclerosis. She also has a history of chronic endometriosis with exploratory laparotomy for endometriosis x2. She presented to the hospital back on 05/03 or 05/04 with complaints of abdominal pain. The surgeons and [employer] doctor thought she was having problems with endometriomas. As it turns out, on exploratory laparotomy, she was found to have large tubo-ovarian abscesses. They were drained surgically on May 11. She came back here to the ICU. Here, she has been relatively stable. The patient is currently doing much better. The Staton catheter has been removed. The NG tube has been removed. She is receiving supplemental oxygen at 3 L by nasal cannula. She is getting an IV of lactated Ringer's only KVO. Also, the peripheral parenteral nutrition was turned off today and her diet was advanced. Her urine and wound cultures are showing evidence of Escherichia coli. She remains on Flagyl and Rocephin per ID. Again, currently doing much, much better. She has no particular complaints, although she is having a bit of diarrhea today. Her surgical procedures and by the way she is postop day #4 include exploratory laparotomy, status post bilateral salpingo- oophorectomy, lysis of adhesions, ureteral stents and evacuation of tubo-ovarian abscesses. The patient postoperatively did have some hypotension thought to be related to sepsis and she was initially managed on the floor and then transferred to the ICU. In addition other medical problems include anemia, leukocytosis, fever, and her chronic conditions of MS and rheumatoid arthritis. Currently, she is sitting up in the chair. She looks well. Current vital signs include temperature 98.6, heart rate 75, respiratory rate 17, blood pressure 112/64, mean 80, L saturation 98%. She appears in no acute distress. She is smiling. She is still on nasal O2 at 2-3 L. HEENT examination is grossly unremarkable. Mucous membranes are moist. No oral lesions. NG tube was removed. Neck is supple. Full range of motion. No adenopathy or thyromegaly. Neck veins are flat. Cardiovascular examination reveals regular rhythm and rate. S1, S2 normal. Heart rate 75. No murmur. Lungs are relatively clear. A few scattered mild rhonchi. No wheezes or crackles. Abdomen is sandblast or shotblast equipment tender. No bowel sounds are noted. Extremities are intact. No cyanosis, clubbing, or edema. Skin without rash. Neurologic examination is brief but nonfocal. Microbiologic studies show Escherichia coli both in the wound from May 11 and from the urine on May 03. LABS: Reviewed. White count 10.5, hemoglobin 7.4, hematocrit 23, and platelet count 142,000. Sodium 139, potassium 3.6, chloride 102, CO2 is 32, BUN and creatinine were 8 and 0.42. Albumin 1.9, total protein 4.3. No x-ray was done. Medications are reviewed. For antibiotics again she remains on Flagyl and Rocephin per ID. The rest of her medications appear appropriate. ASSESSMENT: 1. Postoperative day #4, status post exploratory laparotomy, lysis of adhesions, bilateral salpingo-oophorectomy, bilateral ureteral stents and evacuation of large bilateral tubo-ovarian abscesses. 2. Abdominal pain secondary to tubo-ovarian abscesses and ileus as well as adhesions. 3. Hypertension secondary to sepsis, resolved. 4. Anemia, status post 1 unit of PRBCs. 5. Leukocytosis, secondary to sepsis. 6. Febrile illness secondary to sepsis and tubo-ovarian abscesses. 7. Previous history of exploratory laparotomy x2 for severe endometriosis. 8. History of multiple sclerosis. 9. History of rheumatoid arthritis. PLAN: Currently, the patient is doing well. The peripheral parental nutrition has been turned off. She is not receiving any supplemental fluids. She is eating. We are going to advance her diet. She is getting 3 L nasal cannula. We asked her to use the incentive spirometer q.1 hour while awake. We also told her to make sure she has deep breathing, coughing and clearing of secretions. ID will evaluate her again for the any sort of change in her antibiotics may be some de-escalation. There was Escherichia coli both in her urine and wound cultures. Additional recommendations and suggestions are forthcoming. Nasogastric tube has been removed. Appreciate input by both [facility] [employer] and surgery. Additional recommendations and suggestions are forthcoming. Critical care time is 33 minutes. MMODL / IJN: [id number] /
--- NOTE | 2018-05-15 12:07 | P.PN ---
Subjective Progress Note Date: 05/15/18 This is a 47-year-old female, patient of Dr. Cruz. She has a known past medical history of multiple sclerosis, endometriosis requiring exploratory laparotomy 2 and rheumatoid arthritis. Patient reports abdominal pain started about 3 days ago mostly in the upper abdomen. She had a significant amount of diarrhea and and Friday. There was no blood reported in the stools. She was also having fevers as high as 101. The abdominal pain moved into the lower abdominal region. Pain was so severe she was having shortness of breath. And then on Friday she had stopped having any diarrhea and also stopped passing gas. During these 3 days she vomited twice. Patient came into the emergency room for further evaluation and treatment. She's found to have a temp of 101.4 she was tachycardic heart rate around 108. White count normal. Computed tomography scan showed partial small bowel obstruction with a transition within the left mid abdomen secondary to be containing of the small bowel wall. And consider jejunitis. Also reports multiple large cystic structures in the bilateral adnexa. Consider the possibility of pyosalpinx within the differential. Ovarian carcinoma is not excluded. We'll be ordering an abdominal and pelvic ultrasound for further evaluation. Patient is currently nothing by mouth. Started on Levaquin and IV Flagyl. Surgical and PAVING INSPECTOR consults have been placed. Patient was found to have evidence of a possible pneumonia on chest x-ray. Chest x-ray reported suggestion of a right middle lobe infiltrate. Correlate for atelectasis or pneumonia. Patient does reports having a cough. Also evidence of a UTI. She has been having some dark urine as well as mild burning with urination. Culture has been obtained. She' s currently nothing by mouth and on my and on IV fluids. Patient denies any chest pain. Does report some nausea. Patient has never had any colonoscopy or EGD. Does report having history of scar tissue in the abdomen due to previous abdominal surgeries. Patient denies any recent traveling. Denies any sick contacts. 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 05/05/2018 patient reported improvement in her abdominal pain. She was passing gas this morning and then had a large liquid brown yellowish stool. At that time she felt that her stomach bloating was doing better. She had a low-grade temp of 100.3 and was given Tylenol with a few sips of water. After she taken the medication and water she started having abdominal pain. Abdominal x-ray showing signs of ileus. Transvaginal pelvic ultrasound showing a fibroid uterus. Multiple bilateral cystic lesions could represent hemorrhagic cysts, endometrioma, tubo-ovarian abscess, cyst adenoma or cyst adenocarcinoma not excluded. Patient is followed by PAVING INSPECTOR service, and they felt symptoms were likely related to endometriomas. Dr. Wray also noted that his abdominal pain was not related to any PAVING INSPECTOR cause. Patient denies any vomiting. Reports that her urine is still dark. Burning with urination has resolved. Hemoglobin has dropped from 12.3-9.9. Patient denies any blood in the stools or black stools. Urine culture gram-negative bacilli. T-max 100.8. On 05/06/2018 patient is currently resting in bed. Patient is still having multiple loose stools last night and again this morning. Patient states this is still feels bloated abdominal discomfort. white blood cell increased to 20.8. Repeat CAT scan has been ordered per surgical services. Infectious disease consulted. At this time patient denies chest pain or shortness of breath. Patient denies any urinary burning or frequency. Patient is having abdominal pain denies any nausea or vomiting On 05/07/2018 patient is currently resting in bed. Patient states she's having some abdominal pain but it is improved from yesterday. At that time patient denies chest pain or shortness of breath. Patient is complaining cough is worse in a.m. Patient denies nausea vomiting or diarrhea. Patient denies any urinary burning or frequency. On 05/08/2018 patient is currently resting in bed. Patient is still complaining of some burning with urination and abdominal pain and bloating. Patient states she is having increased cough with production. Sputum culture has been ordered. Patient denies chest pain or shortness breath. Patient denies nausea vomiting or diarrhea. Patient denies any urinary frequency. On 05/09/2018 patient is feeling somewhat better she is still having significant abdominal pain and bloating but feels better than yesterday she is having cough without any sputum production she still has low-grade fever she is also complaining of nausea and diarrhea otherwise she denies any complaints at this time On 05/10/2018 patient was seen and examined on the medical floor she is still complaining of abdominal pain and diarrhea she is complaining of lower extremity swelling and discomfort today, otherwise she denies any complaints there is no fever or chills no headache or dizziness no chest pain no shortness of breath no cough and no urinary symptoms 05/11/2018 patient is having abdominal pain with abdominal distention. Also continues to have fevers. Repeat computed tomography scan of the abdomen and pelvis shows improvement in degree and small bowel dilation with contrast passing into large bowel and rectum. Ileus was suspected. Interval development of moderate right hydroureteronephrosis and delayed excretion of contrast from the right kidney secondary to an obstructing multiloculated large right adnexal mass. There is progressive enlargement of the left multicystic adnexal mass. Patient has been seen by PAVING INSPECTOR service they're planning exploratory laparotomy with salpingectomy and oophorectomy with possible hysterectomy and bilateral ureteral stents. Patient denies any chest pain or shortness of breath. She does have lower extremity. She was given albumin and Lasix due to her low albumin levels yesterday. Denies any calf tenderness. T- max 101. White count 20.4. Potassium is 3.4 patient receiving supplement. 05/12/2018 patient is postop day #1 status post exploratory laparotomy, bilateral salpingo-oophorectomy and excision of tubo-ovarian abscesses bilaterally also had cystoscopy placement of bilateral open ended ureteral catheters. Patient required transfer to the ICU during the evening due to hypotension and fever concerns for sepsis. Critical care was placed on consult. She has not required any IV pressors. She is on IV antibiotics cefepime and Flagyl. Cultures were obtained of the abscesses. Results are pending. Patient's white count is 28.4 T-max 101.4. Urine output adequate. Patient reports that her pain is controlled. Denies any chest pain or shortness of breath. Denies any nausea or vomiting. Does have NG tube in place. On 05/13/2018 patient is currently postop day 2 status post exposure to lab, bilateral salpingo-oophorectomy and excision of tubo-ovarian abscess bilaterally also had cystoscopy placement of bilateral open-ended ureteral catheters. Patient remains in the intensive care unit. Epidural remains in place for adequate pain control. White blood cell improving to 20.9. Patient' s hemoglobin dropping to 5.9. 1 unit of PRBCs have been ordered. And she remains in place. Patient is tolerating ice chips at this time. At this time patient denies chest pain or shortness of breath. Patient denies nausea vomiting or diarrhea. 05/14/2018 patient remains in the ICU. She was able to get out of bed and sitting in bedside chair. NG tube an epidural catheter removed this morning. PAVING INSPECTOR service added Toradol for pain control. Patient denies any chest pain or shortness of breath. She has a slight cough. Complains of dizziness. Denies any nausea or vomiting. No gas or bowel movement yet. Still is alvarado catheter in place. Patient has been downgraded to [facility] floor. 05/15/18 Patient in ICU but is downgraded to [facility]. Patient had full catheter removed this morning. She is being weaned off of the PPN. White count has normalized from 14.7-10.5. She'll be placed on a regular diet this afternoon. She's had multiple bowel movements starting yesterday. Denies any nausea or vomiting. Did have a low-grade temp of 100.3 last night. Hemoglobin has gone up from 7-7.4 platelets are elevated at 1042. Venous Doppler of the left leg negative for DVT. Objective - Vital Signs Vital signs: Vital Signs Temp 98.5 F 05/15/18 08:00 Pulse 95 05/15/18 08:00 Resp 32 H 05/15/18 08:00 BP 115/65 05/15/18 08:00 Pulse Ox 96 05/15/18 08:15 Intake & Output 05/14/18 05/15/18 05/15/18 18:59 06:59 18:59 Intake Total 3636 3020.667 95 Output Total 1015 1965 80 Balance 2621 1055.667 15 Weight 83.4 kg 83.4 kg Intake: IV 2055 1957 95 Amino Acid 4.25%-D10w+ 760 1160 80 Lytes*E* 1,000 ml @ 80 mls/hr IV .BY D[facility]ATION [facility] Rx#:[id number] Cefepime 2 gm In Sodium 100 Chloride 0.9% 50 ml @ 100 mls/hr IVPB Q12HR [facility] Rx #:[id number] Fat Emulsion 20% 250 ml 168 In Empty Bag 1 bag @ 21 mls/hr IV Q24H [facility] Rx#: [id number] Lactated Ringers 1,000 ml 450 400 10 @ 10 mls/hr IV .Q24H [facility] Rx#:[id number] Magnesium Sulfate-D5w Pmx 100 1 gm In Dextrose/Water 1 100ml.bag @ 100 mls/hr IVPB Q1H [facility] Rx#: [id number] Magnesium Sulfate-D5w Pmx 100 1 gm In Dextrose/Water 1 100ml.bag @ 100 mls/hr IVPB Q1H [facility] Rx#: [id number] Mvi, Adult No.4 with Vit 80 K 10 ml Trace (Conc-1Ml/ Dose) 1 ml In Amino Acid 4.25%-D10w+Lytes*E* 1,000 ml @ 80 mls/hr IV .BY DURATION [facility] Rx#: [id number] Normal saline 150 130 5 Potassium Chloride 10 meq 200 In Water For Injection 1 100ml.bag @ 100 mls/hr IVPB Q1H [facility] Rx#: [id number] Ropivacaine 250 mg 16 Hydromorphone (Pf) 5 mg In Sodium Chloride 0.9% 200 ml @ Per Protocol EPIDURAL .Q0M [facility] Rx#: [id number] metroNIDAZOLE-NS PMX 500 100 100 mg In Saline 1 100ml.bag @ 100 mls/hr IVPB Q8H [facility] Rx#:[id number] Intake, IV Titration 1000 1062.667 Amount Amino Acid 4.25%-D10w+ 1000 Lytes*E* 1,000 ml @ 80 mls/hr IV .BY DURATION [facility] Rx#:[id number] Mvi, Adult No.4 with Vit 962.667 K 10 ml Trace (Conc-1Ml/ Dose) 1 ml In Amino Acid 4.25%-D10w+Lytes*E* 1,000 ml @ 80 mls/hr IV .BY DURATION [facility] Rx#: [id number] cefTRIAXone 2,000 mg In 100 Sodium Chloride 0.9% 100 ml @ 100 mls/hr IVPB Q24H [facility] Rx#:[id number] Oral 480 TPN/PPN 100 Potassium Chloride 10 meq 100 In Water For Injection 1 100ml.bag @ 100 mls/hr IVPB Q1H [facility] Rx#: [id number] Output: Urine 1015 1965 80 Other: Voiding Method Indwelling Catheter Indwelling Catheter Indwelling Catheter # Voids 3 3 3 - Exam Head normocephalic Neck supple Lungs crackles along the left base Heart regular rate and rhythm S1-S2, no rub or gallop Abdomen soft, positive bowel sounds Extremities +1 edema bilateral lower extremities Neuro patient is sleeping - Labs CBC & Chem 7: 05/15/18 05:18 05/15/18 05:18 Labs: Abnormal Lab Results - Last 24 Hours (Table) 05/14/18 05/14/18 05/15/18 Range/Units 11:54 23:43 05:18 RBC (3.80-5.40) m/uL Hgb (11.4-16.0) gm/dL Hct (34.0-46.0) % Plt Count (150-450) k/uL Neutrophils # (Manual) (1.3-7.7) k/uL Lymphocytes # (Manual) (1.0-4.8) k/uL Carbon Dioxide 32 H (22-30) mmol/L Creatinine 0.42 L (0.52-1.04) mg/dL Glucose 116 H (74-99) mg/dL POC Glucose (mg/dL) 133 H 129 H (75-99) mg/dL Calcium 7.4 L (8.4-10.2) mg/dL Total Bilirubin <0.1 L (0.2-1.3) mg/dL Total Protein 4.3 L (6.3-8.2) g/dL Albumin 1.9 L (3.5-5.0) g/dL 05/15/18 05/15/18 Range/Units 05:18 06:45 RBC 2.64 L (3.80-5.40) m/uL Hgb 7.4 L (11.4-16.0) gm/dL Hct 23.0 L (34.0-46.0) % Plt Count 1042 H* (150-450) k/uL Neutrophils # (Manual) 9.35 H (1.3-7.7) k/uL Lymphocytes # (Manual) 0.63 L (1.0-4.8) k/uL Carbon Dioxide (22-30) mmol/L Creatinine (0.52-1.04) mg/dL Glucose (74-99) mg/dL POC Glucose (mg/dL) 128 H (75-99) mg/dL Calcium (8.4-10.2) mg/dL Total Bilirubin (0.2-1.3) mg/dL Total Protein (6.3-8.2) g/dL Albumin (3.5-5.0) g/dL Microbiology - Last 24 Hours (Table) 05/11/18 14:41 Anaerobic Culture - Final Other - Other 05/11/18 14:41 Anaerobic Culture - Final Other - Other 05/11/18 23:44 Blood Culture - Preliminary Blood No Growth after 72 hours 05/11/18 10:36 Blood Culture - Preliminary Blood No Growth after 72 hours Assessment and Plan Assessment: 1. Abdominal pain likely secondary to bilateral ovarian abscesses and adhesions. Patient is postop day 4 status post exploratory laparotomy, bilateral salpingo-oophorectomy and excision of tubo-ovarian abscesses bilaterally, lysis of adhesions and cystoscopy placement of bilateral open ended ureteral catheters. Wound culture growing E. coli. Infectious disease has adjusted antibiotics to Rocephin 2 g daily for 1 week and to continue Flagyl. 2. Hypotension likely secondary to sepsis. Resolved 3. Sepsis secondary to ovarian abscess area continue antibiotics. Continue to follow cultures. 4. Elevated d-dimer: Venous Doppler negative for DVT bilaterally. VQ scan low probability for PE 5. Right middle lobe infiltrate noted on admitting chest x-ray. Likely related to atelectasis. Doubt pneumonia. 6. UTI: Urine culture growing E. coli. Continue antibiotics 7. History of multiple sclerosis: Not on any medications due to side effects 8. History of rheumatoid arthritis 9. History of endometriosis with previous exploratory laparoscopic Surgeries 10. Anemia: Secondary to infection and iron deficiency anemia and expected acute blood loss anemia secondary to surgery. Total iron low at 7. Hemoglobin 7.4. Patient did require blood transfusion during this admission. Continue monitor CBC 11. Severe protein calorie malnutrition: Likely contributing to patient's lower extremity edema. Patient's diet is being advanced. PPN being titrated off. 12. Hypokalemia and hypomagnesemia. Improved with supplements 13. Thrombocytosis: Possibly secondary to infection and laparotomy with lysis of adhesions. Continue to monitor. GI prophylaxis IV Protonix and DVT prophylaxis subcu heparin Reviewed all consulting physician notes. Appreciate their recommendations. I performed an examination of the patient and discussed their management with the physician Coal Dumping Equipment Operator. I have reviewed the Physician Coal Dumping Equipment Operator's notes and agree with the documented findings and plan of care
--- NOTE | 2018-05-15 18:04 | P.PN ---
Subjective Progress Note Date: 05/15/18 Principal diagnosis: Enteritis Patient feels mild nausea this evening. Some loose stools today. Pain is about same as yesterday. No high fevers. White blood cell count has finally normalized. Objective - Vital Signs Vital signs: Vital Signs Temp 99.2 F 05/15/18 16:20 Pulse 91 05/15/18 16:20 Resp 16 05/15/18 16:20 BP 110/65 05/15/18 16:20 Pulse Ox 92 L 05/15/18 16:20 Intake & Output 05/14/18 05/15/18 05/15/18 18:59 06:59 18:59 Intake Total 3636 3020.667 375 Output Total 1015 1965 630 Balance 2621 1055.667 -255 Weight 83.4 kg 83.4 kg Intake: IV 2055 1957 135 Amino Acid 4.25%-D10w+ 760 1160 80 Lytes*E* 1,000 ml @ 80 mls/hr IV .BY DURATION [facility] Rx#:[id number] Cefepime 2 gm In Sodium 100 Chloride 0.9% 50 ml @ 100 mls/hr IVPB Q12HR [facility] Rx #:[id number] Fat Emulsion 20% 250 ml 168 In Empty Bag 1 bag @ 21 mls/hr IV Q24H [facility] Rx#: [id number] Lactated Ringers 1,000 ml 450 400 10 @ 10 mls/hr IV .Q24H [facility] Rx#:[id number] Magnesium Sulfate-D5w Pmx 100 1 gm In Dextrose/Water 1 100ml.bag @ 100 mls/hr IVPB Q1H [facility] Rx#: [id number] Magnesium Sulfate-D5w Pmx 100 1 gm In Dextrose/Water 1 100ml.bag @ 100 mls/hr IVPB Q1H [facility] Rx#: [id number] Mvi, Adult No.4 with Vit 80 K 10 ml Trace (Conc-1Ml/ Dose) 1 ml In Amino Acid 4.25%-D10w+Lytes*E* 1,000 ml @ 80 mls/hr IV .BY DURATION [facility] Rx#: [id number] Normal saline 150 130 45 Potassium Chloride 10 meq 200 In Water For Injection 1 100ml.bag @ 100 mls/hr IVPB Q1H [facility] Rx#: [id number] Ropivacaine 250 mg 16 Hydromorphone (Pf) 5 mg In Sodium Chloride 0.9% 200 ml @ Per Protocol EPIDURAL .Q0M [facility] Rx#: [id number] metroNIDAZOLE-NS PMX 500 100 100 mg In Saline 1 100ml.bag @ 100 mls/hr IVPB Q8H [facility] Rx#:[id number] Intake, IV Titration 1000 1062.667 Amount Amino Acid 4.25%-D10w+ 1000 Lytes*E* 1,000 ml @ 80 mls/hr IV .BY DURATION [facility] Rx#:[id number] Mvi, Adult No.4 with Vit 962.667 K 10 ml Trace (Conc-1Ml/ Dose) 1 ml In Amino Acid 4.25%-D10w+Lytes*E* 1,000 ml @ 80 mls/hr IV .BY DURATION [facility] Rx#: [id number] cefTRIAXone 2,000 mg In 100 Sodium Chloride 0.9% 100 ml @ 100 mls/hr IVPB Q24H [facility] Rx#:[id number] Oral 480 240 TPN/PPN 100 Potassium Chloride 10 meq 100 In Water For Injection 1 100ml.bag @ 100 mls/hr IVPB Q1H [facility] Rx#: [id number] Output: Urine 1015 1965 630 Other: Voiding Method Indwelling Catheter Indwelling Catheter Toilet # Voids 3 3 3 - Exam Abdomen: Soft, mild distention, mild incisional tenderness, small amount of erythema with small amount of drainage from the lower aspect of the incision - Labs CBC & Chem 7: 05/15/18 05:18 05/15/18 05:18 Labs: Abnormal Lab Results - Last 24 Hours (Table) 05/14/18 05/15/18 05/15/18 Range/Units 23:43 05:18 05:18 RBC 2.64 L (3.80-5.40) m/uL Hgb 7.4 L (11.4-16.0) gm/dL Hct 23.0 L (34.0-46.0) % Plt Count 1042 H* (150-450) k/uL Neutrophils # (Manual) 9.35 H (1.3-7.7) k/uL Lymphocytes # (Manual) 0.63 L (1.0-4.8) k/uL Carbon Dioxide 32 H (22-30) mmol/L Creatinine 0.42 L (0.52-1.04) mg/dL Glucose 116 H (74-99) mg/dL POC Glucose (mg/dL) 129 H (75-99) mg/dL Calcium 7.4 L (8.4-10.2) mg/dL Total Bilirubin <0.1 L (0.2-1.3) mg/dL Total Protein 4.3 L (6.3-8.2) g/dL Albumin 1.9 L (3.5-5.0) g/dL 05/15/18 Range/Units 06:45 RBC (3.80-5.40) m/uL Hgb (11.4-16.0) gm/dL Hct (34.0-46.0) % Plt Count (150-450) k/uL Neutrophils # (Manual) (1.3-7.7) k/uL Lymphocytes # (Manual) (1.0-4.8) k/uL Carbon Dioxide (22-30) mmol/L Creatinine (0.52-1.04) mg/dL Glucose (74-99) mg/dL POC Glucose (mg/dL) 128 H (75-99) mg/dL Calcium (8.4-10.2) mg/dL Total Bilirubin (0.2-1.3) mg/dL Total Protein (6.3-8.2) g/dL Albumin (3.5-5.0) g/dL Microbiology - Last 24 Hours (Table) 05/11/18 10:36 Blood Culture - Preliminary Blood No Growth after 96 hours 05/11/18 14:41 Anaerobic Culture - Final Other - Other 05/11/18 14:41 Anaerobic Culture - Final Other - Other 05/11/18 23:44 Blood Culture - Preliminary Blood No Growth after 72 hours Assessment and Plan (1) Enteritis Narrative/Plan: Antibiotics per infectious disease. Continue diet as ordered. Increase activity levels. Add aspirin for thrombocytosis. We'll give 1 dose of Lasix tomorrow morning. Monitor incision site closely. Current Visit: Yes Status: Acute Code(s): K52.9 - NONINFECTIVE GASTROENTERITIS AND COLITIS, UNSPECIFIED SNOMED Code(s): 65958190
--- NOTE | 2018-05-15 23:23 | PN ---
PROGRESS NOTE DATE OF SERVICE: 05/15/2018. REASON FOR FOLLOW UP: Pelvic abscess. INTERVAL HISTORY: The patient is afebrile. She has been breathing comfortably. Denies having any chest pain. No shortness of breath or cough. Abdominal pain is currently controlled with medication. No nausea, vomiting and no diarrhea. EXAMINATION: Blood pressure 110/65 with a pulse of 91, temperature 99.2. She is 92% on room air. GENERAL DESCRIPTION: A middle aged female up in the bed in no distress. RESPIRATORY SYSTEM: Unlabored breathing. Clear to auscultation anteriorly. HEART: S1, S2. Regular rate and rhythm. ABDOMEN: Soft, no tenderness. LABS: Hemoglobin 7.4, white count 10.5, BUN of 8, creatinine 0.42. DIAGNOSTIC IMPRESSION AND PLAN: Patient with pelvic abscess which is infected with abscess status post drainage. Culture positive for E coli. The patient is currently covered with Flagyl and ceftriaxone. The patient's white count has normalized. Continue to monitor the patient closely. Continue supportive care. MMODL / IJN: [id number] /
[2018-05-15] MEDS: cefTRIAXone 2,000 MG in SODIUM CHLORIDE 0.9% 100 ML IVPB SCH (23:55)
[2018-05-16] MEDS: metroNIDAZOLE-NS PMX 500 MG in SALINE 1 100ML.BAG IVPB SCH ×4 (01:02→23:28)
[2018-05-16] MEDS: 1: MVI, ADULT NO.4 WITH VIT K 10 ML, TRACE (CONC-1ML/DOSE) 1 ML in AMINO ACID 4.25%-D10W IV SCH ×6 (01:04→15:46)
[2018-05-16] MEDS: HEPARIN SODIUM,PORCINE 5,000 UNIT/ML 1 ML VIAL SQ SCH ×4 (01:07→23:29)
[2018-05-16] MEDS: LACTATED RINGERS 1,000 ML IV SCH (01:07)
[2018-05-16] MEDS: ASPIRIN 325 MG TAB PO SCH (08:34)
[2018-05-16] MEDS: PANTOPRAZOLE 40 MG/10 ML VIAL IVP SCH (08:34)
[2018-05-16] MEDS: FUROSEMIDE 10 MG/ML 2 ML VIAL IV SCH (08:34)
[2018-05-16 09:32] LABS: ALT 32 U/L (9-52); AST 36 U/L (14-36); Albumin 2.1 g/dL (3.5-5.0); Alkaline Phosphatase 98 U/L (38-126); Anion Gap 5 mmol/L; Blood Urea Nitrogen 7 mg/dL (7-17); Calcium 7.9 mg/dL (8.4-10.2); Carbon Dioxide 32 mmol/L (22-30); Chloride 103 mmol/L (98-107); Glucose 104 mg/dL (74-99); Magnesium 1.7 mg/dL (1.6-2.3); Phosphorus 2.6 mg/dL (2.5-4.5); Potassium 3.6 mmol/L (3.5-5.1); Sodium 140 mmol/L (137-145); Total Bilirubin 0.1 mg/dL (0.2-1.3); Total Protein 4.7 g/dL (6.3-8.2)
[2018-05-16 09:38] LABS: HGB 7.3 gm/dL (11.4-16.0); Hypochromasia Slight; MCV 87.7 fL (80.0-100.0); Mean Platelet Volume 7.2; RBC 2.62 m/uL (3.80-5.40); RDW 15.9 % (11.5-15.5)
[2018-05-16 09:41] LABS: Platelet Count 1128 k/uL (150-450)
--- NOTE | 2018-05-16 12:30 | P.PN ---
Subjective Progress Note Date: 05/16/18 Principal diagnosis: Enteritis Patient had an episode of vomiting last night. Still mildly nauseated. Diarrhea last night was more frequent almost hourly. White blood cell count up slightly today at 13.5. Labile levels have increased further. T-max 99.2. Objective - Vital Signs Vital signs: Vital Signs Temp 96.9 F L 05/16/18 07:00 Pulse 83 05/16/18 07:00 Resp 16 05/16/18 08:00 BP 106/55 05/16/18 07:00 Pulse Ox 92 L 05/16/18 07:00 Intake & Output 05/15/18 05/16/18 05/16/18 18:59 06:59 18:59 Intake Total 375 Output Total 630 Balance -255 Weight 83.4 kg Intake: IV 135 Amino Acid 4.25%-D10w+ 80 Lytes*E* 1,000 ml @ 80 mls/hr IV .BY DURATION [facility] Rx#:[id number] Lactated Ringers 1,000 ml 10 @ 10 mls/hr IV .Q24H [facility] Rx#:[id number] Normal saline 45 Oral 240 Output: Urine 630 Other: Voiding Method Toilet Bedside Commode # Voids 3 - Exam Abdomen: Soft, less distended, minimal tenderness, incision clean and dry without and drainage area identified yesterday definitely improved without erythema - Labs CBC & Chem 7: 05/16/18 08:45 05/16/18 08:45 Labs: Abnormal Lab Results - Last 24 Hours (Table) 05/15/18 05/16/18 05/16/18 Range/Units 17:37 08:45 08:45 WBC 13.5 H (3.8-10.6) k/uL RBC 2.62 L (3.80-5.40) m/uL Hgb 7.3 L (11.4-16.0) gm/dL Hct 23.0 L (34.0-46.0) % RDW 15.9 H (11.5-15.5) % Plt Count 1128 H* (150-450) k/uL Potassium 3.4 L (3.5-5.1) mmol/L Carbon Dioxide 32 H (22-30) mmol/L Creatinine 0.42 L (0.52-1.04) mg/dL Glucose 104 H (74-99) mg/dL Calcium 7.9 L (8.4-10.2) mg/dL Total Bilirubin 0.1 L (0.2-1.3) mg/dL Total Protein 4.7 L (6.3-8.2) g/dL Albumin 2.1 L (3.5-5.0) g/dL Microbiology - Last 24 Hours (Table) 05/11/18 23:44 Blood Culture - Preliminary Blood No Growth after 96 hours 05/11/18 10:36 Blood Culture - Preliminary Blood No Growth after 96 hours 05/11/18 14:41 Anaerobic Culture - Final Other - Other 05/11/18 14:41 Anaerobic Culture - Final Other - Other Assessment and Plan (1) Enteritis Narrative/Plan: Ambulate more. Decrease diet to full liquids. Check C. diff. Repeat labs tomorrow. Current Visit: Yes Status: Acute Code(s): K52.9 - NONINFECTIVE GASTROENTERITIS AND COLITIS, UNSPECIFIED SNOMED Code(s): 02332098
--- NOTE | 2018-05-16 13:46 | P.PN ---
Subjective Progress Note Date: 05/16/18 This is a 47-year-old female, patient of Dr. Cruz. She has a known past medical history of multiple sclerosis, endometriosis requiring exploratory laparotomy 2 and rheumatoid arthritis. Patient reports abdominal pain started about 3 days ago mostly in the upper abdomen. She had a significant amount of diarrhea and and Friday. There was no blood reported in the stools. She was also having fevers as high as 101. The abdominal pain moved into the lower abdominal region. Pain was so severe she was having shortness of breath. And then on Friday she had stopped having any diarrhea and also stopped passing gas. During these 3 days she vomited twice. Patient came into the emergency room for further evaluation and treatment. She's found to have a temp of 101.4 she was tachycardic heart rate around 108. White count normal. Computed tomography scan showed partial small bowel obstruction with a transition within the left mid abdomen secondary to be containing of the small bowel wall. And consider jejunitis. Also reports multiple large cystic structures in the bilateral adnexa. Consider the possibility of pyosalpinx within the differential. Ovarian carcinoma is not excluded. We'll be ordering an abdominal and pelvic ultrasound for further evaluation. Patient is currently nothing by mouth. Started on Levaquin and IV Flagyl. Surgical and CLINICAL QUALITY MANAGER consults have been placed. Patient was found to have evidence of a possible pneumonia on chest x-ray. Chest x-ray reported suggestion of a right middle lobe infiltrate. Correlate for atelectasis or pneumonia. Patient does reports having a cough. Also evidence of a UTI. She has been having some dark urine as well as mild burning with urination. Culture has been obtained. She' s currently nothing by mouth and on my and on IV fluids. Patient denies any chest pain. Does report some nausea. Patient has never had any colonoscopy or EGD. Does report having history of scar tissue in the abdomen due to previous abdominal surgeries. Patient denies any recent traveling. Denies any sick contacts. 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 05/05/2018 patient reported improvement in her abdominal pain. She was passing gas this morning and then had a large liquid brown yellowish stool. At that time she felt that her stomach bloating was doing better. She had a low-grade temp of 100.3 and was given Tylenol with a few sips of water. After she taken the medication and water she started having abdominal pain. Abdominal x-ray showing signs of ileus. Transvaginal pelvic ultrasound showing a fibroid uterus. Multiple bilateral cystic lesions could represent hemorrhagic cysts, endometrioma, tubo-ovarian abscess, cyst adenoma or cyst adenocarcinoma not excluded. Patient is followed by CLINICAL QUALITY MANAGER service, and they felt symptoms were likely related to endometriomas. Dr. Wray also noted that his abdominal pain was not related to any CLINICAL QUALITY MANAGER cause. Patient denies any vomiting. Reports that her urine is still dark. Burning with urination has resolved. Hemoglobin has dropped from 12.3-9.9. Patient denies any blood in the stools or black stools. Urine culture gram-negative bacilli. T-max 100.8. On 05/06/2018 patient is currently resting in bed. Patient is still having multiple loose stools last night and again this morning. Patient states this is still feels bloated abdominal discomfort. white blood cell increased to 20.8. Repeat CAT scan has been ordered per surgical services. Infectious disease consulted. At this time patient denies chest pain or shortness of breath. Patient denies any urinary burning or frequency. Patient is having abdominal pain denies any nausea or vomiting On 05/07/2018 patient is currently resting in bed. Patient states she's having some abdominal pain but it is improved from yesterday. At that time patient denies chest pain or shortness of breath. Patient is complaining cough is worse in a.m. Patient denies nausea vomiting or diarrhea. Patient denies any urinary burning or frequency. On 05/08/2018 patient is currently resting in bed. Patient is still complaining of some burning with urination and abdominal pain and bloating. Patient states she is having increased cough with production. Sputum culture has been ordered. Patient denies chest pain or shortness breath. Patient denies nausea vomiting or diarrhea. Patient denies any urinary frequency. On 05/09/2018 patient is feeling somewhat better she is still having significant abdominal pain and bloating but feels better than yesterday she is having cough without any sputum production she still has low-grade fever she is also complaining of nausea and diarrhea otherwise she denies any complaints at this time On 05/10/2018 patient was seen and examined on the medical floor she is still complaining of abdominal pain and diarrhea she is complaining of lower extremity swelling and discomfort today, otherwise she denies any complaints there is no fever or chills no headache or dizziness no chest pain no shortness of breath no cough and no urinary symptoms 05/11/2018 patient is having abdominal pain with abdominal distention. Also continues to have fevers. Repeat computed tomography scan of the abdomen and pelvis shows improvement in degree and small bowel dilation with contrast passing into large bowel and rectum. Ileus was suspected. Interval development of moderate right hydroureteronephrosis and delayed excretion of contrast from the right kidney secondary to an obstructing multiloculated large right adnexal mass. There is progressive enlargement of the left multicystic adnexal mass. Patient has been seen by CLINICAL QUALITY MANAGER service they're planning exploratory laparotomy with salpingectomy and oophorectomy with possible hysterectomy and bilateral ureteral stents. Patient denies any chest pain or shortness of breath. She does have lower extremity. She was given albumin and Lasix due to her low albumin levels yesterday. Denies any calf tenderness. T- max 101. White count 20.4. Potassium is 3.4 patient receiving supplement. 05/12/2018 patient is postop day #1 status post exploratory laparotomy, bilateral salpingo-oophorectomy and excision of tubo-ovarian abscesses bilaterally also had cystoscopy placement of bilateral open ended ureteral catheters. Patient required transfer to the ICU during the evening due to hypotension and fever concerns for sepsis. Critical care was placed on consult. She has not required any IV pressors. She is on IV antibiotics cefepime and Flagyl. Cultures were obtained of the abscesses. Results are pending. Patient's white count is 28.4 T-max 101.4. Urine output adequate. Patient reports that her pain is controlled. Denies any chest pain or shortness of breath. Denies any nausea or vomiting. Does have NG tube in place. On 05/13/2018 patient is currently postop day 2 status post exposure to lab, bilateral salpingo-oophorectomy and excision of tubo-ovarian abscess bilaterally also had cystoscopy placement of bilateral open-ended ureteral catheters. Patient remains in the intensive care unit. Epidural remains in place for adequate pain control. White blood cell improving to 20.9. Patient' s hemoglobin dropping to 5.9. 1 unit of PRBCs have been ordered. And she remains in place. Patient is tolerating ice chips at this time. At this time patient denies chest pain or shortness of breath. Patient denies nausea vomiting or diarrhea. 05/14/2018 patient remains in the ICU. She was able to get out of bed and sitting in bedside chair. NG tube an epidural catheter removed this morning. CLINICAL QUALITY MANAGER service added Toradol for pain control. Patient denies any chest pain or shortness of breath. She has a slight cough. Complains of dizziness. Denies any nausea or vomiting. No gas or bowel movement yet. Still is alvarado catheter in place. Patient has been downgraded to [facility] floor. 05/15/18 Patient in ICU but is downgraded to [facility]. Patient had full catheter removed this morning. She is being weaned off of the PPN. White count has normalized from 14.7-10.5. She'll be placed on a regular diet this afternoon. She's had multiple bowel movements starting yesterday. Denies any nausea or vomiting. Did have a low-grade temp of 100.3 last night. Hemoglobin has gone up from 7-7.4 platelets are elevated at 1042. Venous Doppler of the left leg negative for DVT. On 05/16/2018 patient was seen and examined she is alert and oriented 3 in no apparent distress she is having multiple loose bowel movements she denies any fever or chills no headache or dizziness no chest pain no shortness of breath no nausea or vomiting she has mild diffuse abdominal pain and no urinary symptoms Objective - Vital Signs Vital signs: Vital Signs Temp 98.4 F 05/16/18 13:39 Pulse 93 05/16/18 13:39 Resp 16 05/16/18 13:39 BP 113/74 05/16/18 13:39 Pulse Ox 95 05/16/18 13:39 Intake & Output 05/15/18 05/16/18 05/16/18 18:59 06:59 18:59 Intake Total 375 Output Total 630 Balance -255 Weight 83.4 kg Intake: IV 135 Amino Acid 4.25%-D10w+ 80 Lytes*E* 1,000 ml @ 80 mls/hr IV .BY DURATION CASEY Rx#:[id number] Lactated Ringers 1,000 ml 10 @ 10 mls/hr IV .Q24H CASEY Rx#:[id number] Normal saline 45 Oral 240 Output: Urine 630 Other: Voiding Method Toilet Bedside Commode # Voids 3 - Exam Head normocephalic and atraumatic Neck supple no JVD no goiter Lungs clear to auscultation bilaterally no wheezing or crackles Heart regular rate and rhythm S1-S2, no rub or gallop Abdomen is soft diffuse tenderness distended positive bowel sounds no hepatosplenomegaly Extremities no edema no cyanosis or clubbing Neuro alert and orientated to 3 no gross focal deficit - Labs CBC & Chem 7: 05/16/18 08:45 05/16/18 08:45 Labs: Abnormal Lab Results - Last 24 Hours (Table) 05/15/18 05/16/18 05/16/18 Range/Units 17:37 08:45 08:45 WBC 13.5 H (3.8-10.6) k/uL RBC 2.62 L (3.80-5.40) m/uL Hgb 7.3 L (11.4-16.0) gm/dL Hct 23.0 L (34.0-46.0) % RDW 15.9 H (11.5-15.5) % Plt Count 1128 H* (150-450) k/uL Potassium 3.4 L (3.5-5.1) mmol/L Carbon Dioxide 32 H (22-30) mmol/L Creatinine 0.42 L (0.52-1.04) mg/dL Glucose 104 H (74-99) mg/dL Calcium 7.9 L (8.4-10.2) mg/dL Total Bilirubin 0.1 L (0.2-1.3) mg/dL Total Protein 4.7 L (6.3-8.2) g/dL Albumin 2.1 L (3.5-5.0) g/dL Microbiology - Last 24 Hours (Table) 05/11/18 10:36 Blood Culture - Preliminary Blood No Growth after 120 hours 05/11/18 23:44 Blood Culture - Preliminary Blood No Growth after 96 hours 05/11/18 14:41 Anaerobic Culture - Final Other - Other 05/11/18 14:41 Anaerobic Culture - Final Other - Other Assessment and Plan Plan: 1. Abdominal pain likely secondary to bilateral ovarian abscesses and adhesions. Patient is postop day 4 status post exploratory laparotomy, bilateral salpingo-oophorectomy and excision of tubo-ovarian abscesses bilaterally, lysis of adhesions and cystoscopy placement of bilateral open ended ureteral catheters. Wound culture growing E. coli. Infectious disease has adjusted antibiotics to Rocephin 2 g daily for 1 week and to continue Flagyl. 2. Hypotension likely secondary to sepsis. Resolved 3. Sepsis secondary to ovarian abscess area continue antibiotics. Continue to follow cultures. 4. Elevated d-dimer: Venous Doppler negative for DVT bilaterally. VQ scan low probability for PE 5. Right middle lobe infiltrate noted on admitting chest x-ray. Likely related to atelectasis. Doubt pneumonia. 6. UTI: Urine culture growing E. coli. Continue antibiotics 7. History of multiple sclerosis: Not on any medications due to side effects 8. History of rheumatoid arthritis 9. History of endometriosis with previous exploratory laparoscopic Surgeries 10. Anemia: Secondary to infection and iron deficiency anemia and expected acute blood loss anemia secondary to surgery. Total iron low at 7. Hemoglobin 7.4. Patient did require blood transfusion during this admission. Continue monitor CBC 11. Severe protein calorie malnutrition: Likely contributing to patient's lower extremity edema. Patient's diet is being advanced. PPN being titrated off. 12. Hypokalemia and hypomagnesemia. Improved with supplements 13. Thrombocytosis: Possibly secondary to infection and laparotomy with lysis of adhesions. Continue to monitor. GI prophylaxis IV Protonix and DVT prophylaxis subcu heparin Reviewed all consulting physician notes. Appreciate their recommendations.
[2018-05-16 14:34] LABS: Band Neutrophils % 1 %; Eosinophils # (M) 0.13 k/uL (0-0.7); Metamyelocytes # (M) 0.13 k/uL (0); Metamyelocytes % 1 %; Monocytes # (M) 0.67 k/uL (0-1.0); Myelocytes # (M) 0.13 k/uL (0); Myelocytes % 1 %; Neutrophils % (M) 88 %; Nucleated Red Blood Cells 1 /100 WBC (0-0); Total Cells Counted 200; WBC 13.4 k/uL (3.8-10.6)
[2018-05-16 14:35] LABS: Poikilocytosis (M) Present; Polychromasia Present
[2018-05-16] MEDS: cefTRIAXone 2,000 MG in SODIUM CHLORIDE 0.9% 100 ML IVPB SCH (22:24)
[2018-05-16] MEDS: ACETAMINOPHEN TAB 325 MG TAB PO PRN (22:50)
[2018-05-17] MEDS: LACTATED RINGERS 1,000 ML IV SCH (01:41)
[2018-05-17 07:53] LABS: ALT 30 U/L (9-52); AST 35 U/L (14-36); Albumin 2.1 g/dL (3.5-5.0); Alkaline Phosphatase 85 U/L (38-126); Anion Gap 5 mmol/L; Blood Urea Nitrogen 6 mg/dL (7-17); Calcium 7.8 mg/dL (8.4-10.2); Carbon Dioxide 32 mmol/L (22-30); Chloride 104 mmol/L (98-107); Glucose 86 mg/dL (74-99); Magnesium 1.8 mg/dL (1.6-2.3); Phosphorus 3.7 mg/dL (2.5-4.5); Potassium 3.5 mmol/L (3.5-5.1); Sodium 141 mmol/L (137-145); Total Bilirubin 0.1 mg/dL (0.2-1.3); Total Protein 4.6 g/dL (6.3-8.2)
[2018-05-17 08:01] LABS: Anisocytosis Slight; Hypochromasia Slight; MCH 28.5 pg (25.0-35.0); MCHC 32.6 g/dL (31.0-37.0); MCV 87.5 fL (80.0-100.0); Mean Platelet Volume 7.3; RBC 2.47 m/uL (3.80-5.40); RDW 16.3 % (11.5-15.5); WBC 10.6 k/uL (3.8-10.6)
[2018-05-17 08:10] LABS: HCT 21.6 % (34.0-46.0); Platelet Count 1095 k/uL (150-450)
[2018-05-17] MEDS: metroNIDAZOLE-NS PMX 500 MG in SALINE 1 100ML.BAG IVPB SCH ×2 (08:30→16:41)
[2018-05-17] MEDS: FUROSEMIDE 10 MG/ML 2 ML VIAL IV SCH (08:30)
[2018-05-17] MEDS: HEPARIN SODIUM,PORCINE 5,000 UNIT/ML 1 ML VIAL SQ SCH ×2 (08:31→16:57)
[2018-05-17] MEDS: PANTOPRAZOLE 40 MG/10 ML VIAL IVP SCH (08:31)
[2018-05-17] MEDS: ASPIRIN 325 MG TAB PO SCH (08:31)
[2018-05-17 09:59] LABS: Band Neutrophils % 1 %; Eosinophils # (M) 0.32 k/uL (0-0.7); Lymphocytes # (M) 1.17 k/uL (1.0-4.8); Metamyelocytes # (M) 0.11 k/uL (0); Metamyelocytes % 1 %; Monocytes # (M) 0.85 k/uL (0-1.0); Myelocytes # (M) 0.11 k/uL (0); Myelocytes % 1 %; Neutrophils % (M) 77 %; Nucleated Red Blood Cells 0 /100 WBC (0-0); Polychromasia Present; Total Cells Counted 200
--- NOTE | 2018-05-17 11:27 | P.PN ---
Subjective Progress Note Date: 05/17/18 Patient continues to have loose stools/diarrhea though less so than yesterday. She continues to tolerate liquids and is actually taking some small amount of solids brought by her family. She continues to have some generalized abdominal distention and discomfort but feels that this is more postsurgical in nature. Generally, she reports feeling weak and fatigued. Overall, she is feeling better as each day goes forward. No further nausea since yesterday. Objective - Vital Signs Vital signs: Vital Signs Temp 98.6 F 05/17/18 08:28 Pulse 80 05/17/18 08:28 Resp 16 05/17/18 08:28 BP 114/69 05/17/18 08:28 Pulse Ox 93 L 05/17/18 08:28 Intake & Output 05/16/18 05/17/18 05/17/18 18:59 06:59 18:59 Other: Voiding Method Bedside Commode - Exam In general, this is a well-developed, reasonably well nourished white female in no acute distress. Her abdomen remained slightly distended, is otherwise soft with minimal tenderness and no apparent masses. The incision is clean, dry, and intact with barb still present. Her extremities are without any cyanosis or clubbing though she does continue to have fairly significant bilateral lower extremity edema to below the knees which is somewhat improved from yesterday. - Labs CBC & Chem 7: 05/17/18 06:35 05/17/18 06:35 Labs: Abnormal Lab Results - Last 24 Hours (Table) 05/16/18 05/17/18 05/17/18 Range/Units 08:45 06:35 06:35 WBC 13.4 H (3.8-10.6) k/uL RBC 2.47 L (3.80-5.40) m/uL Hgb 7.0 L (11.4-16.0) gm/dL Hct 21.6 L (34.0-46.0) % RDW 16.3 H (11.5-15.5) % Plt Count 1095 H* (150-450) k/uL Neutrophils # (Manual) 11.90 H 8.20 H (1.3-7.7) k/uL Lymphocytes # (Manual) 0.80 L (1.0-4.8) k/uL Metamyelocytes # (Man) 0.13 H 0.11 H (0) k/uL Myelocytes # (Manual) 0.13 H 0.11 H (0) k/uL Nucleated RBCs 1 H (0-0) /100 WBC Carbon Dioxide 32 H (22-30) mmol/L BUN 6 L (7-17) mg/dL Creatinine 0.45 L (0.52-1.04) mg/dL Calcium 7.8 L (8.4-10.2) mg/dL Total Bilirubin 0.1 L (0.2-1.3) mg/dL Total Protein 4.6 L (6.3-8.2) g/dL Albumin 2.1 L (3.5-5.0) g/dL Microbiology - Last 24 Hours (Table) 05/11/18 23:44 Blood Culture - Preliminary Blood No Growth after 120 hours 05/11/18 10:36 Blood Culture - Preliminary Blood No Growth after 120 hours Assessment and Plan (1) Bowel obstruction Current Visit: Yes Status: Acute Code(s): K56.609 - UNSP INTESTNL OBST, UNSP TO PARTIAL VERSUS COMPLETE OBST SNOMED Code(s): 40111680 (2) Tubo-ovarian abscess Current Visit: Yes Status: Acute Code(s): N70.93 - SALPINGITIS AND OOPHORITIS, UNSPECIFIED SNOMED Code(s): 26539350 Plan: Progress continues to be slow but is in a positive direction in general. I have strongly encouraged the patient to walk in the halls with assistance. Physical therapy will be involved as they have not to this point been utilized. She will be allowed to shower and we will continue with her diet as tolerated. Continue to follow labs though there is some gradual improvement there. Patient was seen yesterday as well, however [employer] was down and I was unable to enter a progress note. As the patient was seen at the same time as Dr. You, is no reflex the thoughts that we both felt at the time. Clostridium difficile culture is still pending.
--- NOTE | 2018-05-17 11:29 | P.PN ---
Subjective Progress Note Date: 05/17/18 Principal diagnosis: Enteritis Patient doing better today. Pain seems better controlled. Appetite improved. Diarrhea less today. White blood cell count normal again at 10.6. Objective - Vital Signs Vital signs: Vital Signs Temp 98.6 F 05/17/18 08:28 Pulse 80 05/17/18 08:28 Resp 16 05/17/18 08:28 BP 114/69 05/17/18 08:28 Pulse Ox 93 L 05/17/18 08:28 Intake & Output 05/16/18 05/17/18 05/17/18 18:59 06:59 18:59 Other: Voiding Method Bedside Commode - Exam Abdomen: Soft, mild distention, minimal tenderness, incision clean and dry - Labs CBC & Chem 7: 05/17/18 06:35 05/17/18 06:35 Labs: Abnormal Lab Results - Last 24 Hours (Table) 05/16/18 05/17/18 05/17/18 Range/Units 08:45 06:35 06:35 WBC 13.4 H (3.8-10.6) k/uL RBC 2.47 L (3.80-5.40) m/uL Hgb 7.0 L (11.4-16.0) gm/dL Hct 21.6 L (34.0-46.0) % RDW 16.3 H (11.5-15.5) % Plt Count 1095 H* (150-450) k/uL Neutrophils # (Manual) 11.90 H 8.20 H (1.3-7.7) k/uL Lymphocytes # (Manual) 0.80 L (1.0-4.8) k/uL Metamyelocytes # (Man) 0.13 H 0.11 H (0) k/uL Myelocytes # (Manual) 0.13 H 0.11 H (0) k/uL Nucleated RBCs 1 H (0-0) /100 WBC Carbon Dioxide 32 H (22-30) mmol/L BUN 6 L (7-17) mg/dL Creatinine 0.45 L (0.52-1.04) mg/dL Calcium 7.8 L (8.4-10.2) mg/dL Total Bilirubin 0.1 L (0.2-1.3) mg/dL Total Protein 4.6 L (6.3-8.2) g/dL Albumin 2.1 L (3.5-5.0) g/dL Microbiology - Last 24 Hours (Table) 05/11/18 23:44 Blood Culture - Preliminary Blood No Growth after 120 hours 05/11/18 10:36 Blood Culture - Preliminary Blood No Growth after 120 hours Assessment and Plan (1) Enteritis Narrative/Plan: Will resume low fiber diet. Consult physical therapy. C. diff pending. Current Visit: Yes Status: Acute Code(s): K52.9 - NONINFECTIVE GASTROENTERITIS AND COLITIS, UNSPECIFIED SNOMED Code(s): 83112240
[2018-05-17] MEDS ORDERED: SODIUM FERRIC GLUCONAT-SUCROSE 125 MG in SODIUM CHLORIDE 0.9% 100 ML IVPB ONE (12:30)
--- NOTE | 2018-05-17 14:48 | P.PN ---
Subjective Progress Note Date: 05/17/18 This is a 47-year-old female, patient of Dr. Cruz. She has a known past medical history of multiple sclerosis, endometriosis requiring exploratory laparotomy 2 and rheumatoid arthritis. Patient reports abdominal pain started about 3 days ago mostly in the upper abdomen. She had a significant amount of diarrhea and and Friday. There was no blood reported in the stools. She was also having fevers as high as 101. The abdominal pain moved into the lower abdominal region. Pain was so severe she was having shortness of breath. And then on Friday she had stopped having any diarrhea and also stopped passing gas. During these 3 days she vomited twice. Patient came into the emergency room for further evaluation and treatment. She's found to have a temp of 101.4 she was tachycardic heart rate around 108. White count normal. Computed tomography scan showed partial small bowel obstruction with a transition within the left mid abdomen secondary to be containing of the small bowel wall. And consider jejunitis. Also reports multiple large cystic structures in the bilateral adnexa. Consider the possibility of pyosalpinx within the differential. Ovarian carcinoma is not excluded. We'll be ordering an abdominal and pelvic ultrasound for further evaluation. Patient is currently nothing by mouth. Started on Levaquin and IV Flagyl. Surgical and [facility] consults have been placed. Patient was found to have evidence of a possible pneumonia on chest x-ray. Chest x-ray reported suggestion of a right middle lobe infiltrate. Correlate for atelectasis or pneumonia. Patient does reports having a cough. Also evidence of a UTI. She has been having some dark urine as well as mild burning with urination. Culture has been obtained. She' s currently nothing by mouth and on my and on IV fluids. Patient denies any chest pain. Does report some nausea. Patient has never had any colonoscopy or EGD. Does report having history of scar tissue in the abdomen due to previous abdominal surgeries. Patient denies any recent traveling. Denies any sick contacts. 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 05/05/2018 patient reported improvement in her abdominal pain. She was passing gas this morning and then had a large liquid brown yellowish stool. At that time she felt that her stomach bloating was doing better. She had a low-grade temp of 100.3 and was given Tylenol with a few sips of water. After she taken the medication and water she started having abdominal pain. Abdominal x-ray showing signs of ileus. Transvaginal pelvic ultrasound showing a fibroid uterus. Multiple bilateral cystic lesions could represent hemorrhagic cysts, endometrioma, tubo-ovarian abscess, cyst adenoma or cyst adenocarcinoma not excluded. Patient is followed by [facility] service, and they felt symptoms were likely related to endometriomas. Dr. Wray also noted that his abdominal pain was not related to any [facility] cause. Patient denies any vomiting. Reports that her urine is still dark. Burning with urination has resolved. Hemoglobin has dropped from 12.3-9.9. Patient denies any blood in the stools or black stools. Urine culture gram-negative bacilli. T-max 100.8. On 05/06/2018 patient is currently resting in bed. Patient is still having multiple loose stools last night and again this morning. Patient states this is still feels bloated abdominal discomfort. white blood cell increased to 20.8. Repeat CAT scan has been ordered per surgical services. Infectious disease consulted. At this time patient denies chest pain or shortness of breath. Patient denies any urinary burning or frequency. Patient is having abdominal pain denies any nausea or vomiting On 05/07/2018 patient is currently resting in bed. Patient states she's having some abdominal pain but it is improved from yesterday. At that time patient denies chest pain or shortness of breath. Patient is complaining cough is worse in a.m. Patient denies nausea vomiting or diarrhea. Patient denies any urinary burning or frequency. On 05/08/2018 patient is currently resting in bed. Patient is still complaining of some burning with urination and abdominal pain and bloating. Patient states she is having increased cough with production. Sputum culture has been ordered. Patient denies chest pain or shortness breath. Patient denies nausea vomiting or diarrhea. Patient denies any urinary frequency. On 05/09/2018 patient is feeling somewhat better she is still having significant abdominal pain and bloating but feels better than yesterday she is having cough without any sputum production she still has low-grade fever she is also complaining of nausea and diarrhea otherwise she denies any complaints at this time On 05/10/2018 patient was seen and examined on the medical floor she is still complaining of abdominal pain and diarrhea she is complaining of lower extremity swelling and discomfort today, otherwise she denies any complaints there is no fever or chills no headache or dizziness no chest pain no shortness of breath no cough and no urinary symptoms 05/11/2018 patient is having abdominal pain with abdominal distention. Also continues to have fevers. Repeat computed tomography scan of the abdomen and pelvis shows improvement in degree and small bowel dilation with contrast passing into large bowel and rectum. Ileus was suspected. Interval development of moderate right hydroureteronephrosis and delayed excretion of contrast from the right kidney secondary to an obstructing multiloculated large right adnexal mass. There is progressive enlargement of the left multicystic adnexal mass. Patient has been seen by [facility] service they're planning exploratory laparotomy with salpingectomy and oophorectomy with possible hysterectomy and bilateral ureteral stents. Patient denies any chest pain or shortness of breath. She does have lower extremity. She was given albumin and Lasix due to her low albumin levels yesterday. Denies any calf tenderness. T- max 101. White count 20.4. Potassium is 3.4 patient receiving supplement. 05/12/2018 patient is postop day #1 status post exploratory laparotomy, bilateral salpingo-oophorectomy and excision of tubo-ovarian abscesses bilaterally also had cystoscopy placement of bilateral open ended ureteral catheters. Patient required transfer to the ICU during the evening due to hypotension and fever concerns for sepsis. Critical care was placed on consult. She has not required any IV pressors. She is on IV antibiotics cefepime and Flagyl. Cultures were obtained of the abscesses. Results are pending. Patient's white count is 28.4 T-max 101.4. Urine output adequate. Patient reports that her pain is controlled. Denies any chest pain or shortness of breath. Denies any nausea or vomiting. Does have NG tube in place. On 05/13/2018 patient is currently postop day 2 status post exposure to lab, bilateral salpingo-oophorectomy and excision of tubo-ovarian abscess bilaterally also had cystoscopy placement of bilateral open-ended ureteral catheters. Patient remains in the intensive care unit. Epidural remains in place for adequate pain control. White blood cell improving to 20.9. Patient' s hemoglobin dropping to 5.9. 1 unit of PRBCs have been ordered. And she remains in place. Patient is tolerating ice chips at this time. At this time patient denies chest pain or shortness of breath. Patient denies nausea vomiting or diarrhea. 05/14/2018 patient remains in the ICU. She was able to get out of bed and sitting in bedside chair. NG tube an epidural catheter removed this morning. [facility] service added Toradol for pain control. Patient denies any chest pain or shortness of breath. She has a slight cough. Complains of dizziness. Denies any nausea or vomiting. No gas or bowel movement yet. Still is alvarado catheter in place. Patient has been downgraded to MedSurg floor. 05/15/18 Patient in ICU but is downgraded to MedSur. Patient had full catheter removed this morning. She is being weaned off of the PPN. White count has normalized from 14.7-10.5. She'll be placed on a regular diet this afternoon. She's had multiple bowel movements starting yesterday. Denies any nausea or vomiting. Did have a low-grade temp of 100.3 last night. Hemoglobin has gone up from 7-7.4 platelets are elevated at 1042. Venous Doppler of the left leg negative for DVT. On 05/16/2018 patient was seen and examined she is alert and oriented 3 in no apparent distress she is having multiple loose bowel movements she denies any fever or chills no headache or dizziness no chest pain no shortness of breath no nausea or vomiting she has mild diffuse abdominal pain and no urinary symptoms On 05/17/2018 patient was seen and examined on the fourth medical floor she is alert and oriented in no apparent distress, post surgical pain is well- controlled, there is no fever or chills no headache or dizziness no chest pain no shortness of breath no cough no nausea or vomiting and no urinary symptoms. Hemoglobin is down to 7 today Objective - Vital Signs Vital signs: Vital Signs Temp 98.6 F 05/17/18 08:28 Pulse 80 05/17/18 08:28 Resp 16 05/17/18 08:28 BP 114/69 05/17/18 08:28 Pulse Ox 93 L 05/17/18 08:28 Intake & Output 05/16/18 05/17/18 05/17/18 18:59 06:59 18:59 Other: Voiding Method Bedside Commode - Exam Head normocephalic and atraumatic Neck supple no JVD no goiter Lungs clear to auscultation bilaterally no wheezing or crackles Heart regular rate and rhythm S1-S2, no rub or gallop Abdomen is soft diffuse tenderness distended positive bowel sounds no hepatosplenomegaly Extremities no edema no cyanosis or clubbing Neuro alert and orientated to 3 no gross focal deficit - Labs CBC & Chem 7: 05/17/18 06:35 05/17/18 06:35 Labs: Abnormal Lab Results - Last 24 Hours (Table) 05/16/18 05/17/18 05/17/18 Range/Units 08:45 06:35 06:35 WBC 13.4 H (3.8-10.6) k/uL RBC 2.47 L (3.80-5.40) m/uL Hgb 7.0 L (11.4-16.0) gm/dL Hct 21.6 L (34.0-46.0) % RDW 16.3 H (11.5-15.5) % Plt Count 1095 H* (150-450) k/uL Neutrophils # (Manual) 11.90 H 8.20 H (1.3-7.7) k/uL Lymphocytes # (Manual) 0.80 L (1.0-4.8) k/uL Metamyelocytes # (Man) 0.13 H 0.11 H (0) k/uL Myelocytes # (Manual) 0.13 H 0.11 H (0) k/uL Nucleated RBCs 1 H (0-0) /100 WBC Carbon Dioxide 32 H (22-30) mmol/L BUN 6 L (7-17) mg/dL Creatinine 0.45 L (0.52-1.04) mg/dL Calcium 7.8 L (8.4-10.2) mg/dL Total Bilirubin 0.1 L (0.2-1.3) mg/dL Total Protein 4.6 L (6.3-8.2) g/dL Albumin 2.1 L (3.5-5.0) g/dL Microbiology - Last 24 Hours (Table) 05/11/18 23:44 Blood Culture - Preliminary Blood No Growth after 120 hours 05/11/18 10:36 Blood Culture - Preliminary Blood No Growth after 120 hours Assessment and Plan Plan: 1. Abdominal pain likely secondary to bilateral ovarian abscesses and adhesions. Patient is postop day 4 status post exploratory laparotomy, bilateral salpingo-oophorectomy and excision of tubo-ovarian abscesses bilaterally, lysis of adhesions and cystoscopy placement of bilateral open ended ureteral catheters. Wound culture growing E. coli. Infectious disease has adjusted antibiotics to Rocephin 2 g daily for 1 week and to continue Flagyl. 2. Hypotension likely secondary to sepsis. Resolved 3. Sepsis secondary to ovarian abscess area continue antibiotics. Continue to follow cultures. 4. Elevated d-dimer: Venous Doppler negative for DVT bilaterally. VQ scan low probability for PE 5. Right middle lobe infiltrate noted on admitting chest x-ray. Likely related to atelectasis. Doubt pneumonia. 6. UTI: Urine culture growing E. coli. Continue antibiotics 7. History of multiple sclerosis: Not on any medications due to side effects 8. History of rheumatoid arthritis 9. History of endometriosis with previous exploratory laparoscopic Surgeries 10. Anemia: Secondary to infection and iron deficiency anemia and expected acute blood loss anemia secondary to surgery. Total iron low at 7. Hemoglobin 7.4. Patient did require blood transfusion during this admission. Continue monitor CBC 11. Severe protein calorie malnutrition: Likely contributing to patient's lower extremity edema. Patient's diet is being advanced. PPN being titrated off. 12. Hypokalemia and hypomagnesemia. Improved with supplements 13. Thrombocytosis: Possibly secondary to infection and laparotomy with lysis of adhesions. Continue to monitor. GI prophylaxis IV Protonix and DVT prophylaxis subcu heparin Reviewed all consulting physician notes. Appreciate their recommendations.
--- NOTE | 2018-05-17 22:19 | PN ---
PROGRESS NOTE DATE OF SERVICE: 05/17/2018. REASON FOR FOLLOW UP: Pelvic abscess from infected ovarian cyst. INTERVAL HISTORY: The patient is afebrile. She has been breathing comfortably. Denies having any chest pain or cough. Abdominal pain is currently controlled. No nausea, no vomiting or diarrhea. EXAMINATION: Blood pressure is 114/69, pulse of 80, temperature 98.6. She is 95% on room air. GENERAL DESCRIPTION: A middle-aged female, lying in bed in no distress. RESPIRATORY SYSTEM: Unlabored breathing. Clear to auscultation anteriorly. HEART: S1, S2. Regular rate and rhythm. ABDOMEN: Soft, nontender. LABS: Hemoglobin 7, white count 10.6 with a BUN of 6, creatinine 0.45. DIAGNOSTIC IMPRESSION AND PLAN: Patient with pelvic abscess from infected ovarian weakness, status post drainage of the abscess. Culture has been positive for E coli that is sensitive to ciprofloxacin. The patient's white count has normalized. Plan at this time is to finish therapy with oral Cipro and Flagyl for at least 10 days to 2 weeks with close outpatient followup. Continue supportive care. MMODL / IJN: [id number] /
[2018-05-17] MEDS: cefTRIAXone 2,000 MG in SODIUM CHLORIDE 0.9% 100 ML IVPB SCH (23:26)
[2018-05-18] MEDS: metroNIDAZOLE-NS PMX 500 MG in SALINE 1 100ML.BAG IVPB SCH ×2 (01:10→07:52)
[2018-05-18] MEDS: HEPARIN SODIUM,PORCINE 5,000 UNIT/ML 1 ML VIAL SQ SCH ×3 (01:10→15:54)
[2018-05-18] MEDS: LACTATED RINGERS 1,000 ML IV SCH (01:49)
[2018-05-18 08:17] LABS: Anisocytosis Slight; Hypochromasia Slight; MCH 27.9 pg (25.0-35.0); MCHC 31.7 g/dL (31.0-37.0); MCV 87.9 fL (80.0-100.0); Mean Platelet Volume 6.9; Platelet Count 981 k/uL (150-450); RBC 2.51 m/uL (3.80-5.40); RDW 16.9 % (11.5-15.5); WBC 9.4 k/uL (3.8-10.6)
[2018-05-18 08:31] LABS: ALT 30 U/L (9-52); AST 36 U/L (14-36); Albumin 2.3 g/dL (3.5-5.0); Alkaline Phosphatase 85 U/L (38-126); Anion Gap 6 mmol/L; Blood Urea Nitrogen 5 mg/dL (7-17); Calcium 7.9 mg/dL (8.4-10.2); Carbon Dioxide 31 mmol/L (22-30); Chloride 103 mmol/L (98-107); Glucose 92 mg/dL (74-99); Magnesium 1.7 mg/dL (1.6-2.3); Potassium 3.5 mmol/L (3.5-5.1); Sodium 140 mmol/L (137-145); Total Bilirubin 0.2 mg/dL (0.2-1.3); Total Protein 4.9 g/dL (6.3-8.2)
[2018-05-18 08:36] LABS: Eosinophils # (M) 0.38 k/uL (0-0.7); Lymphocytes # (M) 0.94 k/uL (1.0-4.8); Monocytes # (M) 0.38 k/uL (0-1.0); Neutrophils # (M) 7.71 k/uL (1.3-7.7); Neutrophils % (M) 82 %; Nucleated Red Blood Cells 0 /100 WBC (0-0); Poikilocytosis (M) Present; Polychromasia Present; Total Cells Counted 100
[2018-05-18] MEDS: ASPIRIN 325 MG TAB PO SCH (09:07)
[2018-05-18] MEDS: PANTOPRAZOLE 40 MG/10 ML VIAL IVP SCH (09:07)
--- NOTE | 2018-05-18 11:48 | P.PN ---
Subjective Progress Note Date: 05/18/18 Principal diagnosis: Postoperative day #7, status post exploratory laparotomy, extensive adhesiolysis , bilateral salpingo-oophorectomy for bilateral large tubo-ovarian abscesses. Diarrhea continues but has improved. Energy level improved. Patient wishing to be discharged home. Objective - Vital Signs Vital signs: Vital Signs Temp 98.1 F 05/18/18 07:10 Pulse 82 05/18/18 09:13 Resp 14 05/18/18 07:10 BP 125/78 05/18/18 07:10 Pulse Ox 93 L 05/18/18 07:10 Intake & Output 05/17/18 05/18/18 05/18/18 18:59 06:59 18:59 Intake Total 240 240 Balance 240 240 Weight 83.4 kg Intake: Oral 240 240 Other: Voiding Method Toilet Toilet - Constitutional General appearance: Present: average body habitus, cooperative - EENT Eyes: Present: PERRLA ENT: Present: hearing grossly normal - Neck Carotids: bilateral: upstroke normal - Respiratory Respiratory: bilateral: CTA - Cardiovascular Rhythm: regular - Gastrointestinal General gastrointestinal: Present: normal bowel sounds - Integumentary Integumentary: Present: normal - Neurologic Neurologic: Present: CNII-XII intact - Musculoskeletal Musculoskeletal: Present: gait normal - Psychiatric Psychiatric: Present: A&O x's 3, appropriate affect, intact judgment & insight - Labs CBC & Chem 7: 05/18/18 07:27 05/18/18 07:27 Labs: Abnormal Lab Results - Last 24 Hours (Table) 05/18/18 05/18/18 Range/Units 07:27 07:27 RBC 2.51 L (3.80-5.40) m/uL Hgb 7.0 L (11.4-16.0) gm/dL Hct 22.0 L (34.0-46.0) % RDW 16.9 H (11.5-15.5) % Plt Count 981 H (150-450) k/uL Neutrophils # (Manual) 7.71 H (1.3-7.7) k/uL Lymphocytes # (Manual) 0.94 L (1.0-4.8) k/uL Carbon Dioxide 31 H (22-30) mmol/L BUN 5 L (7-17) mg/dL Creatinine 0.46 L (0.52-1.04) mg/dL Calcium 7.9 L (8.4-10.2) mg/dL Total Protein 4.9 L (6.3-8.2) g/dL Albumin 2.3 L (3.5-5.0) g/dL Microbiology - Last 24 Hours (Table) 05/11/18 23:44 Blood Culture - Final Blood No Growth after 144 hours 05/11/18 10:36 Blood Culture - Final Blood No Growth after 144 hours Assessment and Plan Assessment: Continued improvement, postoperative day #7. Patient wishing to be discharged home. Platelets normalizing. Hemoglobin stable at 7. Patient mildly weak but overall certainly in good position for self-care at home. C. difficile cultures negative. Final blood cultures negative. Plan: At this time we will remove the surgical clips, applied Mastisol and Steri- Strips. Patient may shower prior to staple removal. Begin ferrous sulfate 325 mg twice daily orally. Again the Flagyl and Cipro as decided by infectious disease. I reviewed with the patient no heavy lifting, no intercourse, no driving for 2 weeks. She will follow-up in the office with me in 2 weeks. At that time we will discuss appropriate hormone therapy pending symptomatology. Time with Patient: Greater than 30
[2018-05-18] MEDS ORDERED: SODIUM FERRIC GLUCONAT-SUCROSE 125 MG in SODIUM CHLORIDE 0.9% 100 ML IVPB ONE (13:26)
--- NOTE | 2018-05-18 14:04 | P.DS ---
Providers Date of admission: 05/04/18 13:52 Expected date of discharge: 05/18/18 Attending physician: Marito Ngo Consults: 05/04/18 10:46 Consult Physician Routine Consulting Provider: Cyril You Consult Reason/Comments: partial small bowel obstruction, jejunitis Do you want consulting provider notified?: Yes 05/04/18 10:48 Consult Physician Routine Consulting Provider: Zoie Gibson Consult Reason/Comments: large ovarian cysts. abnormal CT Do you want consulting provider notified?: Yes 05/06/18 12:08 Consult Physician Routine Consulting Provider: Sandi Recinos Consult Reason/Comments: fevers, enteritis Do you want consulting provider notified?: Yes 05/12/18 07:59 Consult Physician Urgent Consulting Provider: Justice Jimenez Consult Reason/Comments: ICU management Do you want consulting provider notified?: Already Contacted Primary care physician: Princess Cruz Hospital Course: Discharge diagnosis 1. Abdominal pain likely secondary to bilateral ovarian abscesses and adhesions. Patient is postop day 4 status post exploratory laparotomy, bilateral salpingo-oophorectomy and excision of tubo-ovarian abscesses bilaterally, lysis of adhesions and cystoscopy placement of bilateral open ended ureteral catheters. Wound culture growing E. coli. Treated with IV antibiotics. Infectious disease is recommending Cipro and Flagyl for 14 more days after discharge 2. Hypotension likely secondary to sepsis. Resolved 3. Sepsis secondary to ovarian abscess area continue antibiotics. Repeat blood cultures are negative 4. Elevated d-dimer: Venous Doppler negative for DVT bilaterally. VQ scan low probability for PE 5. Right middle lobe infiltrate noted on admitting chest x-ray. Likely related to atelectasis. Doubt pneumonia. 6. UTI: Urine culture growing E. coli. Completed treatment 7. History of multiple sclerosis: Not on any medications due to side effects 8. History of rheumatoid arthritis 9. History of endometriosis with previous exploratory laparoscopic Surgeries 10. Anemia: Secondary to infection and iron deficiency anemia and expected acute blood loss anemia secondary to surgery. Total iron low at 7. Hemoglobin 7.0. Patient did require blood transfusion during this admission. Place patient on ferrous sulfate 325 mg twice a day 11. Severe protein calorie malnutrition: Likely contributing to patient's lower extremity edema. Continue protein shakes 12. Hypokalemia and hypomagnesemia. Improved with supplements 13. Thrombocytosis: Possibly secondary to infection and laparotomy with lysis of adhesions. Platelets are continuing to show improvement. Check CBC in 1 week Hospital course This is a 47-year-old female, patient of Dr. Cruz. She has a known past medical history of multiple sclerosis, endometriosis requiring exploratory laparotomy 2 and rheumatoid arthritis. Patient reports abdominal pain started about 3 days ago mostly in the upper abdomen. She had a significant amount of diarrhea and and Friday. There was no blood reported in the stools. She was also having fevers as high as 101. The abdominal pain moved into the lower abdominal region. Pain was so severe she was having shortness of breath. And then on Friday she had stopped having any diarrhea and also stopped passing gas. During these 3 days she vomited twice. Patient came into the emergency room for further evaluation and treatment. She's found to have a temp of 101.4 she was tachycardic heart rate around 108. White count normal. Computed tomography scan showed partial small bowel obstruction with a transition within the left mid abdomen secondary to be containing of the small bowel wall. And consider jejunitis. Also reports multiple large cystic structures in the bilateral adnexa. Consider the possibility of pyosalpinx within the differential. Ovarian carcinoma is not excluded. We'll be ordering an abdominal and pelvic ultrasound for further evaluation. Patient is currently nothing by mouth. Started on Levaquin and IV Flagyl. Surgical and PHARMACY TECH[employer]OLOGY IN[employer]CTOR consults have been placed. Patient was found to have evidence of a possible pneumonia on chest x-ray. Chest x-ray reported suggestion of a right middle lobe infiltrate. Correlate for atelectasis or pneumonia. Patient does reports having a cough. Also evidence of a UTI. She has been having some dark urine as well as mild burning with urination. Culture has been obtained. She' s currently nothing by mouth and on my and on IV fluids. Patient denies any chest pain. Does report some nausea. Patient has never had any colonoscopy or EGD. Does report having history of scar tissue in the abdomen due to previous abdominal surgeries. Patient denies any recent traveling. Denies any sick contacts. 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 05/05/2018 patient reported improvement in her abdominal pain. She was passing gas this morning and then had a large liquid brown yellowish stool. At that time she felt that her stomach bloating was doing better. She had a low-grade temp of 100.3 and was given Tylenol with a few sips of water. After she taken the medication and water she started having abdominal pain. Abdominal x-ray showing signs of ileus. Transvaginal pelvic ultrasound showing a fibroid uterus. Multiple bilateral cystic lesions could represent hemorrhagic cysts, endometrioma, tubo-ovarian abscess, cyst adenoma or cyst adenocarcinoma not excluded. Patient is followed by PHARMACY TECHNOLOGY IN[employer]CTOR service, and they felt symptoms were likely related to endometriomas. Dr. Wray also noted that his abdominal pain was not related to any PHARMACY TECHNOLOGY INSTRUCTOR cause. Patient denies any vomiting. Reports that her urine is still dark. Burning with urination has resolved. Hemoglobin has dropped from 12.3-9.9. Patient denies any blood in the stools or black stools. Urine culture gram-negative bacilli. T-max 100.8. On 05/06/2018 patient is currently resting in bed. Patient is still having multiple loose stools last night and again this morning. Patient states this is still feels bloated abdominal discomfort. white blood cell increased to 20.8. Repeat CAT scan has been ordered per surgical services. Infectious disease consulted. At this time patient denies chest pain or shortness of breath. Patient denies any urinary burning or frequency. Patient is having abdominal pain denies any nausea or vomiting On 05/07/2018 patient is currently resting in bed. Patient states she's having some abdominal pain but it is improved from yesterday. At that time patient denies chest pain or shortness of breath. Patient is complaining cough is worse in a.m. Patient denies nausea vomiting or diarrhea. Patient denies any urinary burning or frequency. On 05/08/2018 patient is currently resting in bed. Patient is still complaining of some burning with urination and abdominal pain and bloating. Patient states she is having increased cough with production. Sputum culture has been ordered. Patient denies chest pain or shortness breath. Patient denies nausea vomiting or diarrhea. Patient denies any urinary frequency. On 05/09/2018 patient is feeling somewhat better she is still having significant abdominal pain and bloating but feels better than yesterday she is having cough without any sputum production she still has low-grade fever she is also complaining of nausea and diarrhea otherwise she denies any complaints at this time On 05/10/2018 patient was seen and examined on the medical floor she is still complaining of abdominal pain and diarrhea she is complaining of lower extremity swelling and discomfort today, otherwise she denies any complaints there is no fever or chills no headache or dizziness no chest pain no shortness of breath no cough and no urinary symptoms 05/11/2018 patient is having abdominal pain with abdominal distention. Also continues to have fevers. Repeat computed tomography scan of the abdomen and pelvis shows improvement in degree and small bowel dilation with contrast passing into large bowel and rectum. Ileus was suspected. Interval development of moderate right hydroureteronephrosis and delayed excretion of contrast from the right kidney secondary to an obstructing multiloculated large right adnexal mass. There is progressive enlargement of the left multicystic adnexal mass. Patient has been seen by PHARMACY TECHNOLOGY INSTRUCTOR service they're planning exploratory laparotomy with salpingectomy and oophorectomy with possible hysterectomy and bilateral ureteral stents. Patient denies any chest pain or shortness of breath. She does have lower extremity. She was given albumin and Lasix due to her low albumin levels yesterday. Denies any calf tenderness. T- max 101. White count 20.4. Potassium is 3.4 patient receiving supplement. 05/12/2018 patient is postop day #1 status post exploratory laparotomy, bilateral salpingo-oophorectomy and excision of tubo-ovarian abscesses bilaterally also had cystoscopy placement of bilateral open ended ureteral catheters. Patient required transfer to the ICU during the evening due to hypotension and fever concerns for sepsis. Critical care was placed on consult. She has not required any IV pressors. She is on IV antibiotics cefepime and Flagyl. Cultures were obtained of the abscesses. Results are pending. Patient's white count is 28.4 T-max 101.4. Urine output adequate. Patient reports that her pain is controlled. Denies any chest pain or shortness of breath. Denies any nausea or vomiting. Does have NG tube in place. On 05/13/2018 patient is currently postop day 2 status post exposure to lab, bilateral salpingo-oophorectomy and excision of tubo-ovarian abscess bilaterally also had cystoscopy placement of bilateral open-ended ureteral catheters. Patient remains in the intensive care unit. Epidural remains in place for adequate pain control. White blood cell improving to 20.9. Patient' s hemoglobin dropping to 5.9. 1 unit of PRBCs have been ordered. And she remains in place. Patient is tolerating ice chips at this time. At this time patient denies chest pain or shortness of breath. Patient denies nausea vomiting or diarrhea. 05/14/2018 patient remains in the ICU. She was able to get out of bed and sitting in bedside chair. NG tube an epidural catheter removed this morning. PHARMACY TECHNOLOGY INSTRUCTOR service added Toradol for pain control. Patient denies any chest pain or shortness of breath. She has a slight cough. Complains of dizziness. Denies any nausea or vomiting. No gas or bowel movement yet. Still is alvarado catheter in place. Patient has been downgraded to MedSurg floor. 05/15/18 Patient in ICU but is downgraded to MedSurg. Patient had full catheter removed this morning. She is being weaned off of the PPN. White count has normalized from 14.7-10.5. She'll be placed on a regular diet this afternoon. She's had multiple bowel movements starting yesterday. Denies any nausea or vomiting. Did have a low-grade temp of 100.3 last night. Hemoglobin has gone up from 7-7.4 platelets are elevated at 1042. Venous Doppler of the left leg negative for DVT. On 05/16/2018 patient was seen and examined she is alert and oriented 3 in no apparent distress she is having multiple loose bowel movements she denies any fever or chills no headache or dizziness no chest pain no shortness of breath no nausea or vomiting she has mild diffuse abdominal pain and no urinary symptoms On 05/17/2018 patient was seen and examined on the fourth medical floor she is alert and oriented in no apparent distress, post surgical pain is well- controlled, there is no fever or chills no headache or dizziness no chest pain no shortness of breath no cough no nausea or vomiting and no urinary symptoms. Hemoglobin is down to 7 today 05/18/2018 patient is medically stable for discharge. She we'll continue antibiotic treatment for her ovarian abscesses that culture had grown E. coli. Infectious diseases recommending Cipro and Flagyl for 14 more days. Patient will follow-up with infectious disease in 1 week. She'll also be following up with Dr. Jeronimo of her in 2 weeks. Patient's white count has normalized she is afebrile. Her platelets are showing improvement and again likely this was elevated due to her acute infection and stress response. Hemoglobin is remaining stable at 7. She'll continue ferrous sulfate 3 and 25 mg twice a day. She's received 2 doses of IV iron during this admission. We'll have her have a CBC checked in 1 week. Diarrhea showing improvement stool for C. diff was negative. Patient has been cleared by consulting physicians for discharge. She'll follow-up with him in the office. Please refer to chart for any further details. Patient will also be following up with Dr. Ngo in 1 week Patient Condition at Discharge: Stable Plan - Discharge Summary Discharge Rx Participant: Yes New Discharge Prescriptions: New Ciprofloxacin HCl [Cipro] 500 mg PO Q12H 14 Days #28 tab Ferrous Sulfate [Feosol] 325 mg PO BID #60 tab metroNIDAZOLE [Flagyl] 500 mg PO Q8HR #42 tab Continue Ascorbic Acid/Multivit-Min [Emergen-C 1,000 mg Packet] 1,000 mg PO DAILY Changed Aspirin 325 mg PO DAILY #0 Discharge Medication List Ascorbic Acid/Multivit-Min [Emergen-C 1,000 mg Packet] 1,000 mg PO DAILY [History] Aspirin 325 mg PO DAILY #0 05/18/18 [Rx] Ciprofloxacin HCl [Cipro] 500 mg PO Q12H 14 Days #28 tab 05/18/18 [Rx] Ferrous Sulfate [Feosol] 325 mg PO BID #60 tab 05/18/18 [Rx] metroNIDAZOLE [Flagyl] 500 mg PO Q8HR #42 tab 05/18/18 [Rx] Follow up Appointment(s)/Referral(s): Sandi Recinos MD [STAFF PHYSICIAN] - 1 Week Zoie Gibson MD [STAFF PHYSICIAN] - 2 Weeks Cyril You MD [Medical Doctor] - 1 Week Marito Ngo MD [STAFF PHYSICIAN] - 1 Week Activity/Diet/Wound Care/Special Instructions: Diet: regular Activity: as tolerated Discharge Disposition: HOME SELF-CARE
[2018-05-18] MEDS ORDERED: diphenhydrAMINE 25 MG CAP PO PRN (14:32)
[2018-05-18 14:53] VITALS: BP 125/76; PULSE 79; RESP 16; TEMP 98.7
[2018-05-18] MEDS ORDERED: metroNIDAZOLE 500 MG TAB PO SCH (16:00)
--- NOTE | 2018-05-18 20:07 | PN ---
PROGRESS NOTE DATE OF SERVICE: 05/18/2018. REASON FOR FOLLOWUP: Pelvic abscess from an infected ovarian cyst. INTERVAL HISTORY: The patient is currently afebrile. She is feeling better. Breathing comfortably. Denies having any chest pain or shortness of breath. No nausea, no vomiting. No diarrhea. EXAMINATION: Blood pressure 125/76, pulse of 79, temperature 98.7. She is 97% on room air. General description is a middle-aged female up in the chair in no distress. RESPIRATORY SYSTEM: Unlabored breathing. Clear to auscultation anteriorly. HEART: S1, S2. Regular rate and rhythm. ABDOMEN: Soft, no tenderness. LABS: Hemoglobin is 7, white count 9.4 with a BUN of 5, creatinine 0.46. DIAGNOSTIC IMPRESSION AND PLAN: Patient with a pelvic abscess from infected ovarian cyst, status post drainage of the abscess. Culture positive for E coli that is sensitive pathogen. Patient did show overall improvement. Her fever is resolved. White count normal. She will finish therapy with oral Cipro and Flagyl for 10 days with close outpatient followup. Continue supportive care. MMODL / IJN: [id number] /
== END 2018-05-18 17:05 | disposition home or self-care (01) | DRG 853 ==
LOC: EC 12:41 → 4SSUR 17:58 → OBSVTOIN 05-04 13:52 → 2SICU 05-12 00:09 → 4MS4W 05-15 14:49 → 2SICU 05-15 14:50 → 4MS4W 05-15 16:11 → 4SSUR 05-16 13:28
PROVIDERS: ADMIT Internal Medicine; ATTEND Internal Medicine
PROC: 0DN80ZZ Release Small Intestine, Open Approach (ICD-10-PCS; 2018-05-11)
PROC: 0T788DZ Dilation of Bilateral Ureters with Intraluminal Device, Via Natural or Artificial Opening Endoscopic (ICD-10-PCS; 2018-05-11)
PROC: 0UT20ZZ Resection of Bilateral Ovaries, Open Approach (ICD-10-PCS; principal; 2018-05-11 09:55)
PROC: 0UT70ZZ Resection of Bilateral Fallopian Tubes, Open Approach (ICD-10-PCS; 2018-05-11 09:55)
PROC: 0DNN0ZZ Release Sigmoid Colon, Open Approach (ICD-10-PCS; 2018-05-11 09:55)
DX: A41.51 Sepsis due to Escherichia coli [E. coli] (principal); E43 Unspecified severe protein-calorie malnutrition; J18.9 Pneumonia, unspecified organism; N39.0 Urinary tract infection, site not specified; D62 Acute posthemorrhagic anemia; J98.11 Atelectasis; K56.600 Partial intestinal obstruction, unspecified as to cause; K56.7 Ileus, unspecified; N13.6 Pyonephrosis; N70.03 Acute salpingitis and oophoritis; R65.20 Severe sepsis without septic shock; D25.9 Leiomyoma of uterus, unspecified; D50.9 Iron deficiency anemia, unspecified; E83.42 Hypomagnesemia; E87.6 Hypokalemia; F32.9 Major depressive disorder, single episode, unspecified; F41.9 Anxiety disorder, unspecified; G35 Multiple sclerosis; I10 Essential (primary) hypertension; K52.9 Noninfective gastroenteritis and colitis, unspecified; M06.9 Rheumatoid arthritis, unspecified; N73.6 Female pelvic peritoneal adhesions (postinfective); N80.9 Endometriosis, unspecified; N92.0 Excessive and frequent menstruation with regular cycle; Z80.3 Family history of malignant neoplasm of breast; Z82.49 Family history of ischemic heart disease and other diseases of the circulatory system; Z82.5 Family history of asthma and other chronic lower respiratory diseases; Z88.1 Allergy status to other antibiotic agents; Z88.2 Allergy status to sulfonamides; Z79.82 Long term (current) use of aspirin; D47.3 Essential (hemorrhagic) thrombocythemia; Z88.4 Allergy status to anesthetic agent; Z88.5 Allergy status to narcotic agent; Z88.8 Allergy status to other drugs, medicaments and biological substances; Z87.01 Personal history of pneumonia (recurrent)
CPT/HCPCS: 36415; 71046; 71260; 74019; 74177; 76830; 76856; 78582; 80048; 80053; 81001; 81003; 81025; 81503; 82150; 82272; 82330; 83036; 83540; 83550; 83605; 83690; 83735; 84100; 84132; 84478; 84484; 84703; 85025; 85027; 85379; 86850; 86900; 86901; 86920; 87040; 87045; 87046; 87070; 87075; 87077; 87086; 87186; 87205; 87324; 87328; 87329; 87502; 88305; 93005; 93970; 96361; 96365; 96366; 96375; 99285

== ENCOUNTER → 2018-08-26 | Outpatient (CLI) | payer BC ==
[2018-08-26 20:16] LABS: Gliadin AB IgA, Unit <0.2 U/mL
[2018-08-27 12:36] LABS: Immunoglobulin A 88.5 mg/dL (60.0-350.0)
== END | disposition home or self-care (01) ==
LOC: LABWHC1 12:11
PROVIDERS: ATTEND Allergy & Immunology
DX: K59.09 Other constipation (principal); R10.9 Unspecified abdominal pain
CPT/HCPCS: 36415; 82784; 83516; 86255

== ENCOUNTER → 2018-08-31 | Outpatient (CLI) | payer BC ==
--- NOTE | 2018-08-31 11:44 | CT ---
EXAMINATION TYPE: CT abdomen pelvis w con DATE OF EXAM: 08/31/2018 HISTORY: Abdominal pain CT DLP: 1591mGycm Automated Exposure Control for Dose Reduction was Utilized. CONTRAST: CT scan of the abdomen and pelvis is performed with IV Contrast, patient injected with 100 ml mL of I sovue 300. COMPARISON: 05/12/2018. FINDINGS: LUNG BASES: No significant abnormality is appreciated. LIVER/GB: Liver is elongated extending into the left upper quadrant focal area of hypoattenuation chery r the fissure for the falciform ligament is again most commonly related to focal fatty infiltration. Gallbladder is unremarkable without cholelithiasis. PANCREAS: No significant abnormality is seen. SPLEEN: No significant abnormality is seen. No splenomegaly. ADRENALS: No significant abnormality is seen. KIDNEYS: The previously seen right-sided hydronephrosis has resolved in the interim. Kidneys enhance and excrete symmetrically. BOWEL: Sigmoid bowel wall thickening and decompression is present as described below. This is most no table on series 3 image 61 through 63 for present in the long segment. No dilated large or small maninder l to suggest obstruction. UTERUS/ADNEXA: The previously seen multi cystic complex ovarian masses have resolved in the interim, however the uterus remains diffusely heterogenous with numerous arterially enhancing lesions measurin g up to 1.9 cm. There is also bulkiness within the lower uterine segment and cervix and direct visual ization is recommended. The adjacent sigmoid colon appears hyperemic with bowel wall thickening and n ondistention, possibly reactive. LYMPH NODES: No greater than 1cm abdominal or pelvic lymph nodes are appreciated. OSSEOUS STRUCTURES: No significant abnormality is seen. OTHER: Scarring within the pelvic midline subcutaneous tissues is seen from prior surgical interventi on. IMPRESSION: 1. Although there is resolution of the previously seen multiloculated cystic ovarian masses the uteru s remains diffusely heterogenous with numerous arterial enhancing lesions that are suspicious. These could relate to leiomyomas although leiomyosarcoma is not excluded on CT. Additionally there is bulki ness of the cervix and arterial enhancement. Direct visualization is recommended for the cervix and M RI could further assess the uterus. 2. There is decompression and bowel wall thickening of the portion of the sigmoid that abuts the hete rogenous uterus that could be reactive or related to infectious/inflammatory colitis.
== END | disposition home or self-care (01) ==
LOC: RADCTMAIN 08:17
PROVIDERS: ATTEND Internal Medicine
DX: K63.89 Other specified diseases of intestine (principal)
CPT/HCPCS: 74177; Q9967

== ENCOUNTER → 2018-09-02 | Outpatient (CLI) | payer BC ==
[2018-09-02 12:25] LABS: HCT 42.6 % (34.0-46.0); HGB 13.5 gm/dL (11.4-16.0); MCH 26.5 pg (25.0-35.0); MCHC 31.8 g/dL (31.0-37.0); MCV 83.5 fL (80.0-100.0); Mean Platelet Volume 6.5; Platelet Count 387 k/uL (150-450); RDW 13.4 % (11.5-15.5); WBC 5.3 k/uL (3.8-10.6)
[2018-09-02 12:55] LABS: Monocytes # (M) 0.48 k/uL (0-1.0); Neutrophils # (M) 3.92 k/uL (1.3-7.7); Neutrophils % (M) 74 %; Nucleated Red Blood Cells 0 /100 WBC (0-0); Total Cells Counted 100
[2018-09-02 17:34] LABS: Shrimp IgE <0.10 kU/L
[2018-09-03 12:51] LABS: IgG Subclass 3 25.5 mg/dL (11.0-85.0); IgG Subclass 4 7.2 mg/dL (3.0-175.0); Immunoglobulin A 88.9 mg/dL (60.0-350.0)
[2018-09-04 08:14] LABS: Crab IgE <0.35 kU/L (<0.35); Crab IgE Class CLASS 0; Lobster IgE <0.35 kU/L (<0.35); Lobster IgE Class CLASS 0
== END | disposition home or self-care (01) ==
LOC: LABWHC1 11:00
PROVIDERS: ATTEND Allergy & Immunology
DX: J30.9 Allergic rhinitis, unspecified (principal); R10.9 Unspecified abdominal pain; M06.9 Rheumatoid arthritis, unspecified; Z91.018 Allergy to other foods
CPT/HCPCS: 36415; 82784; 82785; 82787; 85025; 86003

== ENCOUNTER → 2018-09-28 | Outpatient (CLI) | payer BC ==
--- NOTE | 2018-09-29 11:37 | MM ---
Reason for exam: screening (asymptomatic). Last mammogram was performed 1 year and 1 month ago. History: Patient is nulliparous. Family history of breast cancer in sister at age 51. Physical Findings: A clinical breast exam by your physician is recommended on an annual basis and results should be correlated with mammographic findings. MG 3D Screening Mammo W/Cad Bilateral CC, MLO, and XCCL view(s) were taken. Prior study comparison: September 04, 2017, bilateral MG 3d screening mammo w/cad. May 29, 2016, bilateral MG screening mammo w CAD. The breast tissue is extremely dense which could obscure a lesion on mammography. Left lateral anterior depth asymmetry 2.4cm from nipple. ASSESSMENT: Incomplete: need additional imaging evaluation, BI-RAD 0 RECOMMENDATION: Special view mammogram of the left breast. If lesion persists on supplemental views, image directed ultrasound is recommended. [facility] will attempt to contact patient to return for supplemental views and ultrasound if indicated.
== END | disposition home or self-care (01) ==
LOC: RADMAMWWP 10:00
PROVIDERS: ATTEND Internal Medicine
DX: Z12.31 Encounter for screening mammogram for malignant neoplasm of breast (principal)
CPT/HCPCS: 77063; 77067

== ENCOUNTER → 2018-10-06 | Outpatient (CLI) | payer BC ==
--- NOTE | 2018-10-06 11:25 | MM ---
Reason for exam: additional evaluation requested from abnormal screening. Last mammogram was performed less than 1 month ago. History: Patient is postmenopausal and is nulliparous. Family history of breast cancer in sister at age 51. Took hormonal contraceptives for 1 year beginning at age 23. Physical Findings: Nurse did not find any significant physical abnormalities on exam. MG 3D Work Up W/Cad LT Spot compression CC and LM view(s) were taken of the left breast. Prior study comparison: September 28, 2018, bilateral MG 3d screening mammo w/cad. September 04, 2017, bilateral MG 3d screening mammo w/cad. There is no discrete abnormality including area of concern. These results were verbally communicated with the patient and result sheet given to the patient on 10/06/18. ASSESSMENT: Probably benign, BI-RAD 3 RECOMMENDATION: Follow-up diagnostic mammogram of the left breast in 6 months.
== END | disposition home or self-care (01) ==
LOC: RADMAMWWP 10:24
PROVIDERS: ATTEND Internal Medicine
DX: R92.8 Other abnormal and inconclusive findings on diagnostic imaging of breast (principal)
CPT/HCPCS: 77061; 77065

== ENCOUNTER → 2019-03-18 | Outpatient (CLI) | payer BC ==
--- NOTE | 2019-03-18 16:04 | US ---
EXAMINATION TYPE: US thyroid st tissue head/neck DATE OF EXAM: 03/18/2019 COMPARISON: Ultrasound 10/02/2017 CLINICAL HISTORY: E04.2 MULTINODULAR GOITER. GLAND SIZE: Right Lobe: 5.4 x 1.3 x 1.5 cm Overall Parenchyma: homogenous Left Lobe: 4.9 x 1.1 x 1.7 cm Overall Parenchyma: homogeneous Isthmus Thickness: 0.3 cm NODULES RIGHT: # of nodules measured on right: 3 1. 1.4 X 0.7 x 1.0 cm hypoechoic cystic nodule at the upper pole with well-defined margins; . This nodule is wider than tall and shows no intranodular vascularity. Prior size: 1.3 x 0.6 x 1.0 cm 2. 0.4 X 0.3 x 0.4 cm hypoechoic cystic nodule at the upper pole with well-defined margins; . This nodule is wider than tall and shows no intranodular vascularity. Prior size: 0.5 x 0.3 x 0.4 cm 3. 0.3 X 0.3 x 0.3 cm echogenic calcified nodule at the mid pole with well-defined margins; . This nodule is wider than tall and shows no intranodular vascularity. Prior size: 0.3 x 0.3 x 0.3 cm LEFT: # of nodules measured on left: 4 1. 1.7 X 1.1 x 1.0 cm hypoechoic mixed nodule at the lower pole with well-defined margins; . This nodule is wider than tall and shows intranodular vascularity. Prior size: 1.6 x 1.1 x 0.9 cm 2. 0.8 X 0.3 x 0.5 cm hypoechoic solid nodule at the lower pole with well-defined margins; . This n odule is wider than tall and shows intranodular vascularity. Prior size: 0.8 x 0.4 x 0.6 cm 3. 0.7 X 0.4 x 0.6 cm hypoechoic solid nodule at the upper pole with well-defined margins; . This n odule is wider than tall and shows intranodular vascularity. Prior size: 0.7 x 0.5 x 0.7 cm 4. 0.7 X 0.4 x 0.5 cm hypoechoic cystic nodule at the mid pole with well-defined margins; . This no dule is wider than tall and shows no intranodular vascularity. Prior size: 0.8 x 0.4 x 0.5 cm ISTHMUS: # of nodules measured in the isthmus: 0 Bilateral neck scanned, no evidence of lymphadenopathy. Multiple subcentimeter cystic nodules scattered throughout right lobe. IMPRESSION: Stable bilateral multinodular thyroid changes with no significant interval change relative to the avery or exam.
== END | disposition home or self-care (01) ==
LOC: RADUSWWP 14:58
PROVIDERS: ATTEND Internal Medicine Endocrinology, Diabetes & Metabolism
DX: E04.2 Nontoxic multinodular goiter (principal)
CPT/HCPCS: 76536

== ENCOUNTER → 2019-03-29 | Outpatient (CLI) | payer BC ==
--- NOTE | 2019-03-29 14:49 | MM ---
Reason for exam: follow-up at short interval from prior study. Last mammogram was performed 6 months ago. History: Patient is postmenopausal and is nulliparous. Family history of breast cancer in sister at age 51. Took hormonal contraceptives for 1 year beginning at age 23. Physical Findings: Nurse did not find any significant physical abnormalities on exam. MG 3D Diag Mammo W/Cad LT CC, MLO, and ML view(s) were taken of the left breast. Prior study comparison: October 06, 2018, left breast MG 3d work up w/cad LT. September 28, 2018, bilateral MG 3d screening mammo w/cad. The breast tissue is heterogeneously dense. This may lower the sensitivity of mammography. The previously seen abnormality resolves on additional views and appears as fibroglandular tissue compatible with summation. No suspicious abnormality. No abnormality persists on the left. These results were verbally communicated with the patient and result sheet given to the patient on 03/29/19. ASSESSMENT: Negative, BI-RAD 1 RECOMMENDATION: Return to routine screening mammogram schedule for both breasts. Back on schedule for September 2019.
== END ==
LOC: RADMAMWWP 13:01
PROVIDERS: ATTEND Internal Medicine
DX: R92.8 Other abnormal and inconclusive findings on diagnostic imaging of breast (principal)
CPT/HCPCS: 77061; 77065

== ENCOUNTER → 2019-07-28 | Outpatient (CLI) | payer BC ==
[2019-07-28 15:43] LABS: HCT 42.7 % (34.0-46.0); HGB 14.1 gm/dL (11.4-16.0); MCH 28.8 pg (25.0-35.0); MCHC 32.9 g/dL (31.0-37.0); MCV 87.5 fL (80.0-100.0); Mean Platelet Volume 7.6; Platelet Count 298 k/uL (150-450); RBC 4.88 m/uL (3.80-5.40); RDW 12.8 % (11.5-15.5); WBC 5.7 k/uL (3.8-10.6)
[2019-07-28 17:17] LABS: Eosinophils # (M) 0.11 k/uL (0-0.7); Lymphocytes # (M) 1.54 k/uL (1.0-4.8); Monocytes # (M) 0.63 k/uL (0-1.0); Neutrophils # (M) 3.42 k/uL (1.3-7.7); Neutrophils % (M) 60 %; Nucleated Red Blood Cells 0 /100 WBC (0-0); Total Cells Counted 100
[2019-07-28 17:18] LABS: Large Platelets Present; Polychromasia Present
== END | disposition home or self-care (01) ==
LOC: LABWHC1 15:11
PROVIDERS: ATTEND Allergy & Immunology
DX: D72.810 Lymphocytopenia (principal)
CPT/HCPCS: 36415; 85025

== ENCOUNTER → 2020-10-10 | Outpatient (CLI) | payer BC ==
[2020-10-10 09:18] LABS: ALT 11 U/L (4-34); AST 25 U/L (14-36); African American GFR (CKD) >90 (>60 ml/min/1.73 sqM); Albumin 4.7 g/dL (3.5-5.0); Alkaline Phosphatase 110 U/L (38-126); Anion Gap 8 mmol/L; Blood Urea Nitrogen 14 mg/dL (7-17); Carbon Dioxide 31 mmol/L (22-30); Chloride 102 mmol/L (98-107); Glucose 87 mg/dL (74-99); Non-African American GFR(CKD) 84 (>60 ml/min/1.73 sqM); Potassium 4.1 mmol/L (3.5-5.1); Sodium 141 mmol/L (137-145); Total Bilirubin 0.9 mg/dL (0.2-1.3); Total Protein 7.7 g/dL (6.3-8.2)
[2020-10-10 09:33] LABS: T4, Free (Free Thyroxine) 1.29 ng/dL (0.78-2.19)
[2020-10-10 10:07] LABS: HCT 45.5 % (34.0-46.0); HGB 15.2 gm/dL (11.4-16.0); MCH 29.6 pg (25.0-35.0); MCHC 33.4 g/dL (31.0-37.0); MCV 88.8 fL (80.0-100.0); Mean Platelet Volume 8.1; Platelet Count 276 k/uL (150-450); RBC 5.13 m/uL (3.80-5.40); RDW 13.1 % (11.5-15.5); WBC 5.3 k/uL (3.8-10.6)
--- NOTE | 2020-10-10 10:34 | MM ---
Reason for exam: screening (asymptomatic). Last mammogram was performed 1 year and 6 months ago. History: Patient is postmenopausal and is nulliparous. Family history of breast cancer in sister at age 51. Took hormonal contraceptives for 1 year beginning at age 23. Physical Findings: A clinical breast exam by your physician is recommended on an annual basis and results should be correlated with mammographic findings. MG 3D Screening Mammo W/Cad Bilateral CC and MLO view(s) were taken. Prior study comparison: March 29, 2019, left breast MG 3d diag mammo w/cad LT. October 06, 2018, left breast MG 3d work up w/cad LT. The breast tissue is heterogeneously dense. This may lower the sensitivity of mammography. There are benign appearing round calcifications bilaterally. There is no discrete abnormality. ASSESSMENT: Benign, BI-RAD 2 RECOMMENDATION: Routine screening mammogram of both breasts in 1 year.
[2020-10-10 12:24] LABS: Erythrocyte Sedimentation Rate 6 mm/hr (0-20)
[2020-10-10 14:44] LABS: Basophils # (M) 0.05 k/uL (0-0.2); Eosinophils # (M) 0.16 k/uL (0-0.7); Lymphocytes # (M) 1.27 k/uL (1.0-4.8); Monocytes # (M) 0.16 k/uL (0-1.0); Neutrophils # (M) 3.66 k/uL (1.3-7.7); Neutrophils % (M) 69 %; Nucleated Red Blood Cells 0 /100 WBC (0-0); Total Cells Counted 100
== END | disposition home or self-care (01) ==
LOC: RADMAMWWP 07:16
PROVIDERS: ATTEND Internal Medicine
DX: Z12.31 Encounter for screening mammogram for malignant neoplasm of breast (principal); Z80.3 Family history of malignant neoplasm of breast; Z78.0 Asymptomatic menopausal state
CPT/HCPCS: 77063; 77067; 80053; 82306; 84439; 84443; 85025; 85652; 86140; 86769

== ENCOUNTER 2022-01-17 03:20 | Emergency (ER) | payer BC ==
[2022-01-17 03:32] VITALS: PULSE 83; RESP 18; TEMP 98.5
[2022-01-17 04:11] LABS: Appearance,Urine Turbid (Clear); Bilirubin,Urine Negative (Negative); Blood,Urine Large (Negative); Color,Urine Dark Red; Glucose,Urine (UA) Negative (Negative); Ketones,Urine Negative (Negative); Leukocyte Esterase,Urine Large (Negative); Mucus,Urine Occasional /hpf; Nitrite,Urine Negative (Negative); Protein,Urine 2+ (Negative); RBC,Urine >182 /hpf (0-5); Urobilinogen,Urine <2.0 mg/dL (<2.0); WBC,Urine >182 /hpf (0-5)
[2022-01-17 04:13] LABS: Specific Gravity,Urine 1.014 (1.001-1.035)
[2022-01-17] MEDS ORDERED: KETOROLAC 15 MG/ML 1 ML VIAL IVP STA (04:26)
[2022-01-17] MEDS ORDERED: PHENAZOPYRIDINE 100 MG TAB PO STA (04:26)
[2022-01-17 04:48] LABS: HCT 48.8 % (34.0-46.0); HGB 15.8 gm/dL (11.4-16.0); MCH 30.1 pg (25.0-35.0); MCHC 32.4 g/dL (31.0-37.0); MCV 92.8 fL (80.0-100.0); Mean Platelet Volume 7.6; Platelet Count 301 k/uL (150-450); RBC 5.26 m/uL (3.80-5.40); RDW 13.7 % (11.5-15.5); WBC 13.4 k/uL (3.8-10.6)
--- NOTE | 2022-01-17 04:51 | XR ---
EXAMINATION TYPE: XR KUB DATE OF EXAM: 01/17/2022 COMPARISON: 05/05/2018 HISTORY: Blood in urine TECHNIQUE: 2 views Upright FINDINGS: There is no sign of intestinal obstruction or pneumoperitoneum. Fecal pattern is normal. No evidence of a mass. No calcifications seen over the kidneys. IMPRESSION: Nonacute abdomen. There is clearing of the intestinal dilated loops compared to old exam
[2022-01-17 04:58] LABS: ALT 12 U/L (4-34); AST 21 U/L (14-36); African American GFR (CKD) >90 (>60 ml/min/1.73 sqM); Albumin 4.6 g/dL (3.5-5.0); Alkaline Phosphatase 118 U/L (38-126); Amylase 88 U/L (30-110); Anion Gap 12 mmol/L; Blood Urea Nitrogen 15 mg/dL (7-17); Calcium 9.6 mg/dL (8.4-10.2); Carbon Dioxide 23 mmol/L (22-30); Chloride 103 mmol/L (98-107); Glucose 108 mg/dL (74-99); Lipase 88 U/L (23-300); Non-African American GFR(CKD) 81 (>60 ml/min/1.73 sqM); Potassium 4.6 mmol/L (3.5-5.1); Sodium 138 mmol/L (137-145); Total Bilirubin 0.4 mg/dL (0.2-1.3); Total Protein 7.5 g/dL (6.3-8.2)
[2022-01-17 05:09] LABS: Band Neutrophils % 16 %; Eosinophils # (M) 0.27 k/uL (0-0.7); Lymphocytes # (M) 1.34 k/uL (1.0-4.8); Monocytes # (M) 0.54 k/uL (0-1.0); Neutrophils % (M) 68 %; Nucleated Red Blood Cells 0 /100 WBC (0-0); Total Cells Counted 100
[2022-01-17 05:10] LABS: Toxic Granulation Present
[2022-01-17 07:24] VITALS: BP 102/71
--- NOTE | 2022-02-15 12:33 | ED ---
Female Urogenital HPI - General Chief complaint: Urogenital Stated complaint: blood in urine Time Seen by Provider: 01/17/22 03:26 Source: patient Mode of arrival: wheelchair - History of Present Illness Initial comments: This patient is a 51-year-old woman who presents with multiple planes related to urination that came on she states after she had an episode of more forceful and normal urination. She states she also may have seen some blood in urine following that. She has not noted fever or chills. No loss of continence. No upper abdominal pain though there is some suprapubic discomfort. MD Complaint: dysuria -: hour(s) Location: suprapubic Radiation: non-radiating Severity: moderate Quality: burning Consistency: constant Improves with: none Worsens with: urination - Related Data Home Medications Medication Instructions Recorded Confirmed Ascorbic Acid/Multivit-Min 1,000 mg PO DAILY 05/03/18 05/03/18 [Emergen-C 1,000 mg Packet] Previous Rx's Medication Instructions Recorded Aspirin 325 mg PO DAILY #0 05/18/18 Ciprofloxacin HCl [Cipro] 500 mg PO Q12H 14 Days #28 tab 05/18/18 Ferrous Sulfate [Feosol] 325 mg PO BID #60 tab 05/18/18 metroNIDAZOLE [Flagyl] 500 mg PO Q8HR #42 tab 05/18/18 Cephalexin [Keflex] 500 mg PO Q6HR #28 cap 01/17/22 Phenazopyridine [Pyridium] 100 mg PO TID #6 tablet 01/17/22 Allergies Allergy/AdvReac Type Severity Reaction Status Date / Time amoxicillin [Amoxicillin] Allergy Severe Rash/Hives Verified 01/17/22 03:32 alprazolam [From Xanax] AdvReac Severe Unknown Verified 01/17/22 03:32 morphine AdvReac Severe Itching Verified 01/17/22 03:32 sulfamethoxazole AdvReac Severe Dyspnea Verified 01/17/22 03:32 [From Bactrim] trimethoprim [From Bactrim] AdvReac Severe Dyspnea Verified 01/17/22 03:32 ciprofloxacin [From Cipro] AdvReac Unknown Verified 01/17/22 03:32 Milk Containing Products AdvReac Nausea & Verified 01/17/22 03:33 [Dairy] Vomiting & Diarrhea tree nut [Nut] AdvReac Nausea & Verified 01/17/22 03:33 Vomiting & Diarrhea novacaine AdvReac Severe Rapid Uncoded 01/17/22 03:32 Heart Rate Review of Systems ROS Statement: Those systems with pertinent positive or pertinent negative responses have been documented in the HPI. ROS Other: All systems not noted in ROS Statement are negative. Constitutional: Denies: fever, chills, weakness Respiratory: Denies: cough, dyspnea Cardiovascular: Denies: chest pain, palpitations Gastrointestinal: Reports: as per HPI, abdominal pain. Denies: nausea, vomiting, diarrhea Genitourinary: Reports: dysuria, hematuria. Denies: frequency Musculoskeletal: Denies: back pain Skin: Denies: rash Neurological: Denies: headache, weakness, numbness Past Medical History Past Medical History: Neurologic Disorder, Pneumonia, Rheumatoid Arthritis (RA) Additional Past Medical History / Comment(s): MULTIPLE SCLEROSIS. ENDOMETRIOSIS. RIGHT KIDNEY ENLARGED History of Any Multi-Drug Resistant Organisms: None Reported Past Surgical History: Orthopedic Surgery Additional Past Surgical History / Comment(s): EXP. LAP FOR ENDOMETRIOSIS X2 WITH SCAR TISSUE ON OVARIES. ADENEXAL CYSTIC DRAINAGE DUE TO PRESSURE ON URETHERA Past Anesthesia/Blood Transfusion Reactions: Previous Problems w/ Anesthesia Additional Past Anesthesia/Blood Transfusion Reaction / Comment(s): NOVACAINE. IT CAUSED INCREASED HEART RATE. Past Psychological History: Anxiety, Depression Smoking Status: Never smoker Past Alcohol Use History: None Reported Past Drug Use History: None Reported - Past Family History Mother Family Medical History: Cancer, Thyroid Disorder Father Additional Family Medical History / Comment(s): , Heart Attack at 57 Sister(s) Family Medical History: Cancer Additional Family Medical History / Comment(s): Breast Cancer General Exam General appearance: alert, in no apparent distress Head exam: Present: atraumatic, normocephalic Eye exam: Present: normal appearance. Absent: scleral icterus, conjunctival injection ENT exam: Present: normal oropharynx Neck exam: Present: normal inspection Respiratory exam: Present: normal lung sounds bilaterally. Absent: respiratory distress, wheezes, rales, rhonchi, stridor Cardiovascular Exam: Present: regular rate, normal rhythm, normal heart sounds. Absent: systolic murmur, diastolic murmur, rubs, gallop GI/Abdominal exam: Present: soft. Absent: distended, tenderness, guarding, rebound, rigid, mass Extremities exam: Present: normal inspection, normal capillary refill. Absent: pedal edema, calf tenderness Back exam: Present: normal inspection. Absent: CVA tenderness (R), CVA tenderness (L) Neurological exam: Present: alert Skin exam: Present: warm, dry, intact, normal color. Absent: rash Course Vital Signs 01/17/22 01/17/22 03:25 07:22 Temperature 98.5 F Pulse Rate 83 Respiratory 18 Rate Blood Pressure 123/87 102/71 O2 Sat by Pulse 100 Oximetry Medical Decision Making - Lab Data Result diagrams: 01/17/22 04:23 01/17/22 04:23 Lab Results 01/17/22 01/17/22 01/17/22 Range/Units 03:45 03:45 04:23 WBC 13.4 H (3.8-10.6) k/uL RBC 5.26 (3.80-5.40) m/uL Hgb 15.8 (11.4-16.0) gm/dL Hct 48.8 H (34.0-46.0) % MCV 92.8 (80.0-100.0) fL MCH 30.1 (25.0-35.0) pg MCHC 32.4 (31.0-37.0) g/dL RDW 13.7 (11.5-15.5) % Plt Count 301 (150-450) k/uL MPV 7.6 Neutrophils % (Manual) 68 % Band Neuts % (Manual) 16 % Lymphocytes % (Manual) 10 % Monocytes % (Manual) 4 % Eosinophils % (Manual) 2 % Neutrophils # (Manual) 11.20 H (1.3-7.7) k/uL Lymphocytes # (Manual) 1.34 (1.0-4.8) k/uL Monocytes # (Manual) 0.54 (0-1.0) k/uL Eosinophils # (Manual) 0.27 (0-0.7) k/uL Nucleated RBCs 0 (0-0) /100 WBC Manual Slide Review Performed Toxic Granulation Present Sodium (137-145) mmol/L Potassium (3.5-5.1) mmol/L Chloride (98-107) mmol/L Carbon Dioxide (22-30) mmol/L Anion Gap mmol/L BUN (7-17) mg/dL Creatinine (0.52-1.04) mg/dL Est GFR (CKD-EPI)AfAm (>60 ml/min/1.73 sqM) Est GFR (CKD-EPI)NonAf (>60 ml/min/1.73 sqM) Glucose (74-99) mg/dL Plasma Lactic Acid Anupam (0.7-2.0) mmol/L Calcium (8.4-10.2) mg/dL Total Bilirubin (0.2-1.3) mg/dL AST (14-36) U/L ALT (4-34) U/L Alkaline Phosphatase (38-126) U/L Total Protein (6.3-8.2) g/dL Albumin (3.5-5.0) g/dL Amylase (30-110) U/L Lipase (23-300) U/L Urine Color Dark Red Urine Appearance Turbid H (Clear) Urine pH 6.0 (5.0-8.0) Ur Specific [place] 1.014 (1.001-1.035) Urine Protein 2+ H (Negative) Urine Glucose (UA) Negative (Negative) Urine Ketones Negative (Negative) Urine Blood Large H (Negative) Urine Nitrite Negative (Negative) Urine Bilirubin Negative (Negative) Urine Urobilinogen <2.0 (<2.0) mg/dL Ur Leukocyte Esterase Large H (Negative) Urine RBC >182 H (0-5) /hpf Urine WBC >182 H (0-5) /hpf Urine WBC Clumps Many H (None) /hpf Urine Mucus Occasional H (None) /hpf Urine HCG, Qual Not Detected (Not Detectd) 01/17/22 01/17/22 Range/Units 04:23 04:23 WBC (3.8-10.6) k/uL RBC (3.80-5.40) m/uL Hgb (11.4-16.0) gm/dL Hct (34.0-46.0) % MCV (80.0-100.0) fL MCH (25.0-35.0) pg MCHC (31.0-37.0) g/dL RDW (11.5-15.5) % Plt Count (150-450) k/uL MPV Neutrophils % (Manual) % Band Neuts % (Manual) % Lymphocytes % (Manual) % Monocytes % (Manual) % Eosinophils % (Manual) % Neutrophils # (Manual) (1.3-7.7) k/uL Lymphocytes # (Manual) (1.0-4.8) k/uL Monocytes # (Manual) (0-1.0) k/uL Eosinophils # (Manual) (0-0.7) k/uL Nucleated RBCs (0-0) /100 WBC Manual Slide Review Toxic Granulation Sodium 138 (137-145) mmol/L Potassium 4.6 (3.5-5.1) mmol/L Chloride 103 (98-107) mmol/L Carbon Dioxide 23 (22-30) mmol/L Anion Gap 12 mmol/L BUN 15 (7-17) mg/dL Creatinine 0.84 (0.52-1.04) mg/dL Est GFR (CKD-EPI)AfAm >90 (>60 ml/min/1.73 sqM) Est GFR (CKD-EPI)NonAf 81 (>60 ml/min/1.73 sqM) Glucose 108 H (74-99) mg/dL Plasma Lactic Acid Anupam 1.5 (0.7-2.0) mmol/L Calcium 9.6 (8.4-10.2) mg/dL Total Bilirubin 0.4 (0.2-1.3) mg/dL AST 21 (14-36) U/L ALT 12 (4-34) U/L Alkaline Phosphatase 118 (38-126) U/L Total Protein 7.5 (6.3-8.2) g/dL Albumin 4.6 (3.5-5.0) g/dL Amylase 88 (30-110) U/L Lipase 88 (23-300) U/L Urine Color Urine Appearance (Clear) Urine pH (5.0-8.0) Ur Specific [place] (1.001-1.035) Urine Protein (Negative) Urine Glucose (UA) (Negative) Urine Ketones (Negative) Urine Blood (Negative) Urine Nitrite (Negative) Urine Bilirubin (Negative) Urine Urobilinogen (<2.0) mg/dL Ur Leukocyte Esterase (Negative) Urine RBC (0-5) /hpf Urine WBC (0-5) /hpf Urine WBC Clumps (None) /hpf Urine Mucus (None) /hpf Urine HCG, Qual (Not Detectd) Disposition Clinical Impression: UTI (urinary tract infection) Disposition: HOME SELF-CARE Condition: Good Prescriptions: Cephalexin [Keflex] 500 mg PO Q6HR #28 cap Phenazopyridine [Pyridium] 100 mg PO TID #6 tablet Is patient prescribed a controlled substance at d/c from ED?: No Referrals: Juan M Hernandez MD [Primary Care Provider] - 1-2 days
== END 2022-01-17 07:23 | disposition home or self-care (01) ==
LOC: EC 03:20
DX: N39.0 Urinary tract infection, site not specified (principal); Z88.0 Allergy status to penicillin; Z88.6 Allergy status to analgesic agent; Z88.2 Allergy status to sulfonamides; Z88.8 Allergy status to other drugs, medicaments and biological substances; Z91.011 Allergy to milk products; Z91.09 Other allergy status, other than to drugs and biological substances
CPT/HCPCS: 36415; 80053; 82150; 83605; 83690; 85025; 81001; 81025; 74018; 99283; 96365; J0696

== ENCOUNTER → 2022-07-02 | Outpatient (CLI) | payer BC ==
--- NOTE | 2022-07-03 21:56 | MM ---
Reason for Exam: Screening (asymptomatic). Last mammogram was performed 1 year(s) and 9 month(s) ago. Patient History: Menarche at age 13. Patient has no children. Left ovary removed at age 47. Right ovary removed at age 47. Postmenopausal. Hormonal Contraceptives for 1 year from age 23 until age 24. Sister had breast cancer, age 51. Risk Values: Sylvia 5 year model risk: 2.0%. NCI Lifetime model risk: 16.6%. Prior Study Comparison: 10/06/2018 Left Diagnostic Mammogram, [facility]. 03/29/2019 Left Diagnostic Mammogram, [facility]. 10/10/2020 Bilateral Screening Mammogram, [facility]. Tissue Density: The breast tissue is heterogeneously dense. This may lower the sensitivity of mammography. Findings: Analyzed By CAD. Asymmetrically larger left breast. Dense tissues are present throughout. Overall configuration of the breast densities appear similar. No significant change from prior exams. Overall Assessment: Benign, BI-RAD 2 Management: Screening Mammogram of both breasts in 1 year. 1. Patient should continue monthly self breast exams. Per NCCN guidelines, a 5 year risk greater than 1.67% is used to assess eligibility for risk reduction therapy. Consider specialist referral for further assessment. 2. A clinical breast exam by your physician is recommended on an annual basis. 3. This exam should not preclude additional follow-up of suspicious palpable abnormalities. Electronically signed and approved by: Lizz Strange M.D. Radiologist
== END | disposition home or self-care (01) ==
LOC: RADMAMWWP 14:53
PROVIDERS: ATTEND Obstetrics & Gynecology
DX: Z12.31 Encounter for screening mammogram for malignant neoplasm of breast (principal); Z80.3 Family history of malignant neoplasm of breast; Z78.0 Asymptomatic menopausal state
CPT/HCPCS: 77063; 77067

== ENCOUNTER 2022-10-09 19:45 | Emergency (ER) | payer BC ==
[2022-10-09 20:44] VITALS: BP 113/75; PULSE 75; RESP 16; TEMP 98.6
[2022-10-09] MEDS ORDERED: KETOROLAC 15 MG/ML 1 ML VIAL IM STA (21:03)
--- NOTE | 2022-10-09 21:29 | ED ---
Fall HPI - General Chief Complaint: Fall Stated Complaint: fall-left rib pain Time Seen by Provider: 10/09/22 20:46 Source: patient Mode of arrival: ambulatory - History of Present Illness Initial Comments: Patient is a 51-year-old female presenting with chief complaint of left-sided rib pain. Patient had a trip and fall backwards from a standing position. No loss of consciousness or blood thinners. He is complaining of pain mainly to the posterior portion of the left side of the ribs. There is increased pain with movement and deep breaths. No abdominal pain or chest pain. No headache, vision or hearing changes, numbness, tingling, weakness, nausea, vomiting. - Related Data Home Medications Medication Instructions Recorded Confirmed Ascorbic Acid/Multivit-Min 1,000 mg PO DAILY 05/03/18 05/03/18 [Emergen-C 1,000 mg Packet] Previous Rx's Medication Instructions Recorded Aspirin 325 mg PO DAILY #0 05/18/18 Ciprofloxacin HCl [Cipro] 500 mg PO Q12H 14 Days #28 tab 05/18/18 Ferrous Sulfate [Feosol] 325 mg PO BID #60 tab 05/18/18 metroNIDAZOLE [Flagyl] 500 mg PO Q8HR #42 tab 05/18/18 Cephalexin [Keflex] 500 mg PO Q6HR #28 cap 01/17/22 Phenazopyridine [Pyridium] 100 mg PO TID #6 tablet 01/17/22 Cyclobenzaprine [Flexeril] 10 mg PO HS PRN #20 tab 10/09/22 Allergies Allergy/AdvReac Type Severity Reaction Status Date / Time amoxicillin [Amoxicillin] Allergy Severe Rash/Hives Verified 10/09/22 20:44 gluten Allergy Nausea & Verified 10/09/22 20:44 Vomiting & Diarrhea alprazolam [From Xanax] AdvReac Severe Unknown Verified 10/09/22 20:44 morphine AdvReac Severe Itching Verified 10/09/22 20:44 sulfamethoxazole AdvReac Severe Dyspnea Verified 10/09/22 20:44 [From Bactrim] trimethoprim [From Bactrim] AdvReac Severe Dyspnea Verified 10/09/22 20:44 ciprofloxacin [From Cipro] AdvReac Unknown Verified 10/09/22 20:44 Milk Containing Products AdvReac Nausea & Verified 10/09/22 20:44 [Dairy] Vomiting & Diarrhea tree nut [Nut] AdvReac Nausea & Verified 10/09/22 20:44 Vomiting & Diarrhea novacaine AdvReac Severe Rapid Uncoded 10/09/22 20:44 Heart Rate Review of Systems ROS Statement: Those systems with pertinent positive or pertinent negative responses have been documented in the HPI. ROS Other: All systems not noted in ROS Statement are negative. Past Medical History Past Medical History: Neurologic Disorder, Pneumonia, Rheumatoid Arthritis (RA) Additional Past Medical History / Comment(s): MULTIPLE SCLEROSIS. ENDOMETRIOSIS. RIGHT KIDNEY ENLARGED History of Any Multi-Drug Resistant Organisms: None Reported Past Surgical History: Orthopedic Surgery Additional Past Surgical History / Comment(s): EXP. LAP FOR ENDOMETRIOSIS X2 WITH SCAR TISSUE ON OVARIES. ADENEXAL CYSTIC DRAINAGE DUE TO PRESSURE ON URETHERA Past Anesthesia/Blood Transfusion Reactions: Previous Problems w/ Anesthesia Additional Past Anesthesia/Blood Transfusion Reaction / Comment(s): NOVACAINE. IT CAUSED INCREASED HEART RATE. Past Psychological History: Anxiety, Depression Smoking Status: Never smoker Past Alcohol Use History: None Reported Past Drug Use History: None Reported - Past Family History Mother Family Medical History: Cancer, Thyroid Disorder Father Additional Family Medical History / Comment(s): , Heart Attack at 57 Sister(s) Family Medical History: Cancer Additional Family Medical History / Comment(s): Breast Cancer General Exam Limitations: no limitations General appearance: alert, in no apparent distress Head exam: Present: atraumatic, normocephalic, normal inspection Eye exam: Present: normal appearance, EOMI. Absent: scleral icterus, tessa orbital swelling Neck exam: Present: normal inspection, full ROM. Absent: tenderness Respiratory exam: Present: normal lung sounds bilaterally. Absent: respiratory distress, wheezes, rales, rhonchi, stridor Cardiovascular Exam: Present: regular rate, normal rhythm, normal heart sounds. Absent: systolic murmur, diastolic murmur, rubs, gallop, clicks Back exam: Present: normal inspection, paraspinal tenderness. Absent: vertebral tenderness Neurological exam: Present: alert, oriented X3, CN II-XII intact Expanded Patient oriented to: Present: person, place, time Speech: Present: fluid speech Cranial nerves: EOM's Intact: Normal Eye Response: (4) open spontaneously Motor Response: (6) obeys commands Verbal Response: (5) oriented Brendan Total: 15 Psychiatric exam: Present: normal affect, normal mood Skin exam: Present: warm, dry, intact, normal color. Absent: rash Course Vital Signs 10/09/22 20:40 Temperature 98.6 F Pulse Rate 75 Respiratory 16 Rate Blood Pressure 113/75 O2 Sat by Pulse 98 Oximetry Medical Decision Making - Medical Decision Making Was pt. sent in by a medical professional or institution (, PA, CUT OFF MACHINE UNLOADER, urgent care, hospital, or long term...) When possible be specific @ -No Did you speak to anyone other than the patient for history (EMS, parent, family, police, friend...)? What history was obtained from this source @ -No Did you review nursing and triage notes (agree or disagree)? Why? @ -I reviewed and agree with nursing and triage notes Were old charts reviewed (outside hosp., previous admission, EMS record, old EKG, old radiological studies, urgent care reports/EKG's, long term records)? Report findings @ -No old charts were reviewed Differential Diagnosis (chest pain, altered mental status, abdominal pain women, abdominal pain men, vaginal bleeding, weakness, fever, dyspnea, syncope, headache, dizziness, GI bleed, back pain, seizure, CVA, palpatations, mental health, musculoskeletal)? @ - MDM Differential Back Pain: Strain, zoster, cauda equina syndrome, epidural abscess, vertebral osteomyelitis, discitis, fracture, subluxation, disc herniation, DJD, spinal stenosis, dissection, AAA, pancreatitis, peptic ulcer disease, pyelonephritis, kidney stone this is not meant to be an all-inclusive list. EKG interpreted by me (3pts min.). @ -As above X-rays interpreted by me (1pt min.). @ -X-Ray shows no evidence of fracture CT interpreted by me (1pt min.). @ -None done U/S interpreted by me (1pt. min.). @ -None done What testing was considered but not performed or refused? (CT, X-rays, U/S, labs)? Why? @ -None What meds were considered but not given or refused? Why? @ -None Did you discuss the management of the patient with other professionals (professionals i.e. , LIONEL, CUT OFF MACHINE UNLOADER, lab, RT, psych nurse, social services designee, metal cans supervisor, teacher, workers' compensation hearings officer, case liner)? Give summary @ -No Was smoking cessation discussed for >3mins.? @ -No Was critical care preformed (if so, how long)? @ -No Were there social determinants of health that impacted care today? How? (Homelessness, low income, unemployed, alcoholism, drug addiction, transportation, low edu. Level, literacy, decrease access to med. care, group home, rehab)? @ -No Was there de-escalation of care discussed even if they declined (Discuss DNR or withdrawal of care, Hospice)? DNR status @ -No What co-morbidities impacted this encounter? (DM, HTN, Smoking, COPD, CAD, Cancer, CVA, ARF, Chemo, Hep., AIDS, mental health diagnosis, sleep apnea, morbid obesity)? @ -None Was patient admitted / discharged? Hospital course, mention meds given and route, prescriptions, significant lab abnormalities, going to OR and other pertinent info. @ -Patient is a 51-year-old female presenting with chief complaint of rib pain. Mainly in the posterior portion on the left side. Patient had a trip and fall from standing. No loss of consciousness or blood thinners. On physical examination heart and lungs are clear to auscultation. There is paraspinal muscle tenderness. X-ray shows no evidence of fracture. Patient is given Toradol and Norflex and educated on supportive management at home. Follow-up with PCP. Report back to ER with any new or worsening symptoms. Discussed return parameters and answered all questions. Patient conveyed verbal understanding and agreed to the plan. I discussed this case in detail with my attending Dr. Quinonez Undiagnosed new problem with uncertain prognosis? @ -No Drug Therapy requiring intensive monitoring for toxicity (Heparin, Nitro, Insulin, Cardizem)? @ -No Were any procedures done? @ -No Diagnosis/symptom? @ -Rib pain Acute, or Chronic, or Acute on Chronic? @ -Acute Uncomplicated (without systemic symptoms) or Complicated (systemic symptoms)? @ -Uncomplicated Side effects of treatment? @ -No Exacerbation, Progression, or Severe Exacerbation? @ -No Poses a threat to life or bodily function? How? (Chest pain, [place], IA, pneumonia, PE, COPD, DKA, ARF, appy, cholecystitis, CVA, Diverticulitis, Homicidal, Suicidal, threat to staff... and all critical care pts) @ -No Disposition Clinical Impression: Rib pain Disposition: HOME SELF-CARE Condition: Good Instructions (If sedation given, give patient instructions): Rib Fracture (ED) Additional Instructions: Follow-up with PCP. Report back to ER with any new or worsening symptoms. Take Motrin and Tylenol as needed for pain control. Take medication as prescribed, do not take cyclobenzaprine before driving or operating heavy machinery as it may cause drowsiness. Prescriptions: Cyclobenzaprine [Flexeril] 10 mg PO HS PRN #20 tab PRN Reason: Spasms Is patient prescribed a controlled substance at d/c from ED?: No Referrals: Juan M Hernandez MD [Primary Care Provider] - 1-2 days Time of Disposition: 22:54
--- NOTE | 2022-10-09 22:18 | XR ---
EXAMINATION TYPE: XR ribs LT w pa chest xray DATE OF EXAM: 10/09/2022 9:42 PM INDICATION: Patient age:Female; 51 years old; Reason for study: fall, posterior rib pain; COMPARISON: 05/03/2018 TECHNIQUE: Frontal and oblique views of the left ribs with frontal chest radiograph. FINDINGS: The ribs have a normal appearance. No evidence of fracture. Overall, the lungs are clear. The cardiac silhouette is normal in size. The remaining osseous structures are intact. Airspace opa cities in the right lung base are similar prior. IMPRESSION: No definitive acute fracture. If there remains concern consider CT imaging.
[2022-10-09] MEDS ORDERED: ORPHENADRINE 30 MG/ML 2 ML VIAL IM STA (22:36)
[2022-10-09] MEDS ORDERED: IBUPROFEN 600 MG STARTER PACK 4 TAB BTL PO STA (23:01)
== END 2022-10-09 23:10 | disposition home or self-care (01) ==
LOC: EC 19:45
DX: R07.81 Pleurodynia (principal); F41.9 Anxiety disorder, unspecified; F32.A Depression, unspecified; Z88.0 Allergy status to penicillin; Z91.018 Allergy to other foods; Z88.5 Allergy status to narcotic agent; Z88.2 Allergy status to sulfonamides; Z91.011 Allergy to milk products; Z88.8 Allergy status to other drugs, medicaments and biological substances
CPT/HCPCS: 71101; 99283; 96372 ×2; J2360; J1885